=== PATIENT | female | born 1935 | race Caucasian/White ===

== ENCOUNTER 2016-08-25 08:57 | Inpatient (IN) | payer MEDICARE ==
[2016-08-25] VITALS (9 sets, daily range): BP systolic 103–142; BP diastolic 50–88; PULSE 75–90; RESP 18–20; TEMP 96.7–98.1; O2SAT 94–100
[~2016-08-25] VITALS: Ht 167.6 cm; Wt 60.0 kg
[~2016-08-25 08:57] MED LIST: ALBU2.5I INH; ASPI81TA82 PO; IPRA0.02 NEB; LEVO50TA4 PO; LOSA50TA PO; NEBUMIS6 INH; PRED10 PO; SULF-154 PO
[2016-08-25] MEDS ORDERED: SODIUM CHLORIDE 0.9% FLUSH 10 ML FLUSH IVF PRN (09:30)
[2016-08-25] MEDS ORDERED: MORPHINE SULFATE 4 MG/ML INJ IV PUSH ONE (09:30)
[2016-08-25] MEDS ORDERED: ONDANSETRON HCL 4 MG/2 ML VIAL IV PUSH ONE (09:30)
[2016-08-25 09:39] LABS: AUTOMATED NEUTROPHIL # 17.6 TH/MM3 (1.8-7.7); BASOPHIL # 0.1 TH/MM3 (0-0.2); BASOPHIL % 0.3 % (0.0-2.0); EOSINOPHIL # 0.4 TH/MM3 (0-0.4); EOSINOPHIL % 1.7 % (0.0-4.0); HEMATOCRIT 38.2 % (35.0-46.0); HEMO FLAGS DIFF FINAL; LYMPH % 14.4 % (9.0-44.0); LYMPHOCYTE # 3.3 TH/MM3 (1.0-4.8); MEAN CELL VOLUME 93.2 FL (80.0-100.0); MEAN CORPUSCULAR HEMOGLOBIN 30.6 PG (27.0-34.0); MEAN CORPUSCULAR HGB CONC 32.8 % (32.0-36.0); MONO % 5.4 % (0.0-8.0); NEUT % 78.2 % (16.0-70.0); PLATELET COUNT 315 TH/MM3 (150-450); RED CELL DISTRIBUTION WIDTH 14.6 % (11.6-17.2); WHITE BLOOD COUNT 22.5 TH/MM3 (4.0-11.0)
[2016-08-25 09:47] LABS: INTERNATIONAL NORMALIZED RATIO 0.9 RATIO; PROTHROMBIN TIME - PATIENT 10.3 SEC (9.8-11.6)
[2016-08-25] MEDS ORDERED: CYCL1TAB29 PO (09:48)
[2016-08-25] MEDS ORDERED: ASPI81CH CHEW (09:48)
[2016-08-25] MEDS ORDERED: VENTAER INH (09:48)
[2016-08-25] MEDS ORDERED: DICL75TA PO (09:48)
[2016-08-25] MEDS ORDERED: ALBU.5I NEB (09:48)
[2016-08-25] MEDS ORDERED: NAPR220C22 (09:48)
[2016-08-25] MEDS ORDERED: SIMV40TA PO (09:48)
[2016-08-25] MEDS ORDERED: LEVO50TA4 PO (09:48)
[2016-08-25] MEDS ORDERED: areds (09:48)
[2016-08-25] MEDS ORDERED: LOSA50TA PO (09:48)
[2016-08-25] MEDS ORDERED: HYDR-3516 PO (09:48)
[2016-08-25 09:54] LABS: BICARBONATE 26.4 MEQ/L (21.0-32.0); POTASSIUM 3.9 MEQ/L (3.5-5.1)
--- NOTE | 2016-08-25 09:59 | RADRPT ---
EXAM DATE/TIME: 08/25/2016 09:44 [facility] COMPARISON: HIP LEFT (AP&LAT 2/3VWS) W AP PELVIS, August 25, 2016, 9:41. INDICATIONS : Cough. MEDICAL HISTORY : Cardiovascular disease. SURGICAL HISTORY : CABG. ENCOUNTER: Initial ACUITY: 1 day PAIN SCORE: 0/10 LOCATION: Bilateral chest FINDINGS: The heart is mildly enlarged. The patient is post median sternotomy and valvular replacement. The pul monary parenchyma demonstrates mild interstitial fibrotic change but is otherwise clear. The visualiz ed bony structures are grossly intact. CONCLUSION: 1. Chronic interstitial changes and mild cardiomegaly. No acute abnormality. Rowdy Starr MD on August 25, 2016 at 9:57 Board Certified Radiologist. This report was verified electronically.
--- NOTE | 2016-08-25 10:00 | RADRPT ---
EXAM DATE/TIME: 08/25/2016 09:41 [facility] COMPARISON: CHEST SINGLE AP, April 04, 2015, 0:33. INDICATIONS : Left hip pain, fall. MEDICAL HISTORY : None. SURGICAL HISTORY : None. ENCOUNTER: Initial ACUITY: 1 day PAIN SCORE: 9/10 LOCATION: Left hip FINDINGS: The examination demonstrates a comminuted, angulated intratrochanteric fracture of the left hip. The remainder of the osseous structures of the pelvis are intact. There are degenerative changes in the lumbar spine. CONCLUSION: 1. Intratrochanteric fracture of the left hip. Rowdy Starr MD on August 25, 2016 at 9:57 Board Certified Radiologist. This report was verified electronically.
--- NOTE | 2016-08-25 10:08 | RADRPT ---
EXAM DATE/TIME: 08/25/2016 09:56 [facility] COMPARISON: No previous studies available for comparison. INDICATIONS : Head trauma, at home fall. RADIATION DOSE: 56.35 CTDIvol (mGy) MEDICAL HISTORY : Cardiovascular disease. Hypertension. COPD SURGICAL HISTORY : None. ENCOUNTER: Initial ACUITY: 1 day PAIN SCALE: 3/10 LOCATION: TECHNIQUE: Multiple contiguous axial images were obtained of the head. Using automated exposure control and adj ustment of the mA and/or kV according to patient size, radiation dose was kept as low as reasonably a chievable to obtain optimal diagnostic quality images. FINDINGS: There is marked central and cortical atrophy with dilatation of ventricular and sulcal spaces. There is no parenchymal hemorrhage, acute infarction or mass lesion identified. The couldn't infarct is present basalganglia left side. There are no extra-axial fluid collections appreciated. The pos terior fossa is unremarkable with midline fourth ventricle. The portion of the orbits are unremarka ble. Minimal maxillary sinus disease is noted on the left. CONCLUSION: Atrophy, otherwise negative. Zev Starr MD FACR on August 25, 2016 at 10:03 Board Certified Radiologist. This report was verified electronically.
--- NOTE | 2016-08-25 10:21 | PD ---
HPI Chief Complaint: Hip Injury Time Seen by Provider: 09:15 Travel History International Travel<30 days: No Contact w/Intl Traveler<30days: No Traveled to known affect area: No History of Present Illness HPI 81-year-old female who was bending down to show her son a lesion on her foot suddenly got dizzy and fell. She injured her left hip and also hit the back of her head hard. Currently she is awake and is in significant pain in her left hip area. She was brought in by EMS. Patient is awake and answering questions appropriately. Seems to be in agony from a possible hip fracture. Patient was unable to get up from the floor because of the pain. Vital signs were within acceptable limits. PFSH Past Medical History Narrative Medical List of her past medical, surgical, social and family history is reviewed from the nursing note. Blood Disorders: No Heart Rhythm Problems: Yes Cancer: No Cardiovascular Problems: Yes High Cholesterol: Yes Chest Pain: Yes Congestive Heart Failure: Yes COPD: Yes Diabetes: No Diminished Hearing: No Endocrine: Yes Gastrointestinal Disorders: Yes (DIVERTICULITIS) Genitourinary: Yes (INCONTINENCE) Hepatitis: No Hiatal Hernia: No Hypertension: Yes Immune Disorder: No Musculoskeletal: No Neurologic: No Psychiatric: No Reproductive: No Respiratory: Yes (COPD) Thyroid Disease: Yes Menopausal: No : 3 Para: 3 Past Surgical History Abdominal Surgery: Yes (APPENDECTOMY) AICD: No Appendectomy: Yes Cardiac Surgery: Yes Coronary Artery Bypass Graft: Yes Eye Surgery: Yes (BILATERAL CATARACT SX) Joint Replacement: No Pacemaker: No Valve Replacement: Yes (08/29/05 ) Other Surgery: Yes Social History Alcohol Use: No Tobacco Use: Yes Substance Use: No Allergies-Medications (Allergen,Severity, Reaction): Coded Allergies: Adhesives (Verified Allergy, Severe, ADHESIVE TAPE/BLISTERS SKIN, 08/25/16) MILD REACTION Tetracycline (Verified Allergy, Severe, 08/25/16) UNKNOWN REACTION *MDRO Multi-Drug Resistant Organism (Unverified Adverse Reaction, Unknown , Cleared 08/25/16, 08/26/16) MRSA Sputum and Blood 2005 Cleared - MRSA screen negative 04/04/15 & 08/25/16 Comments List of her allergies reviewed from the nursing note. Reported Meds & Prescriptions Reported Meds & Active Scripts Active Reported Ventolin Hfa 18 GM Inh (Albuterol Sulfate) 90 Mcg/Act Aer 2 Puff INH Q4-6H PRN Simvastatin 40 Mg Tab 40 Mg PO HS Losartan (Losartan Potassium) 50 Mg Tab 50 Mg PO DAILY Levothyroxine (Levothyroxine Sodium) 50 Mcg Tab 50 Mcg PO DAILY Narrative Medication List of her home medications reviewed from the nursing note. Review of Systems Except as stated in HPI: all other systems reviewed are Neg Physical Exam Narrative GENERAL: Awake, alert, elderly, frail, significant distress SKIN: Focused skin assessment warm/dry. HEAD: Atraumatic. Normocephalic. EYES: Pupils equal and round. No scleral icterus. No injection or drainage. ENT: No nasal bleeding or discharge. Mucous membranes pink and moist. NECK: Trachea midline. No JVD. CARDIOVASCULAR: Regular rate and rhythm. No murmur appreciated. RESPIRATORY: No accessory muscle use. Clear to auscultation. Breath sounds equal bilaterally. GASTROINTESTINAL: Abdomen soft, non-tender, nondistended. Hepatic and splenic margins not palpable. MUSCULOSKELETAL: Left leg is shortened and externally rotated. No clubbing. No cyanosis. No edema. Distal neurovascular intact NEUROLOGICAL: Awake and alert. No obvious cranial nerve deficits. Motor grossly within normal limits. Normal speech. PSYCHIATRIC: Appropriate mood and affect; insight and judgment normal. Data Data Last Documented VS Vital Signs Date Time Temp Pulse Resp B/P Pulse Ox O2 Delivery O2 Flow Rate FiO2 08/25/16 10:25 77 18 142/61 100 Nasal Cannula 2 08/25/16 09:19 98.1 Orders Electrocardiogram (08/25/16 09:17) Basic Metabolic Panel (Bmp) (08/25/16 09:17) Complete Blood Count With Diff (08/25/16 09:17) Prothrombin Time / Inr (Pt) (08/25/16 09:17) Chest, Single Ap (08/25/16 09:17) Ecg Monitoring (08/25/16 09:17) Bilateral Bp Monitoring (08/25/16 09:17) Iv Access Insert/Monitor (08/25/16:17) Oximetry (08/25/16:17) Oxygen Administration (08/25/16 09:17) Morphine Inj (Morphine Inj) (08/25/16 09:30) Sodium Chloride 0.9% Flush (Ns Flush) (08/25/16 09:30) Ondansetron Inj (Zofran Inj) (08/25/16 09:30) Hip, Uni(Ap&Lat) W Ap Pelvis (08/25/16 ) Ct Brain W/O Iv Contrast(Rout) (08/25/16 ) Type And Screen (08/25/16 09:17) Admit Order (Ed Use Only) (08/25/16 10:35) Labs Laboratory Tests Test 08/25/16 09:28 White Blood Count 22.5 TH/MM3 Red Blood Count 4.10 MIL/MM3 Hemoglobin 12.6 GM/DL Hematocrit 38.2 % Mean Corpuscular Volume 93.2 FL Mean Corpuscular Hemoglobin 30.6 PG Mean Corpuscular Hemoglobin 32.8 % Concent Red Cell Distribution Width 14.6 % Platelet Count 315 TH/MM3 Mean Platelet Volume 8.8 FL Neutrophils (%) (Auto) 78.2 % Lymphocytes (%) (Auto) 14.4 % Monocytes (%) (Auto) 5.4 % Eosinophils (%) (Auto) 1.7 % Basophils (%) (Auto) 0.3 % Neutrophils # (Auto) 17.6 TH/MM3 Lymphocytes # (Auto) 3.3 TH/MM3 Monocytes # (Auto) 1.2 TH/MM3 Eosinophils # (Auto) 0.4 TH/MM3 Basophils # (Auto) 0.1 TH/MM3 CBC Comment DIFF FINAL Differential Comment Prothrombin Time 10.3 SEC Prothromb Time International 0.9 RATIO Ratio Sodium Level 138 MEQ/L Potassium Level 3.9 MEQ/L Chloride Level 104 MEQ/L Carbon Dioxide Level 26.4 MEQ/L Anion Gap 8 MEQ/L Blood Urea Nitrogen 17 MG/DL Creatinine 0.96 MG/DL Estimat Glomerular Filtration 56 ML/MIN Rate Random Glucose 96 MG/DL Calcium Level 8.5 MG/DL Blood Type O POSITIVE Antibody Screen NEGATIVE MDM Medical Decision Making Medical Screen Exam Complete: Yes Emergency Medical Condition: Yes Medical Record Reviewed: Yes Interpretation(s) Twelve-lead EKG was reviewed by me. Atrial fibrillation, left bundle branch block. Heart rate of 79 bpm. Differential Diagnosis Hip fracture, hip dislocation Narrative Course 10:19 AM x-ray suggestive of intertrochanteric hip fracture. Head CT was done due to the history of head injury which is negative. Patient has significant leukocytosis which could be related to her stress. Rest of the workup is within normal limit. Awaiting for the hospitalist and the orthopedist to call back. Patient will require admission. Procedures EKG Prior to Arrival: No Diagnosis Primary Impression: Intertrochanteric fracture of left hip Qualified Code: S72.145A - Closed nondisplaced intertrochanteric fracture of left femur, initial encounter Additional Impressions: Fall Qualified Code: W19.XXXA - Fall, initial encounter Leukocytosis Qualified Code: D72.829 - Leukocytosis, unspecified type Admitting Information Admitting Physician Requests: Admit Scripts Docusate Sodium (Dok)100 Mg Vgx634 Mg PO BID #62 CAP Prov:Shilpa De Santiago 08/28/16 Ipratropium-Albuterol Neb (Duoneb)0.5-2.5 Mg/3 Ml Neb1 Nebule INH DIRECTED PRN (SOB/WHEEZING) #120 NEBULE Ref 0 Please give Q4H scheduled for the next 4 days, then can be used as needed. Prov:Shilpa De Santiago 08/28/16 Prednisone 20 Mg Tab20 Mg PO DIRECTED #11 TAB Ref 0 20 MG twice a day x 3 days, then 20 MG daily x 3 days, then 10 MG daily x 3 days Prov:Shilpa De Santiago 08/28/16 Mupirocin Topical (Bactroban Topical)22 Gm Cream1 Applic TOPICAL BID #1 TUBE Ref 0 apply BID to right foot 4th digit and left foot 5th digit Prov:Shilpa De Santiago 08/28/16 Aspirin 81 Mg Chew81 Mg CHEW DAILY #30 TAB Ref 0 Resume after Xarelto completed Prov:Shilpa De Santiago 08/28/16 Calcium Carbonate-Vitamin D (Calcium 600+D 200)600-200 Mg-Unit Tab1 Tab PO BID #60 TAB Ref 0 Prov:Tello Gamez Jr. 08/27/16 Ergocalciferol 50,000 Unit Cap50,000 Units PO Q7D #56 CAP Prov:Tello Gamez Jr. 08/27/16 Rivaroxaban (Xarelto)10 Mg Tab10 Mg PO DAILY #21 TAB Ref 0 Prov:Tello Gamez Jr. 08/27/16 Hydrocodone-Acetaminophen 7.5-325 mg Tab1 Tab PO Q4H PRN (PAIN) #60 TAB Ref 0 Prov:Tello Gamez Jr. 08/27/16 Walker with Front Wheels 1 Mis Mis #1 EA .ROUTE DIRECTED Ref 0 Prov:Tello Gamez Jr. 08/27/16 Laurence Nur MD Aug 25, 2016 10:21
[2016-08-25] MEDS ORDERED: ACETAMINOPHEN/HYDROcodone 325 MG/7.5 MG TAB PO PRN (11:45)
[2016-08-25] MEDS ORDERED: MORPHINE SULFATE 4 MG/ML INJ IV PUSH PRN (11:45)
[2016-08-25] MEDS: SODIUM CHLOR 0.9% 1000 ML INJ 1,000 ML IV SCH (11:50)
--- NOTE | 2016-08-25 13:38 | HHI.HP ---
HPI Service [facility] Hospitalists Primary Care Physician Garrett Mahajan M.D. Admission Diagnosis left hip fracture Chief Complaint: Left hip pain Travel History International Travel<30 Days: No Contact w/Intl Traveler <30 Da: No Traveled to Known Affected Are: No History of Present Illness Ms. Tony is a pleasant 81 y/o WF with CAD, HTN, COPD and restrictive lung disease, continued tobacco use and valvular heart disease s/p AVR in 2005 with porcine valve. She presented to the ED at [facility] on 08/25/16 with complaints of left hip pain. She states that she was bending over this morning to show her son a spot on her foot and became dizzy and fell over. She landed on her left side and had significant pain on the left hip and was unable to stand up or bear weight on that LE. Pt was brought to the ED and imaging studies revealed an intratrochanteric left hip fracture. Pt denies any chest pain, SOB, or palpitations. There was no syncope or LOC. She did hit her head when she fell but the Head CT was negative other than noted atrophy. The pt is a current every day smoker and has smoked at least 1 ppd since the age of 11 and was previously smoking 2.5ppd. She states that she does not use any nebulizers or inhalers at home. She occasionally uses supplemental O2 at night. Pt denies any fevers or chills, nausea/vomiting, or abd pain. Review of Systems Constitutional: COMPLAINS OF: Dizziness (positional), DENIES: Fever, Chills Eyes: DENIES: Vision loss Ears, nose, mouth, throat: DENIES: Hearing loss, Vertigo Respiratory: DENIES: Cough, Shortness of breath Cardiovascular: DENIES: Chest pain, Palpitations, Lower Extremity Edema Gastrointestinal: DENIES: Abdominal pain, Diarrhea, Nausea, Vomiting Genitourinary: DENIES: Hematuria, Dysuria Musculoskeletal: COMPLAINS OF: Joint pain, DENIES: Back pain, Neck pain Integumentary: DENIES: Rash Neurologic: DENIES: Headache Psychiatric: DENIES: Confusion Past Family Social History Past Medical History CAD s/p CABG x 1 in 2005 s/p AVR with bioprosthetic valve HTN Hyperlipidemia CVA, 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 ?25mg po BID -Flexeril 10 Mg PO TID PRN -Diclofenac Sodium DR 75 Mg PO ?BID -Levothyroxine 50 Mcg PO DAILY -Aspirin 81 Mg CHEW DAILY ?Albuterol Neb (Albuterol Sulfate) 2.5 Mg/0.5 Ml Neb 2.5 Mg NEB QID NEB Note: The Albuterol Sulfate Inhalation Solution is concentrated and must be diluted. Read complete instructions carefully before using. ?Ventolin Hfa 18 GM Inh (Albuterol Sulfate) 90 Mcg/Act Aer 2 Puff INH Q4-6H PRN Allergies: Coded Allergies: Adhesives (Verified Allergy, Severe, ADHESIVE TAPE/BLISTERS SKIN, 08/25/16) MILD REACTION Tetracycline (Verified Allergy, Severe, 08/25/16) UNKNOWN REACTION *MDRO Multi-Drug Resistant Organism (Unverified Adverse Reaction, Unknown , Cleared 08/25/16, 08/26/16) MRSA Sputum and Blood 2005 Cleared - MRSA screen negative 04/04/15 & 08/25/16 Family History Noncontributory Social History Current everyday smoker, smokes 1ppd since age 11 but was smoking as much as 2.5ppd. Denies any alcohol or illicit drug use Pt lives at home with her adult son, she reports that he is disabled but able to help her with her ADLs Physical Exam Vital Signs Vital Signs Date Time Temp Pulse Resp B/P Pulse Ox O2 Delivery O2 Flow Rate FiO2 08/25/16 12:07 18 08/25/16 10:25 77 18 142/61 100 Nasal Cannula 2 08/25/16 10:07 81 20 142/61 100 Nasal Cannula 2 08/25/16 09:48 18 08/25/16 09:31 97 Nasal Cannula 2 08/25/16 09:31 97 Nasal Cannula 2 08/25/16 09:19 98.1 75 20 122/88 95 Physical Exam GENERAL: This is a well-nourished, well-developed patient, in no apparent distress. SKIN: Area of macerated tissue on the lateral aspect of the 4th digit on the right foot, appears to be a pressure lesion related to 5th digit, no significant erythema or drainage noted. Small area of dried ulcerated tissue on lateral aspect of left 5th digit, no erythema or swelling noted. HEENT: Atraumatic. Normocephalic. No temporal or scalp tenderness. No scleral icterus. Airway patent. NECK: Trachea midline, supple, nontender. CARDIO: Regular. RESP: Coarse breath sounds bilaterally, improves slightly with cough. ABD: +BS, soft, non-tender, nondistended. EXT: LLE is shortened and externally rotated NEURO: Awake and alert. Motor and sensory grossly within normal limits. Normal speech. Laboratory Laboratory Tests Test 08/25/16 09:28 White Blood Count 22.5 Red Blood Count 4.10 Hemoglobin 12.6 Hematocrit 38.2 Mean Corpuscular Volume 93.2 Mean Corpuscular Hemoglobin 30.6 Mean Corpuscular Hemoglobin 32.8 Concent Red Cell Distribution Width 14.6 Platelet Count 315 Mean Platelet Volume 8.8 Neutrophils (%) (Auto) 78.2 Lymphocytes (%) (Auto) 14.4 Monocytes (%) (Auto) 5.4 Eosinophils (%) (Auto) 1.7 Basophils (%) (Auto) 0.3 Neutrophils # (Auto) 17.6 Lymphocytes # (Auto) 3.3 Monocytes # (Auto) 1.2 Eosinophils # (Auto) 0.4 Basophils # (Auto) 0.1 CBC Comment DIFF FINAL Differential Comment Prothrombin Time 10.3 Prothromb Time International 0.9 Ratio Sodium Level 138 Potassium Level 3.9 Chloride Level 104 Carbon Dioxide Level 26.4 Anion Gap 8 Blood Urea Nitrogen 17 Creatinine 0.96 Estimat Glomerular Filtration 56 Rate Random Glucose 96 Calcium Level 8.5 Blood Type O POSITIVE Antibody Screen NEGATIVE Result Diagram: 08/25/1692708/25/16927 Imaging Last Impressions Chest X-Ray 08/25/16916 Signed Impressions: Service Date/Time: Thursday, August 25, 2016 09:44 - CONCLUSION: 1. Chronic interstitial changes and mild cardiomegaly. No acute abnormality. Rowdy Starr MD Hip and Pelvis X-Ray 08/25/16 0000 Signed Impressions: Service Date/Time: Thursday, August 25, 2016 09:41 - CONCLUSION: 1. Intratrochanteric fracture of the left hip. Rowdy Starr MD Head CT 08/25/16 0000 Signed Impressions: Service Date/Time: Thursday, August 25, 2016 09:56 - CONCLUSION: Atrophy, otherwise negative. Zev Starr MD FACR Septic Shock Reassessment Heart: Regular rate and rhythm Lungs: Course Skin: Warm Assessment and Plan Problem List: (1) Intertrochanteric fracture of left hip Status: Acute Plan: - Pt is an 81 y/o female with COPD, chronic tobacco use, CAD, HTN, and hx of CVA who was admitted after a fall related to positional dizziness and sustained an intratrochanteric fracture of the left hip. - Orthopedic surgery is consulted - IVF - Pain control PRN - Duonebs scheduled Q4H - Supplemental O2 - Givens pts chronic comorbid conditions pt is higher risk with surgical intervention but that with no surgical intervention she would be bed ridden and this was discussed with the pt and she expressed understanding. She wants to proceed with surgical intervention. - IVF - Repeat labs in AM - EKG at admission reported A. fib and has a documented hx of paroxysmal atrial fibrillation post-operatively but pt is rate controlled currently - Pt will likely need SNF at the end of this hospitalization but we will discuss this further post-operatively (2) Leukocytosis Status: Acute Plan: - May be reactive leukocytosis, no evidence of any infection, no fevers/chills, no subjective complaints - She does have some noted ulcerations on two of her toes but these appear somewhat chronic possibly pressure related and do not appear to be infected. - She will need to followup outpt with podiatry - Recheck labs in AM (3) COPD (chronic obstructive pulmonary disease) Status: Chronic Plan: - Duonebs Q4H scheduled and Q2H PRN (4) HTN (hypertension) Status: Chronic Plan: - Resume Losartan in AM - Monitor (5) Hypothyroidism Status: Chronic Plan: - Cont. home meds (6) Hyperlipidemia Status: Chronic Plan: - Cont. home meds Assessment and Plan Patient examined. Assessment and plan formulated with Shilpa De Santiago PA-C. I agree with the above. Intertroch fx of hip. high risk medical pt..but pt wishes to proceed. cont scheduled nebs for copd. IS. dvt prophylaxis post op. cont home meds. ortho consulted. pain meds. Physician Certification 2 Midnight Certification Type: Admission for Inpatient Services Order for Inpatient Services The services are ordered in accordance with Medicare regulations or non- Medicare payer requirements, as applicable. In the case of services not specified as inpatient-only, they are appropriately provided as inpatient services in accordance with the 2-midnight benchmark. Estimated LOS (days): 3 3 days is the estimated time the patient will need to remain in the hospital, assuming treatment plan goals are met and no additional complications. Post-Hospital Plan: Not yet determined Problem Qualifiers (1) Intertrochanteric fracture of left hip: Qualified Code: S72.145A - Closed nondisplaced intertrochanteric fracture of left femur, initial encounter (2) Leukocytosis: Qualified Code: D72.829 - Leukocytosis, unspecified type Shilpa De Santiago Aug 25, 2016 13:38 Chad Rudolph MD Aug 25, 2016 15:48
[2016-08-25] MEDS ORDERED: ONDANSETRON HCL 4 MG/2 ML VIAL IV PRN (13:45)
[2016-08-25] MEDS ORDERED: ACETAMINOPHEN 325 MG TAB PO PRN (13:45)
[2016-08-25] MEDS ORDERED: RESP: ALBUTEROL 2.5 MG/IPRATROPIUM 0.5 MG NEB (PRN) NEB ×2 (13:45→16:00)
[2016-08-25] MEDS ORDERED: ENALAPRILAT 1.25 MG/ML VIAL IV PUSH PRN (15:30)
[2016-08-25] MEDS ORDERED: cloNIDine HCL 0.1 MG TAB PO PRN (15:30)
[2016-08-25] MEDS: RESP: ALBUTEROL 2.5 MG/IPRATROPIUM 0.5 MG NEB (SCH) NEB ×3 (16:00→23:21)
[2016-08-25] MEDS ORDERED: GENTAMICIN SULFATE 80 MG/2 ML VIAL ONE (16:04)
[2016-08-25] MEDS: ACETAMINOPHEN/HYDROcodone 325 MG/5 MG TAB PO PRN (20:07)
[2016-08-25] MEDS: PRAVASTATIN SOD 80 MG TAB PO SCH (20:07)
[2016-08-25] MEDS ORDERED: SODIUM CHLORID 0.9% 500 ML IV PRN (22:45)
[2016-08-25] MEDS ORDERED: CHLORHEXIDINE GLUCONATE 2 % 1 PACK (2 CLOTHS) TOPICAL PRN (22:45)
[2016-08-25] MEDS ORDERED: METOPROLOL TARTRATE 25 MG TAB PO PRN (22:45)
[2016-08-25] MEDS ORDERED: INSULIN HUMAN REGULAR 1,000 UNITS/10 ML VIAL SQ PRN (22:45)
[2016-08-25] MEDS ORDERED: LACTATED RINGER'S 1000 ML IV PRN (22:45)
[2016-08-25] MEDS ORDERED: POVIDONE IODINE 5% (ANTISEPSIS KIT) 4 APPLICATIONS EACH NARE PRN (22:45)
[2016-08-26] VITALS (9 sets, daily range): BP systolic 111–158; BP diastolic 48–80; PULSE 79–109; RESP 18–27; TEMP 96.6–99.2; O2SAT 92–97
[2016-08-26] MEDS: SODIUM CHLOR 0.9% 1000 ML INJ 1,000 ML IV SCH ×2 (00:50→12:45)
[2016-08-26] MEDS: RESP: ALBUTEROL 2.5 MG/IPRATROPIUM 0.5 MG NEB (SCH) NEB ×5 (03:45→20:03)
[2016-08-26] MEDS: ACETAMINOPHEN/HYDROcodone 325 MG/5 MG TAB PO PRN (05:01)
[2016-08-26 06:23] LABS: AUTOMATED NEUTROPHIL # 13.1 TH/MM3 (1.8-7.7); BASOPHIL % 0.3 % (0.0-2.0); EOSINOPHIL # 0.2 TH/MM3 (0-0.4); EOSINOPHIL % 1.3 % (0.0-4.0); HEMATOCRIT 36.1 % (35.0-46.0); HEMO FLAGS DIFF FINAL; LYMPH % 14.1 % (9.0-44.0); LYMPHOCYTE # 2.4 TH/MM3 (1.0-4.8); MEAN CORPUSCULAR HEMOGLOBIN 31.8 PG (27.0-34.0); MEAN CORPUSCULAR HGB CONC 33.8 % (32.0-36.0); MONO % 6.9 % (0.0-8.0); NEUT % 77.4 % (16.0-70.0); PLATELET COUNT 244 TH/MM3 (150-450); RED BLOOD COUNT 3.84 MIL/MM3 (4.00-5.30); WHITE BLOOD COUNT 16.8 TH/MM3 (4.0-11.0)
[2016-08-26 06:42] LABS: BICARBONATE 20.7 MEQ/L (21.0-32.0); MAGNESIUM 1.9 MG/DL (1.5-2.5)
--- NOTE | 2016-08-26 07:25 | PD.ORT.PN ---
Subjective Subjective Remarks Fall at home with son. Pain with left hip and unable to stand. X-rays show a left intertrochanteric femur fracture Objective Vitals Vital Signs Date Time Temp Pulse Resp B/P Pulse Ox O2 Delivery O2 Flow Rate FiO2 08/26/16 04:00 99.0 85 18 126/48 92 08/26/16 03:45 97 Nasal Cannula 3.00 08/25/16 23:55 98.1 85 19 103/50 95 08/25/16 23:22 94 Nasal Cannula 3.00 08/25/16 20:02 95 Nasal Cannula 3.00 08/25/16 19:00 96.7 90 18 129/60 95 08/25/16 16:04 96.7 86 20 123/71 96 08/25/16 12:07 18 08/25/16 10:25 77 18 142/61 100 Nasal Cannula 2 08/25/16 10:07 81 20 142/61 100 Nasal Cannula 2 08/25/16 09:48 18 08/25/16 09:31 97 Nasal Cannula 2 08/25/16 09:31 97 Nasal Cannula 2 08/25/16 09:19 98.1 75 20 122/88 95 I/O 08/25/16 08/25/16 08/25/16 08/26/16 08/26/16 08/26/16 07:00 15:00 23:00 07:00 15:00 23:00 Intake Total 0 ml 480 ml 150 ml Output Total 600 ml 300 ml Balance 0 ml -120 ml -150 ml Intake Oral 0 ml 480 ml 150 ml Output Urine Total 600 ml 300 ml # Voids 0 # Bowel Movements 0 0 0 Result Diagram: 08/26/160 08/26/16439 Other Results Laboratory Tests Test 08/25/16 09:28 Prothrombin Time 10.3 SEC (9.8-11.6) Prothromb Time International 0.9 RATIO Ratio Imaging Last 24 hours Impressions Chest X-Ray 08/25/16916 Signed Impressions: Service Date/Time: Thursday, August 25, 2016 09:44 - CONCLUSION: 1. Chronic interstitial changes and mild cardiomegaly. No acute abnormality. Rowdy Starr MD Objective Remarks Bilateral upper extremities: Full range of motion neurovascularly intact Right lower extremity: Full range of motion neurovascularly intact Left lower extremity: Pain to palpation over hip. No pain over the knee or ankle. Distally intact sensation good capillary refills Assessment & Plan Assessment and Plan Left intertrochanteric femur fracture Nothing by mouth Surgery this morning for IM nail fixation Sign consents Tello Gamez Jr. Aug 26, 2016 07:25
--- NOTE | 2016-08-26 08:34 | MB ---
cc: JOEL NAZARIO DATE OF CONSULTATION 08/25/2016 REASON FOR CONSULTATION Left hip fracture. CONSULTING PHYSICIAN Dr. Chad Rudolph HISTORY Florence is an 81-year-old female who has multiple medical problems including coronary artery disease, hypertension, COPD and restrictive lung disease. She had a fall at home. She states that she tripped over her walker. She recalls the fall. She had no loss of consciousness. She had immediate left hip pain. She was unable to stand or ambulate. She denies any syncope. She presented to the emergency room where x-rays revealed a displaced left hip intertrochanteric fracture. She is currently awake and alert on the orthopedic floor. Her son is at bedside. She continues to smoke. Pain is worse with movement and is improved with rest. PAST MEDICAL HISTORY ILLNESSES 1. Coronary artery disease 2. Aortic valve replacement secondary to aortic stenosis 3. Hypertension 4. CVA 5. COPD 6. High cholesterol 7. Hypothyroidism 8. Spinal stenosis SURGERIES 1. Coronary artery bypass 2. Aortic valve replacement 3. Cataract surgery MEDICATIONS Include: 1. Hydrocodone 2. Aleve 3. Simvastatin 4. Losartan 5. Flexeril 6. Diclofenac 7. Levothyroxine 8. Aspirin 9. Albuterol 10. Ventolin ALLERGIES ADHESIVE, TETRACYCLINE FAMILY HISTORY Noncontributory SOCIAL HISTORY The patient smokes at least a pack a day since age 11. She denies alcohol or drug use. She lives at home with her son. REVIEW OF SYSTEMS The patient denies headache, visual changes, neck pain, abdominal pain, nausea, vomiting, recent weight loss or numbness or tingling of her extremities. She has chronic shortness of breath. She complains of left hip pain. PHYSICAL EXAM The patient is a thin 81-year female in no acute distress. She is awake and alert. She is alert and x3. VITAL SIGNS: Temperature 99.0, pulse 85, respirations 18, blood pressure 126/48, O2 sat 92% on three liters nasal cannula. HEAD, EYES, EARS, NOSE, AND THROAT: The patient is normocephalic. Pupils are equal. NECK: Soft, nontender. Trachea is midline. ABDOMEN: Soft, nontender, nondistended. EXTREMITIES: Examination of the bilateral upper extremities reveals no pain with shoulder, elbow or wrist motion. She has intact sensation in all fingers. She has good cap refill in all fingers. Skin is intact. Radial pulses are palpable. Examination of the right leg reveals no pain with hip, knee or ankle motion. Skin is intact. Dorsalis pedis pulses palpable. Examination of left leg reveals pain with any hip motion. She is diffusely tender to palpation around her left hip. She has no tenderness around her knee, tibia or ankle. Skin is intact. Dorsalis pedis pulse is palpable. X-RAYS X-rays of left hip were reviewed. X-rays revealed a displaced left hip intertrochanteric fracture. IMPRESSION 1. COPD 2. Coronary artery disease 3. Chronic smoking 4. Left hip intertrochanteric fracture 5. Osteoporosis PLAN Treatment options were discussed with the patient. At this point, I would recommend reduction and intramedullary nail fixation of the left hip. Risks of surgery include bleeding, infection, injury to arteries, nerves and blood vessels, nonunion, malunion, painful hardware, avascular necrosis, need for hip replacement, as well as medical complications including blood clot, stroke, heart attack and . All questions were answered. I will plan on surgery today. A mid-level provider in my office, nurse practitioner or PA, may see this patient on a follow-up basis and continue to implement the objective of this plan including: Starting or adjusting medications, injections of muscle, tendon, bursa or joints, cast application, orthotic or brace application, physical therapy, further radiographic studies including x-ray, MRI, CT, ultrasounds or bone scan, vascular studies, neurologic studies, or other specialist consultations, and proceeding with surgical management as appropriate. MD JACKSON Alexandra/LEIGH ANN /7:12 AM /8:32 AM
[2016-08-26] MEDS ORDERED: KETAMINE HCL 500 MG/5 ML VIAL ONE (08:47)
[2016-08-26] MEDS ORDERED: LEVOTHYROXINE SODIUM 50 MCG TAB PO SCH (09:00)
[2016-08-26] MEDS: LOSARTAN 50 MG TAB PO SCH (09:00)
[2016-08-26] MEDS ORDERED: ceFAZolin INJ 1,000 MG VIAL IV ONE (09:01)
[2016-08-26] MEDS ORDERED: VANCOMYCIN HCL 1000 MG VIAL ONE (09:02)
[2016-08-26] MEDS ORDERED: BUPIVACAINE/EPINEPHRINE 0.25% PF 10 ML VIAL ONE (09:03)
--- NOTE | 2016-08-26 09:24 | PD.OP ---
cc: Krunal Casanova MD Operative Report Date of Surgery: Aug 26, 2016 Preoperative Diagnosis: Displaced left hip intertrochanteric fracture Postoperative Diagnosis: Procedure: Left hip reduction and intramedullary nail fixation Anesthesia: Gen. Surgeon: Krunal Casanova Tool And Equipment Rental Clerk(s): Bossman Gamez PA-C The surgical procedure was assisted by my physician paperhanger assistant. My P.A. presence was necessary throughout this case for the manipulation and positioning of the surgical extremity. My P.A. was assisting me throughout the duration of this procedure. The skill set of a physician paperhanger assistant was medically necessary to complete this procedure. During the surgical case the surgical coordinator was working at the back table and the physician paperhanger assistant was directly assisting me. Operation and Findings: Implants used: 11 mm 130 Synthes TFNA short troch nail Plan of activity: Weight-bear as tolerated Patient was seen and evaluated preoperatively. The patient has significant hip pain from intertrochanteric hip fracture. The risk and benefits of surgery were discussed in depth with the patient to include bleeding infection nonunion malunion and need for hip replacement painful hardware as well as medical competitions including but not stroke heart attack and . Informed consent was obtained. Operative site was marked. Patient was brought to the operating room and placed on fracture table. IV sedation was administered by anesthesiologist. Timeout procedure was performed. Hip and leg were prepped with alcohol followed by DuraPrep and draped in the usual sterile fashion. IV antibiotics were given prior to incision. Procedure began with reduction of fracture. Traction was applied. The leg was manipulated to achieve reduction. Excellent reduction was achieved. Fluoroscopy was used to confirm reduction. A three inch incision was made proximal to the trochanter. Subcutaneous tissue was dissected bluntly. Guidepin was placed at the tip of the trochanter and advanced into the femoral canal. Fluoroscopy confirmed appropriate guidepin placement. A opening reamer was placed over the guidepin. The Synthes TFNA nail was attached to the insertion handle. Nail was now placed through the tip of the trochanter into the femoral canal. Fluoroscopy confirmed appropriate nail placement. A second incision was made over the lateral thigh. Cannulas were placed through the insertion handle down to the femur. Guidepin was now placed through the femoral nail into the center of the femoral head. Fluoroscopy confirmed appropriate guidepin placement. Screw length was measured. Cannulated drill was placed over the guidepin. Appropriate length lag screw was now placed. Traction was released and compression was applied. The set screw was now tightened in dynamic mode. Using the insertion handle as a guide a distal interlocking screw was drilled and placed. Final fluoroscopy revealed well aligned fracture with well-placed hardware. Incision was closed with 3-0 Vicryl and jim. Sterile dressings were applied. Patient was awakened and transferred to recovery room. Krunal Casanova MD Aug 26, 2016 09:24
[2016-08-26] MEDS ORDERED: ERGOCALCIFEROL (VIT D2) 50,000 UNIT CAP PO ONE (09:30)
[2016-08-26] MEDS ORDERED: MORPHINE SULFATE 4 MG/ML INJ IV PUSH PRN (09:30)
[2016-08-26] MEDS ORDERED: diphenhydrAMINE HCL 25 MG CAP PO PRN (09:30)
[2016-08-26] MEDS ORDERED: SODIUM CHLORIDE 0.9% FLUSH 5 ML FLUSH IVF PRN (09:30)
[2016-08-26] MEDS ORDERED: DO NOT ADM ANY ANTICOAGULANT DRUGS PRN (09:45)
[2016-08-26] MEDS ORDERED: fentaNYL CITRATE 250 MCG/5 ML AMP ONE (09:53)
[2016-08-26] MEDS ORDERED: PNEUMOCOCCAL POLYVALENT INJ 25 MCG/0.5 ML SYR IM ONE (10:00)
[2016-08-26] MEDS ORDERED: *RESP: ALBUTEROL 2.5 MG/3 ML NEB (PRN) PERIprocedural Use ONLY NEB ONE (10:12)
[2016-08-26] MEDS ORDERED: RESP: ALBUTEROL 2.5 MG/IPRATROPIUM 0.5 MG NEB (SCH) NEB ONE (11:30)
[2016-08-26] MEDS ORDERED: methylPREDNISolone SOD SUCC 125 MG/2 ML VIAL IV PUSH ONE (11:30)
--- NOTE | 2016-08-26 11:52 | RADRPT ---
EXAM DATE/TIME: 08/26/2016 11:20 [facility] COMPARISON: CHEST SINGLE AP, August 25, 2016, 9:44. INDICATIONS : Patient is short of breath. MEDICAL HISTORY : Cardiovascular disease. Hypertension. COPD SURGICAL HISTORY : None. ENCOUNTER: Subsequent ACUITY: 1 day PAIN SCORE: 0/10 LOCATION: Bilateral chest FINDINGS: Mild airspace disease is identified in the right lung base. There is no significant consolidation. Th ere is no significant congestion. Postsurgical changes following CABG are noted. The heart remains within normal limits in size. Osseous structures are intact. CONCLUSION: Minimal right basilar airspace disease. Status post CABG. No other significant abnormality. Keyon Dyer MD on August 26, 2016 at 11:50 Board Certified Radiologist. This report was verified electronically.
[2016-08-26] MEDS ORDERED: PROPOFOL 200 MG/20 ML AMP IV ONE (12:00)
[2016-08-26] MEDS ORDERED: ONDANSETRON HCL 4 MG/2 ML VIAL IV PUSH ONE (12:00)
[2016-08-26] MEDS ORDERED: NEOSTIGMINE METHYLSULFATE 10 MG/10 ML VIAL IV PUSH ONE (12:00)
--- NOTE | 2016-08-26 13:06 | HHI.PR ---
Subjective Remarks Pt seen post-operatively and is feeling SOB and feels like she has phlegm in her throat that she can't get out Her O2 sats are stable BP and pulse are stable. Objective Vitals Vital Signs Date Time Temp Pulse Resp B/P Pulse Ox O2 Delivery O2 Flow Rate FiO2 08/26/16 11:33 92 Nasal Cannula 3.00 08/26/16 10:15 76 25 149/63 97 Nasal Cannula 3 08/26/16 10:00 75 22 101/69 93 Nasal Cannula 3 08/26/16 09:45 84 20 120/70 92 Nasal Cannula 3 08/26/16 09:42 97.7 85 20 132/59 96 Nasal Cannula 3 08/26/16 07:11 99.2 79 26 111/51 94 08/26/16 04:00 99.0 85 18 126/48 92 08/26/16 03:45 97 Nasal Cannula 3.00 08/25/16 23:55 98.1 85 19 103/50 95 08/25/16 23:22 94 Nasal Cannula 3.00 08/25/16 20:02 95 Nasal Cannula 3.00 08/25/16 19:00 96.7 90 18 129/60 95 08/25/16 16:04 96.7 86 20 123/71 96 08/25/16 08/25/16 08/26/16 15:00 23:00 07:00 Intake Total 0 ml 480 ml 150 ml Output Total 600 ml 300 ml Balance 0 ml -120 ml -150 ml Intake Oral 0 ml 480 ml 150 ml Output Urine Total 600 ml 300 ml # Voids 0 # Bowel Movements 0 0 0 Result Diagram: 08/26/1643908/26/16 044 Other Results Laboratory Tests Test 08/25/16 08/25/16 08/26/16 09:28 20:20 04:40 White Blood Count 22.5 TH/MM3 16.8 TH/MM3 Red Blood Count 4.10 MIL/MM3 3.84 MIL/MM3 Hemoglobin 12.6 GM/DL 12.2 GM/DL Hematocrit 38.2 % 36.1 % Mean Corpuscular Volume 93.2 FL 94.0 FL Mean Corpuscular Hemoglobin 30.6 PG 31.8 PG Mean Corpuscular Hemoglobin 32.8 % 33.8 % Concent Red Cell Distribution Width 14.6 % 15.0 % Platelet Count 315 TH/MM3 244 TH/MM3 Mean Platelet Volume 8.8 FL 9.4 FL Neutrophils (%) (Auto) 78.2 % 77.4 % Lymphocytes (%) (Auto) 14.4 % 14.1 % Monocytes (%) (Auto) 5.4 % 6.9 % Eosinophils (%) (Auto) 1.7 % 1.3 % Basophils (%) (Auto) 0.3 % 0.3 % Neutrophils # (Auto) 17.6 TH/MM3 13.1 TH/MM3 Lymphocytes # (Auto) 3.3 TH/MM3 2.4 TH/MM3 Monocytes # (Auto) 1.2 TH/MM3 1.2 TH/MM3 Eosinophils # (Auto) 0.4 TH/MM3 0.2 TH/MM3 Basophils # (Auto) 0.1 TH/MM3 0.0 TH/MM3 CBC Comment DIFF FINAL DIFF FINAL Differential Comment Prothrombin Time 10.3 SEC Prothromb Time International 0.9 RATIO Ratio Sodium Level 138 MEQ/L 136 MEQ/L Potassium Level 3.9 MEQ/L 4.0 MEQ/L Chloride Level 104 MEQ/L 104 MEQ/L Carbon Dioxide Level 26.4 MEQ/L 20.7 MEQ/L Anion Gap 8 MEQ/L 11 MEQ/L Blood Urea Nitrogen 17 MG/DL 12 MG/DL Creatinine 0.96 MG/DL 0.74 MG/DL Estimat Glomerular Filtration 56 ML/MIN 75 ML/MIN Rate Random Glucose 96 MG/DL 95 MG/DL Calcium Level 8.5 MG/DL 7.9 MG/DL Blood Type O POSITIVE Antibody Screen NEGATIVE Nasal Screen MRSA (PCR) MRSA NOT DETECTED Magnesium Level 1.9 MG/DL 25-Hydroxy Vitamin D Total 19.5 ng/ML Imaging Last Impressions Chest X-Ray 08/26/16 0000 Signed Impressions: Service Date/Time: Friday, August 26, 2016 11:20 - CONCLUSION: Minimal right basilar airspace disease. Status post CABG. No other significant abnormality. Keyon Dyer MD Hip and Pelvis X-Ray 08/25/16 0000 Signed Impressions: Service Date/Time: Thursday, August 25, 2016 09:41 - CONCLUSION: 1. Intratrochanteric fracture of the left hip. Rowdy Starr MD Head CT 08/25/16 0000 Signed Impressions: Service Date/Time: Thursday, August 25, 2016 09:56 - CONCLUSION: Atrophy, otherwise negative. Zev Starr MD FACR Last Impressions Chest X-Ray 08/25/16 0917 Signed Impressions: Service Date/Time: Thursday, August 25, 2016 09:44 - CONCLUSION: 1. Chronic interstitial changes and mild cardiomegaly. No acute abnormality. Rowdy Starr MD Hip and Pelvis X-Ray 08/25/16 0000 Signed Impressions: Service Date/Time: Thursday, August 25, 2016 09:41 - CONCLUSION: 1. Intratrochanteric fracture of the left hip. Rowdy Starr MD Head CT 08/25/16 0000 Signed Impressions: Service Date/Time: Thursday, August 25, 2016 09:56 - CONCLUSION: Atrophy, otherwise negative. Zev Starr MD FACR Objective Remarks General: Pt appears very anxious, AAOx3 Chest: Good air movement bilaterally Cardiac: Regular Abd: +BS, soft ND/NT Ext: No edema A/P Problem List: (1) Intertrochanteric fracture of left hip Status: Acute Plan: - Pt is an 81 y/o female with COPD, chronic tobacco use, CAD, HTN, and hx of CVA who was admitted after a fall related to positional dizziness and sustained an intratrochanteric fracture of the left hip. - Orthopedic surgery following - Pt underwent Left hip reduction and intramedullary nail fixation on 08/26/[address] Kang - Pain control PRN - Duonebs scheduled Q4H - Start Mucomyst Nebs BID - Pt was started on Solu-Medrol 125mg x one dose post-op and we will continue 60mg Q6H as she was having some increased SOB post-op - CXR (08/26) --> Minimal right basilar airspace disease. Status post CABG. No other significant abnormality. - Monitor for any fevers or signs of aspiration - Supplemental O2 - Repeat labs in AM - Pt will likely need SNF at the end of this hospitalization but we will discuss this further post-operatively (2) Leukocytosis Status: Acute Plan: - May be reactive leukocytosis, no evidence of any infection, no fevers/chills, no subjective complaints - She does have some noted ulcerations on two of her toes but these appear somewhat chronic possibly pressure related and do not appear to be infected. - She will need to followup outpt with podiatry (3) COPD (chronic obstructive pulmonary disease) Status: Chronic Plan: - See above. - Pt may be having some COPD flare post-op - Solu-Medrol started - Cont. Duonebs Q4H scheduled and Q2H PRN - Mucomyst (4) HTN (hypertension) Status: Chronic Plan: - Losartan - Monitor (5) Hypothyroidism Status: Chronic Plan: - Cont. home meds (6) Hyperlipidemia Status: Chronic Plan: - Cont. home meds Assessment and Plan Patient examined. Assessment and plan formulated with Shilpa De Santiago PA-C. I agree with the above. intertroch. left hip fx. s/p orif. post op sob and copd exacerbation. duonebs/solumedrol/mucomyst/oxygen .abx if no better can be considered. Problem Qualifiers (1) Intertrochanteric fracture of left hip: Qualified Code: S72.145A - Closed nondisplaced intertrochanteric fracture of left femur, initial encounter (2) Leukocytosis: Qualified Code: D72.829 - Leukocytosis, unspecified type Shilpa De Santiago Aug 26, 2016 13:05 Chad Rudolph MD Aug 26, 2016 13:08
[2016-08-26] MEDS: CALCIUM/VITAMIN D 250 MG/125 U TAB PO SCH ×2 (13:42→18:12)
[2016-08-26] MEDS: LORazepam 2 MG/ML VIAL IV PUSH PRN (13:42)
--- NOTE | 2016-08-26 14:25 | EKG ---
Date Performed: 08/25/2016 Time Performed: 09:19:53 PTAGE: 81 years EKG: ATRIAL FIBRILLATION LEFT BUNDLE BRANCH BLOCK ABNORMAL ECG Compared to prior tracing no sign ificant change PREVIOUS TRACING : 04/04/2015 09.40 DOCTOR: Lukasz Melendez Interpretating Date/Time 08/26/2016 14:24:54
--- NOTE | 2016-08-26 14:53 | RADRPT ---
EXAM DATE/TIME: 08/26/2016 09:18 [facility] COMPARISON: No previous studies available for comparison. INDICATIONS : ORIF left hip troch nail. MEDICAL HISTORY : None. SURGICAL HISTORY : None. ENCOUNTER: Subsequent ACUITY: 2 days PAIN SCORE: Non-responsive. LOCATION: Left hip. FINDINGS: The patient is status post ORIF of left hip fracture with hardware in good position. CONCLUSION: Status post ORIF of left proximal femur fracture with hardware in good position. Elan Marie MD on August 26, 2016 at 14:40 Board Certified Radiologist. This report was verified electronically.
[2016-08-26] MEDS: methylPREDNISolone SOD SUCC 125 MG/2 ML VIAL IV PUSH SCH ×2 (18:12→23:49)
[2016-08-26] MEDS: RESP: ACETYLCYSTEINE 20% 30 ML NEB NEB SCH (20:03)
[2016-08-26] MEDS: SODIUM CHLORIDE 0.9% FLUSH 5 ML FLUSH IVF SCH (21:00)
[2016-08-26] MEDS: PRAVASTATIN SOD 80 MG TAB PO SCH (21:27)
[2016-08-27] VITALS (8 sets, daily range): BP systolic 93–142; BP diastolic 48–77; PULSE 73–102; RESP 18–21; TEMP 96.8–99.4; O2SAT 93–100
[2016-08-27] MEDS: RESP: ALBUTEROL 2.5 MG/IPRATROPIUM 0.5 MG NEB (SCH) NEB ×6 (00:29→20:43)
[2016-08-27] MEDS: LEVOTHYROXINE SODIUM 50 MCG TAB PO SCH (05:54)
[2016-08-27] MEDS: ACETAMINOPHEN/HYDROcodone 325 MG/7.5 MG TAB PO PRN ×3 (05:55→18:19)
[2016-08-27] MEDS: methylPREDNISolone SOD SUCC 125 MG/2 ML VIAL IV PUSH SCH ×3 (05:55→18:09)
[2016-08-27] MEDS ORDERED: XARE10TA PO (06:46)
[2016-08-27] MEDS ORDERED: HYDR-3580 PO (06:46)
[2016-08-27] MEDS ORDERED: WALKER WHEELS/F1 MIS (06:46)
[2016-08-27] MEDS ORDERED: ERGO1CAP30 PO (06:46)
[2016-08-27] MEDS ORDERED: CALCTAB19 PO (06:46)
--- NOTE | 2016-08-27 06:49 | PD.ORT.PN ---
Subjective Subjective Remarks Pain controlled no new complaints Objective Vitals Vital Signs Date Time Temp Pulse Resp B/P Pulse Ox O2 Delivery O2 Flow Rate FiO2 08/27/16 00:10 99.4 102 19 139/69 94 08/26/16 20:03 96 Nasal Cannula 3.00 08/26/16 20:00 96.9 93 18 147/65 96 08/26/16 19:23 Nasal Cannula 3.00 08/26/16 16:45 94 Nasal Cannula 3.00 08/26/16 15:52 96.6 98 23 158/72 95 08/26/16 11:33 92 Nasal Cannula 3.00 08/26/16 11:00 96.8 109 27 119/80 95 08/26/16 10:15 76 25 149/63 97 Nasal Cannula 3 08/26/16 10:00 75 22 101/69 93 Nasal Cannula 3 08/26/16 09:45 84 20 120/70 92 Nasal Cannula 3 08/26/16 09:42 97.7 85 20 132/59 96 Nasal Cannula 3 08/26/16 07:11 99.2 79 26 111/51 94 I/O 08/26/16 08/26/16 08/26/16 08/27/16 08/27/16 08/27/16 07:00 15:00 23:00 07:00 15:00 23:00 Intake Total 150 ml 1190 ml 310 ml 707 ml Output Total 300 ml 625 ml 400 ml 775 ml Balance -150 ml 565 ml -90 ml -68 ml Intake Oral 150 ml 240 ml 60 ml 240 ml IV Total 250 ml 250 ml 467 ml Other 700 ml Output Urine Total 300 ml 525 ml 400 ml 775 ml Estimated Blood Loss 100 ml Other 0 ml # Voids 0 # Bowel Movements 0 0 0 0 Result Diagram: 08/26/1643908/26/16439 Imaging Last 24 hours Impressions Chest X-Ray 08/25/16916 Signed Impressions: Service Date/Time: Thursday, August 25, 2016 09:44 - CONCLUSION: 1. Chronic interstitial changes and mild cardiomegaly. No acute abnormality. Rowdy Starr MD Objective Remarks Bilateral upper extremities: Full range of motion neurovascularly intact Right lower extremity: Full range of motion neurovascularly intact Left lower extremity: Clean dry dressings intact. Mild swelling. Distally intact sensation with good capillary refills. Strong dorsal flexion plantar flexion of foot Assessment & Plan Assessment and Plan Left intertrochanteric femur fracture POD #1 IM nail Physical therapy weightbearing as tolerated left lower extremity Daily dressing changes beginning POD 2 Lovenox then convert to Xarelto at discharge Incentive spirometry Case management for rehabilitation placement Follow-up appointment with Dr. Casanova or PA in 2 weeks Tello Gamez Jr. Aug 27, 2016 06:49
[2016-08-27 07:27] LABS: AUTOMATED NEUTROPHIL # 17.9 TH/MM3 (1.8-7.7); HEMATOCRIT 34.5 % (35.0-46.0); HEMO FLAGS DIFF FINAL; LYMPH % 6.4 % (9.0-44.0); LYMPHOCYTE # 1.3 TH/MM3 (1.0-4.8); MEAN CELL VOLUME 94.1 FL (80.0-100.0); MEAN CORPUSCULAR HEMOGLOBIN 30.8 PG (27.0-34.0); MEAN CORPUSCULAR HGB CONC 32.7 % (32.0-36.0); MONO % 5.1 % (0.0-8.0); NEUT % 88.5 % (16.0-70.0); PLATELET COUNT 222 TH/MM3 (150-450); RED BLOOD COUNT 3.67 MIL/MM3 (4.00-5.30); RED CELL DISTRIBUTION WIDTH 14.3 % (11.6-17.2); WHITE BLOOD COUNT 20.3 TH/MM3 (4.0-11.0)
[2016-08-27 07:44] LABS: BICARBONATE 25.2 MEQ/L (21.0-32.0); POTASSIUM 4.1 MEQ/L (3.5-5.1)
[2016-08-27] MEDS: RESP: ACETYLCYSTEINE 20% 30 ML NEB NEB SCH ×2 (08:03→20:43)
[2016-08-27] MEDS: SODIUM CHLORIDE 0.9% FLUSH 5 ML FLUSH IVF SCH ×2 (09:00→21:00)
[2016-08-27] MEDS: CHOLECALCIFEROL (VIT D3) 5000 UNIT CAP PO SCH (09:08)
[2016-08-27] MEDS: CALCIUM/VITAMIN D 250 MG/125 U TAB PO SCH ×3 (09:08→18:09)
[2016-08-27] MEDS: LOSARTAN 50 MG TAB PO SCH (09:08)
[2016-08-27] MEDS: ENOXAPARIN SODIUM 30 MG/0.3 ML SYRINGE SQ SCH (09:09)
--- NOTE | 2016-08-27 09:25 | HHI.PR ---
Subjective Remarks says she is bringing up clear phlegm. Objective Vitals heart reg lung course bs mari abd s/nt ext no edema Vital Signs Date Time Temp Pulse Resp B/P Pulse Ox O2 Delivery O2 Flow Rate FiO2 08/27/16 08:04 98 Nasal Cannula 3.00 08/27/16 08:00 97.7 73 19 136/77 98 08/27/16 04:30 98.5 79 18 140/64 95 08/27/16 00:10 99.4 102 19 139/69 94 08/26/16 20:03 96 Nasal Cannula 3.00 08/26/16 20:00 96.9 93 18 147/65 96 08/26/16 19:23 Nasal Cannula 3.00 08/26/16 16:45 94 Nasal Cannula 3.00 08/26/16 15:52 96.6 98 23 158/72 95 08/26/16 11:33 92 Nasal Cannula 3.00 08/26/16 11:00 96.8 109 27 119/80 95 08/26/16 10:15 76 25 149/63 97 Nasal Cannula 3 08/26/16 10:00 75 22 101/69 93 Nasal Cannula 3 08/26/16 09:45 84 20 120/70 92 Nasal Cannula 3 08/26/16 09:42 97.7 85 20 132/59 96 Nasal Cannula 3 08/26/16 08/26/16 08/27/16 15:00 23:00 07:00 Intake Total 1190 ml 310 ml 707 ml Output Total 625 ml 400 ml 775 ml Balance 565 ml -90 ml -68 ml Intake Oral 240 ml 60 ml 240 ml IV Total 250 ml 250 ml 467 ml Other 700 ml Output Urine Total 525 ml 400 ml 775 ml Estimated Blood Loss 100 ml Other 0 ml # Voids 0 # Bowel Movements 0 0 0 Result Diagram: 08/27/16 0621 08/27/16 0627 Imaging Last Impressions Chest X-Ray 08/26/16 0000 Signed Impressions: Service Date/Time: Friday, August 26, 2016 11:20 - CONCLUSION: Minimal right basilar airspace disease. Status post CABG. No other significant abnormality. Keyon Dyer MD Hip and Pelvis X-Ray 08/25/16 0000 Signed Impressions: Service Date/Time: Thursday, August 25, 2016 09:41 - CONCLUSION: 1. Intratrochanteric fracture of the left hip. Rowdy Starr MD Head CT 08/25/16 0000 Signed Impressions: Service Date/Time: Thursday, August 25, 2016 09:56 - CONCLUSION: Atrophy, otherwise negative. Zev Starr MD FACR Last Impressions Chest X-Ray 08/25/1617 Signed Impressions: Service Date/Time: Thursday, August 25, 2016 09:44 - CONCLUSION: 1. Chronic interstitial changes and mild cardiomegaly. No acute abnormality. Rowdy Starr MD Hip and Pelvis X-Ray 08/25/16 0000 Signed Impressions: Service Date/Time: Thursday, August 25, 2016 09:41 - CONCLUSION: 1. Intratrochanteric fracture of the left hip. Rowdy Starr MD Head CT 08/25/16 0000 Signed Impressions: Service Date/Time: Thursday, August 25, 2016 09:56 - CONCLUSION: Atrophy, otherwise negative. Zev Starr MD FACR A/P Problem List: (1) Intertrochanteric fracture of left hip Status: Acute Plan: - Pt is an 81 y/o female with COPD, chronic tobacco use, CAD, HTN, and hx of CVA who was admitted after a fall related to positional dizziness and sustained an intratrochanteric fracture of the left hip. - Pt underwent Left hip reduction and intramedullary nail fixation on 08/26/[address] Kang -developed post op copd exacerbation - CXR (08/26) --> Minimal right basilar airspace disease. Status post CABG. No other significant abnormality. - Pain control PRN - Duonebs scheduled Q4H - Started Mucomyst Nebs BID - solumedrol then prednisone taper -- Monitor for any fevers or signs of aspiration - Supplemental O2 - will need snf. -d/c zeferino. IS (2) COPD (chronic obstructive pulmonary disease) Status: Chronic Plan: - See above. (3) HTN (hypertension) Status: Chronic Plan: - Losartan - Monitor (4) Hypothyroidism Status: Chronic Plan: - Cont. home meds (5) Hyperlipidemia Status: Chronic Plan: - Cont. home meds Problem Qualifiers (1) Intertrochanteric fracture of left hip: Qualified Code: S72.145A - Closed nondisplaced intertrochanteric fracture of left femur, initial encounter Chad Rudolph MD Aug 27, 2016 09:25
[2016-08-27] MEDS ORDERED: PNEUMOCOCCAL POLYVALENT INJ 25 MCG/0.5 ML SYR IM ONE (10:00)
[2016-08-27] MEDS: SODIUM CHLOR 0.9% 1000 ML INJ 1,000 ML IV SCH (12:48)
[2016-08-27] MEDS: PRAVASTATIN SOD 80 MG TAB PO SCH (21:23)
[2016-08-27] MEDS: LORazepam 2 MG/ML VIAL IV PUSH PRN (22:49)
[2016-08-28] VITALS (7 sets, daily range): BP systolic 125–155; BP diastolic 56–76; PULSE 63–145; RESP 18–20; TEMP 97–98.3; O2SAT 89–99
[2016-08-28] MEDS: RESP: ALBUTEROL 2.5 MG/IPRATROPIUM 0.5 MG NEB (SCH) NEB ×6 (00:42→20:01)
[2016-08-28] MEDS: SODIUM CHLOR 0.9% 1000 ML INJ 1,000 ML IV SCH (02:15)
[2016-08-28] MEDS: methylPREDNISolone SOD SUCC 125 MG/2 ML VIAL IV PUSH SCH ×4 (06:00→17:04)
[2016-08-28] MEDS: LEVOTHYROXINE SODIUM 50 MCG TAB PO SCH (06:33)
--- NOTE | 2016-08-28 06:55 | PD.ORT.PN ---
Subjective Subjective Remarks Pain controlled no new complaints Objective Vitals Vital Signs Date Time Temp Pulse Resp B/P Pulse Ox O2 Delivery O2 Flow Rate FiO2 08/28/16 04:15 97.8 78 19 143/72 97 08/28/16 00:44 99 Nasal Cannula 3.00 08/28/16 00:15 97.6 85 20 155/75 96 08/27/16 20:44 100 Nasal Cannula 3.00 08/27/16 20:15 97.0 89 19 116/76 93 08/27/16 19:15 16 08/27/16 16:00 96.8 93 18 142/74 100 08/27/16 12:00 96.9 92 21 93/48 95 08/27/16 08:04 98 Nasal Cannula 3.00 08/27/16 08:00 97.7 73 19 136/77 98 I/O 08/27/16 08/27/16 08/27/16 08/28/16 08/28/16 08/28/16 07:00 15:00 23:00 07:00 15:00 23:00 Intake Total 707 ml 600 ml 240 ml 120 ml Output Total 775 ml 500 ml 200 ml Balance -68 ml 100 ml 240 ml -80 ml Intake Oral 240 ml 600 ml 240 ml 120 ml IV Total 467 ml Output Urine Total 775 ml 500 ml 200 ml # Voids 2 # Bowel Movements 0 0 Result Diagram: 08/27/16 0621 08/27/16 0627 Imaging Last 24 hours Impressions Chest X-Ray 08/25/16 0917 Signed Impressions: Service Date/Time: Thursday, August 25, 2016 09:44 - CONCLUSION: 1. Chronic interstitial changes and mild cardiomegaly. No acute abnormality. Rowdy Starr MD Objective Remarks Bilateral upper extremities: Full range of motion neurovascularly intact Right lower extremity: Full range of motion neurovascularly intact Left lower extremity: Clean dry dressings intact. Mild swelling. Distally intact sensation with good capillary refills. Strong dorsal flexion plantar flexion of foot Assessment & Plan Assessment and Plan Left intertrochanteric femur fracture POD #2 IM nail Physical therapy weightbearing as tolerated left lower extremity Daily dressing changes Lovenox then convert to Xarelto at discharge Incentive spirometry Case management for rehabilitation placement Orthopedically cleared for discharge to rehabilitation Follow-up appointment with Dr. Casanova or PA in 2 weeks Tello Gamez Jr. Aug 28, 2016 06:55
[2016-08-28] MEDS: RESP: ACETYLCYSTEINE 20% 30 ML NEB NEB SCH ×2 (08:46→20:02)
[2016-08-28] MEDS: SODIUM CHLORIDE 0.9% FLUSH 5 ML FLUSH IVF SCH ×2 (09:00→21:00)
[2016-08-28] MEDS ORDERED: BISACODYL EC 5 MG TABEC PO PRN (09:30)
[2016-08-28] MEDS ORDERED: MAGNESIUM HYDROXIDE SUSP 30 ML CUP PO PRN (09:30)
[2016-08-28] MEDS: CALCIUM/VITAMIN D 250 MG/125 U TAB PO SCH ×3 (09:59→17:03)
[2016-08-28] MEDS: CHOLECALCIFEROL (VIT D3) 5000 UNIT CAP PO SCH (09:59)
[2016-08-28] MEDS: LOSARTAN 50 MG TAB PO SCH (09:59)
[2016-08-28] MEDS: ENOXAPARIN SODIUM 30 MG/0.3 ML SYRINGE SQ SCH (09:59)
[2016-08-28] MEDS: ACETAMINOPHEN/HYDROcodone 325 MG/7.5 MG TAB PO PRN ×2 (10:06→18:05)
[2016-08-28] MEDS ORDERED: IPRASOL INH (10:32)
[2016-08-28] MEDS ORDERED: MUPI2%T TOPICAL (10:32)
[2016-08-28] MEDS ORDERED: ASPI81CH CHEW (10:32)
[2016-08-28] MEDS ORDERED: PRED20 PO (10:32)
[2016-08-28] MEDS ORDERED: DOCU1CAP39 PO (10:37)
--- NOTE | 2016-08-28 10:48 | HHI.DCPOC ---
Discharge Care Plan Diagnosis: (1) Intertrochanteric fracture of left hip (2) COPD (chronic obstructive pulmonary disease) (3) HTN (hypertension) (4) Hypothyroidism (5) Hyperlipidemia (6) Toe ulcer Goals to Promote Your Health - Pt is to followup with Dr. Kang in 2 weeks - Pt is to followup with Dr. Perez on 09/02/16 @ 2:45PM - Pt is to followup with her PCP, Dr. Mahajan, 1 week after discharge from SNF - Pt will continue to taper her steroids, 20mg twice daily x 4 days, then decrease to 20mg once daily x 3 days, then decrease to 10mg once daily x 3 days, then stop - Pt will continue Duoneb breathing treatments every 4 hours for the next 4 days and then taper to every 4 hours as needed. Directions to Meet Your Goals Take your medications as prescribed Follow your dietary instruction Follow activity as directed Keep your appointments as scheduled Take your immunizations and boosters as scheduled If your symptoms worsen call your PCP, if no PCP go to Urgent Care Center or Emergency Room Smoking is Dangerous to Your Health. Avoid second hand smoke Call the 24-hour hour crisis hotline for domestic abuse at Shilpa De Santiago Aug 28, 2016 10:48
--- NOTE | 2016-08-28 10:52 | HHI.DS ---
Discharge Summary Admission Date Aug 25, 2016 at 10:36 Discharge Date: Aug 29, 2016 Admitting Diagnosis left hip fracture (1) Intertrochanteric fracture of left hip Diagnosis: Principal (2) Leukocytosis Diagnosis: Secondary (3) COPD (chronic obstructive pulmonary disease) Diagnosis: Secondary (4) HTN (hypertension) Diagnosis: Secondary (5) Hypothyroidism Diagnosis: Secondary (6) Hyperlipidemia Diagnosis: Secondary (7) Toe ulcer Diagnosis: Secondary Consultants Dr. Krunal Kang - Orthopedic surgery Procedures Left hip reduction and intramedullary nail fixation on 08/26/[address] Kang Brief History Ms. Tony is a pleasant 81 y/o WF with CAD, HTN, COPD and restrictive lung disease, continued tobacco use and valvular heart disease s/p AVR in 2005 with porcine valve. She presented to the ED at [facility] on 08/25/16 with complaints of left hip pain. She states that she was bending over this morning to show her son a spot on her foot and became dizzy and fell over. She landed on her left side and had significant pain on the left hip and was unable to stand up or bear weight on that LE. Pt was brought to the ED and imaging studies revealed an intratrochanteric left hip fracture. Pt denies any chest pain, SOB, or palpitations. There was no syncope or LOC. She did hit her head when she fell but the Head CT was negative other than noted atrophy. The pt is a current every day smoker and has smoked at least 1 ppd since the age of 11 and was previously smoking 2.5ppd. She states that she does not use any nebulizers or inhalers at home. She occasionally uses supplemental O2 at night. Pt denies any fevers or chills, nausea/vomiting, or abd pain. CBC/BMP: 08/27/16 0621 08/27/16 0627 Significant Findings Laboratory Tests Test 08/26/16 08/27/16 08/27/16 04:40 06:21 06:27 White Blood Count 16.8 TH/MM3 20.3 TH/MM3 (4.0-11.0) (4.0-11.0) Red Blood Count 3.84 MIL/MM3 3.67 MIL/MM3 (4.00-5.30) (4.00-5.30) Neutrophils (%) (Auto) 77.4 % 88.5 % (16.0-70.0) (16.0-70.0) Neutrophils # (Auto) 13.1 TH/MM3 17.9 TH/MM3 (1.8-7.7) (1.8-7.7) Monocytes # (Auto) 1.2 TH/MM3 1.0 TH/MM3 (0-0.9) (0-0.9) Carbon Dioxide Level 20.7 MEQ/L (21.0-32.0) Estimat Glomerular Filtration 75 ML/MIN (>89) 66 ML/MIN (>89) Rate Calcium Level 7.9 MG/DL 8.2 MG/DL (8.5-10.1) (8.5-10.1) 25-Hydroxy Vitamin D Total 19.5 ng/ML (30-100) Hemoglobin 11.3 GM/DL (11.6-15.3) Hematocrit 34.5 % (35.0-46.0) Lymphocytes (%) (Auto) 6.4 % (9.0-44.0) Sodium Level 135 MEQ/L (136-145) Random Glucose 146 MG/DL (74-106) Imaging Last Impressions Hip X-Ray 08/26/16 0000 Signed Impressions: Service Date/Time: Friday, August 26, 2016 09:18 - CONCLUSION: Status post ORIF of left proximal femur fracture with hardware in good position. Elan Marie MD Chest X-Ray 08/26/16 0000 Signed Impressions: Service Date/Time: Friday, August 26, 2016 11:20 - CONCLUSION: Minimal right basilar airspace disease. Status post CABG. No other significant abnormality. Keyon Dyer MD Hip and Pelvis X-Ray 08/25/16 0000 Signed Impressions: Service Date/Time: Thursday, August 25, 2016 09:41 - CONCLUSION: 1. Intratrochanteric fracture of the left hip. Rowdy Starr MD Head CT 08/25/16 0000 Signed Impressions: Service Date/Time: Thursday, August 25, 2016 09:56 - CONCLUSION: Atrophy, otherwise negative. Zev Starr MD FACR PE at Discharge General: NAD, AAOx3 Chest: Improved aeration bilaterally Cardiac: Regular Abd: +BS, soft ND/NT Ext: No edema, right foot 4th digit with ulceration on the lateral aspect with no erythema or drainage, small ulceration on the left foot 5th digit, lateral aspect with no erythema or drainage Hospital Course Pt is an 81 y/o female with COPD, chronic tobacco use, CAD, HTN, and hx of CVA who was admitted after a fall related to positional dizziness and sustained an intratrochanteric fracture of the left hip. Pt underwent Left hip reduction and intramedullary nail fixation on 08/26/[address] Kang. She developed post op COPD exacerbation. CXR (08/26) showed minimal right basilar airspace disease. Pt was started on Duonebs scheduled Q4H and Solu-Medrol as well as Mucomyst Nebs BID. Pt had clinical improvement with the treatment for her COPD exacerbation but still required supplemental O2 prior to discharge. She had been using supplemental O2 at night prior to this hospitalization. Pt will continue to taper her steroids, 20mg twice daily x 4 days, then decrease to 20mg once daily x 3 days, then decrease to 10mg once daily x 3 days, then stop. Pt will continue Duoneb breathing treatments every 4 hours for the next 4 days and then taper to every 4 hours as needed. She progressed well with PT but will need continued rehab at SNF. She will also be discharged on Xarelto 10mg daily x 21 days and will resume her ASA after Xarelto completed. Pain medications were written by Ortho. She will continue stool softeners daily as well. Pt is to followup with Dr. Kang in 2 weeks She had a noted right 4th digit toe ulcer and left 5th digit toe ulcer at admission. Pt had been seen by her mental health aides teacher, Dr. Perez, on 08/19/16, and was started on Bactrim BID x 10 days which she had almost completed prior to admission. I spoke with Dr. Perez's office and scheduled a followup with Dr. Perez on 09/02/16 @ 2:45PM for her. We will also get an VOLODYMYR with Duplex PRN completed prior to her discharge to SNF today. We will order Bactroban BID to be applied to the ulcerated areas on her toes until the pt is seen in followup by podiatry for further recommendations. Pt is to followup with her PCP, Dr. Mahajan, 1 week after discharge from SNF Pt Condition on Discharge: Stable Discharge Disposition: Discharge to SNF Discharge Instructions DIET: Follow Instructions for: Heart Healthy Diet Activities you can perform: Weight Bearing as Fabrice Follow up Referrals: Orthopedics - 2 Weeks [facility] with Krunal Kang MD PCP Follow-up - [address] Garrett Mahajan Podiatry - 09/02/16 with Jimmy Perez III DPM New Medications: Calcium Carbonate-Vitamin D (Calcium 600+D 200) 600-200 Mg-Unit Tab 1 TAB PO BID Nutritional Supplement #60 Ref 0 TAB Ergocalciferol (Ergocalciferol) 50,000 Unit Cap 00742 UNITS PO Q7D Nutritional Supplement #56 CAP Hydrocodone-Acetaminophen (Hydrocodone-Acetaminophen) 7.5-325 mg Tab 1 TAB PO Q4H PRN PAIN #60 Ref 0 TAB Ipratropium-Albuterol Neb (Duoneb) 0.5-2.5 Mg/3 Ml Neb 1 NEBULE INH DIRECTED Please give Q4H scheduled for the next 4 days, then can be used as needed. PRN SOB/WHEEZING #120 Ref 0 NEBULE Mupirocin Topical (Bactroban Topical) 22 Gm Cream 1 APPLIC TOPICAL BID apply BID to right foot 4th digit and left foot 5th digit Mgmt Bacterial Infection #1 Ref 0 TUBE Prednisone (Prednisone) 20 Mg Tab 20 MG PO DIRECTED 20 MG twice a day x 3 days, then 20 MG daily x 3 days, then 10 MG daily x 3 days Inflammation #11 Ref 0 TAB Rivaroxaban (Xarelto) 10 Mg Tab 10 MG PO DAILY Blood Clot Prevention #21 Ref 0 TAB Walker with Front Wheels (Walker with Front Wheels) 1 Mis Mis 1 EA .ROUTE DIRECTED #1 Ref 0 EA Docusate Sodium (Dok) 100 Mg Cap 100 MG PO BID constipation precautions #62 CAP Changed Medications: Aspirin (Aspirin) 81 Mg Chew 81 MG CHEW DAILY Resume after Xarelto completed hx of cva #30 Ref 0 TAB ( Medication details modified) Continued Medications: Albuterol 18 GM Inh (Ventolin Hfa 18 GM Inh) 90 Mcg/Act Aer 2 PUFF INH Q4-6H PRN SHORTNESS OF BREATH #1 Ref 0 INHALER Levothyroxine (Levothyroxine) 50 Mcg Tab 50 MCG PO DAILY Thyroid #30 Ref 0 TAB Losartan (Losartan) 50 Mg Tab 50 MG PO DAILY Blood Pressure Management #30 Ref 0 TAB Simvastatin (Simvastatin) 40 Mg Tab 40 MG PO HS Cholesterol Management #30 Ref 0 TAB Discontinued Medications: Albuterol Neb (Albuterol Neb) 2.5 Mg/0.5 Ml Neb 2.5 MG NEB QID NEB Note: The Albuterol Sulfate Inhalation Solution is concentrated and must be diluted. Read complete instructions carefully before using. Breathing Treatment #120 Ref 0 NEBULE Cyclobenzaprine (Flexeril) 10 Mg Tab 10 MG PO TID Muscle Spasm #90 Ref [address] (Diclofenac Sodium DR) 75 Mg Tabdr 75 MG PO BID #60 Ref 0 TAB Hydrocodone-Acetaminophen (Hydrocodone-Acetaminophen) 5-325 mg Tab 1 TAB PO Q6H PRN PAIN Ref 0 TAB Naproxen Sodium (Aleve) 220 Mg Capsule ([areds]) Shilpa De Santiago Aug 28, 2016 10:52
[2016-08-28] MEDS: DOCUSATE SODIUM 100 MG CAP PO SCH ×2 (11:11→21:00)
[2016-08-28] MEDS: MUPIROCIN 2% OINT 22 GM TUBE TOPICAL SCH ×2 (12:30→21:30)
[2016-08-28] MEDS ORDERED: BISACODYL 10 MG SUPP RECTAL ONE (15:45)
[2016-08-28] MEDS: PRAVASTATIN SOD 80 MG TAB PO SCH (21:26)
--- NOTE | 2016-08-28 23:10 | RADRPT ---
EXAM DATE/TIME: 08/28/2016 00:00 [facility] COMPARISON: No previous studies available for comparison. INDICATIONS : Left Hip Fracture TECHNIQUE: Four-cuff ankle and brachial pressures were obtained. Pulse cuff waveform tracings of the ankles were recorded, and ankle-brachial indices were calculated. PRESSURES (mmHg): Brachial (arm): Right 134 Left 147 Ankle: Right 141 Left 136 VOLODYMYR: Right 0.96 Left 0.93 TBI: Right 0.00 Left 0.00 PULSED CUFF WAVEFORMS: Demonstrate normal amplitude bilaterally. CONCLUSION: 1. Normal ankle brachial indices. Wilner Curtis MD on August 28, 2016 at 23:08 Board Certified Radiologist. This report was verified electronically.
[2016-08-29] MEDS: methylPREDNISolone SOD SUCC 125 MG/2 ML VIAL IV PUSH SCH ×2 (00:27→06:01)
[2016-08-29] MEDS: SODIUM CHLOR 0.9% 1000 ML INJ 1,000 ML IV SCH (00:27)
[2016-08-29 00:35] VITALS: BP 150/73; PULSE 76; RESP 21; TEMP 96.7; O2SAT 95
[2016-08-29] MEDS: RESP: ALBUTEROL 2.5 MG/IPRATROPIUM 0.5 MG NEB (SCH) NEB ×2 (04:45→07:23)
[2016-08-29] MEDS: LEVOTHYROXINE SODIUM 50 MCG TAB PO SCH (06:00)
[2016-08-29] MEDS: ACETAMINOPHEN/HYDROcodone 325 MG/7.5 MG TAB PO PRN ×2 (06:01→11:00)
--- NOTE | 2016-08-29 06:40 | PD.ORT.PN ---
Subjective Subjective Remarks Patient is awake. Appears comfortable. No complaints. Objective Vitals Vital Signs Date Time Temp Pulse Resp B/P Pulse Ox O2 Delivery O2 Flow Rate FiO2 08/29/16 00:35 96.7 76 21 150/73 95 08/28/16 20:15 98.3 74 20 125/56 96 08/28/16 20:03 Nasal Cannula 3.00 08/28/16 16:00 97.0 145 20 150/76 93 08/28/16 12:00 97.4 90 18 125/71 91 08/28/16 08:54 Nasal Cannula 3.00 08/28/16 08:00 97.0 63 18 146/62 89 I/O 08/28/16 08/28/16 08/28/16 08/29/16 08/29/16 08/29/16 07:00 15:00 23:00 07:00 15:00 23:00 Intake Total 120 ml 240 ml Output Total 200 ml Balance -80 ml 240 ml Intake Oral 120 ml 240 ml Output Urine Total 200 ml # Voids 2 1 # Bowel Movements 0 1 Result Diagram: 08/27/16 0621 08/27/1627 Imaging Last 24 hours Impressions Chest X-Ray 08/25/16916 Signed Impressions: Service Date/Time: Thursday, August 25, 2016 09:44 - CONCLUSION: 1. Chronic interstitial changes and mild cardiomegaly. No acute abnormality. Rowdy Starr MD Objective Remarks Bilateral upper extremities: Full range of motion, neurovascularly intact Right lower extremity: Full range of motion without pain, neurovascularly intact Left lower extremity: Clean dry dressings intact. Mild swelling. intact sensation with good capillary refill. Strong dorsal flexion plantar flexion of foot Assessment & Plan Assessment and Plan Left intertrochanteric femur fracture POD #3 IM nail Physical therapy weightbearing as tolerated left lower extremity Daily dressing changes Lovenox then convert to Xarelto at discharge Incentive spirometry Case management for rehabilitation placement Orthopedically cleared for discharge to rehabilitation Follow-up appointment with Dr. Casanova or PA in 2 weeks Krunal Casanova MD Aug 29, 2016 06:40
[2016-08-29 07:26] VITALS: O2SAT 98
[2016-08-29] MEDS: RESP: ACETYLCYSTEINE 20% 30 ML NEB NEB SCH (07:26)
[2016-08-29 08:00] VITALS: BP 138/57; PULSE 119; RESP 18; TEMP 97.8; O2SAT 92
[2016-08-29] MEDS: SODIUM CHLORIDE 0.9% FLUSH 5 ML FLUSH IVF SCH (09:00)
[2016-08-29] MEDS: ENOXAPARIN SODIUM 30 MG/0.3 ML SYRINGE SQ SCH (09:04)
[2016-08-29] MEDS: CALCIUM/VITAMIN D 250 MG/125 U TAB PO SCH (09:05)
[2016-08-29] MEDS: CHOLECALCIFEROL (VIT D3) 5000 UNIT CAP PO SCH (09:05)
[2016-08-29] MEDS: LOSARTAN 50 MG TAB PO SCH (09:05)
[2016-08-29] MEDS: DOCUSATE SODIUM 100 MG CAP PO SCH (09:05)
[2016-08-29] MEDS: MUPIROCIN 2% OINT 22 GM TUBE TOPICAL SCH (09:06)
--- NOTE | 2016-08-29 10:56 | HHI.PR ---
Subjective Remarks Pts discharge was delayed because the VOLODYMYR wasn't able to be performed until late Pt without complaints She had a BM yesterday Objective Vitals Vital Signs Date Time Temp Pulse Resp B/P Pulse Ox O2 Delivery O2 Flow Rate FiO2 08/29/16 08:00 97.8 119 18 138/57 92 08/29/16 07:26 98 Nasal Cannula 3.00 08/29/16 00:35 96.7 76 21 150/73 95 08/28/16 20:15 98.3 74 20 125/56 96 08/28/16 20:03 Nasal Cannula 3.00 08/28/16 16:00 97.0 145 20 150/76 93 08/28/16 12:00 97.4 90 18 125/71 91 08/28/16 08/28/16 08/29/16 15:00 23:00 07:00 Intake Total 240 ml 240 ml Balance 240 ml 240 ml Intake Oral 240 ml 240 ml # Voids 1 4 # Bowel Movements 1 0 Result Diagram: 08/27/16 0621 08/27/1627 Imaging Last Impressions Chest X-Ray 08/26/16 0000 Signed Impressions: Service Date/Time: Friday, August 26, 2016 11:20 - CONCLUSION: Minimal right basilar airspace disease. Status post CABG. No other significant abnormality. Keyon Dyer MD Hip and Pelvis X-Ray 08/25/16 0000 Signed Impressions: Service Date/Time: Thursday, August 25, 2016 09:41 - CONCLUSION: 1. Intratrochanteric fracture of the left hip. Rowdy Starr MD Head CT 08/25/16 0000 Signed Impressions: Service Date/Time: Thursday, August 25, 2016 09:56 - CONCLUSION: Atrophy, otherwise negative. Zev Starr MD FACR Last Impressions Chest X-Ray 08/25/16916 Signed Impressions: Service Date/Time: Thursday, August 25, 2016 09:44 - CONCLUSION: 1. Chronic interstitial changes and mild cardiomegaly. No acute abnormality. Rowdy Starr MD Hip and Pelvis X-Ray 08/25/16 0000 Signed Impressions: Service Date/Time: Thursday, August 25, 2016 09:41 - CONCLUSION: 1. Intratrochanteric fracture of the left hip. Rowdy Starr MD Head CT 08/25/16 0000 Signed Impressions: Service Date/Time: Thursday, August 25, 2016 09:56 - CONCLUSION: Atrophy, otherwise negative. Zev Starr MD FACR Objective Remarks General: NAD, AAOx3 Chest: Improved aeration bilaterally Cardiac: Regular Abd: +BS, soft ND/NT Ext: No edema, right foot 4th digit with ulceration on the lateral aspect with no erythema or drainage, small ulceration on the left foot 5th digit, lateral aspect with no erythema or drainage Procedures Left hip reduction and intramedullary nail fixation on 08/26/[address] Kang A/P Problem List: (1) Intertrochanteric fracture of left hip Status: Acute Plan: - Pt is an 81 y/o female with COPD, chronic tobacco use, CAD, HTN, and hx of CVA who was admitted after a fall related to positional dizziness and sustained an intratrochanteric fracture of the left hip. - Pt underwent left hip reduction and intramedullary nail fixation on 08/26/[address] Kang - Pain control PRN - Duonebs scheduled Q4H - Supplemental O2 - Pt planned for discharge to SNF today (2) Leukocytosis Status: Acute Plan: - [place] to initially be reactive leukocytosis, no evidence of any infection, no fevers/chills, no subjective complaints - She was started on Solu-Medrol for COPD exacerbation post-operatively which likely increased her WBC count - She does have some noted ulcerations on two of her toes but these appear somewhat chronic possibly pressure related and do not appear to be infected. - She has followup scheduled for 09/02/16 with podiatry - VOLODYMYR done during hospitalization - Bactroban BID (3) COPD (chronic obstructive pulmonary disease) Status: Chronic Plan: - Duonebs Q4H scheduled and Q2H PRN - She will continued a prednisone taper and Duonebs at SNF (4) HTN (hypertension) Status: Chronic Plan: - Losartan - Monitor (5) Hypothyroidism Status: Chronic Plan: - Cont. home meds (6) Hyperlipidemia Status: Chronic Plan: - Cont. home meds Problem Qualifiers (1) Intertrochanteric fracture of left hip: Qualified Code: S72.145A - Closed nondisplaced intertrochanteric fracture of left femur, initial encounter (2) Leukocytosis: Qualified Code: D72.829 - Leukocytosis, unspecified type Shilpa De Santiago Aug 29, 2016 10:56
[2016-08-29] MEDS ORDERED: RESP: ALBUTEROL 2.5 MG/IPRATROPIUM 0.5 MG NEB (SCH) NEB (14:00)
== END 2016-08-29 11:21 | DRG 482 ==
LOC: NEPC 08:57 → NEDA 10:36 → N06B 12:47 → N06A 08-26 23:05
PROVIDERS: ADMIT Hospitalist; ATTEND Hospitalist
PROC: 0QS736Z Reposition Left Upper Femur with Intramedullary Internal Fixation Device, Percutaneous Approach (ICD-10-PCS; principal; 2016-08-26 08:28)
DX: S72.142A Displaced intertrochanteric fracture of left femur, initial encounter for closed fracture (principal); Z99.81 Dependence on supplemental oxygen; J44.9 Chronic obstructive pulmonary disease, unspecified; I48.0 Paroxysmal atrial fibrillation; L97.519 Non-pressure chronic ulcer of other part of right foot with unspecified severity; I10 Essential (primary) hypertension; G25.81 Restless legs syndrome; E03.9 Hypothyroidism, unspecified; E78.5 Hyperlipidemia, unspecified; I34.0 Nonrheumatic mitral (valve) insufficiency; I44.7 Left bundle-branch block, unspecified; R32 Unspecified urinary incontinence; I25.10 Atherosclerotic heart disease of native coronary artery without angina pectoris; M81.0 Age-related osteoporosis without current pathological fracture; W01.0XXA Fall on same level from slipping, tripping and stumbling without subsequent striking against object, initial encounter; Z95.1 Presence of aortocoronary bypass graft; Z95.2 Presence of prosthetic heart valve; Z79.82 Long term (current) use of aspirin; F17.210 Nicotine dependence, cigarettes, uncomplicated; Z86.73 Personal history of transient ischemic attack (TIA), and cerebral infarction without residual deficits; Y92.009 Unspecified place in unspecified non-institutional (private) residence as the place of occurrence of the external cause; L97.529 Non-pressure chronic ulcer of other part of left foot with unspecified severity
CPT/HCPCS: 70450; 71010; 73502; 76000; 76937; 80048; 82306; 83735; 85025; 85610; 86850; 86900; 86901; 87641; 90732; 93005; 93922; 94150; 94640; 94664; 96374; 96375; C1713; J0690; J1580; J1650; J2060; J2270; J2405; J2710; J2930; J3010; J3370; J7030; J7608; J7613

== ENCOUNTER 2016-09-28 15:16 | Emergency (ER) | payer MEDICARE ==
[~2016-09-28] VITALS: Ht 170.2 cm; Wt 60.0 kg
[~2016-09-28 15:16] MED LIST changes: -ALBU2.5I INH; +ASPI81CH CHEW; -ASPI81TA82 PO; +CALCTAB19 PO; +DOCU1CAP39 PO; +ERGO1CAP30 PO; +HYDR-3580 PO; -IPRA0.02 NEB; +IPRASOL INH; +MUPI2%T TOPICAL; -NEBUMIS6 INH; -PRED10 PO; +PRED20 PO; +SIMV40TA PO; -SULF-154 PO; +VENTAER INH; +WALKER WHEELS/F1 MIS; +XARE10TA PO
[2016-09-28 15:17] VITALS: BP 118/72; PULSE 98; RESP 24; TEMP 98.7; O2SAT 96
--- NOTE | 2016-09-28 17:08 | RADRPT ---
EXAM DATE/TIME: 09/28/2016 16:31 [facility] COMPARISON: No previous studies available for comparison. INDICATIONS : Right leg swelling. MEDICAL HISTORY : Hypercholesterolemia. Chronic obstructive pulmonary disease. Hypertension. Diverticulitis. Arthri tis. Endocrine disorder. SURGICAL HISTORY : Appendectomy. Open heart surgery. Single coronary artery bypass graft. Aortic valve replacement. Hand laceration repair. ENCOUNTER: Initial ACUITY: 1 day PAIN SCORE: 0/10 LOCATION: Right leg. TECHNIQUE: Venous ultrasound of the leg was performed from the inguinal ligament to the proximal calf. Real-jaycee e, color Doppler and spectral tracing, compression and augmentation techniques were used. FINDINGS: There is normal compressibility of the deep venous system from the inguinal region to the proximal ca lf. No echogenic clot is seen in the lumen of the common femoral, femoral, popliteal, and posterior tibial veins. There is a normal response of the venous system to proximal and distal augmentation an d respiration. CONCLUSION: Normal examination. Tomasz Esquivel MD on September 28, 2016 at 17:05 Board Certified Radiologist. This report was verified electronically.
--- NOTE | 2016-09-28 17:44 | PD ---
HPI . Right foot swelling Chief Complaint: Edema Time Seen by Provider: 16:56 Travel History International Travel<30 days: No Contact w/Intl Traveler<30days: No Traveled to known affect area: No History of Present Illness HPI This patient presents with a chief complaint of a swollen right foot. It was noticed today. She denies any pain. She denies any associated symptoms such as chest pain or shortness of breath. No modifying factors. This patient recently suffered a left hip fracture. She was just discharged from rehabilitation. She is on Xarelto for DVT prophylaxis. PFSH Past Medical History Arthritis: Yes Blood Disorders: No Heart Rhythm Problems: No (DENIES) Cancer: No Cardiovascular Problems: Yes High Cholesterol: Yes Chest Pain: Yes Congestive Heart Failure: No (DENIES) COPD: Yes Diabetes: No Diminished Hearing: No Endocrine: Yes Gastrointestinal Disorders: Yes (DIVERTICULITIS) Genitourinary: Yes (INCONTINENCE) Hepatitis: No Hiatal Hernia: No Hypertension: Yes Immune Disorder: No Implanted Vascular Access Dvce: No Medical other: No Musculoskeletal: Yes Neurologic: Yes Psychiatric: No Reproductive: No Respiratory: Yes (COPD) Thyroid Disease: No (DENIES) ?: Not Menopausal: Yes : 3 Para: 3 Past Surgical History Abdominal Surgery: Yes (APPENDECTOMY) AICD: No Appendectomy: Yes Cardiac Surgery: Yes (OPEN HEART, 1X BYPASS, AORTIC VALVE REPLACEMENT) Coronary Artery Bypass Graft: Yes Ear Surgery: No Endocrine Surgery: No Eye Surgery: Yes (BILATERAL CATARACT SX) Genitourinary Surgery: No Gynecologic Surgery: No Joint Replacement: No Neurologic Surgery: No Oral Surgery: No Pacemaker: No Thoracic Surgery: No Valve Replacement: Yes (08/29/05 ) Other Surgery: Yes Social History Alcohol Use: No Tobacco Use: Yes Substance Use: No Allergies-Medications (Allergen,Severity, Reaction): Coded Allergies: Adhesives (Verified Allergy, Severe, ADHESIVE TAPE/BLISTERS SKIN, 08/25/16) MILD REACTION Tetracycline (Verified Allergy, Severe, 08/25/16) UNKNOWN REACTION *MDRO Multi-Drug Resistant Organism (Unverified Adverse Reaction, Unknown , 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 Prednisone 20 Mg Tab 20 Mg PO DIRECTED 20 MG twice a day x 3 days, then 20 MG daily x 3 days, then 10 MG daily x 3 days Bactroban Topical (Mupirocin) 22 Gm Cream 1 Applic TOPICAL BID apply BID to right foot 4th digit and left foot 5th digit Aspirin 81 Mg Chew 81 Mg CHEW DAILY Resume after Xarelto completed Calcium 600+D 200 (Calcium Carbonate-Vitamin D) 600-200 Mg-Unit Tab 1 Tab PO BID Ergocalciferol 50,000 Unit Cap 50,000 Units PO Q7D Xarelto (Rivaroxaban) 10 Mg Tab 10 Mg PO DAILY Hydrocodone-Acetaminophen 7.5-325 mg Tab 1 Tab PO Q4H PRN Walker with Front Wheels (Device) 1 Mis Mis 1 Ea .ROUTE DIRECTED Reported Ventolin Hfa 18 GM Inh (Albuterol Sulfate) 90 Mcg/Act Aer 2 Puff INH Q4-6H PRN Simvastatin 40 Mg Tab 40 Mg PO HS Losartan (Losartan Potassium) 50 Mg Tab 50 Mg PO DAILY Levothyroxine (Levothyroxine Sodium) 50 Mcg Tab 50 Mcg PO DAILY Review of Systems Except as stated in HPI: all other systems reviewed are Neg Cardiovascular: No: Chest Pain or Discomfort Respiratory: No: Shortness of Breath Hematologic/Lymphatic: Positive: Easy Bruising (probably secondary to Xarelto) Physical Exam Narrative GENERAL: Awake and alert and in no acute distress. SKIN: Warm and dry. She has multiple bruises on her extremities. She has some bruising to the dorsal aspect of the left foot. HEAD: Atraumatic. Normocephalic. EYES: Pupils equal and round. NECK: Trachea midline. CARDIOVASCULAR: Regular rate and rhythm. RESPIRATORY: No accessory muscle use. MUSCULOSKELETAL: No obvious deformities. She has edema on the dorsal aspect of the right foot extending to the ankle. No calf edema. No tenderness. The skin of her feet is cold to the touch but it is equal bilaterally. NEUROLOGICAL: Awake and alert. No obvious cranial nerve deficits. Motor grossly within normal limits. Normal speech. PSYCHIATRIC: Appropriate mood and affect; insight and judgment normal. Data Data Last Documented VS Vital Signs Date Time Temp Pulse Resp B/P Pulse Ox O2 Delivery O2 Flow Rate FiO2 09/28/16 16:39 18 Room Air 09/28/16 15:17 98.7 98 118/72 96 Orders Us Leg Venous Doppler (09/28/16 ) MDM Medical Decision Making Medical Screen Exam Complete: Yes Emergency Medical Condition: Yes Differential Diagnosis My differential diagnosis of a swollen extremity includes but is not limited to superficial phlebitis, DVT, cellulitis, arthritis, fluid and electrolyte problem Narrative Course This patient presents for evaluation of swelling of the right foot. Apparently she was sent here for an ultrasound. The patient has no signs or symptoms of PE. The patient is on Xarelto for DVT prevention following a left hip fracture. Last Impressions Lower Extremity Ultrasound 09/28/16 0000 Signed Impressions: Service Date/Time: Wednesday, September 28, 2016 16:31 - CONCLUSION: Normal examination. Tomasz Esquivel MD The history, exam, diagnostic testing, and current condition do not suggest any significant pathology to warrant further testing, continued ED treatment, admission, or surgical evaluation at this point. The patient's condition is stable and appropriate for discharge. Diagnosis Primary Impression: Swelling of extremity, left Patient Instructions: Edema (DC), General Instructions Disposition: 01 DISCHARGE HOME Condition: Stable Clarissa Ricks MD Sep 28, 2016 17:44
== END 2016-09-28 18:13 | disposition home or self-care (01) ==
LOC: NEPD 15:16
DX: M79.89 Other specified soft tissue disorders (principal); M13.80 Other specified arthritis, unspecified site; E78.00 Pure hypercholesterolemia, unspecified; J44.9 Chronic obstructive pulmonary disease, unspecified; K57.92 Diverticulitis of intestine, part unspecified, without perforation or abscess without bleeding; I10 Essential (primary) hypertension; Z72.0 Tobacco use; Z79.82 Long term (current) use of aspirin; Z79.899 Other long term (current) drug therapy
CPT/HCPCS: 93971; 99284

== ENCOUNTER 2016-10-30 12:41 | Inpatient (IN) | payer MEDICARE ==
[~2016-10-30] VITALS: Ht 165.1 cm; Wt 53.2 kg
[2016-10-30] MEDS ORDERED: ACETAMINOPHEN 325 MG TAB PO ONE (14:45)
--- NOTE | 2016-10-30 14:49 | PD ---
HPI Chief Complaint: leg pain Time Seen by Provider: 14:46 Travel History International Travel<30 days: No Contact w/Intl Traveler<30days: No History of Present Illness HPI 81-year-old elderly female presents to the emergency department for evaluation of right leg pain and swelling. Patient states that she had recently had a hip fracture and was in rehabilitation. She currently lives at home. She states home health nurse came out and told her she could come the emergency department for her leg. She states the pain started yesterday. Patient states that she has fallen since the hip fracture. She has Steri-Strips noted to the bilateral lower legs. Patient states that they are tender. She states that she had a temperature of 100.0 today. Patient is initially seen in the ambulance hallway and workup is initiated. Patient states that she is on anticoagulant, but does not know the name. She is a poor historian and is unable to tell me her chronic medical problems or what medications she is currently on. PFSH Past Medical History Arthritis: Yes Blood Disorders: No Heart Rhythm Problems: No (DENIES) Cancer: No Cardiovascular Problems: Yes High Cholesterol: Yes Chest Pain: Yes Congestive Heart Failure: No (DENIES) COPD: Yes Diabetes: No Diminished Hearing: No Endocrine: Yes Gastrointestinal Disorders: Yes (DIVERTICULITIS) Genitourinary: Yes (INCONTINENCE) Hepatitis: No Hiatal Hernia: No Hypertension: Yes Immune Disorder: No Implanted Vascular Access Dvce: No Musculoskeletal: Yes Neurologic: Yes Psychiatric: No Reproductive: No Respiratory: Yes (COPD) Thyroid Disease: No (DENIES) Menopausal: Yes : 3 Para: 3 Past Surgical History Abdominal Surgery: Yes (APPENDECTOMY) AICD: No Appendectomy: Yes Cardiac Surgery: Yes (OPEN HEART, 1X BYPASS, AORTIC VALVE REPLACEMENT) Coronary Artery Bypass Graft: Yes Ear Surgery: No Endocrine Surgery: No Eye Surgery: Yes (BILATERAL CATARACT SX) Genitourinary Surgery: No Gynecologic Surgery: No Joint Replacement: No Neurologic Surgery: No Oral Surgery: No Pacemaker: No Thoracic Surgery: No Valve Replacement: Yes (08/29/05 ) Other Surgery: Yes Social History Alcohol Use: No Tobacco Use: Yes Substance Use: No Allergies-Medications (Allergen,Severity, Reaction): Coded Allergies: adhesive (Unverified Allergy, Severe, ADHESIVE TAPE/BLISTERS SKIN, 10/28/16 ) MILD REACTION doxycycline (Unverified Allergy, Severe, 10/28/16) UNKNOWN REACTION minocycline (Unverified Allergy, Severe, 10/28/16) UNKNOWN REACTION tigecycline (Unverified Allergy, Severe, 10/28/16) UNKNOWN REACTION *MDRO Multi-Drug Resistant Organism (Unverified Adverse Reaction, Unknown , 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 Prednisone 20 Mg Tab 20 Mg PO DIRECTED 20 MG twice a day x 3 days, then 20 MG daily x 3 days, then 10 MG daily x 3 days Bactroban Topical (Mupirocin) 22 Gm Cream 1 Applic TOPICAL BID apply BID to right foot 4th digit and left foot 5th digit Aspirin 81 Mg Chew 81 Mg CHEW DAILY Resume after Xarelto completed Calcium 600+D 200 (Calcium Carbonate-Vitamin D) 600-200 Mg-Unit Tab 1 Tab PO BID Ergocalciferol 50,000 Unit Cap 50,000 Units PO Q7D Xarelto (Rivaroxaban) 10 Mg Tab 10 Mg PO DAILY Hydrocodone-Acetaminophen 7.5-325 mg Tab 1 Tab PO Q4H PRN Walker with Front Wheels (Device) 1 Mis Mis 1 Ea .ROUTE DIRECTED Reported Ventolin Hfa 18 GM Inh (Albuterol Sulfate) 90 Mcg/Act Aer 2 Puff INH Q4-6H PRN Simvastatin 40 Mg Tab 40 Mg PO HS Losartan (Losartan Potassium) 50 Mg Tab 50 Mg PO DAILY Levothyroxine (Levothyroxine Sodium) 50 Mcg Tab 50 Mcg PO DAILY Review of Systems Except as stated in HPI: all other systems reviewed are Neg Physical Exam Narrative GENERAL: Well-nourished, well-developed elderly female patient. SKIN: Focused skin assessment warm/dry. Patient has erythema and 2+ edema to the right lower leg. She has 2 large blisters to the right anterior lower leg. Steri-Strips are noted to the bilateral anterior lower extremities. HEAD: Normocephalic. EYES: No scleral icterus. No injection or drainage. NECK: Supple, trachea midline. No JVD or lymphadenopathy. CARDIOVASCULAR: Regular rate and rhythm without murmurs, gallops, or rubs. Bilateral pedal pulses 2+ RESPIRATORY: Breath sounds equal bilaterally. No accessory muscle use. Lungs sounds are clear to auscultation. GASTROINTESTINAL: Abdomen soft, non-tender, nondistended. MUSCULOSKELETAL: No cyanosis, or edema. BACK: Nontender without obvious deformity. No CVA tenderness. Data Data Last Documented VS Vital Signs Date Time Temp Pulse Resp B/P Pulse Ox O2 Delivery O2 Flow Rate FiO2 10/30/16 18:00 100.4 86 24 110/63 94 Orders Complete Blood Count With Diff (10/30/16 14:44) Comprehensive Metabolic Panel (10/30/16 14:44) Prothrombin Time / Inr (Pt) (10/30/16 14:44) Act Partial Throm Time (Ptt) (10/30/16 14:44) Lactic Acid Sepsis Protocol (10/30/16 14:44) Blood Culture (10/30/16 14:44) Ecg Monitoring (10/30/16 14:44) Iv Access Insert/Monitor (10/30/16 14:44) Oximetry (10/30/16 14:44) Oxygen Administration (10/30/16 14:44) Us Leg Venous Doppler (10/30/16 ) Acetaminophen (Tylenol) (10/30/16 14:45) Wound Culture And Gram Stain (10/30/16 14:44) Vancomycin Inj (Vancomycin Inj) (10/30/16 19:00) Piperacil-Tazo 4.5 Gm Premix (Zosyn 4.5 (10/30/16 19:00) Sodium Chlor 0.9% 1000 Ml Inj (Ns 1000 M (10/30/16 19:15) Labs Laboratory Tests Test 10/30/16 17:40 White Blood Count 36.3 TH/MM3 Red Blood Count 4.28 MIL/MM3 Hemoglobin 13.1 GM/DL Hematocrit 39.9 % Mean Corpuscular Volume 93.2 FL Mean Corpuscular Hemoglobin 30.6 PG Mean Corpuscular Hemoglobin 32.8 % Concent Red Cell Distribution Width 14.6 % Platelet Count 295 TH/MM3 Mean Platelet Volume 10.1 FL Neutrophils (%) (Auto) 76.3 % Lymphocytes (%) (Auto) 15.4 % Monocytes (%) (Auto) 8.1 % Eosinophils (%) (Auto) 0.0 % Basophils (%) (Auto) 0.2 % Neutrophils # (Auto) 27.6 TH/MM3 Lymphocytes # (Auto) 5.6 TH/MM3 Monocytes # (Auto) 3.0 TH/MM3 Eosinophils # (Auto) 0.0 TH/MM3 Basophils # (Auto) 0.1 TH/MM3 CBC Comment AUTO DIFF Prothrombin Time 11.4 SEC Prothromb Time International 1.0 RATIO Ratio Activated Partial 29.6 SEC Thromboplast Time Sodium Level 140 MEQ/L Potassium Level 4.4 MEQ/L Chloride Level 107 MEQ/L Carbon Dioxide Level 27.5 MEQ/L Anion Gap 6 MEQ/L Blood Urea Nitrogen 15 MG/DL Creatinine 0.83 MG/DL Estimat Glomerular Filtration 66 ML/MIN Rate Random Glucose 89 MG/DL Lactic Acid Level 1.6 mmol/L Calcium Level 8.7 MG/DL Total Bilirubin 0.9 MG/DL Aspartate Amino Transf 11 U/L (AST/SGOT) Alanine Aminotransferase 13 U/L (ALT/SGPT) Alkaline Phosphatase 117 U/L Total Protein 6.5 GM/DL Albumin 3.2 GM/DL MDM Medical Decision Making Medical Screen Exam Complete: Yes Emergency Medical Condition: Yes Medical Record Reviewed: Yes Interpretation(s) Last Impressions Lower Extremity Ultrasound 10/30/16 0000 Signed Impressions: Service Date/Time: October 15:26 - CONCLUSION: Negative exam with no evidence of deep venous thrombosis. Tello Schwartz MD Differential Diagnosis Cellulitis versus sepsis versus DVT Narrative Course 81-year-old elderly female presents to the emergency department for evaluation of right lower extremity erythema, edema, pain. On exam, the right lower extremity is cellulitic. CBC, CMP, lactic acid, blood cultures 2, wound culture, PTT, PT/INR are ordered and pending. Venous Doppler ultrasound of the right lower extremity is ordered and pending. Patient is given Tylenol 650 mg PO for fever. Workup is initiated in the ambulance hallway. CBC shows leukocytosis of 36.3. CMP shows no acute abnormalities. Lactic acid 1.6. Coags show no acute abnormalities. Patient is given Zosyn 4.5 gm IV and Vancomycin1 gm IV. Patient is given NS 1 liter IV bolus. [facility] for [facility]. Sepsis Criteria SIRS Criteria (2 or more): WBC > 02432, < 4000 or > 10% bands Sepsis Criteria (SIRS+source): Infect source susp/known Diagnosis Primary Impression: Cellulitis of lower extremity Qualified Code: L03.115 - Cellulitis of right lower extremity Additional Impression: Sepsis Qualified Code: A41.9 - Sepsis, due to unspecified organism Admitting Information Admitting Physician Requests: Admit Jackie West Oct 30, 2016 14:49
--- NOTE | 2016-10-30 15:54 | RADRPT ---
EXAM DATE/TIME: 10/30/2016 15:26 [facility] COMPARISON: US LEG RIGHT VENOUS DOPPLER, September 28, 2016, 16:31. INDICATIONS : Right leg pain. MEDICAL HISTORY : Hypercholesterolemia. Chronic obstructive pulmonary disease. Hypertension.Diverticulitis. Arthritis. Endocrine disorder. SURGICAL HISTORY : Appendectomy. Open heart surgery. Single coronary artery bypass graft. Aortic valve replacement. Hand laceration repair. ENCOUNTER: Subsequent ACUITY: 4 - 6 days PAIN SCORE: 4/10 LOCATION: Right TECHNIQUE: Venous ultrasound of the leg was performed from the inguinal ligament to the proximal calf. Real-jaycee e, color Doppler and spectral tracing, compression and augmentation techniques were used. FINDINGS: There is normal compressibility of the deep venous system from the inguinal region to the proximal ca lf. No echogenic clot is seen in the lumen of the common femoral, femoral, popliteal, and posterior tibial veins. There is a normal response of the venous system to proximal and distal augmentation an d respiration. CONCLUSION: Negative exam with no evidence of deep venous thrombosis. Tello Schwartz MD on October 30, 2016 at 15:52 Board Certified Radiologist. This report was verified electronically.
[2016-10-30 18:00] VITALS: BP 110/63; PULSE 86; RESP 24; TEMP 100.4; O2SAT 94
[2016-10-30 18:41] LABS: AUTOMATED NEUTROPHIL # 27.6 TH/MM3 (1.8-7.7); BASOPHIL # 0.1 TH/MM3 (0-0.2); BASOPHIL % 0.2 % (0.0-2.0); HEMATOCRIT 39.9 % (35.0-46.0); LYMPH % 15.4 % (9.0-44.0); LYMPHOCYTE # 5.6 TH/MM3 (1.0-4.8); MEAN CELL VOLUME 93.2 FL (80.0-100.0); MEAN CORPUSCULAR HEMOGLOBIN 30.6 PG (27.0-34.0); MEAN CORPUSCULAR HGB CONC 32.8 % (32.0-36.0); MONO % 8.1 % (0.0-8.0); NEUT % 76.3 % (16.0-70.0); PLATELET COUNT 295 TH/MM3 (150-450); RED BLOOD COUNT 4.28 MIL/MM3 (4.00-5.30); RED CELL DISTRIBUTION WIDTH 14.6 % (11.6-17.2); WHITE BLOOD COUNT 36.3 TH/MM3 (4.0-11.0)
[2016-10-30 18:48] LABS: APTT (PATIENT) 29.6 SEC (24.3-30.1); PROTHROMBIN TIME - PATIENT 11.4 SEC (9.8-11.6)
[2016-10-30 18:51] LABS: HEMO FLAGS AUTO DIFF
[2016-10-30 18:56] LABS: ALT (GPT) 13 U/L (10-53); ANION GAP 6 MEQ/L (5-15); AST (GOT) 11 U/L (15-37); BICARBONATE 27.5 MEQ/L (21.0-32.0); BLOOD UREA NITROGEN 15 MG/DL (7-18); CHLORIDE 107 MEQ/L (98-107); GLOMERULAR FILTRATION RATE 66 ML/MIN (>89); POTASSIUM 4.4 MEQ/L (3.5-5.1); SODIUM (NA) 140 MEQ/L (136-145)
[2016-10-30 18:59] LABS: ALKALINE PHOSPHATASE 117 U/L (45-117); TOTAL BILIRUBIN ADULT 0.9 MG/DL (0.2-1.0)
[2016-10-30 19:00] VITALS: BP 117/85; PULSE 85; RESP 22; TEMP 98.1; O2SAT 97
[2016-10-30] MEDS ORDERED: VANCOMYCIN INJ 1,000 MG in SODIUM CHLOR 0.9% 250 ML INJ 250 ML IV ONE (19:00)
[2016-10-30] MEDS ORDERED: PIPERACIL-TAZO 4.5 GM PREMIX 100 ML IV ONE (19:00)
[2016-10-30] MEDS ORDERED: SODIUM CHLOR 0.9% 1000 ML INJ 1,000 ML IV ONE (19:15)
[2016-10-30 19:43] LABS: BANDS 14 % (0-6); NEUTROPHIL # MANUAL DIFF 28.7 TH/MM3 (1.8-7.7); POLYS (SEG NEUTROPHILS) 65 % (16-70); WBC DIFF SAMPLE 100
[2016-10-30 19:44] LABS: PLATELET ESTIMATE SMEAR NORMAL (NORMAL); PLATELET MORPHOLOGY NORMAL (NORMAL); SCAN/DIFF FINAL DIFF MANUAL
[2016-10-30 21:06] VITALS: BP 135/61; PULSE 68; RESP 17; TEMP 97.6; O2SAT 99
[2016-10-30] MEDS ORDERED: MAGNESIUM HYDROXIDE SUSP 30 ML CUP PO PRN (23:15)
[2016-10-30] MEDS ORDERED: SENNOSIDES 8.6 MG TAB PO PRN (23:15)
[2016-10-30] MEDS ORDERED: LACTULOSE SYRUP 20 GM/30 ML CUP PO PRN (23:15)
[2016-10-30] MEDS ORDERED: SODIUM CHLORIDE 0.9% FLUSH 10 ML FLUSH IV FLUSH PRN (23:15)
[2016-10-30] MEDS ORDERED: Vancomycin Consult Pharmacy 1 EA OTHER SCH (23:15)
[2016-10-30] MEDS ORDERED: ONDANSETRON HCL 4 MG/2 ML VIAL IVP PRN (23:15)
[2016-10-30] MEDS ORDERED: NALOXONE HCL 0.4 MG/ML AMP IV PRN (23:15)
[2016-10-30] MEDS ORDERED: BISACODYL 10 MG SUPP RECTAL PRN (23:15)
[2016-10-30] MEDS ORDERED: RESP: ALBUTEROL 2.5 MG/IPRATROPIUM 0.5 MG NEB (PRN) NEB (23:15)
--- NOTE | 2016-10-30 23:25 | HHI.HP ---
HPI Service [facility] Primary Care Physician Unknown Admission Diagnosis right lower extremity cellulitis; sepsis Chief Complaint: rt lower leg pain warm to touch Travel History International Travel<30 Days: No Contact w/Intl Traveler <30 Da: No Traveled to Known Affected Are: No Sepsis Criteria SIRS Criteria (2 or more): Temp > 100.9 or < 96.8, WBC > 17775, < 4000 or > 10 % bands Sepsis Criteria (SIRS+source): Infect source susp/known (l) History of Present Illness 81-year-old elderly female presents to the emergency department for evaluation of right leg pain and swelling. Patient states that she had recently had a hip fracture and was in rehabilitation. She currently lives at home. She states home health nurse came out and told her she could come the emergency department for her leg. She states the pain started yesterday. Patient states that she has fallen since the hip fracture. She has Steri-Strips noted to the bilateral lower legs. Patient states that they are tender. She states that she had a temperature of 100.0 today. Patient states that she is on anticoagulant, but does not know the name. She is a poor historian and is unable to tell me her chronic medical problems or what medications she is currently on. Patient in er found to have very high WBC count and did have fever consistent with sepsis blood c/s sent as well as wound culture from right leg ,will admit for cellulitis of note in her meds she was on prednisone but she states not currently also uses nebulizer prn. Review of Systems Constitutional: COMPLAINS OF: Fever Musculoskeletal: COMPLAINS OF: Joint Swelling Past Family Social History Past Medical History djd,hyperlipid,copd,diverticular disease incontinence hypertension Past Surgical History appendix,cabs,aortic valve cataracts Reported Medications Dok (Docusate Sodium) 100 Mg Cap 100 Mg PO BID Duoneb (Ipratropium-Albuterol Neb) 0.5-2.5 Mg/3 Ml Neb 1 Nebule INH DIRECTED PRN Please give Q4H scheduled for the next 4 days, then can be used as needed. Prednisone 20 Mg Tab 20 Mg PO DIRECTED 20 MG twice a day x 3 days, then 20 MG daily x 3 days, then 10 MG daily x 3 days but according to patient finished Bactroban Topical (Mupirocin) 22 Gm Cream 1 Applic TOPICAL BID apply BID to right foot 4th digit and left foot 5th digit Aspirin 81 Mg Chew 81 Mg CHEW DAILY Resume after Xarelto completed Calcium 600+D 200 (Calcium Carbonate-Vitamin D) 600-200 Mg-Unit Tab 1 Tab PO BID Ergocalciferol 50,000 Unit Cap 50,000 Units PO Q7D Xarelto (Rivaroxaban) 10 Mg Tab 10 Mg PO DAILY Hydrocodone-Acetaminophen 7.5-325 mg Tab 1 Tab PO Q4H PRN Walker with Front Wheels (Device) 1 Mis Mis 1 Ea .ROUTE DIRECTED Reported Ventolin Hfa 18 GM Inh (Albuterol Sulfate) 90 Mcg/Act Aer 2 Puff INH Q4-6H PRN Simvastatin 40 Mg Tab 40 Mg PO HS Losartan (Losartan Potassium) 50 Mg Tab 50 Mg PO DAILY Levothyroxine (Levothyroxine Sodium) 50 Mcg Tab 50 Mcg PO DAILY Allergies: Coded Allergies: adhesive (Unverified Allergy, Severe, ADHESIVE TAPE/BLISTERS SKIN, 10/28/16 ) MILD REACTION doxycycline (Unverified Allergy, Severe, 10/28/16) UNKNOWN REACTION minocycline (Unverified Allergy, Severe, 10/28/16) UNKNOWN REACTION tigecycline (Unverified Allergy, Severe, 10/28/16) UNKNOWN REACTION *MDRO Multi-Drug Resistant Organism (Unverified Adverse Reaction, Unknown , Cleared 08/25/16, 08/26/16) MRSA Sputum and Blood 2005 Cleared - MRSA screen negative 04/04/15 & 08/25/16 Social History current non smoker no etoh Physical Exam Vital Signs Vital Signs Date Time Temp Pulse Resp B/P Pulse Ox O2 Delivery O2 Flow Rate FiO2 10/30/16 21:06 97.6 68 17 135/61 99 10/30/16 19:00 98.1 85 22 117/85 97 Nasal Cannula 2 10/30/16 19:00 97 Nasal Cannula 2 10/30/16 18:00 100.4 86 24 110/63 94 Physical Exam GENERAL: This is a well-nourished, well-developed patient, in no apparent distress. SKIN: No rashes,Focused skin assessment warm/dry. Patient has erythema and 2+ edema to the right lower leg. She has 2 large blisters to the right anterior lower leg. Steri-Strips are noted to the bilateral anterior lower extremities. HEAD: Atraumatic. Normocephalic. No temporal or scalp tenderness. EYES: Pupils equal round and reactive. Extraocular motions intact. No scleral icterus. No injection or drainage. ENT: Nose without bleeding, purulent drainage or septal hematoma. Throat without erythema, tonsillar hypertrophy or exudate. Uvula midline. Airway patent. NECK: Trachea midline. No JVD or lymphadenopathy. Supple, nontender, no meningeal signs. CARDIOVASCULAR: Regular rate and rhythm without murmurs, gallops, or rubs. RESPIRATORY: Clear to auscultation. Breath sounds equal bilaterally. No wheezes , rales, or rhonchi. GASTROINTESTINAL: Abdomen soft, non-tender, nondistended. No hepato-splenomegaly , or palpable masses. No guarding. MUSCULOSKELETAL: Extremities without clubbing, cyanosis, or edema. No joint tenderness, effusion, or edema noted. No calf tenderness. Negative Homans sign bilaterally. NEUROLOGICAL: Awake and alert. Cranial nerves II through XII intact. Motor and sensory grossly within normal limits. Five out of 5 muscle strength in all muscle groups. Normal speech. Laboratory Laboratory Tests Test 10/30/16 17:40 White Blood Count 36.3 Red Blood Count 4.28 Hemoglobin 13.1 Hematocrit 39.9 Mean Corpuscular Volume 93.2 Mean Corpuscular Hemoglobin 30.6 Mean Corpuscular Hemoglobin 32.8 Concent Red Cell Distribution Width 14.6 Platelet Count 295 Mean Platelet Volume 10.1 Neutrophils (%) (Auto) 76.3 Lymphocytes (%) (Auto) 15.4 Monocytes (%) (Auto) 8.1 Eosinophils (%) (Auto) 0.0 Basophils (%) (Auto) 0.2 Neutrophils # (Auto) 27.6 Lymphocytes # (Auto) 5.6 Monocytes # (Auto) 3.0 Eosinophils # (Auto) 0.0 Basophils # (Auto) 0.1 CBC Comment AUTO DIFF Differential Total Cells 100 Counted Neutrophils % (Manual) 65 Band Neutrophils % 14 Lymphocytes % 10 Monocytes % 11 Neutrophils # (Manual) 28.7 Differential Comment FINAL DIFF MANUAL Platelet Estimate NORMAL Platelet Morphology Comment NORMAL Prothrombin Time 11.4 Prothromb Time International 1.0 Ratio Activated Partial 29.6 Thromboplast Time Sodium Level 140 Potassium Level 4.4 Chloride Level 107 Carbon Dioxide Level 27.5 Anion Gap 6 Blood Urea Nitrogen 15 Creatinine 0.83 Estimat Glomerular Filtration 66 Rate Random Glucose 89 Lactic Acid Level 1.6 Calcium Level 8.7 Total Bilirubin 0.9 Aspartate Amino Transf 11 (AST/SGOT) Alanine Aminotransferase 13 (ALT/SGPT) Alkaline Phosphatase 117 Total Protein 6.5 Albumin 3.2 Date/Time Procedure Status Source Growth 10/30/16 17:45 Gram Stain Received Wound Leg Pending 10/30/16 17:45 Wound Culture Received Wound Leg Pending 10/30/16 17:45 Aerobic Blood Culture Received Blood Peripheral Pending 10/30/16 17:45 Anaerobic Blood Culture Received Blood Peripheral Pending Result Diagram: 10/30/16 1740 10/30/16 1740 Imaging Last 24 hours Impressions Lower Extremity Ultrasound 10/30/16 0000 Signed Impressions: Service Date/Time: October 15:26 - CONCLUSION: Negative exam with no evidence of deep venous thrombosis. Tello Schwartz MD Course in er started on IV fluid blood cultures sent Assessment and Plan Problem List: (1) Cellulitis of lower extremity Status: Acute Plan: start on vancomycin and zoysn wound nurse to evaluate sores on leg (2) Sepsis Status: Acute Plan: based on clinical and lab values continue antibiotics (3) Intertrochanteric fracture of left hip Status: Chronic Plan: was in rehab now home will need PT (4) COPD (chronic obstructive pulmonary disease) Status: Chronic Plan: continue prn nebulizer Assessment and Plan further plan as case progresses Code Status full Discussed Condition With patient Physician Certification 2 Midnight Certification Type: Admission for Inpatient Services Order for Inpatient Services The services are ordered in accordance with Medicare regulations or non- Medicare payer requirements, as applicable. In the case of services not specified as inpatient-only, they are appropriately provided as inpatient services in accordance with the 2-midnight benchmark. Estimated LOS (days): 3 3 days is the estimated time the patient will need to remain in the hospital, assuming treatment plan goals are met and no additional complications. Post-Hospital Plan: Not yet determined Problem Qualifiers (1) Cellulitis of lower extremity: Qualified Code: L03.115 - Cellulitis of right lower extremity (2) Sepsis: Qualified Code: A41.9 - Sepsis, due to unspecified organism Chet Marshall MD Oct 30, 2016 23:25
[2016-10-30 23:38] VITALS: BP 114/55; PULSE 69; RESP 17; TEMP 98.4; O2SAT 98
[2016-10-31] MEDS: SODIUM CHLOR 0.45% 1000 ML INJ 1,000 ML IV SCH ×3 (00:16→22:05)
[2016-10-31] MEDS: ACETAMINOPHEN/HYDROcodone 325 MG/7.5 MG TAB PO PRN ×3 (00:48→20:28)
[2016-10-31] MEDS: PIPERACIL-TAZO 3.375 GM PREMIX 50 ML IV SCH ×3 (04:31→22:05)
[2016-10-31 06:19] VITALS: BP 126/58; PULSE 74; RESP 17; TEMP 98.2; O2SAT 78
[2016-10-31] MEDS: LEVOTHYROXINE SODIUM 50 MCG TAB PO SCH (06:26)
[2016-10-31] MEDS: RIVAROXABAN 10 MG TAB PO SCH (08:09)
[2016-10-31] MEDS: DOCUSATE SODIUM 100 MG CAP PO SCH ×2 (08:09→20:27)
[2016-10-31] MEDS: LOSARTAN 50 MG TAB PO SCH (08:09)
[2016-10-31] MEDS: CALCIUM/VITAMIN D 250 MG/125 U TAB PO SCH ×2 (08:09→20:27)
[2016-10-31] MEDS: ASPIRIN 81 MG CHEW TAB CHEW SCH (08:09)
[2016-10-31] MEDS: SODIUM CHLORIDE 0.9% FLUSH 10 ML FLUSH IV FLUSH SCH ×2 (08:10→20:28)
[2016-10-31] MEDS: MUPIROCIN 2% CREAM 15 GM TOPICAL SCH ×2 (08:10→20:30)
[2016-10-31] MEDS: DOCUSATE SODIUM 50 MG/SENNA 8.6 MG TAB PO SCH ×2 (08:10→20:27)
[2016-10-31 08:19] VITALS: O2SAT 98
[2016-10-31 08:32] VITALS: BP 115/84; PULSE 81; RESP 16; TEMP 98.8; O2SAT 94
[2016-10-31] MEDS ORDERED: NON-FORMULARY DRUG (Calcium Carbonate-Vitamin D (Calcium 600+D 200) 1 TAB) PO SCH (09:00)
--- NOTE | 2016-10-31 10:38 | HHI.PR ---
Subjective Remarks Pt feels that her RLE looks better today, less painful. Pt afebrile today Objective Vitals Vital Signs Date Time Temp Pulse Resp B/P Pulse Ox O2 Delivery O2 Flow Rate FiO2 10/31/16 08:32 98.8 81 16 115/84 94 10/31/16 08:19 98 Nasal Cannula 2.00 10/31/16 07:46 12 10/31/16 06:19 98.2 74 17 126/58 78 10/30/16 23:38 98.4 69 17 114/55 98 10/30/16 21:06 97.6 68 17 135/61 99 10/30/16 19:00 98.1 85 22 117/85 97 Nasal Cannula 2 10/30/16 19:00 97 Nasal Cannula 2 10/30/16 18:00 100.4 86 24 110/63 94 10/30/16 10/30/16 10/31/16 15:00 23:00 07:00 Intake Total 503 ml Balance 503 ml Intake Oral 250 ml IV Total 253 ml # Voids 2 Result Diagram: 10/30/16 1740 10/30/16 1740 Other Results Laboratory Tests Test 10/30/16 17:40 White Blood Count 36.3 TH/MM3 Red Blood Count 4.28 MIL/MM3 Hemoglobin 13.1 GM/DL Hematocrit 39.9 % Mean Corpuscular Volume 93.2 FL Mean Corpuscular Hemoglobin 30.6 PG Mean Corpuscular Hemoglobin 32.8 % Concent Red Cell Distribution Width 14.6 % Platelet Count 295 TH/MM3 Mean Platelet Volume 10.1 FL Neutrophils (%) (Auto) 76.3 % Lymphocytes (%) (Auto) 15.4 % Monocytes (%) (Auto) 8.1 % Eosinophils (%) (Auto) 0.0 % Basophils (%) (Auto) 0.2 % Neutrophils # (Auto) 27.6 TH/MM3 Lymphocytes # (Auto) 5.6 TH/MM3 Monocytes # (Auto) 3.0 TH/MM3 Eosinophils # (Auto) 0.0 TH/MM3 Basophils # (Auto) 0.1 TH/MM3 CBC Comment AUTO DIFF Differential Total Cells 100 Counted Neutrophils % (Manual) 65 % Band Neutrophils % 14 % Lymphocytes % 10 % Monocytes % 11 % Neutrophils # (Manual) 28.7 TH/MM3 Differential Comment FINAL DIFF MANUAL Platelet Estimate NORMAL Platelet Morphology Comment NORMAL Prothrombin Time 11.4 SEC Prothromb Time International 1.0 RATIO Ratio Activated Partial 29.6 SEC Thromboplast Time Sodium Level 140 MEQ/L Potassium Level 4.4 MEQ/L Chloride Level 107 MEQ/L Carbon Dioxide Level 27.5 MEQ/L Anion Gap 6 MEQ/L Blood Urea Nitrogen 15 MG/DL Creatinine 0.83 MG/DL Estimat Glomerular Filtration 66 ML/MIN Rate Random Glucose 89 MG/DL Lactic Acid Level 1.6 mmol/L Calcium Level 8.7 MG/DL Total Bilirubin 0.9 MG/DL Aspartate Amino Transf 11 U/L (AST/SGOT) Alanine Aminotransferase 13 U/L (ALT/SGPT) Alkaline Phosphatase 117 U/L Total Protein 6.5 GM/DL Albumin 3.2 GM/DL Imaging Last 24 hours Impressions Lower Extremity Ultrasound 10/30/16 0000 Signed Impressions: Service Date/Time: , October 30, 2016 15:26 - CONCLUSION: Negative exam with no evidence of deep venous thrombosis. Tello Schwartz MD Objective Remarks General: NAD, Awake and alert, slightly confused Chest: CTA Cardiac: Regular Abd: +BS, soft ND/NT Ext: Steristrips on LLE, no erythema or drainage, RLE erythema, swelling, skin tear on haq with steri strip in place and bullous lesions draining fluid. A/P Problem List: (1) Cellulitis of lower extremity Status: Acute Plan: - Pt is an 81 y/o female with COPD, chronic tobacco use, CAD, HTN, hx of CVA, and had a recent fall where she sustained a hip fracture and underwent surgical repair in August 2016 - She had recently fallen at home and sustained skin tears to bilateral LE which [facility] nursing placed steristrips on - She presented back to the ED for RLE redness, pain and swelling. - She reportedly had a fever prior to admission with temperature of 100.0. - In the ED she was found to have very high WBC count of 36.3 - Blood c/s pending. - Wound culture from the RLE was taken at admission - Pt given Vancomycin and Zosyn in the ED and was continued on Zosyn. - Wound care consult is pending. - LE US was negative for DVT - Pts wound on the RLE is quite extensive with significant skin tears with draining bullous lesions, the majority of the leg from the knee down is erythematous and swollen - Consult Plastic Surgery, case discussed with Dr. Paris and he will see the patient tomorrow. - Supportive care (2) Sepsis Status: Acute Plan: - See above. (3) Intertrochanteric fracture of left hip Status: Chronic Plan: - Pt was recently admitted after a fall related to positional dizziness and sustained an intratrochanteric fracture of the left hip. - Pt underwent left hip reduction and intramedullary nail fixation on 08/26/[address] Kang - She was at SNF and then went home with [facility] - Pain control PRN (4) COPD (chronic obstructive pulmonary disease) Status: Chronic Plan: - Continue prn nebulizer Assessment and Plan Patient examined. Assessment and plan formulated with Shilpa De Santiago PA-C. I agree with the above. Case d/w Dr. Paris. He will consult. Possible debridement? continue antibiotic therapy appreciate input from Wound Care. Problem Qualifiers (1) Cellulitis of lower extremity: Qualified Code: L03.115 - Cellulitis of right lower extremity (2) Sepsis: Qualified Code: A41.9 - Sepsis, due to unspecified organism Shilpa De Santiago Oct 31, 2016 10:38 Jet Rivers DO Nov 01, 2016 09:25
[2016-10-31 11:57] VITALS: BP 133/58; PULSE 70; RESP 16; TEMP 98.1; O2SAT 98
[2016-10-31] MEDS: HYDROmorphone HCL PF 1 MG/ML VIAL IV PRN (13:34)
[2016-10-31 18:40] LABS: AUTOMATED NEUTROPHIL # 14.5 TH/MM3 (1.8-7.7); BASOPHIL # 0.1 TH/MM3 (0-0.2); BASOPHIL % 0.3 % (0.0-2.0); EOSINOPHIL # 0.2 TH/MM3 (0-0.4); EOSINOPHIL % 1.1 % (0.0-4.0); HEMATOCRIT 35.8 % (35.0-46.0); HEMO FLAGS DIFF FINAL; LYMPH % 17.8 % (9.0-44.0); LYMPHOCYTE # 3.5 TH/MM3 (1.0-4.8); MEAN CELL VOLUME 93.2 FL (80.0-100.0); MEAN CORPUSCULAR HEMOGLOBIN 30.9 PG (27.0-34.0); MEAN CORPUSCULAR HGB CONC 33.2 % (32.0-36.0); NEUT % 72.8 % (16.0-70.0); PLATELET COUNT 249 TH/MM3 (150-450); RED BLOOD COUNT 3.84 MIL/MM3 (4.00-5.30); RED CELL DISTRIBUTION WIDTH 14.6 % (11.6-17.2); WHITE BLOOD COUNT 19.9 TH/MM3 (4.0-11.0)
[2016-10-31 19:01] LABS: ALT (GPT) 9 U/L (10-53); ANION GAP 6 MEQ/L (5-15); AST (GOT) 10 U/L (15-37); BICARBONATE 27.4 MEQ/L (21.0-32.0); BLOOD UREA NITROGEN 21 MG/DL (7-18); CHLORIDE 104 MEQ/L (98-107); GLOMERULAR FILTRATION RATE 73 ML/MIN (>89); POTASSIUM 4.2 MEQ/L (3.5-5.1); SODIUM (NA) 137 MEQ/L (136-145)
[2016-10-31 19:03] LABS: ALKALINE PHOSPHATASE 98 U/L (45-117); TOTAL BILIRUBIN ADULT 0.7 MG/DL (0.2-1.0)
--- NOTE | 2016-10-31 19:10 | PD.WCN.NOT ---
Wound Consult Description: Large R leg blister opened to full thickness skin loss Communicated with: RN Isaiah pettit and Doctor Silvestre Recommendation: Please cleanse wound to R anterior aspect of haq with normal saline or wound cleanser and apply Xeroform in single layer just over opened area of blister. Cover with ABD pad and secure with rolled gauze and tape. Change dressing every other day or PRN if saturated or dislodged. Please cleanse R buttock wound with normal saline wound cleanser and apply skin prep to periwound before applying Adhesive foam dressing in place. Please change dressing every 3 days or PRN if saturated or dislodged Obtain Emery airapy bed for patient Additional Information: Patient seen on for evaluation of R leg wound management. Patient is s/ p fall at home. Bilateral lower extremities noted with steri strips in place over skin tears that are intact and non draining.R anterior aspect of haq is noted with large blister that is opening to full thickness wound. Wound is noted with cloudy minimal sero-sanguinous drainage that is without odor.Entire partially unroofed blister [id number] cm x 5 cm x ~0.1cm. Cleansed wound with normal saline. Christal to apply Xeroform in single layer just over opened areas on blister and cover with an ABD pad, secured with rolled gauze and tape. Patient turned to L side with minimal assistance from appeals writer. peeled back adhesive foam dressing in place to reveal small circular wound to R medial buttock on the R side of the sacrum. Blanchable erythema noted to periwound. Wound measures ~0.5cm x ~0.5 cm x~0.3cm. Tissue in the wound bed appears to pale pink in color. Wound is deeper than partial thickness near a raj prominence. Appears to be a stage 3 wound. Reapplied adhesive foam dressing back in place. Discussed the importance of repositioning in bed every 2 hours or PRN for comfort to offload pressure from buttock area. Karly Cabral [facility] Oct 31, 2016 19:10
[2016-10-31 20:00] VITALS: BP 122/61; PULSE 84; RESP 16; TEMP 98.1; O2SAT 98
[2016-10-31] MEDS: VANCOMYCIN 1,000 MG/NS 250 ML IV SCH ×2 (20:27)
[2016-10-31] MEDS: PRAVASTATIN SOD 80 MG TAB PO SCH (20:27)
[2016-11-01] VITALS (8 sets, daily range): BP systolic 113–148; BP diastolic 58–77; PULSE 64–88; RESP 16–22; TEMP 97.6–98.4; O2SAT 93–98
[2016-11-01] MEDS: PIPERACIL-TAZO 3.375 GM PREMIX 50 ML IV SCH ×3 (03:28→20:33)
[2016-11-01] MEDS: LEVOTHYROXINE SODIUM 50 MCG TAB PO SCH (05:15)
[2016-11-01] MEDS: ACETAMINOPHEN/HYDROcodone 325 MG/7.5 MG TAB PO PRN ×2 (07:38→20:29)
[2016-11-01] MEDS: SODIUM CHLORIDE 0.9% FLUSH 10 ML FLUSH IV FLUSH SCH ×2 (09:00→20:32)
[2016-11-01] MEDS: DOCUSATE SODIUM 50 MG/SENNA 8.6 MG TAB PO SCH ×2 (09:18→20:31)
[2016-11-01] MEDS: DOCUSATE SODIUM 100 MG CAP PO SCH ×2 (09:18→20:31)
[2016-11-01] MEDS: LOSARTAN 50 MG TAB PO SCH (09:18)
[2016-11-01] MEDS: ASPIRIN 81 MG CHEW TAB CHEW SCH (09:18)
[2016-11-01] MEDS: CALCIUM/VITAMIN D 250 MG/125 U TAB PO SCH ×2 (09:18→20:31)
[2016-11-01] MEDS: RIVAROXABAN 10 MG TAB PO SCH (09:19)
[2016-11-01] MEDS: MUPIROCIN 2% CREAM 15 GM TOPICAL SCH ×2 (09:19→20:41)
--- NOTE | 2016-11-01 09:58 | PD.POD.CON ---
Patient Intake Chief Complaint Redness and wound right anterior leg Consult Requested by Dr. Pearson Reason for Consult Evaluation and treatment of ulceration Primary Care Physician Unknown History of Present Illness 81-year-old female admitted with redness increased white count and wound of the right anterior leg. Patient on care once hip fracture repair was in a rehabilitation and developed redness and swelling of the right anterior leg. Patient was sent to the emergency department for admitting. Culture and sensitivity of wound fluid is growing staph aureus. Coded Allergies: adhesive (Unverified Allergy, Severe, ADHESIVE TAPE/BLISTERS SKIN, 10/28/16 ) MILD REACTION doxycycline (Unverified Allergy, Severe, 10/28/16) UNKNOWN REACTION minocycline (Unverified Allergy, Severe, 10/28/16) UNKNOWN REACTION tigecycline (Unverified Allergy, Severe, 10/28/16) UNKNOWN REACTION Preferred Language to Discuss: Spanish Barriers to Learning: None Teaching Method: Discussion Vital Signs Date Time Temp Pulse Resp B/P Pulse Ox O2 Delivery O2 Flow Rate FiO2 11/01/16 07:57 97.6 74 19 141/58 93 11/01/16 06:53 98 Nasal Cannula 2.00 11/01/16 04:00 98.4 74 16 114/64 98 11/01/16 00:00 98.1 75 16 113/61 97 10/31/16 20:00 98.1 84 16 122/61 98 10/31/16 14:04 20 10/31/16 11:57 98.1 70 16 133/58 98 Pain scale used: 0-10 numeric scale Pain score: 4 Medications Current Medications Acetaminophen 650 mg 650 mg ONCE ONCE PO Last administered on 10/30/16 18:25 ; Start 10/30/16 at 14:45; Stop 10/30/16 at 14:47; Status DC Vancomycin HCl 1000 mg/Sodium Chloride 250 ml @ 250 mls/hr ONCE ONCE IV Last administered on 10/30/16 20:05; Start 10/30/16 at 19:00; Stop 10/30/16 at 19:59 ; Status DC Piperacillin Sod/ Tazobactam Sod 100 ml @ 200 mls/hr ONCE ONCE IV Last administered on 10/30/16 19:47; Start 10/30/16 at 19:00; Stop 10/30/16 at 19:29 ; Status DC Sodium Chloride (NS 1000 ml Inj) 1,000 ml @ 999 mls/hr BOLUS ONCE IV Last administered on 10/30/16 19:47; Start 10/30/16 at 19:15; Stop 10/30/16 at 20:15 ; Status DC Aspirin (Aspirin Chew) 81 mg DAILY CHEW Last administered on 11/01/16 09:18; Start 10/31/16 at 09:00 Docusate Sodium (Colace) 100 mg BID PO Last administered on 11/01/16 09:18; Start 10/31/16 at 09:00 Acetaminophen/ Hydrocodone Bitart ([place] 7.5-325 Mg) 1 tab Q4H PRN PO PAIN Last administered on 11/01/16 07:38; Start 10/30/16 at 23:15 Levothyroxine Sodium (Synthroid) 50 mcg DAILY@0600 PO Last administered on 11/01 05:15; Start 10/31/16 at 06:00 Losartan Potassium (Cozaar) 50 mg DAILY PO Last administered on 11/01/16 09:18 ; Start 10/31/16 at 09:00 Mupirocin (Bactroban 2% Cream) 1 applic BID TOPICAL Last administered on 09:19; Start 10/31/16 at 09:00 Rivaroxaban (Xarelto) 10 mg DAILY PO Last administered on 11/01/16 09:19; Start 10/31/16 at 09:00 Non-Formulary Medication 1 tab BID PO NS; Start 10/31/16 at 09:00; Status UNV Pravastatin Sodium 80 mg 80 mg HS PO Last administered on 10/31/16 20:27; Start 10/31/16 at 21:00 Sodium Chloride (1/2 NS 1000 ml Inj) 1,000 ml @ 75 mls/hr [id number] IV Last administered on 10/31/16 22:05; Start 10/30/16 at 23:07 Sodium Chloride (NS Flush) 2 ml UNSCH PRN IV FLUSH FLUSH AFTER USING IV ACCESS ; Start 10/30/16 at 23:15 Sodium Chloride (NS Flush) 2 ml BID IV FLUSH Last administered on 10/31/16 08: 10; Start 10/31/16 at 09:00 Ondansetron HCl (Zofran Inj) 4 mg Q6H PRN IVP NAUSEA OR VOMITING; Start at 23:15 Hydromorphone HCl (Dilaudid Pf Inj) 0.5 mg Q8HR PRN IV PAIN 5-10 Last administered on 10/31/16 13:34; Start 10/30/16 at 23:15 Naloxone HCl (Narcan Inj) 0.4 mg UNSCH PRN IV SEE LABEL COMMENTS; Start at 23:15 Senna/Docusate Sodium (Joyce-Colace) 1 tab BID PO Last administered on 09:18; Start 10/31/16 at 09:00 Magnesium Hydroxide (Milk Of Magnesia Liq) 30 ml Q12H PRN PO MILD - MODERATE CONSTIPATION; Start 10/30/16 at 23:15 Sennosides (Senokot) 17.2 mg Q12H PRN PO MODERATE - SEVERE CONSTIPATION; Start 10/30/16 at 23:15 Bisacodyl (Dulcolax Supp) 10 mg DAILY PRN RECTAL SEVERE CONSITIPATION; Start at 23:15 Lactulose 30 ml 30 ml DAILY PRN PO SEVERE CONSITIPATION; Start 10/30/16 at 23: 15 Pharmacy Profile Note 0 ml @ 0 mls/hr UNSCH OTHER ; Start 10/30/16 at 23:15 Piperacillin Sod/ Tazobactam Sod (Zosyn 3.375 Gm Premix) 50 ml @ 100 mls/hr Q8H IV Last administered on 11/01/16 03:28; Start 10/31/16 at 04:00 Calcium/Vitamin D (Oscal-D 250-125) 500 mg BID PO Last administered on 09:18; Start 10/31/16 at 09:00 Albuterol/ Ipratropium 1 ampule 1 ampule Q8HR NEB PRN NEB SHORTNESS OF BREATH; Start 10/30/16 at 23:15 Vancomycin HCl/ Sodium Chloride (Vancomycin Inj/ NS 250 ml Inj) 250 ml @ 250 mls/hr Q24H IV Last administered on 10/31/16 20:27; Start 10/31/16 at 21:00 Miscellaneous Information SPECIFIC LAB TO BE ... ONCE ONCE .XX ; Start 11/02 at 20:45; Stop 11/02/16 at 20:46 Past, Family & Social History Past Medical History PFS Reviewed: Yes Respiratory: REPORTS HX OF: COPD Cardiovascular: REPORTS HX OF: Hyperlipidemia, Hypertension Gastrointestinal: REPORTS HX OF: Other GI history Genitourinary: REPORTS HX OF: Urinary incontinence Past Surgical History HEENT: REPORTS HX OF: Cataract extraction Cardiovascular: REPORTS HX OF: Valve replacement Gastrointestinal: REPORTS HX OF: Appendectomy Musculoskeletal: REPORTS HX OF: Other musculoskeletal srg Review of Systems Constitutional: COMPLAINS OF: Good general health, Pain Eyes: COMPLAINS OF: Hx eye disease Cardiovascular: COMPLAINS OF: Hx hypertension, Swelling legs / ankles Genitourinary: COMPLAINS OF: Incontinence Integumentary: COMPLAINS OF: Rash Exam-Podiatry Constitutional General appearance: comfortable Nutritional status: normal Orientation: alert and oriented x3 Dermatological Exam Skin Temp - Right: Within Normal Limits Skin Texture - Right: Within Normal Limits Skin Elasticity - Right: Within Normal Limits Skin Tugor - Right: Within Normal Limits Hair Growth - Right: Within Normal Limits Pigmentation - Right: Within Normal Limits Skin Temp - Left: Within Normal Limits Skin Texture - Left: Within Normal Limits Skin Elasticity - Left: Within Normal Limits Skin Tugor - Left: Within Normal Limits Hair Growth - Left: Within Normal Limits Pigmentation - Left: Within Normal Limits Ulcers: Location/Measurements Heart superficial ulceration with blister formation anterior aspect of the right leg with yellowish serous fluid. Some surrounding erythema. No ascending cellulitis. Vascular/Lymphatic Exam R Dorsails Pedis: Palpable L Dorsails Pedis: Palpable R Posterior Tibial: Palpable L Posterior Tibial: Palpable Neurologic Exam Details No neurological deficit seen Muscle Strength Dorsiflexion (Right): Normal Plantarflexion (Right): Normal Inversion (Right): Normal Eversion (Right): Normal Digital (Right): Normal Dorsiflexion (Left): Normal Plantarflexion (Left): Normal Inversion (Left): Normal Eversion (Left): Normal Digital (Left): Normal Foot Range of Motion Dorsiflexion (Right): Normal Plantarflexion (Right): Normal Inversion (Right): Normal Eversion (Right): Normal Digital (Right): Normal Dorsiflexion (Left): Normal Plantarflexion (Left): Normal Inversion (Left): Normal Eversion (Left): Normal Digital (Left): Normal Lab and Radiology Results Laboratory Laboratory Tests Test 10/30/16 10/31/16 17:40 18:16 White Blood Count 36.3 TH/MM3 19.9 TH/MM3 Red Blood Count 4.28 MIL/MM3 3.84 MIL/MM3 Hemoglobin 13.1 GM/DL 11.9 GM/DL Hematocrit 39.9 % 35.8 % Mean Corpuscular Volume 93.2 FL 93.2 FL Mean Corpuscular Hemoglobin 30.6 PG 30.9 PG Mean Corpuscular Hemoglobin 32.8 % 33.2 % Concent Red Cell Distribution Width 14.6 % 14.6 % Platelet Count 295 TH/MM3 249 TH/MM3 Mean Platelet Volume 10.1 FL 9.5 FL Neutrophils (%) (Auto) 76.3 % 72.8 % Lymphocytes (%) (Auto) 15.4 % 17.8 % Monocytes (%) (Auto) 8.1 % 8.0 % Eosinophils (%) (Auto) 0.0 % 1.1 % Basophils (%) (Auto) 0.2 % 0.3 % Neutrophils # (Auto) 27.6 TH/MM3 14.5 TH/MM3 Lymphocytes # (Auto) 5.6 TH/MM3 3.5 TH/MM3 Monocytes # (Auto) 3.0 TH/MM3 1.6 TH/MM3 Eosinophils # (Auto) 0.0 TH/MM3 0.2 TH/MM3 Basophils # (Auto) 0.1 TH/MM3 0.1 TH/MM3 CBC Comment AUTO DIFF DIFF FINAL Differential Total Cells 100 Counted Neutrophils % (Manual) 65 % Band Neutrophils % 14 % Lymphocytes % 10 % Monocytes % 11 % Neutrophils # (Manual) 28.7 TH/MM3 Differential Comment FINAL DIFF MANUAL Platelet Estimate NORMAL Platelet Morphology Comment NORMAL Laboratory Tests Test 10/30/16 10/31/16 17:40 18:16 Sodium Level 140 MEQ/L 137 MEQ/L Potassium Level 4.4 MEQ/L 4.2 MEQ/L Chloride Level 107 MEQ/L 104 MEQ/L Carbon Dioxide Level 27.5 MEQ/L 27.4 MEQ/L Anion Gap 6 MEQ/L 6 MEQ/L Blood Urea Nitrogen 15 MG/DL 21 MG/DL Creatinine 0.83 MG/DL 0.76 MG/DL Estimat Glomerular Filtration 66 ML/MIN 73 ML/MIN Rate Random Glucose 89 MG/DL 93 MG/DL Lactic Acid Level 1.6 mmol/L Calcium Level 8.7 MG/DL 7.9 MG/DL Total Bilirubin 0.9 MG/DL 0.7 MG/DL Aspartate Amino Transf 11 U/L 10 U/L (AST/SGOT) Alanine Aminotransferase 13 U/L 9 U/L (ALT/SGPT) Alkaline Phosphatase 117 U/L 98 U/L Total Protein 6.5 GM/DL 5.9 GM/DL Albumin 3.2 GM/DL 2.5 GM/DL Microbiology Date/Time Procedure Status Source Growth 10/30/16 17:40 Aerobic Blood Culture - Preliminary Resulted Blood Peripheral NO GROWTH IN 1 DAY 10/30/16 17:40 Anaerobic Blood Culture - Preliminary Resulted Blood Peripheral NO GROWTH IN 1 DAY 10/30/16 17:45 Aerobic Blood Culture - Preliminary Resulted Blood Peripheral NO GROWTH IN 1 DAY 10/30/16 17:45 Anaerobic Blood Culture - Preliminary Resulted Blood Peripheral NO GROWTH IN 1 DAY 10/30/16 17:45 Gram Stain - Final Resulted Wound Leg 10/30/16 17:45 Wound Culture - Preliminary Resulted Staphylococcus Aureus Radiology Last Impressions Lower Extremity Ultrasound 10/30/16 0000 Signed Impressions: Service Date/Time: October 15:26 - CONCLUSION: Negative exam with no evidence of deep venous thrombosis. 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 Changed daily. Can be discharged when white cell count is in normal range. Follow-up as needed. Cirilo Paris DPM Nov 01, 2016 09:58
[2016-11-01] MEDS: HYDROmorphone HCL PF 1 MG/ML VIAL IV PRN ×2 (10:42→20:41)
[2016-11-01] MEDS: SODIUM CHLOR 0.45% 1000 ML INJ 1,000 ML IV SCH ×2 (12:22→15:07)
--- NOTE | 2016-11-01 13:26 | HHI.PR ---
Subjective Remarks No new complaints Pt was seen by podiatry/plastic surgery today and had the bullous wounds drained at the bedside. Pt is afebrile. Objective Vitals Vital Signs Date Time Temp Pulse Resp B/P Pulse Ox O2 Delivery O2 Flow Rate FiO2 11/01/16 11:39 98.0 64 17 136/63 97 11/01/16 07:57 97.6 74 19 141/58 93 11/01/16 06:53 98 Nasal Cannula 2.00 11/01/16 04:00 98.4 74 16 114/64 98 11/01/16 00:00 98.1 75 16 113/61 97 10/31/16 20:00 98.1 84 16 122/61 98 10/31/16 14:04 20 10/31/16 10/31/16 11/01/16 15:00 23:00 07:00 # Voids 2 2 Result Diagram: 10/31/16 1816 10/31/16 1816 Other Results Laboratory Tests Test 10/30/16 10/31/16 17:40 18:16 White Blood Count 36.3 TH/MM3 19.9 TH/MM3 Red Blood Count 4.28 MIL/MM3 3.84 MIL/MM3 Hemoglobin 13.1 GM/DL 11.9 GM/DL Hematocrit 39.9 % 35.8 % Mean Corpuscular Volume 93.2 FL 93.2 FL Mean Corpuscular Hemoglobin 30.6 PG 30.9 PG Mean Corpuscular Hemoglobin 32.8 % 33.2 % Concent Red Cell Distribution Width 14.6 % 14.6 % Platelet Count 295 TH/MM3 249 TH/MM3 Mean Platelet Volume 10.1 FL 9.5 FL Neutrophils (%) (Auto) 76.3 % 72.8 % Lymphocytes (%) (Auto) 15.4 % 17.8 % Monocytes (%) (Auto) 8.1 % 8.0 % Eosinophils (%) (Auto) 0.0 % 1.1 % Basophils (%) (Auto) 0.2 % 0.3 % Neutrophils # (Auto) 27.6 TH/MM3 14.5 TH/MM3 Lymphocytes # (Auto) 5.6 TH/MM3 3.5 TH/MM3 Monocytes # (Auto) 3.0 TH/MM3 1.6 TH/MM3 Eosinophils # (Auto) 0.0 TH/MM3 0.2 TH/MM3 Basophils # (Auto) 0.1 TH/MM3 0.1 TH/MM3 CBC Comment AUTO DIFF DIFF FINAL Differential Total Cells 100 Counted Neutrophils % (Manual) 65 % Band Neutrophils % 14 % Lymphocytes % 10 % Monocytes % 11 % Neutrophils # (Manual) 28.7 TH/MM3 Differential Comment FINAL DIFF MANUAL Platelet Estimate NORMAL Platelet Morphology Comment NORMAL Prothrombin Time 11.4 SEC Prothromb Time International 1.0 RATIO Ratio Activated Partial 29.6 SEC Thromboplast Time Sodium Level 140 MEQ/L 137 MEQ/L Potassium Level 4.4 MEQ/L 4.2 MEQ/L Chloride Level 107 MEQ/L 104 MEQ/L Carbon Dioxide Level 27.5 MEQ/L 27.4 MEQ/L Anion Gap 6 MEQ/L 6 MEQ/L Blood Urea Nitrogen 15 MG/DL 21 MG/DL Creatinine 0.83 MG/DL 0.76 MG/DL Estimat Glomerular Filtration 66 ML/MIN 73 ML/MIN Rate Random Glucose 89 MG/DL 93 MG/DL Lactic Acid Level 1.6 mmol/L Calcium Level 8.7 MG/DL 7.9 MG/DL Total Bilirubin 0.9 MG/DL 0.7 MG/DL Aspartate Amino Transf 11 U/L 10 U/L (AST/SGOT) Alanine Aminotransferase 13 U/L 9 U/L (ALT/SGPT) Alkaline Phosphatase 117 U/L 98 U/L Total Protein 6.5 GM/DL 5.9 GM/DL Albumin 3.2 GM/DL 2.5 GM/DL Imaging Last 24 hours Impressions Lower Extremity Ultrasound 10/30/16 0000 Signed Impressions: Service Date/Time: October 15:26 - CONCLUSION: Negative exam with no evidence of deep venous thrombosis. Tello Schwartz MD Objective Remarks General: NAD, Awake and alert, slightly confused Chest: CTA Cardiac: Regular Abd: +BS, soft ND/NT Ext: Steristrips on LLE, no erythema or drainage. RLE dressing in tact, less erythema of the right foot A/P Problem List: (1) Cellulitis of lower extremity Status: Acute Plan: - Pt is an 81 y/o female with COPD, chronic tobacco use, CAD, HTN, hx of CVA, and had a recent fall where she sustained a hip fracture and underwent surgical repair in August 2016 - She had recently fallen at home and sustained skin tears to bilateral LE which [facility] nursing placed steristrips on - She presented back to the ED for RLE redness, pain and swelling. - She reportedly had a fever prior to admission with temperature of 100.0. - In the ED she was found to have very high WBC count of 36.3 - Blood c/s with NGTD - Wound culture from the RLE growing Staph Aureus - Pt given Vancomycin and Zosyn in the ED and was continued on Zosyn and Vanc. - LE US was negative for DVT - Pts wound on the RLE is quite extensive with significant skin tears with draining bullous lesions, the majority of the leg from the knee down is erythematous and swollen - Appreciate consult from Plastic Surgery, case discussed with Dr. Paris, he does not feel that the pt needs any surgical intervention at this time. - Recommended for Optifoam Gentle AG dressings to right leg wound, to be changed daily. - Monitor labs - Cont. IV antibiotics for now - Supportive care (2) Sepsis Status: Acute Plan: - See above. (3) Intertrochanteric fracture of left hip Status: Chronic Plan: - Pt was recently admitted after a fall related to positional dizziness and sustained an intratrochanteric fracture of the left hip. - Pt underwent left hip reduction and intramedullary nail fixation on 08/26/[address] Kang - She was at SNF and then went home with [facility] - Pain control PRN (4) COPD (chronic obstructive pulmonary disease) Status: Chronic Plan: - Continue prn nebulizer Assessment and Plan Patient examined. Assessment and plan formulated with Shilpa De Santiago PA-C. I agree with the above. Problem Qualifiers (1) Cellulitis of lower extremity: (2) Sepsis: Shilpa De Santiago Nov 01, 2016 13:26 Jet Rivers DO Nov 02, 2016 14:02
[2016-11-01] MEDS: PRAVASTATIN SOD 80 MG TAB PO SCH (20:31)
[2016-11-01] MEDS: VANCOMYCIN 1,000 MG/NS 250 ML IV SCH ×2 (20:41)
[2016-11-02] VITALS: BP 123/56; PULSE 70; RESP 20; TEMP 98.8; O2SAT 97
[2016-11-02 02:23] LABS: BICARBONATE 27.6 MEQ/L (21.0-32.0); POTASSIUM 4.2 MEQ/L (3.5-5.1)
[2016-11-02 02:25] LABS: AUTOMATED NEUTROPHIL # 8.2 TH/MM3 (1.8-7.7); BASOPHIL % 0.3 % (0.0-2.0); EOSINOPHIL # 0.3 TH/MM3 (0-0.4); EOSINOPHIL % 2.2 % (0.0-4.0); HEMATOCRIT 34.7 % (35.0-46.0); HEMO FLAGS DIFF FINAL; LYMPH % 26.1 % (9.0-44.0); LYMPHOCYTE # 3.6 TH/MM3 (1.0-4.8); MEAN CELL VOLUME 92.9 FL (80.0-100.0); MEAN CORPUSCULAR HEMOGLOBIN 30.2 PG (27.0-34.0); MEAN CORPUSCULAR HGB CONC 32.6 % (32.0-36.0); MONO % 11.2 % (0.0-8.0); NEUT % 60.2 % (16.0-70.0); PLATELET COUNT 273 TH/MM3 (150-450); RED BLOOD COUNT 3.74 MIL/MM3 (4.00-5.30); RED CELL DISTRIBUTION WIDTH 14.4 % (11.6-17.2); WHITE BLOOD COUNT 13.7 TH/MM3 (4.0-11.0)
[2016-11-02 04:00] VITALS: BP 135/63; PULSE 68; RESP 18; TEMP 98.5; O2SAT 94
[2016-11-02] MEDS: LEVOTHYROXINE SODIUM 50 MCG TAB PO SCH (05:34)
[2016-11-02] MEDS: PIPERACIL-TAZO 3.375 GM PREMIX 50 ML IV SCH ×2 (05:35→12:15)
[2016-11-02] MEDS: SODIUM CHLOR 0.45% 1000 ML INJ 1,000 ML IV SCH ×2 (05:35→16:41)
[2016-11-02 08:00] VITALS: BP_SYST 118; BP_SYST 160; BP_DIAS 59; BP_DIAS 96; PULSE 69; PULSE 95; RESP 17; RESP 20; TEMP 97.6; TEMP 99; O2SAT 100; O2SAT 95
[2016-11-02] MEDS: LOSARTAN 50 MG TAB PO SCH (09:00)
[2016-11-02] MEDS: RIVAROXABAN 10 MG TAB PO SCH (09:00)
[2016-11-02] MEDS: CALCIUM/VITAMIN D 250 MG/125 U TAB PO SCH ×2 (09:00→19:49)
[2016-11-02] MEDS: DOCUSATE SODIUM 100 MG CAP PO SCH ×2 (09:00→19:50)
[2016-11-02] MEDS: DOCUSATE SODIUM 50 MG/SENNA 8.6 MG TAB PO SCH ×2 (09:00→19:50)
[2016-11-02] MEDS: SODIUM CHLORIDE 0.9% FLUSH 10 ML FLUSH IV FLUSH SCH ×2 (09:00→19:50)
[2016-11-02] MEDS: ASPIRIN 81 MG CHEW TAB CHEW SCH (09:00)
[2016-11-02] MEDS: MUPIROCIN 2% CREAM 15 GM TOPICAL SCH ×2 (09:00→21:00)
[2016-11-02] MEDS: ACETAMINOPHEN/HYDROcodone 325 MG/7.5 MG TAB PO PRN ×2 (09:20→17:24)
[2016-11-02 12:00] VITALS: BP 158/65; PULSE 65; RESP 18; TEMP 97.9; O2SAT 98
[2016-11-02] MEDS: HYDROmorphone HCL PF 1 MG/ML VIAL IV PRN ×2 (12:55→20:55)
--- NOTE | 2016-11-02 14:03 | PD.POD ---
Subjective Podiatric Problems Patient seen for ulceration of the right anterior leg Pain scale used: 0-10 numeric scale Pain score: 3 Remarks 81-year-old female with a venous stasis ulceration of the right anterior leg. Yesterday has started a foam silver dressing and the patient states is making her wound feel much better. Past Med/Surg/Social History Past Medical History PFSH Reviewed: Yes Respiratory: REPORTS HX OF: COPD Cardiovascular: REPORTS HX OF: Hyperlipidemia, Hypertension Gastrointestinal: REPORTS HX OF: Other GI history Genitourinary: REPORTS HX OF: Urinary incontinence Past Surgical History HEENT: REPORTS HX OF: Cataract extraction Cardiovascular: REPORTS HX OF: Valve replacement Gastrointestinal: REPORTS HX OF: Appendectomy Musculoskeletal: REPORTS HX OF: Other musculoskeletal srg Social History Smoking Status: Current Every Day Smoker Review of Systems Notes No changes in her 14 point review of systems exam from the previous visit Objective Vital Signs Vital Signs Date Time Temp Pulse Resp B/P (MAP) Pulse Ox O2 Delivery O2 Flow Rate FiO2 11/02/16 12:00 97.9 65 18 158/65 (96) 98 11/02/16 08:00 97.6 69 20 118/59 (78) 95 11/02/16 04:00 98.5 68 18 135/63 (87) 94 11/02/16 00:00 98.8 70 20 123/56 (78) 97 11/01/16 20:00 98.2 81 22 148/64 (92) 97 11/01/16 16:00 98.2 88 17 131/77 (95) 94 11/01/16 14:08 97 21 Coded Allergies: adhesive (Unverified Allergy, Severe, ADHESIVE TAPE/BLISTERS SKIN, 10/28/16 ) MILD REACTION doxycycline (Unverified Allergy, Severe, 10/28/16) UNKNOWN REACTION minocycline (Unverified Allergy, Severe, 10/28/16) UNKNOWN REACTION tigecycline (Unverified Allergy, Severe, 10/28/16) UNKNOWN REACTION Medications and IVs Current Medications Acetaminophen (Tylenol) 650 mg ONCE ONCE PO Last administered on 10/30/16 18: 25; Start 10/30/16 at 14:45; Stop 10/30/16 at 14:47; Status DC Vancomycin HCl 1000 mg/Sodium Chloride 250 ml @ 250 mls/hr ONCE ONCE IV Last administered on 10/30/16 20:05; Start 10/30/16 at 19:00; Stop 10/30/16 at 19:59 ; Status DC Piperacillin Sod/ Tazobactam Sod 100 ml @ 200 mls/hr ONCE ONCE IV Last administered on 10/30/16 19:47; Start 10/30/16 at 19:00; Stop 10/30/16 at 19:29 ; Status DC Sodium Chloride 1,000 ml @ 999 mls/hr BOLUS ONCE IV Last administered on 10/30 19:47; Start 10/30/16 at 19:15; Stop 10/30/16 at 20:15; Status DC Aspirin (Aspirin Chew) 81 mg DAILY CHEW Last administered on 11/02/16 09:00; Start 10/31/16 at 09:00 Docusate Sodium (Colace) 100 mg BID PO Last administered on 11/01/16 20:31; Start 10/31/16 at 09:00 Acetaminophen/ Hydrocodone Bitart ([place] 7.5-325 Mg) 1 tab Q4H PRN PO PAIN Last administered on 11/02/16 09:20; Start 10/30/16 at 23:15 Levothyroxine Sodium (Synthroid) 50 mcg DAILY@0600 PO Last administered on 11/02 05:34; Start 10/31/16 at 06:00 Losartan Potassium (Cozaar) 50 mg DAILY PO Last administered on 11/02/16 09:00 ; Start 10/31/16 at 09:00 Mupirocin (Bactroban 2% Cream) 1 applic BID TOPICAL Last administered on 09:00; Start 10/31/16 at 09:00 Rivaroxaban (Xarelto) 10 mg DAILY PO Last administered on 11/02/16 09:00; Start 10/31/16 at 09:00 Non-Formulary Medication 1 tab BID PO NS; Start 10/31/16 at 09:00; Status UNV Pravastatin Sodium (Pravachol) 80 mg HS PO Last administered on 11/01/16 20:31 ; Start 10/31/16 at 21:00 Sodium Chloride 1,000 ml @ 75 mls/hr [id number] IV Last administered on 05:35; Start 10/30/16 at 23:07 Sodium Chloride (NS Flush) 2 ml UNSCH PRN IV FLUSH FLUSH AFTER USING IV ACCESS ; Start 10/30/16 at 23:15 Sodium Chloride (NS Flush) 2 ml BID IV FLUSH Last administered on 11/02/16 09: 00; Start 10/31/16 at 09:00 Ondansetron HCl (Zofran Inj) 4 mg Q6H PRN IVP NAUSEA OR VOMITING; Start at 23:15 Hydromorphone HCl (Dilaudid Pf Inj) 0.5 mg Q8HR PRN IV PAIN 5-10 Last administered on 11/02/16 12:55; Start 10/30/16 at 23:15 Naloxone HCl (Narcan Inj) 0.4 mg UNSCH PRN IV SEE LABEL COMMENTS; Start at 23:15 Senna/Docusate Sodium (Joyce-Colace) 1 tab BID PO Last administered on 20:31; Start 10/31/16 at 09:00 Magnesium Hydroxide (Milk Of Magnesia Liq) 30 ml Q12H PRN PO MILD - MODERATE CONSTIPATION; Start 10/30/16 at 23:15 Sennosides (Senokot) 17.2 mg Q12H PRN PO MODERATE - SEVERE CONSTIPATION; Start 10/30/16 at 23:15 Bisacodyl (Dulcolax Supp) 10 mg DAILY PRN RECTAL SEVERE CONSITIPATION; Start at 23:15 Lactulose (Lactulose Liq) 30 ml DAILY PRN PO SEVERE CONSITIPATION; Start at 23:15 Pharmacy Profile Note 0 ml @ 0 mls/hr UNSCH OTHER ; Start 10/30/16 at 23:15 Piperacillin Sod/ Tazobactam Sod 50 ml @ 100 mls/hr Q8H IV Last administered on 11/02/16 12:15; Start 10/31/16 at 04:00 Calcium/Vitamin D (Oscal-D 250-125) 500 mg BID PO Last administered on 09:00; Start 10/31/16 at 09:00 Albuterol/ Ipratropium (Duoneb Neb) 1 ampule Q8HR NEB PRN NEB SHORTNESS OF BREATH; Start 10/30/16 at 23:15 Vancomycin HCl 1000 mg/Sodium Chloride 250 ml @ 250 mls/hr Q24H IV Last administered on 11/01/16t 20:41; Start 10/31/16 at 21:00 Miscellaneous Information SPECIFIC LAB TO BE ... ONCE ONCE .XX ; Start 11/02 at 20:45; Stop 11/02/16 at 20:46 Other Results Laboratory Tests Test 10/31/16 18:16 11/02/16 00:50 White Blood Count 19.9 TH/MM3 13.7 TH/MM3 Red Blood Count 3.84 MIL/MM3 3.74 MIL/MM3 Hemoglobin 11.9 GM/DL 11.3 GM/DL Hematocrit 35.8 % 34.7 % Mean Corpuscular Volume 93.2 FL 92.9 FL Mean Corpuscular Hemoglobin 30.9 PG 30.2 PG Mean Corpuscular Hemoglobin Concent 33.2 % 32.6 % Red Cell Distribution Width 14.6 % 14.4 % Platelet Count 249 TH/MM3 273 TH/MM3 Mean Platelet Volume 9.5 FL 9.8 FL Neutrophils (%) (Auto) 72.8 % 60.2 % Lymphocytes (%) (Auto) 17.8 % 26.1 % Monocytes (%) (Auto) 8.0 % 11.2 % Eosinophils (%) (Auto) 1.1 % 2.2 % Basophils (%) (Auto) 0.3 % 0.3 % Neutrophils # (Auto) 14.5 TH/MM3 8.2 TH/MM3 Lymphocytes # (Auto) 3.5 TH/MM3 3.6 TH/MM3 Monocytes # (Auto) 1.6 TH/MM3 1.5 TH/MM3 Eosinophils # (Auto) 0.2 TH/MM3 0.3 TH/MM3 Basophils # (Auto) 0.1 TH/MM3 0.0 TH/MM3 CBC Comment DIFF FINAL DIFF FINAL Differential Comment Laboratory Tests Test 10/31/16 18:16 11/02/16 00:50 Blood Urea Nitrogen 21 MG/DL 19 MG/DL Creatinine 0.76 MG/DL 0.77 MG/DL Random Glucose 93 MG/DL 89 MG/DL Total Protein 5.9 GM/DL Albumin 2.5 GM/DL Calcium Level 7.9 MG/DL 8.3 MG/DL Alkaline Phosphatase 98 U/L Aspartate Amino Transf (AST/SGOT) 10 U/L Alanine Aminotransferase (ALT/SGPT) 9 U/L Total Bilirubin 0.7 MG/DL Sodium Level 137 MEQ/L 139 MEQ/L Potassium Level 4.2 MEQ/L 4.2 MEQ/L Chloride Level 104 MEQ/L 106 MEQ/L Carbon Dioxide Level 27.4 MEQ/L 27.6 MEQ/L Anion Gap 6 MEQ/L 5 MEQ/L Estimat Glomerular Filtration Rate 73 ML/MIN 72 ML/MIN Magnesium Level 2.0 MG/DL Microbiology Date/Time Source Procedure Growth Status 10/30/16 17:45 Blood Peripheral Aerobic Blood Culture - Preliminary NO GROWTH IN 3 DAYS Resulted 10/30/16 17:45 Blood Peripheral Anaerobic Blood Culture - Preliminary NO GROWTH IN 3 DAYS Resulted 10/30/16 17:40 Blood Peripheral Aerobic Blood Culture - Preliminary NO GROWTH IN 3 DAYS Resulted 10/30/16 17:40 Blood Peripheral Anaerobic Blood Culture - Preliminary NO GROWTH IN 3 DAYS Resulted 10/30/16 17:45 Wound Leg Gram Stain - Final Complete 8 17:45 Wound Culture - Final Staphylococcus Aureus Complete Exam-Podiatry Constitutional General appearance: comfortable Nutritional status: normal Orientation: alert and oriented x3 Dermatological Exam Skin Temp - Right: Within Normal Limits Skin Texture - Right: Within Normal Limits Skin Elasticity - Right: Within Normal Limits Skin Tugor - Right: Within Normal Limits Hair Growth - Right: Within Normal Limits Pigmentation - Right: Within Normal Limits Skin Temp - Left: Within Normal Limits Skin Texture - Left: Within Normal Limits Skin Elasticity - Left: Within Normal Limits Skin Tugor - Left: Within Normal Limits Hair Growth - Left: Within Normal Limits Pigmentation - Left: Within Normal Limits Ulcers: Location/Measurements Venous stasis ulceration anterior right leg improved. Still some surrounding erythema. Vascular/Lymphatic Exam R Dorsails Pedis: Palpable L Dorsails Pedis: Palpable R Posterior Tibial: Palpable L Posterior Tibial: Palpable Neurologic Exam Details No neurological deficits seen Muscle Strength Dorsiflexion (Right): Normal Plantarflexion (Right): Normal Inversion (Right): Normal Eversion (Right): Normal Digital (Right): Normal Dorsiflexion (Left): Normal Plantarflexion (Left): Normal Inversion (Left): Normal Eversion (Left): Normal Digital (Left): Normal Foot Range of Motion Dorsiflexion (Right): Normal Plantarflexion (Right): Normal Inversion (Right): Normal Eversion (Right): Normal Digital (Right): Normal Dorsiflexion (Left): Normal Plantarflexion (Left): Normal Inversion (Left): Normal Eversion (Left): Normal Digital (Left): Normal Assessment & Plan Diagnosis: (1) Chronic venous hypertension (idiopathic) with ulcer of right lower extremity ICD Codes: I87.311 - Chronic venous hypertension (idiopathic) with ulcer of right lower extremity Status: Acute (2) Cellulitis of lower extremity ICD Codes: L03.119 - Cellulitis of unspecified part of limb Status: Acute A/P PLAN: Continue Optifoam Gentle AG dressings to right leg. Change every other day. Examined the patient with Dr. Ramos. Problem Qualifiers (1) Cellulitis of lower extremity: Cirilo Paris DPM Nov 02, 2016 14:02
--- NOTE | 2016-11-02 14:19 | HHI.PR ---
Subjective Remarks Pt states that her RLE extremity was much more comfortable following drainage by Podiatry and application of dressing. Uncomfortable with dressing change. Objective Vitals Vital Signs Date Time Temp Pulse Resp B/P (MAP) Pulse Ox O2 Delivery O2 Flow Rate FiO2 11/02/16 12:00 97.9 65 18 158/65 (96) 98 11/02/16 08:00 97.6 69 20 118/59 (78) 95 11/02/16 04:00 98.5 68 18 135/63 (87) 94 11/02/16 00:00 98.8 70 20 123/56 (78) 97 11/01/16 20:00 98.2 81 22 148/64 (92) 97 11/01/16 16:00 98.2 88 17 131/77 (95) 94 11/01/16 14:08 97 21 Result Diagram: 11/02/16 0050 11/02/16 0050 Imaging Last 24 hours Impressions Lower Extremity Ultrasound 10/30/16 0000 Signed Impressions: Service Date/Time: October 15:26 - CONCLUSION: Negative exam with no evidence of deep venous thrombosis. Tello Schwartz MD Objective Remarks General: NAD, Awake and alert, slightly confused Chest: CTA Cardiac: Regular Abd: +BS, soft ND/NT Ext: Steristrips on LLE, no erythema or drainage. RLE large superficial wound, good granulation tissue at anterior surface mild erythema at foot improving A/P Problem List: (1) Cellulitis of lower extremity ICD Codes: L03.119 - Cellulitis of unspecified part of limb Status: Acute Plan: - Comgmt with Dr. Paris, Podiatry - Pt is an 81 y/o female with COPD, chronic tobacco use, CAD, HTN, hx of CVA, and had a recent fall where she sustained a hip fracture and underwent surgical repair in August 2016 - She had recently fallen at home and sustained skin tears to bilateral LE which [facility] nursing placed steristrips on - She presented back to the ED for RLE redness, pain and swelling. - She reportedly had a fever prior to admission with temperature of 100.0. - In the ED she was found to have very high WBC count of 36.3 - LE US was negative for DVT - Blood c/s --> no growth at 3d - wound cx (10/31/16) --> MSSA with broad sensitivity - WBC 36.3 (10/30), 13.7 (11/02) - afebrile since 10/30 at 6PM - Vancomycin & zosyn (10/30 - 11/02) - PO levaquin (11/02 - present) - continue Optifoam Gentle AG dressings to right leg wound, to be changed daily - observe, may require debridement in the future - anticipate d/c to SNF in 1-2 days - DVT prophylaxis with xarelto - will need SNF upon discharge (2) Sepsis ICD Codes: A41.9 - Sepsis, unspecified organism Status: Acute Plan: - See above. (3) Intertrochanteric fracture of left hip ICD Codes: S72.142A - Displaced intertrochanteric fracture of left femur, initial encounter for closed fracture Status: Chronic Plan: - Pt was recently admitted after a fall related to positional dizziness and sustained an intratrochanteric fracture of the left hip. - Pt underwent left hip reduction and intramedullary nail fixation on 08/26/[address] Kang - She was at SNF and then went home with [facility] - Pain control PRN (4) COPD (chronic obstructive pulmonary disease) ICD Codes: J44.9 - Chronic obstructive pulmonary disease, unspecified Status: Chronic Plan: - Continue prn nebulizer Problem Qualifiers (1) Cellulitis of lower extremity: (2) Sepsis: Jet Rivers DO Nov 02, 2016 14:19
[2016-11-02] MEDS: LEVOFLOXACIN 500 MG TAB PO SCH (15:23)
[2016-11-02 16:00] VITALS: BP 99/51; PULSE 67; RESP 18; TEMP 98; O2SAT 95
[2016-11-02] MEDS: PRAVASTATIN SOD 80 MG TAB PO SCH (19:49)
[2016-11-02 20:00] VITALS: BP 117/58; PULSE 71; RESP 17; TEMP 97.8; O2SAT 99
[2016-11-02] MEDS ORDERED: PHARMACY ORDERED LAB ONE (20:45)
[2016-11-03 00:56] VITALS: BP 131/71; PULSE 77; RESP 17; TEMP 98.2; O2SAT 99
[2016-11-03 04:30] VITALS: BP 136/58; PULSE 88; RESP 17; TEMP 98; O2SAT 96
[2016-11-03] MEDS: LEVOTHYROXINE SODIUM 50 MCG TAB PO SCH (06:25)
[2016-11-03] MEDS: SODIUM CHLOR 0.45% 1000 ML INJ 1,000 ML IV SCH ×2 (06:26→20:49)
[2016-11-03 09:04] VITALS: BP 152/70; PULSE 79; RESP 16; TEMP 98.2; O2SAT 97
--- NOTE | 2016-11-03 09:55 | HHI.PR ---
Subjective Remarks pt says her son is not interested in her going to snf. Objective Vitals heart reg lung cta abd s/nt ext lle ant haq healing lac..steri strip rle ant haq denuded/ulceration/bullous areas but redness improved. covered with dressing but painful to move. Vital Signs Date Time Temp Pulse Resp B/P (MAP) Pulse Ox O2 Delivery O2 Flow Rate FiO2 11/03/16 09:04 98.2 79 16 152/70 (97) 97 11/03/16 04:30 98.0 88 17 136/58 (84) 96 11/03/16 00:56 98.2 77 17 131/71 (91) 99 11/02/16 20:00 97.8 71 17 117/58 (77) 99 11/02/16 16:00 98.0 67 18 99/51 (67) 95 11/02/16 12:00 97.9 65 18 158/65 (96) 98 Result Diagram: 11/02/16 0050 11/02/16 0050 Imaging Last 24 hours Impressions Lower Extremity Ultrasound 10/30/16 0000 Signed Impressions: Service Date/Time: October 15:26 - CONCLUSION: Negative exam with no evidence of deep venous thrombosis. Tello Schwartz MD A/P Problem List: (1) Cellulitis of lower extremity ICD Codes: L03.119 - Cellulitis of unspecified part of limb Status: Acute Plan: - Comgmt with Dr. Paris, Podiatry - Pt is an 81 y/o female with COPD, chronic tobacco use, CAD, HTN, hx of CVA, and had a recent fall where she sustained a hip fracture and underwent surgical repair in August 2016 - She had recently fallen at home and sustained skin tears to bilateral LE which [facility] nursing placed steristrips on - She presented back to the ED for RLE redness, pain and swelling. - She reportedly had a fever prior to admission with temperature of 100.0. - In the ED she was found to have very high WBC count of 36.3 - LE US was negative for DVT - Blood c/s --> no growth at 3d - wound cx (10/31/16) --> MSSA with broad sensitivity - WBC 36.3 (10/30), 13.7 (11/02) - afebrile since 10/30 at 6PM - Vancomycin & zosyn (10/30 - 11/02) - PO levaquin (11/02 - present) - continue Optifoam Gentle AG dressings to right leg wound, to be changed daily - observe, may require debridement in the future - DVT prophylaxis with xarelto - pt currently refusing snf and so will require hhc/pt will d/c when ok with podiatry.. (2) Sepsis ICD Codes: A41.9 - Sepsis, unspecified organism Status: Acute Plan: - See above. (3) Intertrochanteric fracture of left hip ICD Codes: S72.142A - Displaced intertrochanteric fracture of left femur, initial encounter for closed fracture Status: Chronic Plan: - Pt was recently admitted after a fall related to positional dizziness and sustained an intratrochanteric fracture of the left hip. - Pt underwent left hip reduction and intramedullary nail fixation on 08/26/[address] Kang - She was at SNF and then went home with [facility] - Pain control PRN (4) COPD (chronic obstructive pulmonary disease) ICD Codes: J44.9 - Chronic obstructive pulmonary disease, unspecified Status: Chronic Plan: - Continue prn nebulizer Problem Qualifiers (1) Cellulitis of lower extremity: (2) Sepsis: Chad Rudolph MD Nov 03, 2016 09:55
[2016-11-03] MEDS: ACETAMINOPHEN/HYDROcodone 325 MG/7.5 MG TAB PO PRN ×2 (10:09→14:40)
[2016-11-03] MEDS: LOSARTAN 50 MG TAB PO SCH (10:09)
[2016-11-03] MEDS: ASPIRIN 81 MG CHEW TAB CHEW SCH (10:10)
[2016-11-03] MEDS: RIVAROXABAN 10 MG TAB PO SCH (10:10)
[2016-11-03] MEDS: DOCUSATE SODIUM 50 MG/SENNA 8.6 MG TAB PO SCH ×2 (10:10→20:51)
[2016-11-03] MEDS: CALCIUM/VITAMIN D 250 MG/125 U TAB PO SCH ×2 (10:10→20:50)
[2016-11-03] MEDS: LEVOFLOXACIN 500 MG TAB PO SCH (10:10)
[2016-11-03] MEDS: DOCUSATE SODIUM 100 MG CAP PO SCH ×2 (10:11→20:51)
[2016-11-03] MEDS: SODIUM CHLORIDE 0.9% FLUSH 10 ML FLUSH IV FLUSH SCH ×2 (10:11→20:51)
[2016-11-03] MEDS: MUPIROCIN 2% CREAM 15 GM TOPICAL SCH ×2 (10:11→20:52)
[2016-11-03 12:06] LABS: AUTOMATED NEUTROPHIL # 8.5 TH/MM3 (1.8-7.7); BASOPHIL % 0.2 % (0.0-2.0); EOSINOPHIL # 0.2 TH/MM3 (0-0.4); EOSINOPHIL % 1.4 % (0.0-4.0); LYMPH % 17.5 % (9.0-44.0); LYMPHOCYTE # 2.1 TH/MM3 (1.0-4.8); MEAN CORPUSCULAR HEMOGLOBIN 29.8 PG (27.0-34.0); MEAN CORPUSCULAR HGB CONC 32.4 % (32.0-36.0); MONO % 11.4 % (0.0-8.0); NEUT % 69.5 % (16.0-70.0); PLATELET COUNT 356 TH/MM3 (150-450); RED BLOOD COUNT 4.03 MIL/MM3 (4.00-5.30); RED CELL DISTRIBUTION WIDTH 14.4 % (11.6-17.2); WHITE BLOOD COUNT 12.3 TH/MM3 (4.0-11.0)
[2016-11-03 12:08] LABS: HEMO FLAGS DIFF FINAL
[2016-11-03 12:34] VITALS: BP 123/60; PULSE 79; RESP 16; TEMP 98.4; O2SAT 98
[2016-11-03 16:20] VITALS: BP 120/57; PULSE 68; RESP 16; TEMP 98.5; O2SAT 98
[2016-11-03 20:00] VITALS: BP 107/56; PULSE 65; RESP 18; TEMP 98.4; O2SAT 96
[2016-11-03] MEDS: HYDROmorphone HCL PF 1 MG/ML VIAL IV PRN (20:50)
[2016-11-03] MEDS: PRAVASTATIN SOD 80 MG TAB PO SCH (20:50)
[2016-11-04] VITALS: BP 109/57; PULSE 67; RESP 18; TEMP 98.1; O2SAT 96
[2016-11-04 04:00] VITALS: BP 122/74; PULSE 70; RESP 18; TEMP 98.7; O2SAT 97
[2016-11-04] MEDS: ACETAMINOPHEN/HYDROcodone 325 MG/7.5 MG TAB PO PRN (06:19)
[2016-11-04] MEDS: LEVOTHYROXINE SODIUM 50 MCG TAB PO SCH (06:19)
[2016-11-04 08:00] VITALS: BP 164/57; PULSE 73; RESP 21; TEMP 98.8; O2SAT 97
[2016-11-04] MEDS: LOSARTAN 50 MG TAB PO SCH (08:40)
[2016-11-04] MEDS: RIVAROXABAN 10 MG TAB PO SCH (08:40)
[2016-11-04] MEDS: LEVOFLOXACIN 500 MG TAB PO SCH (08:40)
[2016-11-04] MEDS: DOCUSATE SODIUM 50 MG/SENNA 8.6 MG TAB PO SCH (08:41)
[2016-11-04] MEDS: CALCIUM/VITAMIN D 250 MG/125 U TAB PO SCH (08:41)
[2016-11-04] MEDS: SODIUM CHLORIDE 0.9% FLUSH 10 ML FLUSH IV FLUSH SCH (08:41)
[2016-11-04] MEDS: ASPIRIN 81 MG CHEW TAB CHEW SCH (08:41)
[2016-11-04] MEDS: MUPIROCIN 2% CREAM 15 GM TOPICAL SCH (08:41)
[2016-11-04] MEDS: DOCUSATE SODIUM 100 MG CAP PO SCH (08:41)
[2016-11-04] MEDS: SODIUM CHLOR 0.45% 1000 ML INJ 1,000 ML IV SCH (09:53)
--- NOTE | 2016-11-04 11:35 | HHI.PR ---
Subjective Remarks eager for d/c denies sob refused snf. Objective Vitals heart reg lung few scattered wheezes abd s/nt ext right haq bandaged. Vital Signs Date Time Temp Pulse Resp B/P (MAP) Pulse Ox O2 Delivery O2 Flow Rate FiO2 11/04/16 08:00 98.8 73 21 164/57 (92) 97 11/04/16 04:00 98.7 70 18 122/74 (90) 97 11/04/16 00:00 98.1 67 18 109/57 (74) 96 11/03/16 20:00 98.4 65 18 107/56 (73) 96 11/03/16 16:20 98.5 68 16 120/57 (78) 98 11/03/16 12:34 98.4 79 16 123/60 (81) 98 Result Diagram: 11/03/16 1131 11/02/16 0050 Imaging Last 24 hours Impressions Lower Extremity Ultrasound 10/30/16 0000 Signed Impressions: Service Date/Time: October 15:26 - CONCLUSION: Negative exam with no evidence of deep venous thrombosis. Tello Schwartz MD A/P Problem List: (1) Cellulitis of lower extremity ICD Codes: L03.119 - Cellulitis of unspecified part of limb Status: Acute Plan: - Comgmt with Dr. Paris, Podiatry - Pt is an 81 y/o female with COPD, chronic tobacco use, CAD, HTN, hx of CVA, and had a recent fall where she sustained a hip fracture and underwent surgical repair in August 2016 - She had recently fallen at home and sustained skin tears to bilateral LE which [facility] nursing placed steristrips on - She presented back to the ED for RLE redness, pain and swelling. - She reportedly had a fever prior to admission with temperature of 100.0. - In the ED she was found to have very high WBC count of 36.3 - LE US was negative for DVT - Blood c/s --> no growth at 3d - wound cx (10/31/16) --> MSSA with broad sensitivity - WBC 36.3 (10/30), 13.7 (11/02) - afebrile since 10/30 at 6PM - Vancomycin & zosyn (10/30 - 11/02) - PO levaquin (11/02 - present) - continue Optifoam Gentle AG dressings to right leg wound, to be changed daily - DVT prophylaxis - pt currently refusing snf and so will require hhc/pt arranged f/u with cp wound care. complete the abx course. (2) Sepsis ICD Codes: A41.9 - Sepsis, unspecified organism Status: Acute Plan: - See above. (3) Intertrochanteric fracture of left hip ICD Codes: S72.142A - Displaced intertrochanteric fracture of left femur, initial encounter for closed fracture Status: Chronic Plan: - Pt was recently admitted after a fall related to positional dizziness and sustained an intratrochanteric fracture of the left hip. - Pt underwent left hip reduction and intramedullary nail fixation on 08/26/[address] Kang - She was at SNF and then went home with [facility] - Pain control PRN (4) COPD (chronic obstructive pulmonary disease) ICD Codes: J44.9 - Chronic obstructive pulmonary disease, unspecified Status: Chronic Plan: - Continue prn nebulizer Problem Qualifiers (1) Cellulitis of lower extremity: (2) Sepsis: Chad Rudolph MD Nov 04, 2016 11:35
--- NOTE | 2016-11-04 11:36 | HHI.DCPOC ---
Discharge Care Plan Diagnosis: (1) Chronic venous hypertension (idiopathic) with ulcer of right lower extremity (2) Cellulitis of lower extremity (3) HTN (hypertension) (4) Hypothyroidism (5) Hyperlipidemia (6) COPD (chronic obstructive pulmonary disease) Goals to Promote Your Health * To prevent worsening of your condition and complications * To maintain your health at the optimal level Directions to Meet Your Goals Take your medications as prescribed Follow your dietary instruction Follow activity as directed Keep your appointments as scheduled Take your immunizations and boosters as scheduled If your symptoms worsen call your PCP, if no PCP go to Urgent Care Center or Emergency Room Smoking is Dangerous to Your Health. Avoid second hand smoke Call the 24-hour hour crisis hotline for domestic abuse at Chad Rudolph MD Nov 04, 2016 11:36
[2016-11-04] MEDS ORDERED: LEVA500T20 PO (11:40)
[2016-11-04] MEDS ORDERED: HYDR-3580 PO (11:40)
--- NOTE | 2016-11-04 11:40 | HHI.FF ---
Face to Face Verification Diagnosis: (1) Cellulitis of lower extremity (2) Chronic venous hypertension (idiopathic) with ulcer of right lower extremity (3) HTN (hypertension) (4) Hypothyroidism (5) Hyperlipidemia (6) COPD (chronic obstructive pulmonary disease) (7) Intertrochanteric fracture of left hip Physical Therapy Order: Evaluate and Treat, Improve ambulation, Strength and gait training Home Health Nursing Order: Medical education Wound care and dressing changes Nursing assessment with vital signs Instructions: Wound care instructions: Optifoam Gentle AG dressings to right leg wound. Change daily. I have seen patient Florence Tony on 11/04/16. My clinical findings support the need for the requested home health care services because: Deconditioned w/ increased weakness High risk of falls I certify that my clinical findings support that this patient is homebound because: Unsteady gait/balance Shilpa De Santiago Nov 04, 2016 11:40
[2016-11-04] MEDS: HYDROmorphone HCL PF 1 MG/ML VIAL IV PRN (12:05)
--- NOTE | 2016-11-07 16:12 | HHI.DS ---
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 Patient states that she had recently had a hip fracture and was in rehabilitation. She currently lives at home. She states home health nurse came out and told her she could come the emergency department for her leg. She states the pain started yesterday. Patient states that she has fallen since the hip fracture. She has Steri-Strips noted to the bilateral lower legs. Patient states that they are tender. She states that she had a temperature of 100.0 today. Patient states that she is on anticoagulant, but does not know the name. She is a poor historian and is unable to tell me her chronic medical problems or what medications she is currently on. Patient in er found to have very high WBC count and did have fever consistent with sepsis blood c/s sent as well as wound culture from right leg ,will admit for cellulitis of note in her meds she was on prednisone but she states not currently also uses nebulizer prn. CBC/BMP: 11/03/16 1131 Hospital Course (1) Cellulitis of lower extremity - Comgmt with Dr. Paris, Podiatry - Pt is an 81 y/o female with COPD, chronic tobacco use, CAD, HTN, hx of CVA, and had a recent fall where she sustained a hip fracture and underwent surgical repair in August 2016 - She had recently fallen at home and sustained skin tears to bilateral LE which [facility] nursing placed steristrips on - She presented back to the ED for RLE redness, pain and swelling. - She reportedly had a fever prior to admission with temperature of 100.0. - In the ED she was found to have very high WBC count of 36.3 - LE US was negative for DVT - Blood c/s --> no growth at 3d - wound cx (10/31/16) --> MSSA with broad sensitivity - WBC 36.3 (10/30), 13.7 (11/02) - afebrile since 10/30 at 6PM - Vancomycin & zosyn (10/30 - 11/02) - PO levaquin (11/02 - present) - continue Optifoam Gentle AG dressings to right leg wound, to be changed daily - DVT prophylaxis - pt currently refusing snf and so will require hhc/pt arranged f/u with [facility] wound care. complete the abx course. - Pt was recently admitted after a fall related to positional dizziness and sustained an intratrochanteric fracture of the left hip. - Pt underwent left hip reduction and intramedullary nail fixation on 08/26/[address] Kang - She was at SNF and then went home with [facility] Pt Condition on Discharge: Stable Discharge Disposition: Disch w/ Home Health Serv Discharge Instructions DIET: Follow Instructions for: Heart Healthy Diet Activities you can perform: Regular-No Restrictions Follow up Referrals: PCP Follow-up - [address] [facility] - 11/07/16 with [facility] W[facility] care New Medications: Levofloxacin (Levaquin) 500 Mg Tablet 500 MG PO DAILY for Infection, #7 TAB Continued Medications: Albuterol 18 GM Inh (Ventolin Hfa 18 GM Inh) 90 Mcg/Act Aer 2 PUFF INH Q4-6H PRN for SHORTNESS OF BREATH, #1 INHALER 0 Refills Aspirin (Aspirin) 81 Mg Chew 81 MG CHEW DAILY for hx of cva, #30 TAB 0 Refills Resume after Xarelto completed Calcium Carbonate-Vitamin D (Calcium 600+D 200) 600-200 Mg-Unit Tab 1 TAB PO BID for Nutritional Supplement, #60 TAB 0 Refills Docusate Sodium (Dok) 100 Mg Cap 100 MG PO BID for constipation precautions, #62 CAP Ergocalciferol (Ergocalciferol) 50,000 Unit Cap 98338 UNITS PO Q7D for Nutritional Supplement, #56 CAP Hydrocodone-Acetaminophen (Hydrocodone-Acetaminophen) 7.5-325 mg Tab 1 TAB PO Q4H PRN for PAIN, #30 TAB 0 Refills (This prescription has been renewed ) Ipratropium-Albuterol Neb (Duoneb) 0.5-2.5 Mg/3 Ml Neb 1 NEBULE INH DIRECTED PRN for SOB/WHEEZING, #120 NEBULE 0 Refills Please give Q4H scheduled for the next 4 days, then can be used as needed. Levothyroxine (Levothyroxine) 50 Mcg Tab 50 MCG PO DAILY for Thyroid, #30 TAB 0 Refills Losartan (Losartan) 50 Mg Tab 50 MG PO DAILY for Blood Pressure Management, #30 TAB 0 Refills Simvastatin (Simvastatin) 40 Mg Tab 40 MG PO HS for Cholesterol Management, #30 TAB 0 Refills Discontinued Medications: Mupirocin Topical (Bactroban Topical) 22 Gm Cream 1 APPLIC TOPICAL BID for Mgmt Bacterial Infection, #1 TUBE 0 Refills apply BID to right foot 4th digit and left foot 5th digit Prednisone (Prednisone) 20 Mg Tab 20 MG PO DIRECTED for Inflammation, #11 TAB 0 Refills 20 MG twice a day x 3 days, then 20 MG daily x 3 days, then 10 MG daily x 3 days Rivaroxaban (Xarelto) 10 Mg Tab 10 MG PO DAILY for Blood Clot Prevention, #21 TAB 0 Refills Chad Rudolph MD Nov 07, 2016 16:12
== END 2016-11-04 13:14 | disposition home or self-care (01) | DRG 872 ==
LOC: NEPE 12:41 → NEDA 19:11 → NEPGCP 20:42 → UNDODISIN 10-31 14:10 → N05B 10-31 14:16
PROVIDERS: ADMIT Hospitalist; ATTEND Hospitalist
DX: A41.9 Sepsis, unspecified organism (principal); L97.819 Non-pressure chronic ulcer of other part of right lower leg with unspecified severity; L03.115 Cellulitis of right lower limb; J44.9 Chronic obstructive pulmonary disease, unspecified; I10 Essential (primary) hypertension; E78.5 Hyperlipidemia, unspecified; I87.309 Chronic venous hypertension (idiopathic) without complications of unspecified lower extremity; E03.9 Hypothyroidism, unspecified; I25.10 Atherosclerotic heart disease of native coronary artery without angina pectoris; F17.210 Nicotine dependence, cigarettes, uncomplicated; Z79.82 Long term (current) use of aspirin; Z79.01 Long term (current) use of anticoagulants; Z79.52 Long term (current) use of systemic steroids
CPT/HCPCS: 76937; 80048; 80053; 83605; 83735; 85007; 85025; 85027; 85610; 85730; 86403; 87040; 87070; 87147; 87186; 87205; 93971; 99285; J1170; J2543; J3370; J7030; J7050

== ENCOUNTER 2017-11-30 12:14 | Inpatient (IN) ==
[2017-11-30] MEDS ORDERED: Morphine Inj 4 MG/ML Vial IV.PUSH ONE (12:49)
--- NOTE | 2017-11-30 12:51 | ED ---
HPI General Chief complaint: Back Pain/Injury Stated complaint: Medical Time Seen by Provider: 11/30/17 12:32 History of Present Illness HPI narrative: 82-year-old female with a history of hypertension, CVA, hypothyroidism is brought to the emergency department by EMS for evaluation of low back pain for 2 weeks. Patient denies any injury or trauma to her low back. Patient states that this pain has been getting worse. States is located around her coccyx and radiates to her hips bilaterally. States that she was seen here 1 week ago and given pain medication which she has been taking however it is not helping. States that she normally ambulates with a walker and has a wheelchair at home however has been unable to ambulate due to the significant pain. She lives at home with her son who she reports is disabled and unable to lift her or help her get around. She states that the pain is excruciating. She denies any other complaints. Denies any chest pain, shortness of breath, abdominal pain, nausea, vomiting, diarrhea, numbness or tingling. No other complaints. Related Data Home Medications Medication Instructions Recorded Confirmed diclofenac sodium 75 mg PO BID PRN 11/21/17 11/21/17 levothyroxine 50 mcg PO DAILY 11/21/17 11/21/17 losartan 50 mg PO DAILY 11/21/17 11/21/17 Previous Rx's Medication Instructions Recorded hydrocodone-acetaminophen [[place]] 1 tab PO Q6H PRN #12 tab 11/21/17 Allergies Allergy/AdvReac Type Severity Reaction Status Date / Time adhesive Allergy Severe ADHESIVE Verified 11/30/17 12:22 TAPE/BLISTERS SKIN doxycycline Allergy Severe Irritation Verified 11/30/17 12:22 minocycline Allergy Severe Irritation Verified 11/30/17 12:22 tigecycline Allergy Severe Irritation Verified 11/30/17 12:22 *MDRO Multi-Drug Resistant AdvReac Unknown Hiccups Uncoded 11/30/17 12:22 Organism Review of Systems ROS: all other systems reviewed are negative [facility] Medical History Medical History COPD (chronic obstructive pulmonary disease) (Acute) CVA (cerebral vascular accident) (Acute) Hip fracture (Acute) Surgical History Surgical History Hx of appendectomy (Acute) S/P CABG x 1 (Acute) Social History Social History Substance History: No History of Abuse Second Hand Smoke Exposure: Yes Smoking Status: Former smoker Tobacco Type: Cigarettes How Often Do You Have a Drink Containing Alcohol: Never Recent Travel in [facility] within the Last 8 Weeks: No Recent Out of Country Travel within the Last 8 Weeks: No Immunization History Tetanus Immunization: Unsure Hx Influenza Vaccine This Season: No Exam Narrative Exam Narrative: GENERAL: Well-nourished and well-developed pleasant patient in no acute distress who is nontoxic appearing. SKIN: Warm and dry. HEAD: Normocephalic and atraumatic. EYES: No injection, drainage, or hyphema noted. PERRLA. EOMI. ENT: No nasal drainage noted. Oropharynx is clear. NECK: Supple and the trachea is midline. CARDIOVASCULAR: Regular rate and rhythm. RESPIRATORY: Slight wheezing bilaterally. No accessory muscle use, rhonchi, or crackles. GASTROINTESTINAL: Abdomen is soft, non-tender, and nondistended. MUSCULOSKELETAL: Legs are thin and there is muscle atrophy bilaterally. Patient is able to lift legs bilaterally however it does elicit pain. Patient with strength 4/5 lower extremities and equal bilaterally. No obvious deformities, swelling, cyanosis, or ecchymosis is present throughout the upper and lower extremities. Patient has full range of motion without any signs of neurovascular compromise. Distal pulses are 2+ throughout. BACK: Tenderness to palpation along sacrum and coccyx and bilateral buttocks. No obvious deformities, no midline bony point tenderness of thoracic or lumbar spine, or crepitus noted throughout the thoracic and lumbar vertebrae. NEUROLOGICAL: Awake, alert, and oriented. Normal speech and gait. Cranial nerves are grossly intact. Course Initial Documented Vital Signs Temperature 98.0 F 11/30/17 12:23 Pulse Rate 70 11/30/17 12:23 Respiratory Rate 11/30/17 12:23 Blood Pressure 180/74 H 11/30/17 12:23 Pulse Oximetry 99 11/30/17 12:23 Last Documented Vital Signs Temperature 98.0 F 11/30/17 12:23 Pulse Rate 70 11/30/17 12:23 Respiratory Rate 11/30/17 14:55 Blood Pressure 180/74 H 11/30/17 12:23 Pulse Oximetry 99 11/30/17 12:23 Medical Decision Making MDM Narrative Medical decision making narrative: 82-year-old female is brought to the emergency department by EMS for evaluation of acute low back pain. Patient is afebrile, vital signs are stable. On physical examination the patient's pain is located to her sacrum, coccyx and buttocks. IV access is obtained, labs of been drawn and sent. Patient is administered morphine 4 mg IV and Zofran 4 mg IV. X-ray imaging of the hips and pelvis have been ordered and are pending. I reviewed the patient's chart from her visit 7 days ago to our emergency department and her labs were unremarkable and she had a CT of the lumbar spine showing degenerative disc disease at most levels with moderate narrowing at L3 and moderate stenosis. CBC shows elevated white blood cell count, this appears to be a consistent lab finding on the patient's blood work when compared to previous labs. CMP shows slightly reduced kidney function, otherwise unremarkable. X-rays of the hips bilaterally and pelvis are negative for any acute abnormalities. Patient reassessed and still complaining of pain. Patient given Dilaudid 0.5 mg IV. Patient reassessed after receiving these 2 doses of pain medication still stating her pain is a 9 on a scale 1-10. Discussed with the patient and family that I recommend admission for intractable pain and placement to fci/rehab facility. Patient and family are agreeable with this plan. Discussed with Dr. Rudolph for healthcare plans who accepts patient for admission. Medical Screen Exam Complete: Yes Emergency Medical Condition: Yes Differential Diagnosis Differential Diagnosis: Acute on chronic low back pain versus degenerative disc disease versus arthritis versus sacroiliitis Lab Data Result diagrams: 11/30/17 13:40 11/30/17 13:40 Lab Results 11/30/17 11/30/17 Range/Units 13:40 13:40 WBC 21.3 H (4.0-11.0) th/mm3 RBC 4.32 (4.00-5.30) mil/mm3 Hgb 13.7 (11.6-15.3) gm/dL Hct 41.1 (35.0-46.0) % MCV 95.2 (80.0-100.0) fL MCH 31.8 (27.0-34.0) pg MCHC 33.4 (32.0-36.0) % RDW 14.4 (11.6-17.2) % Plt Count 397 (150-450) th/mm3 MPV 9.4 (7.0-11.0) fL Neut % (Auto) 69.3 (16.0-70.0) % Lymph % (Auto) 20.1 (9.0-44.0) % [place] % (Auto) 8.8 H (0.0-8.0) % Eos % (Auto) 1.2 (0.0-4.0) % Baso % (Auto) 0.6 (0.0-2.0) % Neut # (Auto) 14.8 H (1.8-7.7) th/mm3 Lymph # (Auto) 4.3 (1.0-4.8) th/mm3 [place] # (Auto) 1.9 H (0.0-0.9) th/mm3 Eos # (Auto) 0.3 (0.0-0.4) th/mm3 Baso # (Auto) 0.1 (0.0-0.2) th/mm3 WBC Differential . Differential Comment Auto diff final Sodium 139 (136-145) meq/L Potassium 5.1 (3.5-5.1) meq/L Chloride 106 (98-107) meq/L Carbon Dioxide 24.5 (21.0-32.0) meq/L Anion Gap 9 (5-15) meq/L BUN 32 H (7-18) mg/dL Creatinine 1.09 H (0.50-1.00) mg/dL Estimated GFR 48 L (>89) mL/min Random Glucose 87 (74-106) mg/dL Calcium 8.8 (8.5-10.1) mg/dL Total Bilirubin 1.2 H (0.2-1.0) mg/dL AST 25 (15-37) U/L ALT 37 (10-53) U/L Alkaline Phosphatase 105 (45-117) U/L Total Protein 6.6 (6.4-8.2) g/dL Albumin 3.3 L (3.4-5.0) g/dL Imaging Data Radiologist's impression: Hip X-Ray 11/30/17 12:52 CONCLUSION: There is no evidence of acute fracture. Hip X-Ray 11/30/17 12:52 CONCLUSION: There is no evidence of acute fracture. Discharge Plan Discharge Disposition Patient Disposition: 30 Still Patient Discharge Condition Condition: Stable Discharge Details Diagnosis: Intractable low back pain, Unable to ambulate Physicians Team ED Provider: Shilpa Conroy ED Midlevel Provider: Mary Reyes Primary Care Provider: Garrett Mahajan Rxs /Orders / Referrals /Forms Prescriptions: No Action losartan 50 mg Tablet 50 mg PO DAILY RF: 0 levothyroxine 50 mcg Tablet 50 mcg PO DAILY RF: 0 diclofenac sodium 75 mg Tablet,Delayed Release (Dr/Ec) 75 mg PO BID PRN (Reason: Pain) RF: 0 hydrocodone-acetaminophen [[place]] 5-325 mg tablet 1 tab PO Q6H PRN (Reason: pain) Qty: 12 RF: 0 Status ED Status: With Doctor
--- NOTE | 2017-11-30 13:42 | XR ---
EXAM DATE: 11/30/2017 1:36 PM EDT AGE/SEX: 82 years / Female INDICATIONS: No known injury. Pain in left and right hip for three days. CLINICAL DATA: This is the patient's initial encounter. Patient reports that signs and symptoms have been present for 3 days and indicates a pain score of 7/10. MEDICAL/SURGICAL HISTORY: Chronic obstructive pulmonary disease. None. COMPARISON: [facility], HIP LEFT (AP&LAT 2/3VWS) WO AP PELVIS, 08/26/2016. . FINDINGS: Bony structures are intact and in normal alignment. Joints are intact without dislocation or signifi cant arthropathy. Osseous density is normal. Soft tissues are unremarkable. No radiopaque foreign bodies seen. Compression screw is present in the left hip. CONCLUSION: There is no evidence of acute fracture. Electronically signed by: Wilner Curtis MD 11/30/2017 1:41 PM EDT
--- NOTE | 2017-11-30 13:43 | XR ---
EXAM DATE: 11/30/2017 1:35 PM EDT AGE/SEX: 82 years / Female INDICATIONS: No known injury. Pain in left and right hip for three days. CLINICAL DATA: This is the patient's initial encounter. Patient reports that signs and symptoms have been present for 3 days and indicates a pain score of 7/10. MEDICAL/SURGICAL HISTORY: Chronic obstructive pulmonary disease. None. COMPARISON: [facility], HIP LEFT (AP&LAT 2/3VWS) WO AP PELVIS, 08/26/2016. . FINDINGS: There is internal fixation of an old fracture of the intertrochanteric region on the left. There is n o evidence of acute fracture. Osseous structures are osteopenic. Severe vascular calcification is pr esent. CONCLUSION: There is no evidence of acute fracture. Electronically signed by: Wilner Curtis MD 11/30/2017 1:42 PM EDT
[2017-11-30 14:07] LABS: Baso # (Auto) 0.1 th/mm3 (0.0-0.2); Baso % (Auto) 0.6 % (0.0-2.0); Eos # (Auto) 0.3 th/mm3 (0.0-0.4); Eos % (Auto) 1.2 % (0.0-4.0); Hematocrit 41.1 % (35.0-46.0); Hemoglobin 13.7 gm/dL (11.6-15.3); Lymph # (Auto) 4.3 th/mm3 (1.0-4.8); Lymph % (Auto) 20.1 % (9.0-44.0); Mean Corpuscular HGB Conc 33.4 % (32.0-36.0); Mean Corpuscular Hemoglobin 31.8 pg (27.0-34.0); Mean Corpuscular Volume 95.2 fL (80.0-100.0); Mean Platelet Volume 9.4 fL (7.0-11.0); Mono # (Auto) 1.9 th/mm3 (0.0-0.9); Mono % (Auto) 8.8 % (0.0-8.0); Neut # (Auto) 14.8 th/mm3 (1.8-7.7); Neut % (Auto) 69.3 % (16.0-70.0); Platelet Count 397 th/mm3 (150-450); Red Blood Count 4.32 mil/mm3 (4.00-5.30); Red Cell Distribution Width 14.4 % (11.6-17.2); White Blood Count 21.3 th/mm3 (4.0-11.0)
[2017-11-30] MEDS ORDERED: HYDROmorphone PF Inj 2 MG/ML Vial IV.PUSH ONE (14:23)
[2017-11-30 14:28] LABS: Alkaline Phosphatase 105 U/L (45-117); Total Protein 6.6 g/dL (6.4-8.2)
[2017-11-30 14:31] LABS: Alanine Aminotransferase 37 U/L (10-53); Albumin 3.3 g/dL (3.4-5.0); Anion Gap 9 meq/L (5-15); Aspartate Aminotransferase 25 U/L (15-37); Blood Urea Nitrogen 32 mg/dL (7-18); Calcium 8.8 mg/dL (8.5-10.1); Carbon Dioxide 24.5 meq/L (21.0-32.0); Chloride 106 meq/L (98-107); Glomerular Filtration Rate 48 mL/min (>89); Glucose,Random 87 mg/dL (74-106); Sodium 139 meq/L (136-145)
[2017-11-30 14:35] LABS: Potassium 5.1 meq/L (3.5-5.1)
--- NOTE | 2017-11-30 15:43 | P.HP ---
History of Present Illness Primary Care Physician: Garrett Mahajan History of Present Illness: Ms. Tony is a pleasant 82 y/o WF with CAD, HTN, COPD and restrictive lung disease, continued tobacco use and valvular heart disease s/p AVR in 2005 with porcine valve. 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 Denies any alcohol or illicit drug use Pt lives at home with her adult son, she reports that he is disabled but able to help her with her ADLs [facility] - History History Provided By: Patient - Medical History Medical History: Medical History (Last Updated 11/21/17 @ 10:23 by Halle Nino) COPD (chronic obstructive pulmonary disease) CVA (cerebral vascular accident) Hip fracture - Surgical History Surgical History: Surgical History (Last Updated 11/21/17 @ 10:23 by Halle Nino) Hx of appendectomy S/P CABG x 1 - Tobacco History Second Hand Smoke Exposure: Yes Tobacco Use In Past 30 Days: Yes Smoking Status: Former smoker Tobacco Type: Cigarettes - Alcohol History How Often Do You Have a Drink Containing Alcohol: Never - Substance Use History Substance History: No History of Abuse - Travel History Recent Travel in the [place] Within the Last 8 Weeks: No Recent Travel Out of the Country Within the Last 8 Weeks: No - Immunization History Tetanus Immunization: Unsure Hx Influenza Vaccine This Season: No Medications and Allergies Active Medications: Active Medications Sodium Chloride (Ns Flush) 2 ml IV.FLUSH PRN PRN PRN Reason: FLUSH AFTER USING IV ACCESS Allergies Allergy/AdvReac Type Severity Reaction Status Date / Time adhesive Allergy Severe ADHESIVE Verified 11/30/17 12:22 TAPE/BLISTERS SKIN doxycycline Allergy Severe Irritation Verified 11/30/17 12:22 minocycline Allergy Severe Irritation Verified 11/30/17 12:22 tigecycline Allergy Severe Irritation Verified 11/30/17 12:22 *MDRO Multi-Drug Resistant AdvReac Unknown Hiccups Uncoded 11/30/17 12:22 Organism Home Medications Medication Instructions Recorded Confirmed Type diclofenac sodium 75 mg PO BID PRN 11/21/17 11/21/17 History levothyroxine 50 mcg PO DAILY 11/21/17 11/21/17 History losartan 50 mg PO DAILY 11/21/17 11/21/17 History Exam Vital signs: Vital Signs 11/30/17 12:23 11/30/17 14:55 Temperature 98.0 F Pulse Rate 70 Respiratory Rate 22 22 Blood Pressure 180/74 H Pulse Oximetry 99 Intake & Output 11/29/17 11/30/17 11/30/17 18:59 06:59 18:59 Weight 58.513 kg Results - Labs CBC & Chem 7: 11/30/17 13:40 11/30/17 13:40 Labs: Laboratory Results - last 24 hr 11/30/17 11/30/17 13:40 13:40 WBC 21.3 H RBC 4.32 Hgb 13.7 Hct 41.1 MCV 95.2 MCH 31.8 MCHC 33.4 RDW 14.4 Plt Count 397 MPV 9.4 Neut % (Auto) 69.3 Lymph % (Auto) 20.1 [place] % (Auto) 8.8 H Eos % (Auto) 1.2 Baso % (Auto) 0.6 Neut # (Auto) 14.8 H Lymph # (Auto) 4.3 [place] # (Auto) 1.9 H Eos # (Auto) 0.3 Baso # (Auto) 0.1 WBC Differential . Differential Comment Auto diff final Sodium 139 Potassium 5.1 Chloride 106 Carbon Dioxide 24.5 Anion Gap 9 BUN 32 H Creatinine 1.09 H Estimated GFR 48 L Random Glucose 87 Calcium 8.8 Total Bilirubin 1.2 H AST 25 ALT 37 Alkaline Phosphatase 105 Total Protein 6.6 Albumin 3.3 L - Imaging Impressions Hip X-Ray 11/30/17 12:52 CONCLUSION: There is no evidence of acute fracture. Hip X-Ray 11/30/17 12:52 CONCLUSION: There is no evidence of acute fracture. Caprini VTE Risk Assessment Caprini Risk Assessment Model: Point Value = 1 Point Value = 2 Point Value = 3 Point Value = 5 Age 41-60 Minor surgery BMI > 25 kg/m2 Swollen legs Varicose veins or History of unexplained or recurrent spontaneous Oral contraceptives or hormone replacement Sepsis (< 1 month) Serious lung disease, including pneumonia (< 1 month) Abnormal pulmonary function Acute myocardial infarction Congestive heart failure (< 1 month) History of inflammatory bowel disease Medical patient at bed rest Age 61-74 Arthroscopic surgery Major open surgery (> 45 min) Laparoscopic surgery (> 45 min) Malignancy Confined to bed (> 72 hours) Immobilizing plaster cast Central venous access Age >= 75 History of VTE Family history of VTE Factor V Leiden Prothrombin [id number] Lupus anticoagulant Anticardiolipin antibodies Elevated serum homocysteine Heparin-induced thrombocytopenia Other congenital or acquired thrombophilia Stroke (< 1 month) Elective arthroplasty Hip, pelvis, or leg fracture Acute spinal cord injury (< 1 month) Prophylaxis Regimen: Total Risk Factor Score Risk Level Prophylaxis Regimen 0-1 Low Early ambulation 2 Moderate Order ONE of the following: *Sequential Compression Device (SCD) *Heparin 5000 units SQ BID 3-4 Higher Order ONE of the following medications: *Heparin 5000 units SQ TID *Enoxaparin/Lovenox 40 mg SQ daily (WT < 150 kg, CrCl > 30 mL/min) *Enoxaparin/Lovenox 30 mg SQ daily (WT < 150 kg, CrCl > 10-29 mL/min) *Enoxaparin/Lovenox 30 mg SQ BID (WT < 150 kg, CrCl > 30 mL/min) AND/OR *Sequential Compression Device (SCD) 5 or more Highest Order ONE of the following medications: *Heparin 5000 units SQ TID (Preferred with Epidurals) *Enoxaparin/Lovenox 40 mg SQ daily (WT < 150 kg, CrCl > 30 mL/min) *Enoxaparin/Lovenox 30 mg SQ daily (WT < 150 kg, CrCl > 10-29 mL/min) *Enoxaparin/Lovenox 30 mg SQ BID (WT < 150 kg, CrCl > 30 mL/min) AND *Sequential Compression Device (SCD)
--- NOTE | 2017-11-30 18:51 | P.HPIM ---
History of Present Illness Service: [facility] Primary Care Physician: Garrett Mahajan History of Present Illness: Ms. Tony is a pleasant 82 y/o WF with CAD, HTN, COPD and restrictive lung disease, continued tobacco use and valvular heart disease s/p AVR in 2005 with porcine valve. Pt says that she began having severe pain in her lower back radiating to buttock bilaterally about 2 weeks ago. No reported fall/injury/lifting. No loss bowel or bladder control. She was seen in ED and given script for norco and prednisone w/out releif. CT lumbar spine in ED showed areas of mod spinal stenosis and neuroforaminal narrowing but no fractures. Pt with severe pain, unable to walk and called EMS today. She is still in alot of pain despite morphine and dilaudid. I was asked to admit her for further evaluation. 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 Denies any alcohol or illicit drug use Pt lives at home with her adult son, she reports that he is disabled but able to help her with her ADLs - Diagnosis (1) Intractable low back pain (2) Unable to ambulate (3) COPD (chronic obstructive pulmonary disease) (4) CVA (cerebral vascular accident) (5) S/P AVR (6) Hypothyroid (7) HTN (hypertension) Review of Systems severe pain in tailbone with radiation to buttock mari. PMFSH - History History Provided By: Patient - Medical History Medical History: Medical History (Last Reviewed 12/09/17 @ 08:13 by Liza Velarde [employer]) Aneurysm COPD (chronic obstructive pulmonary disease) Coronary artery disease Hip fracture History of CVA (cerebrovascular accident) Hyperlipidemia LBBB (left bundle branch block) Restrictive lung disease Spinal stenosis Tobacco abuse - Surgical History Surgical History: Surgical History (Last Updated 12/08/17 @ 11:11 by Stephanie Segura) Cataract H/O aortic valve replacement with porcine valve Hx of appendectomy S/P CABG x 1 - Family History Family History: Family History (Last Updated 12/02/17 @ 13:09 by Candido Livingston MD) Other Family member - Tobacco History Second Hand Smoke Exposure: Yes Tobacco Use In Past 30 Days: Yes Smoking Status: Former smoker Tobacco Type: Cigarettes - Alcohol History How Often Do You Have a Drink Containing Alcohol: Never - Substance Use History Substance History: No History of Abuse - Travel History Recent Travel in the [place] Within the Last 8 Weeks: No Recent Travel Out of the Country Within the Last 8 Weeks: No - Immunization History Tetanus Immunization: Unsure Hx Influenza Vaccine This Season: No Medications and Allergies Active Medications: Active Medications Albuterol (Duoneb Neb (Prn)) 1 ampul NEB Q2HR NEB PRN PRN Reason: SHORTNESS OF BREATH Hydromorphone HCl (Dilaudid Pf Inj) 1 mg IV.PUSH Q4H PRN PRN Reason: pain 3-10 Sodium Chloride (Ns Inj) 1,000 mls @ 75 mls/hr IV.CONT .[id number] LOVELY Sodium Chloride (Ns Flush) 2 ml IV.FLUSH PRN PRN PRN Reason: FLUSH AFTER USING IV ACCESS Allergies Allergy/AdvReac Type Severity Reaction Status Date / Time adhesive Allergy Severe ADHESIVE Verified 11/30/17 12:22 TAPE/BLISTERS SKIN doxycycline Allergy Severe Irritation Verified 11/30/17 12:22 minocycline Allergy Severe Irritation Verified 11/30/17 12:22 tigecycline Allergy Severe Irritation Verified 11/30/17 12:22 amiodarone AdvReac Bradycardia Verified 12/07/17 13:55 *MDRO Multi-Drug Resistant AdvReac Unknown Hiccups Uncoded 11/30/17 12:22 Organism Home Medications Medication Instructions Recorded Confirmed Type diclofenac sodium 75 mg PO BID PRN 11/21/17 11/30/17 History levothyroxine 50 mcg PO DAILY 11/21/17 11/30/17 History losartan 50 mg PO DAILY 11/21/17 11/30/17 History Exam Vital signs: Vital Signs 11/30/17 12:23 11/30/17 14:55 11/30/17 16:41 Temperature 98.0 F Pulse Rate 70 60 Respiratory Rate 22 22 24 Blood Pressure 180/74 H 135/57 L Pulse Oximetry 99 11/30/17 16:46 11/30/17 16:48 Temperature Pulse Rate Respiratory Rate 24 Blood Pressure Pulse Oximetry 99 Intake & Output 11/29/17 11/30/17 11/30/17 18:59 06:59 18:59 Weight 58.513 kg heart reg lung cta abd s/nt ext no edema severe tenderness at coccyx area hip flexion on the left weaker than right..?pain related Results - Labs CBC & Chem 7: 12/09/17 04:39 12/09/17 04:39 Labs: Short CBC 11/30/17 Range/Units 13:40 WBC 21.3 H (4.0-11.0) th/mm3 Hgb 13.7 (11.6-15.3) gm/dL Hct 41.1 (35.0-46.0) % Plt Count 397 (150-450) th/mm3 BMP 11/30/17 13:40 Sodium 139 Potassium 5.1 Chloride 106 Carbon Dioxide 24.5 BUN 32 H Creatinine 1.09 H Calcium 8.8 Liver Function 11/30/17 Range/Units 13:40 Total Bilirubin 1.2 H (0.2-1.0) mg/dL AST 25 (15-37) U/L ALT 37 (10-53) U/L Alkaline Phosphatase 105 (45-117) U/L Albumin 3.3 L (3.4-5.0) g/dL - Imaging Impressions Hip X-Ray 11/30/17 12:52 CONCLUSION: There is no evidence of acute fracture. Hip X-Ray 11/30/17 12:52 CONCLUSION: There is no evidence of acute fracture. Caprini VTE Risk Assessment Caprini VTE Risk Assessment: Moderate/High Risk (score >= 2) Caprini Risk Assessment Model: Point Value = 1 Point Value = 2 Point Value = 3 Point Value = 5 Age 41-60 Minor surgery BMI > 25 kg/m2 Swollen legs Varicose veins or History of unexplained or recurrent spontaneous Oral contraceptives or hormone replacement Sepsis (< 1 month) Serious lung disease, including pneumonia (< 1 month) Abnormal pulmonary function Acute myocardial infarction Congestive heart failure (< 1 month) History of inflammatory bowel disease Medical patient at bed rest Age 61-74 Arthroscopic surgery Major open surgery (> 45 min) Laparoscopic surgery (> 45 min) Malignancy Confined to bed (> 72 hours) Immobilizing plaster cast Central venous access Age >= 75 History of VTE Family history of VTE Factor V Leiden Prothrombin [id number] Lupus anticoagulant Anticardiolipin antibodies Elevated serum homocysteine Heparin-induced thrombocytopenia Other congenital or acquired thrombophilia Stroke (< 1 month) Elective arthroplasty Hip, pelvis, or leg fracture Acute spinal cord injury (< 1 month) Prophylaxis Regimen: Total Risk Factor Score Risk Level Prophylaxis Regimen 0-1 Low Early ambulation 2 Moderate Order ONE of the following: *Sequential Compression Device (SCD) *Heparin 5000 units SQ BID 3-4 Higher Order ONE of the following medications: *Heparin 5000 units SQ TID *Enoxaparin/Lovenox 40 mg SQ daily (WT < 150 kg, CrCl > 30 mL/min) *Enoxaparin/Lovenox 30 mg SQ daily (WT < 150 kg, CrCl > 10-29 mL/min) *Enoxaparin/Lovenox 30 mg SQ BID (WT < 150 kg, CrCl > 30 mL/min) AND/OR *Sequential Compression Device (SCD) 5 or more Highest Order ONE of the following medications: *Heparin 5000 units SQ TID (Preferred with Epidurals) *Enoxaparin/Lovenox 40 mg SQ daily (WT < 150 kg, CrCl > 30 mL/min) *Enoxaparin/Lovenox 30 mg SQ daily (WT < 150 kg, CrCl > 10-29 mL/min) *Enoxaparin/Lovenox 30 mg SQ BID (WT < 150 kg, CrCl > 30 mL/min) AND *Sequential Compression Device (SCD) Assessment and Plan - Assessment (1) Intractable low back pain Code(s): M54.5 - Low back pain Status: Acute Plan: 1. Intractable LBP with inability to ambulate Pain currently seems to be more over the coccyx. If no improvement overnight with pain control will consider further MRI imaging to exclude significant NFS, disc herniation, etc. 11/21 CT Lumbar spine: 1. Patient is a broad-based disc disease at multiple levels most impressive at the 3 level with the neural foramen is clearly narrowed. Moderate stenosis at multiple levels as well, all chronic.2. No evidence of an acute fracture or acute interval change.3. Calcified disc osteophyte complex at T11-12 narrows the thecal sac to between 6 to 7 mm cont prn iv pain meds ivf overnight if cr stable consider iv toradol. PT evaluation If no improvement then consider MRI in AM cont home medications. dvt prophylaxis. 2.CAD s/p CABG x 1 in 2005 3. s/p AVR with bioprosthetic valve 4. HTN 5. hx CVA, right basal ganglia 6. 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 COPD and restrictive lung disease 8, LBBB 9. Hypothyroidism (2) Unable to ambulate Code(s): R26.2 - Difficulty in walking, not elsewhere classified Status: Acute (3) COPD (chronic obstructive pulmonary disease) Code(s): J44.9 - Chronic obstructive pulmonary disease, unspecified Status: Chronic (4) CVA (cerebral vascular accident) Code(s): I63.9 - Cerebral infarction, unspecified Status: Chronic (5) S/P AVR Code(s): Z95.2 - Presence of prosthetic heart valve Status: Chronic (6) Hypothyroid Code(s): E03.9 - Hypothyroidism, unspecified Status: Chronic (7) HTN (hypertension) Code(s): I10 - Essential (primary) hypertension Status: Chronic
[2017-11-30] MEDS: HYDROmorphone PF Inj 2 MG/ML Vial IV.PUSH PRN (20:39)
[2017-11-30] MEDS ORDERED: Temazepam 15 MG Capsule PO PRN (21:25)
[2017-12-01] MEDS: HYDROmorphone PF Inj 2 MG/ML Vial IV.PUSH PRN ×4 (04:39→23:27)
[2017-12-01] MEDS: Sod Chloride 0.9% Inj 1,000 ML IV.CONT SCH ×3 (04:40→19:25)
[2017-12-01] MEDS: Levothyroxine 50 MCG Tablet PO SCH (05:35)
[2017-12-01 07:04] LABS: Baso # (Auto) 0.1 th/mm3 (0.0-0.2); Baso % (Auto) 0.5 % (0.0-2.0); Eos # (Auto) 0.2 th/mm3 (0.0-0.4); Eos % (Auto) 0.9 % (0.0-4.0); Hemoglobin 12.8 gm/dL (11.6-15.3); Lymph # (Auto) 3.5 th/mm3 (1.0-4.8); Lymph % (Auto) 17.7 % (9.0-44.0); Mean Corpuscular HGB Conc 32.9 % (32.0-36.0); Mean Corpuscular Hemoglobin 31.6 pg (27.0-34.0); Mean Corpuscular Volume 96.1 fL (80.0-100.0); Mean Platelet Volume 9.4 fL (7.0-11.0); Mono # (Auto) 1.8 th/mm3 (0.0-0.9); Mono % (Auto) 9.4 % (0.0-8.0); Neut # (Auto) 14.1 th/mm3 (1.8-7.7); Neut % (Auto) 71.5 % (16.0-70.0); Platelet Count 371 th/mm3 (150-450); Red Blood Count 4.06 mil/mm3 (4.00-5.30); White Blood Count 19.7 th/mm3 (4.0-11.0)
[2017-12-01 07:44] LABS: Calcium 7.9 mg/dL (8.5-10.1); Potassium 3.9 meq/L (3.5-5.1)
[2017-12-01] MEDS ORDERED: LORazepam 0.5 MG Tablet PO PRN (08:00)
[2017-12-01] MEDS ORDERED: HYDROmorphone PF Inj 2 MG/ML Vial IV.PUSH ONE (08:01)
--- NOTE | 2017-12-01 08:04 | P.PNIM ---
Subjective Interval history: Follow up intractable back pain Patient in extreme pain unable to lay still Physical Exam Vital signs: Vital Signs 11/30/17 12:23 11/30/17 14:55 11/30/17 16:41 Temperature 98.0 F Pulse Rate 70 60 Respiratory Rate 22 22 24 Blood Pressure 180/74 H 135/57 L Pulse Oximetry 99 11/30/17 16:46 11/30/17 16:48 11/30/17 19:20 Temperature 98.3 F Pulse Rate 63 Respiratory Rate 24 20 Blood Pressure 111/58 L Pulse Oximetry 99 99 11/30/17 23:43 12/01/17 04:00 12/01/17 06:13 Temperature 98 F 98.1 F Pulse Rate 63 66 Respiratory Rate 17 18 20 Blood Pressure 146/84 H 106/68 Pulse Oximetry 97 94 L 12/01/17 07:37 12/01/17 07:56 Temperature 98.8 F Pulse Rate 115 H 94 H Respiratory Rate 20 28 H Blood Pressure 110/52 L Pulse Oximetry 97 88 L Intake & Output 11/30/17 12/01/17 12/01/17 18:59 06:59 18:59 Intake Total 200 / 200 Balance 200 / 200 Weight 58.513 kg 55.1 kg Intake: Oral 200 / 200 Other: # Voids 2 Weight On Admission 55.1 kg Narrative: general 82 year old female in extreme pain, unable to lay still due to pain heart reg lung cta abd s/nt ext no edema severe tenderness at coccyx area Results - Labs CBC & Chem 7: 12/01/17 05:45 12/01/17 05:45 Laboratory Results - last 24 hr 11/30/17 11/30/17 12/01/17 13:40 13:40 05:45 WBC 21.3 H 19.7 H RBC 4.32 4.06 Hgb 13.7 12.8 Hct 41.1 39.0 MCV 95.2 96.1 MCH 31.8 31.6 MCHC 33.4 32.9 RDW 14.4 14.0 Plt Count 397 371 MPV 9.4 9.4 Neut % (Auto) 69.3 71.5 H Lymph % (Auto) 20.1 17.7 [place] % (Auto) 8.8 H 9.4 H Eos % (Auto) 1.2 0.9 Baso % (Auto) 0.6 0.5 Neut # (Auto) 14.8 H 14.1 H Lymph # (Auto) 4.3 3.5 [place] # (Auto) 1.9 H 1.8 H Eos # (Auto) 0.3 0.2 Baso # (Auto) 0.1 0.1 WBC Differential . . Differential Comment Auto diff final Auto diff final Sodium 139 Potassium 5.1 Chloride 106 Carbon Dioxide 24.5 Anion Gap 9 BUN 32 H Creatinine 1.09 H Estimated GFR 48 L Random Glucose 87 Calcium 8.8 Total Bilirubin 1.2 H AST 25 ALT 37 Alkaline Phosphatase 105 Total Protein 6.6 Albumin 3.3 L 12/01/17 05:45 WBC RBC Hgb Hct MCV MCH MCHC RDW Plt Count MPV Neut % (Auto) Lymph % (Auto) [place] % (Auto) Eos % (Auto) Baso % (Auto) Neut # (Auto) Lymph # (Auto) [place] # (Auto) Eos # (Auto) Baso # (Auto) WBC Differential Differential Comment Sodium 144 Potassium 3.9 D Chloride 110 H Carbon Dioxide 22.0 Anion Gap 12 BUN 28 H Creatinine 1.06 H Estimated GFR 49 L Random Glucose 105 Calcium 7.9 L D Total Bilirubin AST ALT Alkaline Phosphatase Total Protein Albumin - Imaging Impressions Hip X-Ray 11/30/17 12:52 CONCLUSION: There is no evidence of acute fracture. Hip X-Ray 11/30/17 12:52 CONCLUSION: There is no evidence of acute fracture. Assessment and Plan - Assessment (1) Intractable low back pain Code(s): M54.5 - Low back pain Status: Acute Plan: 1. Intractable LBP with inability to ambulate Pain currently seems to be more over the coccyx. If no improvement overnight with pain control will consider further MRI imaging to exclude significant NFS, disc herniation, etc. 11/21 CT Lumbar spine: 1. Patient is a broad-based disc disease at multiple levels most impressive at the 3 level with the neural foramen is clearly narrowed. Moderate stenosis at multiple levels as well, all chronic.2. No evidence of an acute fracture or acute interval change.3. Calcified disc osteophyte complex at T11-12 narrows the thecal sac to between 6 to 7 mm cont prn iv pain meds ivf overnight if cr stable consider iv toradol. PT evaluation If no improvement then consider MRI in AM cont home medications. dvt prophylaxis. 12/01 patient continues to be extreme pain add Dilaudid 1 mg IV now MRI L spine 2.CAD s/p CABG x 1 in 2005 3. s/p AVR with bioprosthetic valve 4. HTN 5. hx CVA, right basal ganglia 6. 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 COPD and restrictive lung disease 8, LBBB 9. Hypothyroidism (2) Unable to ambulate Code(s): R26.2 - Difficulty in walking, not elsewhere classified Status: Acute (3) COPD (chronic obstructive pulmonary disease) Code(s): J44.9 - Chronic obstructive pulmonary disease, unspecified Status: Chronic (4) CVA (cerebral vascular accident) Code(s): I63.9 - Cerebral infarction, unspecified Status: Chronic (5) S/P AVR Code(s): Z95.2 - Presence of prosthetic heart valve Status: Chronic (6) Hypothyroid Code(s): E03.9 - Hypothyroidism, unspecified Status: Chronic (7) HTN (hypertension) Code(s): I10 - Essential (primary) hypertension Status: Chronic
--- NOTE | 2017-12-01 13:42 | MR ---
EXAM DATE: 12/01/2017 12:21 PM EDT AGE/SEX: 82 years / Female INDICATIONS: . Back pain. CLINICAL DATA: This is the patient's subsequent encounter. Patient reports that signs and symptoms h ave been present for 2 days and indicates a pain score of 4/10. MEDICAL/SURGICAL HISTORY: Cerebrovascular disease. Hypothyroidism. Appendectomy. CABG. [place] [facility] [place]/30[place]2011. . TECHNIQUE: Multiplanar, multisequence MRI of the lumbar spine was performed without contrast. Patie nt was scanned in a sitting position; neutral, flexion, and extension scans were performed in the sa gittal plane. FINDINGS: Sagittal T2 images demonstrate there is slight retrolisthesis of L1 and L2, L2 on L3 and otherwise un remarkable alignment of the lumbar spine. There is bony edema in the sacrum and on both sides consistent with a sacral insufficiency fracture. There is low-grade discogenic edema around the L2-3 level and the L1-2 level. There are multiple parapelvic cysts within the right kidney. Small cortical cyst left kidney. At the T11-12 level there is a diffuse annular bulge slightly flattening the thecal sac. The thecal s ac is narrowed to approximately 8 mm. It abuts the cord but does not cause any cord edema. At T12-L1 there is no disc herniation. The thecal sac is widely patent. Nerve roots exit without diff iculty. There is a left-sided perineural cyst. At the L1-2 level there is slight retrolisthesis of L1 on L2. There is a broad-based diffuse annular bulge right greater than left. The right neural foramen is narrowed correlate for right L1 radiculopa thy. At the L2-3 level, there is a broad-based diffuse annular bulge with retrolisthesis of L2 on L3. Ther e is flattening the thecal sac. The nerve roots exit without difficulty. There is mild degenerative f acet disease. At the L3-4 level there is a broad-based diffuse annular bulge and marked degenerative facet disease. Both of the neural foramen are narrowed due to the facet disease. The thecal sac is widely patent. At the L4-5 level there is a moderate canal stenosis secondary to posterior element hypertrophy and a broad-based diffuse annular bulge. The neural foramen are diffusely narrowed. Lateral recesses are n arrowed. At the L5-S1 level there is a diffuse annular bulge with a left posterolateral focal disc protrusion. It abuts but does not displace the left L5 nerve root. There is moderate degenerative facet disease right greater than left. The thecal sac is widely patent. CONCLUSION: 1. Retrolisthesis of L1 on L2 and L2 on L3. Marked disc space narrowing and low-grade discogenic bran ma at L2-3. 2. Moderate to severe canal stenosis at the L4-5 level secondary to broad-based diffuse annular bulg e and marked hypertrophy of the posterior elements. Scattered areas of neural foraminal narrowing as described above Electronically signed by: Sivaukmar Jackson MD 12/01/2017 1:41 PM EDT
--- NOTE | 2017-12-01 18:03 | P.CONNS ---
History of Present Illness Service: Neurosurgery Consult date: 12/01/17 Requesting Physician: Chad Rudolph Reason for Consult: Severe lumbar spinal stenosis Primary Care Provider: Garrett Mahajan History of Present Illness: 82-year-old lady with a chronic history of low back pain which is progressively worsening the last few months although intractable over the last 2 weeks with the numbness and paresthesias in the lower extremities along with inability to ambulate because the pain and subjective weakness. She denies any bowel bladder incontinence. She presented to the emergency room for the intractable pain and was admitted for further evaluation and pain management. CT and MRI scan lumbar spine have been obtained revealed extensive multilevel degenerative disease with scoliosis and facet arthropathy. She has severe L3-4 and L4-5 spinal stenosis from facet and ligamentum flavum hypertrophy along with disc protrusions. Neurosurgical consultation requested for the lumbar stenosis. 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) Ears, Nose, Mouth, and Throat: Denies abnormal hearing, Denies bleeding gums, Denies bad breath, Denies change in voice, Denies dental pain, Denies difficulty swallowing, Denies dizziness, Denies dry mouth, Denies ear discharge , Denies ear pain, Denies facial pain, Denies headache(s), Denies hearing loss, Denies hoarseness, Denies lip swelling, Denies nosebleed, Denies mouth lesions, Denies mouth pain, Denies nasal congestion, Denies nasal discharge, Denies nasal obstruction, Denies nasal trauma, Denies neck lump, Denies neck pain, Denies nose pain, Denies pain with swallowing, Denies poor balance, Denies post nasal drip, Denies ringing in the ears, Denies sinus pain, Denies sinus pressure , Denies sore throat, Denies throat swelling, Denies tongue swelling, Denies other Cardiovascular: Reports leg pain with activity, Reports shortness of breath, Reports shortness of breath with activity, Reports shortness of breath when lying down, Denies chest pain, Denies chest pain at rest, Denies chest pain with activity, Denies excessive sweating, Denies fainting, Denies fast heart rate, Denies foot swelling, Denies generalized swelling, Denies irregular heart rhythm, Denies leg sores, Denies leg swelling, Denies lightheadedness, Denies radiating jaw, neck or arm pain, Denies rapid, pounding, or irregular heartbeat , Denies shortness of breath causing sudden awakening, Denies slow heart rate, Denies other Respiratory: Reports shortness of breath, Reports shortness of breath with activity, Denies change in phlegm color, Denies chest congestion, Denies cough, Denies coughing up blood, Denies excessive phlegm production, Denies pain on inspiration, Denies pain with cough, Denies snoring, Denies stridor, Denies wheezing, Denies other Gastrointestinal: Denies abdominal pain, Denies belching, Denies black, tarry stools, Denies bloating, Denies bright, red blood in stools, Denies change in bowel habits, Denies constant urge to pass stool, Denies change in stools, Denies coffee ground vomit, Denies constipation, Denies cramping, Denies difficulty swallowing, Denies excessive passing of gas, Denies feeling full early, Denies heartburn, Denies incontinent of stools, Denies loose stools, Denies nausea, Denies pain with swallowing, Denies vomiting, Denies vomiting blood, Denies other Genitourinary: Denies abnormal periods, Denies abnormal vaginal bleeding, Denies absent period, Denies bleeding between periods, Denies blood in urine, Denies difficulty starting urination, Denies difficulty urinating, Denies dribbling after urination, Denies frequent nighttime urination, Denies genital itching, Denies genital lesions, Denies heavy periods, Denies hot flashes, Denies light periods, Denies nipple discharge, Denies painful intercourse, Denies painful periods, Denies painful urination, Denies pelvic pain, Denies prolapse symptoms, Denies sexual problems, Denies side pain, Denies urinary incontinence, Denies urinary urgency, Denies vaginal discharge, Denies vaginal dryness, Denies vaginal odor, Denies vaginal itching, Denies other Musculoskeletal: Reports abnormal walking, Reports back pain, Reports muscle weakness, Reports numbness, Reports radiating pain into limb, Reports tingling Skin/Breast: Denies acne, Denies bleeding lesions, Denies boil, Denies breast swelling, Denies breast skin changes, Denies breast pain, Denies breast lump, Denies change in breast shape, Denies change in hair, Denies change in skin color, Denies changing lesions, Denies dry skin, Denies excessive hair growth, Denies hair loss, Denies itching, Denies lesions, Denies nail changes, Denies new lesions, Denies nipple discharge, Denies non-healing lesions, Denies redness , Denies sensitivity to light, Denies rash, Denies skin pain, Denies skin ulcer , Denies sores, Denies stretch cruz, Denies unusual bruising, Denies wounds, Denies yellowing of the skin, Denies other Neurologic: Reports abnormal walking, Reports lack of coordination, Reports localized weakness, Reports numbness, Reports radiating pain, Reports sensory deficit, Reports tingling, Reports unsteadiness, Reports weakness, Denies abnormal hearing, Denies abnormal movements, Denies abnormal speech, Denies behavioral changes, Denies burning sensations, Denies confusion, Denies dizziness, Denies fainting, Denies frequent falls, Denies headache(s), Denies loss of vision, Denies memory loss, Denies other visual disturbances, Denies restless legs, Denies convulsions, Denies seizure-like activity, Denies tingling /numbness/burning sensations, Denies tremor(s), Denies other Psychiatric: Reports anxiety, Reports change in appetite, Denies abnormal sleep pattern, Denies behavioral changes, Denies change in sex drive, Denies confusion , Denies depression, Denies difficulty concentrating, Denies hearing things others do not hear, Denies hopelessness, Denies irritability, Denies lack of enjoyment, Denies memory loss, Denies mood swings, Denies panic attacks, Denies paranoia, Denies seeing things others do not see, Denies sensing things others do not sense, Denies tactile hallucinations, Denies thoughts of hurting/killing others, Denies thoughts of hurting/killing yourself, Denies other Endocrine: Denies cold intolerance, Denies excessive sweating, Denies flushing, Denies heat intolerance, Denies increased hunger, Denies increased thirst, Denies increased urination, Denies rapid, pounding, or irregular heartbeat, Denies other Hematologic/Lymphatic: Denies easy bleeding, Denies easy bruising, Denies enlarged lymph nodes, Denies other Allergic/Immunologic: Denies GI upset with certain foods, Denies hives, Denies itchy eyes, Denies lip swelling, Denies seasonal runny nose, Denies throat swelling, Denies tongue swelling, Denies wheezing, Denies other PMFSH - History History Provided By: Patient - Medical History Medical History: Medical History (Last Reviewed 12/01/17 @ 17:55 by León Locke MD) COPD (chronic obstructive pulmonary disease) CVA (cerebral vascular accident) Hip fracture - Surgical History Surgical History: Surgical History (Last Reviewed 12/01/17 @ 17:55 by León Locke MD) Hx of appendectomy S/P CABG x 1 - Tobacco History Second Hand Smoke Exposure: No Tobacco Use In Past 30 Days: Yes Smoking Status: Former smoker Tobacco Type: Cigarettes - Alcohol History How Often Do You Have a Drink Containing Alcohol: Never - Substance Use History Substance History: No History of Abuse - Travel History Recent Travel in the [place] Within the Last 8 Weeks: No Recent Travel Out of the Country Within the Last 8 Weeks: No - Immunization History Tetanus Immunization: Unsure Hx Influenza Vaccine This Season: No Medications and Allergies Active Medications: Active Medications Hydrocodone Bitart/Acetaminophen ([place] 10/325) 1 tab PO Q4H PRN PRN Reason: pain 1-5 Albuterol (Duoneb Neb (Prn)) 1 ampul NEB Q2HR NEB PRN PRN Reason: SHORTNESS OF BREATH Last Admin: 12/01/17 07:53 Dose: 1 ampul Albuterol (Duoneb Neb ([place]en)) 1 ampul NEB Q6HR WHILE AWAKE NEB [place] Last Admin: 12/01/17 12:46 Dose: 1 ampul Hydromorphone HCl (Dilaudid Pf Inj) 1 mg IV.PUSH Q4H PRN PRN Reason: pain 6 -10 Last Admin: 12/01/17 17:02 Dose: 1 mg Sodium Chloride (Ns Inj) 1,000 mls @ 75 mls/hr IV.CONT .[id number] [facility] Last Admin: 12/01/17 08:05 Dose: 75 mls/hr Levothyroxine Sodium (Synthroid) 50 mcg PO DAILY@0600 [facility] Last Admin: 12/01/17 05:35 Dose: 50 mcg Lorazepam (Ativan) 0.5 mg PO Q8H PRN PRN Reason: ANXIETY AND/OR AGITATION Last Admin: 12/01/17 10:20 Dose: 0.5 mg Losartan Potassium (Cozaar) 25 mg PO BID [facility] Last Admin: 12/01/17 08:05 Dose: 25 mg Sodium Chloride (Ns Flush) 2 ml IV.FLUSH PRN PRN PRN Reason: FLUSH AFTER USING IV ACCESS Temazepam (Restoril) 15 mg PO HS PRN PRN Reason: INSOMNIA Allergies Allergy/AdvReac Type Severity Reaction Status Date / Time adhesive Allergy Severe ADHESIVE Verified 11/30/17 12:22 TAPE/BLISTERS SKIN doxycycline Allergy Severe Irritation Verified 11/30/17 12:22 minocycline Allergy Severe Irritation Verified 11/30/17 12:22 tigecycline Allergy Severe Irritation Verified 11/30/17 12:22 *MDRO Multi-Drug Resistant AdvReac Unknown Hiccups Uncoded 11/30/17 12:22 Organism Home Medications Medication Instructions Recorded Confirmed Type diclofenac sodium 75 mg PO BID PRN 11/21/17 11/30/17 History levothyroxine 50 mcg PO DAILY 11/21/17 11/30/17 History losartan 50 mg PO DAILY 11/21/17 11/30/17 History Exam Vital signs: Vital Signs 11/30/17 19:20 11/30/17 23:43 12/01/17 04:00 Temperature 98.3 F 98 F 98.1 F Pulse Rate 63 63 66 Respiratory Rate 20 17 18 Blood Pressure 111/58 L 146/84 H 106/68 Pulse Oximetry 99 97 94 L 12/01/17 06:13 12/01/17 07:37 12/01/17 07:56 Temperature 98.8 F Pulse Rate 115 H 94 H Respiratory Rate 20 20 28 H Blood Pressure 110/52 L Pulse Oximetry 97 88 L 12/01/17 08:31 12/01/17 12:47 12/01/17 13:16 Temperature Pulse Rate 54 L Respiratory Rate 24 Blood Pressure 160/72 H 108/61 Pulse Oximetry 12/01/17 15:43 Temperature 98.7 F Pulse Rate 58 L Respiratory Rate 16 Blood Pressure 131/49 L Pulse Oximetry 98 Intake & Output 11/30/17 12/01/17 12/01/17 18:59 06:59 18:59 Intake Total 200 / 200 1000 / 1000 Balance 200 / 200 1000 / 1000 Weight 58.513 kg 55.1 kg Intake: IV 1000 / 1000 NS Inj 1,000 ML @ 75 mls/hr IV. 1000 / 1000 CONT .[id number] [facility] Rx#:[id number] Oral 200 / 200 Other: # Voids 2 Weight On Admission 55.1 kg - Constitutional moderate distress - Routine HEENT Exam Head: Present: normocephalic, atraumatic Eye: Present: EOMI, PERRL ENT: Present: mucous membranes moist, oropharynx clear, nares patent, external ear normal - Routine Neck Exam Present: supple, full ROM - Routine Respiratory Exam Present: CTA bilaterally - Routine Cardiovascular Exam Present: RRR, S1, S2 - Routine Abdominal Exam Present: soft, normoactive bowel sounds - Routine Extremities Exam Present: pulses intact, normal capillary refill - Routine Skin Exam Present: intact - Routine Neurological Exam Present: oriented X3, CN II-XII intact, sensory deficit (Relates decreased light touch sensation in the lower extremities in a nondermatomal pattern although does appreciate me touching her legs and feet), motor deficit (Moves upper and lower extremities although limited lower extremity movement approximately more than distally due to pain), plantar reflex, moving all extremities Results - Laboratory Findings CBC and BMP: 12/01/17 05:45 12/01/17 05:45 Abnormal lab findings: Abnormal Labs 11/30/17 11/30/17 12/01/17 13:40 13:40 05:45 WBC 21.3 H 19.7 H Neut % (Auto) 71.5 H [place] % (Auto) 8.8 H 9.4 H Neut # (Auto) 14.8 H 14.1 H [place] # (Auto) 1.9 H 1.8 H Chloride BUN 32 H Creatinine 1.09 H Estimated GFR 48 L Calcium Total Bilirubin 1.2 H Albumin 3.3 L 12/01/17 05:45 WBC Neut % (Auto) Pitt % (Auto) Neut # (Auto) [place] # (Auto) Chloride 110 H BUN 28 H Creatinine 1.06 H Estimated GFR 49 L Calcium 7.9 L D Total Bilirubin Albumin - Diagnostic Findings Additional findings: Impressions Hip X-Ray 11/30/17 12:52 CONCLUSION: There is no evidence of acute fracture. Hip X-Ray 11/30/17 12:52 CONCLUSION: There is no evidence of acute fracture. Lumbar Spine MRI 12/01/17 00:00 CONCLUSION: 1. Retrolisthesis of L1 on L2 and L2 on L3. Marked disc space narrowing and low -grade discogenic edema at L2-3. 2. Moderate to severe canal stenosis at the L4-5 level secondary to broad- based diffuse annular bulge and marked hypertrophy of the posterior elements. Scattered areas of neural foraminal narrowing as described above Assessment and Plan - Assessment (1) Spinal stenosis, lumbar region with neurogenic claudication Code(s): M48.062 - Spinal stenosis, lumbar region with neurogenic claudication Status: Acute (2) Lumbar degenerative disc disease Code(s): M51.36 - Other intervertebral disc degeneration, lumbar region Status : Acute (3) Spondylolisthesis, lumbar region Code(s): M43.16 - Spondylolisthesis, lumbar region Status: Acute (4) Intractable low back pain Code(s): M54.5 - Low back pain Status: Acute - Plan 82-year-old lady with intractable low back pain and bilateral neurogenic claudication/radiculopathy. She has a severe L3-4 and L4-5 spinal stenosis from facet and ligamentum flavum hypertrophy along with the disc protrusions and degenerative changes at other levels. Treatment options were discussed with the patient and her son including continued nonsurgical management involving pain control with medications and interventional pain management with epidural steroid injections and physical therapy. We also discussed the option of surgical intervention involving an L3-L5 decompressive laminectomy. Patient and his son refused any surgical intervention. Accordingly I would recommend continued pain control and consider lumbar epidural steroid injection by special procedures. Continue with the physical therapy to prevent further deconditioning and weakness in the legs. We will see her on an as-needed basis at this point.
[2017-12-02] MEDS: Levothyroxine 50 MCG Tablet PO SCH (06:47)
[2017-12-02] MEDS: HYDROmorphone PF Inj 2 MG/ML Vial IV.PUSH PRN (08:18)
--- NOTE | 2017-12-02 09:21 | P.PNIM ---
Subjective Interval history: Pt was writhing around in pain this morning It appears that she hadn't gotten pain medications in overnight and woke up complaining of "burning in my hips" Physical Exam Vital signs: Vital Signs 12/01/17 12:47 12/01/17 13:16 12/01/17 15:43 Temperature 98.7 F Pulse Rate 54 L 58 L Respiratory Rate 24 16 Blood Pressure 108/61 131/49 L Pulse Oximetry 98 12/01/17 19:19 12/01/17 19:58 12/01/17 20:44 Temperature 97.8 F Pulse Rate 58 L 66 Respiratory Rate 20 20 16 Blood Pressure 96/46 L Pulse Oximetry 96 97 12/01/17 20:50 12/01/17 23:50 12/01/17 23:58 Temperature 98 F 99.0 F Pulse Rate 64 65 Respiratory Rate 16 16 16 Blood Pressure 94/60 L 108/47 L Pulse Oximetry 94 L 94 L 12/02/17 04:00 12/02/17 07:34 12/02/17 08:00 Temperature 98.1 F Pulse Rate 55 L 63 78 Respiratory Rate 16 24 18 Blood Pressure 117/53 L 186/93 H Pulse Oximetry 97 99 Intake & Output 12/01/17 12/02/17 12/02/17 18:59 06:59 18:59 Intake Total 1000 / 1000 1000 / 1000 Balance 1000 / 1000 1000 / 1000 Intake: IV 1000 / 1000 1000 / 1000 NS Inj 1,000 ML @ 75 mls/hr IV. 1000 / 1000 1000 / 1000 CONT .[id number] [facility] Rx#:[id number] Other: # Voids 2 Narrative: General: Pt is an 82 year old female in extreme pain, unable to lay still due to pain Heart: Regular Lungs: CTA Abd: +BS, soft ND/NT Ext: no edema severe tenderness at coccyx area Results - Labs CBC & Chem 7: 12/01/17 05:45 12/01/17 05:45 - Imaging Impressions Lumbar Spine MRI 12/01/17 00:00 CONCLUSION: 1. Retrolisthesis of L1 on L2 and L2 on L3. Marked disc space narrowing and low -grade discogenic edema at L2-3. 2. Moderate to severe canal stenosis at the L4-5 level secondary to broad- based diffuse annular bulge and marked hypertrophy of the posterior elements. Scattered areas of neural foraminal narrowing as described above Assessment and Plan - Assessment (1) Intractable low back pain Code(s): M54.5 - Low back pain Status: Acute Plan: Intractable LBP with inability to ambulate and bilateral neurogenic claudication /radiculopathy Severe L3-4 and L4-5 spinal stenosis from facet and ligamentum flavum hypertrophy along with the disc protrusions - Pain currently seems to be more over the coccyx. - CT Lumbar spine (11/21/17): 1. Patient is a broad-based disc disease at multiple levels most impressive at the 3 level with the neural foramen is clearly narrowed. Moderate stenosis at multiple levels as well, all chronic. 2. No evidence of an acute fracture or acute interval change.3. Calcified disc osteophyte complex at T11-12 narrows the thecal sac to between 6 to 7 mm - Lumbar Spine MRI (12/01/17): 1. Retrolisthesis of L1 on L2 and L2 on L3. Marked disc space narrowing and low-grade discogenic edema at L2-3. 2. Moderate to severe canal stenosis at the L4-5 level secondary to broad- based diffuse annular bulge and marked hypertrophy of the posterior elements. Scattered areas of neural foraminal narrowing as described above - Cont prn iv pain meds - Appreciate Neurosurgical consultation and recommendations: "Treatment options were discussed with the patient and her son including continued nonsurgical management involving pain control with medications and interventional pain management with epidural steroid injections and physical therapy. We also discussed the option of surgical intervention involving an L3- L5 decompressive laminectomy. Patient and his son refused any surgical intervention. Accordingly I would recommend continued pain control and consider lumbar epidural steroid injection by special procedures." - Consult Intervention Radiology regarding epidural steroid injections - Cont. PT - Cont home medications. - DVT prophylaxis. 2.CAD s/p CABG x 1 in 2005 3. s/p AVR with bioprosthetic valve 4. HTN 5. hx CVA, right basal ganglia 6. 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 COPD and restrictive lung disease 8, LBBB 9. Hypothyroidism The exam, history, and the medical decision-making described in the above note were completed with the assistance of the mid-level provider. I reviewed and agree with the findings presented. I attest that I had a [id number] encounter with the patient on the same day, and personally performed and documented my assessment and findings in the medical record. PT WENT FOR [facility] WITH RADIOLOGY. SHE BECAME HYSTERICAL WITH PAIN AND REQUIRED INTUBATION. SENT TO ICU. (2) Unable to ambulate Code(s): R26.2 - Difficulty in walking, not elsewhere classified Status: Acute (3) COPD (chronic obstructive pulmonary disease) Code(s): J44.9 - Chronic obstructive pulmonary disease, unspecified Status: Chronic (4) CVA (cerebral vascular accident) Code(s): I63.9 - Cerebral infarction, unspecified Status: Chronic (5) S/P AVR Code(s): Z95.2 - Presence of prosthetic heart valve Status: Chronic (6) Hypothyroid Code(s): E03.9 - Hypothyroidism, unspecified Status: Chronic (7) HTN (hypertension) Code(s): I10 - Essential (primary) hypertension Status: Chronic
[2017-12-02] MEDS ORDERED: Lidocaine 2% 100 MG/5 ML Syringe IV.PUSH ONE (11:38)
[2017-12-02] MEDS ORDERED: Bisacodyl 10 MG Supp RECTAL PRN (12:23)
[2017-12-02] MEDS ORDERED: HYDROmorphone PF Inj 2 MG/ML Vial IV.PUSH ONE (12:30)
[2017-12-02] MEDS ORDERED: RASS Change Order OTHER ONE (13:00)
--- NOTE | 2017-12-02 13:03 | P.CONCC ---
History of Present Illness Service: Critical care medicine Consult date: 12/02/17 Requesting Physician: Chad Rudolph Reason for Consult: Acute respiratory failure, acute dystonia Primary Care Provider: Garrett Mahajan Family Provider: Unknown Chief Complaint: Acute dystonia, acute respiratory failure History of Present Illness: This is an 82-year-old female. Date of admission 11/30/2017. Date of consultation 12/02/2017. Past medical history includes coronary disease status post CABG x1, porcine aortic valve replaced, essential hypertension, hyperlipidemia, history of right basal ganglia CVA, history of left MCA aneurysm , COPD and restrictive lung disease, chronic left bundle branch block, restless leg syndrome, hypothyroidism and spinal stenosis. Patient presents to [facility] 11/30 with 2-week history of worsening low back pain/radiating down her back/sides. Patient was evaluated by neurosurgery/Dr. Locke. She has a severe L3-4 and L4- 5 spinal stenosis from facet and ligamentum flavum hypertrophy along with the disc protrusions and degenerative changes at other levels.Due to the intractable low back pain and bilateral neurogenic claudication/radiculopathy. Treatment options were discussed with the patient and her son including continued nonsurgical management involving pain control with medications and interventional pain management with epidural steroid injections and physical therapy. We also discussed the option of surgical intervention involving an L3- L5 decompressive laminectomy. Patient and his son refused any surgical intervention Today, patient was to undergo an JASON with interventional radiology. Patient received lorazepam, hydromorphone and hydrocodone/acetaminophen today per medical record. While in IR, patient had acute onset of violent acute dystonia and choreiform movements. These also include arching of her back. Did not see any ocular gyri movements on my initial examination prior to intubation. This lasted approximately 15-30 minutes. During this time the patient was hypertensive and had decreased saturations. She was able to speak and respond accordingly through these movements Noted no antiemetics, antipsychotics appear to have been given Review of Systems unobtainable due to endotracheal tube PMFSH - History History Provided By: Patient - Medical History Medical History: Medical History (Last Updated 12/02/17 @ 13:09 by Candido Livingston MD) History of CVA (cerebrovascular accident) Hyperlipidemia COPD (chronic obstructive pulmonary disease) CVA (cerebral vascular accident) Hip fracture - Surgical History Surgical History: Surgical History (Last Updated 12/02/17 @ 13:08 by Candido Livingston MD) H/O aortic valve replacement with porcine valve Hx of appendectomy S/P CABG x 1 - Family History Family History: Family History (Last Updated 12/02/17 @ 13:09 by Candido Livingston MD) Other Family member - Social History I have reviewed the patient's Social History: Yes - Tobacco History Second Hand Smoke Exposure: No Tobacco Use In Past 30 Days: Yes Smoking Status: Former smoker Tobacco Type: Cigarettes Years Smoked: 70 - Alcohol History How Often Do You Have a Drink Containing Alcohol: Never - Substance Use History Substance History: No History of Abuse - Travel History Recent Travel in the [place] Within the Last 8 Weeks: No Recent Travel Out of the Country Within the Last 8 Weeks: No - Immunization History Tetanus Immunization: Unsure Hx Influenza Vaccine This Season: No Medications and Allergies Active Medications: Active Medications Hydrocodone Bitart/Acetaminophen ([place] 10/325) 1 tab PO Q4H PRN PRN Reason: pain 1-5 Last Admin: 12/02/17 09:16 Dose: 1 tab Al Hydroxide/Mg Hydroxide (Milk Of Amy Litamara) 30 ml PO Q12H PRN PRN Reason: Mild Constipation Albuterol (Duoneb Neb (Prn)) 1 ampul NEB Q2HR NEB PRN PRN Reason: SHORTNESS OF BREATH Last Admin: 12/01/17 07:53 Dose: 1 ampul Albuterol (Duoneb Neb (Coleen)) 1 ampul NEB Q6HR NEB COLEEN Albuterol (Albuterol Neb (Prn)) 2.5 mg NEB Q2HR NEB PRN PRN Reason: SHORTNESS OF BREATH/WHEEZING Artificial Tears (Refresh Tears 0.5% Opth Drops) 1 drop EACH EYE BID COLEEN Bisacodyl (Dulcolax Supp) 10 mg RECTAL DAILY PRN PRN Reason: SEVERE CONSITIPATION Chlorhexidine Gluconate (Peridex 0.12% Oral Kit) 15 ml OROPHARYNG BID@0800, 2000 COLEEN Chlorhexidine Gluconate (Chlorhexidine 2% Cloth) 3 pack TOPICAL DAILY@0400 COLEEN Stop: 12/08/17 03:59 Chlorhexidine Gluconate (Chlorhexidine 2% Cloth) 3 pack TOPICAL DAILY@0400 PRN PRN Reason: Extra cloth needed Stop: 12/08/17 03:59 Famotidine (Pepcid Pf Inj) 20 mg IV.PUSH Q12HR [facility] Hydromorphone HCl (Dilaudid Pf Inj) 1 mg IV.PUSH Q4H PRN PRN Reason: pain 6 -10 Last Admin: 12/02/17 08:18 Dose: 1 mg Fentanyl (Fentanyl 10 Mcg/Ml Premix Drip) 2,500 mcg in 250 mls @ 5 mls/hr IV.SIG TITRATE PRN; Protocol PRN Reason: Per Protocol Sodium Chloride (Ns Inj) 1,000 mls @ 84 mls/hr IV.CONT .[id number] [facility] Propofol (Diprivan 1000 Mg/100 Ml Inj) 1,000 mg in 100 mls @ 1.653 mls/hr IV.CONT TITRATE PRN; Protocol PRN Reason: Per Protocol Lactulose (Lactulose Liq) 30 ml PO DAILY PRN PRN Reason: SEVERE CONSITIPATION Levothyroxine Sodium (Synthroid) 50 mcg PO DAILY@0600 [facility] Last Admin: 12/02/17 06:47 Dose: 50 mcg Lorazepam (Ativan) 0.5 mg PO Q8H PRN PRN Reason: ANXIETY AND/OR AGITATION Last Admin: 12/01/17 10:20 Dose: 0.5 mg Losartan Potassium (Cozaar) 25 mg PO BID [facility] Last Admin: 12/02/17 08:18 Dose: 25 mg Miscellaneous Medication () 1 each OROPHARYNG 0000,0400,1200,1600 [facility] Senna/Docusate Sodium (Joyce-Colace) 1 tab PO BID [facility] Sennosides (Senokot) 17.2 mg PO Q12H PRN PRN Reason: Moderate Constipation Sodium Chloride (Ns Flush) 2 ml IV.FLUSH BID [facility] Sodium Chloride (Ns Flush) 2 ml IV.FLUSH PRN PRN PRN Reason: FLUSH AFTER USING IV ACCESS Temazepam (Restoril) 15 mg PO HS PRN PRN Reason: INSOMNIA Allergies Allergy/AdvReac Type Severity Reaction Status Date / Time adhesive Allergy Severe ADHESIVE Verified 11/30/17 12:22 TAPE/BLISTERS SKIN doxycycline Allergy Severe Irritation Verified 11/30/17 12:22 minocycline Allergy Severe Irritation Verified 11/30/17 12:22 tigecycline Allergy Severe Irritation Verified 11/30/17 12:22 *MDRO Multi-Drug Resistant AdvReac Unknown Hiccups Uncoded 11/30/17 12:22 Organism Home Medications Medication Instructions Recorded Confirmed Type diclofenac sodium 75 mg PO BID PRN 11/21/17 11/30/17 History levothyroxine 50 mcg PO DAILY 11/21/17 11/30/17 History losartan 50 mg PO DAILY 11/21/17 11/30/17 History Physical Exam Vital signs: Vital Signs 12/01/17 13:16 12/01/17 15:43 12/01/17 19:19 Temperature 98.7 F 97.8 F Pulse Rate 58 L 58 L Respiratory Rate 16 20 Blood Pressure 108/61 131/49 L 96/46 L Pulse Oximetry 98 96 12/01/17 19:58 12/01/17 20:44 12/01/17 20:50 Temperature 98 F Pulse Rate 66 64 Respiratory Rate 20 16 16 Blood Pressure 94/60 L Pulse Oximetry 97 94 L 12/01/17 23:50 12/01/17 23:58 12/02/17 04:00 Temperature 99.0 F 98.1 F Pulse Rate 65 55 L Respiratory Rate 16 16 16 Blood Pressure 108/47 L 117/53 L Pulse Oximetry 94 L 97 12/02/17 07:34 12/02/17 08:00 12/02/17 12:29 Temperature Pulse Rate 63 78 Respiratory Rate 24 18 16 Blood Pressure 186/93 H Pulse Oximetry 99 100 Intake & Output 12/01/17 12/02/17 12/02/17 18:59 06:59 18:59 Intake Total 1000 / 1000 1000 / 1000 1000 / 1000 Balance 1000 / 1000 1000 / 1000 1000 / 1000 Intake: IV 1000 / 1000 1000 / 1000 1000 / 1000 NS Inj 1,000 ML @ 75 mls/hr IV. 1000 / 1000 1000 / 1000 1000 / 1000 CONT .[id number] [facility] Rx#:[id number] Other: # Voids 2 - Constitutional mild distress - Routine HEENT Exam Head: Present: normocephalic, atraumatic Eye: Present: EOMI, PERRL ENT: Present: mucous membranes moist - Routine Neck Exam Present: supple. Absent: JVD, carotid bruit - Routine Respiratory Exam Present: CTA bilaterally, diminished air movement. Absent: accessory muscle use - Routine Cardiovascular Exam Present: S1, S2, murmur, tachycardia - Routine Abdominal Exam Present: soft, normoactive bowel sounds - Routine Exam Patient deferred: external exam, groin exam, perineal exam - Routine Extremities Exam Absent: cyanosis, clubbing, edema - Routine Skin Exam Present: intact - Routine Neurological Exam Present: CN II-XII intact. Absent: alert, oriented X3 - Detailed Neurological Exam: Coma Scale Eye Opening: None Verbal Response: None Motor Response: None Ashlyn Coma Scale Total: 3 - Routine Psychiatric Exam Present: unable to assess Septic Shock Reassessment Septic shock perfusion: reassessment completed Assessment and Plan - Assessment and Plan Plan: Neuro/Psych: Acute dystonia, cord for movements unclear etiology History of right basal ganglia CVA History of left MCA aneurysm Chronic pain syndrome Has not received any antipsychotics or antiemetics. No obvious medications given that might cause these symptoms. Stat MRI/MRA brain/neck EEG ordered Spoke with Dr. Smith/neurology. He will evaluate post imaging as above. Very rare these movements would be caused by CVA bilaterally Holding diclofenac 75 mg twice daily and hydrocodone/acetaminophen 5/321 tablet every 6 hours as needed/home medication CV: Essential hypertension Hyperlipidemia Sinus tachycardia Coronary artery disease status post CABG 1 History of porcine aortic valve replacement Left bundle branch block Currently on losartan 25 mg twice daily for essential hypertension at home medication As needed labetalol, Nitropaste and Cardene drip for hypertension Check EKG, CPK and troponin Last echocardiogram documented revealed EF around 55%. Resp: Acute respiratory failure COPD Restrictive lung disease Tobaccoism [facility] / Ventilator bundle Albuterol/ipratropium aerosols every 4 hours with albuterol aerosols every 2 hours as needed for dyspnea Spontaneous breathing trials when clinically indicated Follow-up post intubation chest x-ray and ABG Self evaluation self sensation booklet will be provided when clinically indicated GI: Patient is currently n.p.o. Famotidine for GI prophylaxis Docusate sodium/senna 1 tablet twice daily for bowel regimen NGT to LIWS : Junior catheter if indicated for accurate I's and O's in a critically ill patient Endo: Hypothyroidism Sliding scale insulin Accu-Cheks every 6 hours to maintain euglycemia/aspart insulin medium protocol Continue levothyroxine 50 mcg by mouth daily Check TSH Renal: Creatinine currently within normal limits Monitor urine output Accurate I's and O's Heme: CBC within normal limits ID: Monitor for signs and symptomatology infection FEN: Please see electrolytes as clinically indicated per ICU electrolyte protocol Currently normal saline at 84 cc an hour MSK: Retrolisthesis L1 on L2 and L2 and L3 L4/L5 severe stenosis with annular bulge Evaluate Dr. Locke/neurosurgery. Patient's family refused surgery. Epidural steroid injection Access -Utilize peripheral IV. Central line if indicated Prophylaxis -GI -famotidine -DVT-SCDs/holding pharmacologic prophylaxis pending brain imaging Critical care time 35 minutes excluding procedure Code Status: Full code Discussed Condition With: Son. Dr. Dos Santos/IR. [facility] RN. Dr. Smith/neurology. Care plan discussed and all questions answered.
[2017-12-02] MEDS ORDERED: Potassium Chlor 20 mEq Premix 20 MEQ/100 ML PIGGYBACK IV.SIG PRN ×2 (13:11)
[2017-12-02] MEDS ORDERED: Magnesium Oxide 400 MG Tablet PO PRN (13:11)
[2017-12-02] MEDS ORDERED: Potassium Chlor 40 mEq Premix 40 MEQ/100 ML PIGGYBACK IV.SIG PRN ×2 (13:11)
[2017-12-02] MEDS ORDERED: Magnesium Sulfate Inj 4 GM in Sodium Chlor 0.9% Inj 92 ML IV.SIG PRN (13:11)
[2017-12-02] MEDS ORDERED: Potassium Phosphate 500 MG Soluble Tablet PO PRN ×2 (13:11)
[2017-12-02] MEDS ORDERED: Potassium Phosphate Inj 30 MMOL in Sodium Chlor 0.9% Inj 250 ML IV.SIG PRN (13:11)
[2017-12-02] MEDS ORDERED: Magnesium Sulfate Inj 2 GM in Sodium Chlor 0.9% Inj 96 ML IV.SIG PRN (13:11)
[2017-12-02] MEDS ORDERED: Sodium Phosphate Inj 30 MMOL in Sodium Chlor 0.9% Inj 250 ML IV.SIG PRN (13:11)
[2017-12-02] MEDS ORDERED: Potassium Chloride 25 MEQ Effervescent Tablet PO PRN (13:11)
--- NOTE | 2017-12-02 13:20 | XR ---
EXAM DATE: 12/02/2017 1:02 PM EDT AGE/SEX: 82 years / Female INDICATIONS: Intubation and NG tube placement. CLINICAL DATA: This is the patient's initial encounter. Patient reports that signs and symptoms have been present for 3 days and indicates a pain score of Nonresponsive. MEDICAL/SURGICAL HISTORY: Chronic obstructive pulmonary disease. CABG. COMPARISON: [facility], CHEST 1V SINGLE AP, 12/02/2017. . FINDINGS: The heart is enlarged. Median sternotomy wires are noted status post cardiac surgery. An endotracheal tube has its tip 3 cm above the sarah. A nasogastric tube has its tip in the distal esophagus. Ther e is no evidence of pulmonary vascular congestion. The lungs are clear. CONCLUSION: 1. Endotracheal tube in good position 3 cm above the sarah. 2. Nasogastric tube has its tip in the distal esophagus and should be positioned more distally at le ast to the level of the stomach. 3. Cardiomegaly. 4. No focal infiltrate or pulmonary vascular congestion. Electronically signed by: Elan Marie MD 12/02/2017 1:18 PM EDT
[2017-12-02 13:55] LABS: Baso # (Auto) 0.1 th/mm3 (0.0-0.2); Baso % (Auto) 0.5 % (0.0-2.0); Eos # (Auto) 0.3 th/mm3 (0.0-0.4); Eos % (Auto) 1.7 % (0.0-4.0); Hematocrit 37.4 % (35.0-46.0); Hemoglobin 12.6 gm/dL (11.6-15.3); Lymph # (Auto) 2.9 th/mm3 (1.0-4.8); Lymph % (Auto) 14.9 % (9.0-44.0); Mean Corpuscular HGB Conc 33.6 % (32.0-36.0); Mean Corpuscular Hemoglobin 31.9 pg (27.0-34.0); Mean Corpuscular Volume 95.1 fL (80.0-100.0); Mean Platelet Volume 9.1 fL (7.0-11.0); Mono # (Auto) 1.8 th/mm3 (0.0-0.9); Mono % (Auto) 9.3 % (0.0-8.0); Neut # (Auto) 14.4 th/mm3 (1.8-7.7); Neut % (Auto) 73.6 % (16.0-70.0); Platelet Count 353 th/mm3 (150-450); Red Blood Count 3.93 mil/mm3 (4.00-5.30); Red Cell Distribution Width 13.7 % (11.6-17.2); White Blood Count 19.5 th/mm3 (4.0-11.0)
--- NOTE | 2017-12-02 14:02 | XR ---
EXAM DATE: 12/02/2017 12:04 PM EDT AGE/SEX: 82 years / Female INDICATIONS: Short of breath. Halicat. CLINICAL DATA: This is the patient's subsequent encounter. Patient reports that signs and symptoms h ave been present for 3 days and indicates a pain score of 10/10. MEDICAL/SURGICAL HISTORY: . Cerebrovascular disease. Hypothyroidism. CABG. Appendectomy. COMPARISON: [facility] [place], CHEST SINGLE AP, 08/26/2016. . FINDINGS: Minimal patchy airspace opacities in the right lower lung zone similar to prior exam. No new signific ant focal pleural or parenchymal opacities. Cardiomegaly saw contours are stable. Stable postsurgical features of prior cardiac surgery. Bony thorax is intact. CONCLUSION: 1. No acute abnormality or significant interval change. Electronically signed by: Roman Beard MD 12/02/2017 2:01 PM EDT
[2017-12-02 14:04] LABS: Activated Partial Thrombo Time 25.5 sec (24.3-30.1); Prothrombin Time 10.6 sec (9.8-11.6)
[2017-12-02] MEDS ORDERED: Midazolam 50 MG/50 ML Inj 50 MG/50 ML BAG IV.CONT PRN (14:09)
[2017-12-02 14:12] LABS: Alanine Aminotransferase 32 U/L (10-53); Anion Gap 10 meq/L (5-15); Aspartate Aminotransferase 28 U/L (15-37); Blood Urea Nitrogen 21 mg/dL (7-18); Calcium 8.1 mg/dL (8.5-10.1); Carbon Dioxide 22.6 meq/L (21.0-32.0); Chloride 111 meq/L (98-107); Glomerular Filtration Rate 76 mL/min (>89); Glucose,Random 79 mg/dL (74-106); Magnesium 2.1 mg/dL (1.5-2.5); Phosphorus 2.5 mg/dL (2.5-4.9); Potassium 3.5 meq/L (3.5-5.1); Sodium 144 meq/L (136-145)
[2017-12-02 14:22] LABS: Alkaline Phosphatase 112 U/L (45-117); Total Protein 6.4 g/dL (6.4-8.2)
[2017-12-02] MEDS: Sod Chloride 0.9% Inj 1,000 ML IV.CONT SCH ×2 (14:47→18:31)
[2017-12-02] MEDS: Propofol 1000 mg/100 ml Inj 1,000 MG/100 ML BOTTLE IV.CONT PRN (14:48)
[2017-12-02 15:00] LABS: ABG Base Excess -4.2 mmol/L (-2-2); ABG PCO2 32 mmHg (38-42); ABG PO2 423 mmHG (61-120)
[2017-12-02] MEDS: Oral Hygiene Kit OROPHARYNG SCH ×2 (15:19→23:57)
--- NOTE | 2017-12-02 16:58 | MR ---
EXAM DATE: 12/02/2017 4:53 PM EDT AGE/SEX: 82 years / Female INDICATIONS: . Dystonia, choreiform movements, CLINICAL DATA: This is the patient's subsequent encounter. Patient reports that signs and symptoms h ave been present for 2 days and indicates a pain score of 0/10. MEDICAL/SURGICAL HISTORY: Chronic obstructive pulmonary disease. CVA, Lumbar Radiculopathy, Hyp othyroidism, Hip fx Appendectomy. CABG. [place] [facility] [place]. . TECHNIQUE: 3D [id number] MRA was performed. Source images, multiplanar STS MIP, and 3D volum e MIP reconstructions were reviewed. FINDINGS: There is excellent visualization of the major intracranial arteries out to the second-order branch ve ssels. There is no evidence for aneurysm, vessel truncation or stenosis, and no evidence for vascula r malformation. The left vertebral contributes all flow to the basilar artery. The right P1 segment is hypoplastic wi th a patent posterior communicating artery on the right. The transverse segment of the middle cerebra l artery into the sylvian fissure is more prominent on the left parietal seen discrete stenosis on th e right. There is a patent anterior communicating artery CONCLUSION: 1. Hypoplastic P1 segment on the right with a patent posterior communicating artery. 2. Some asymmetry in the middle cerebral artery size, left being larger in the region of the sylvian fissure. Electronically signed by: Sivakumar Jackson MD 12/02/2017 4:56 PM EDT
--- NOTE | 2017-12-02 17:01 | MR ---
EXAM DATE: 12/02/2017 4:51 PM EDT AGE/SEX: 82 years / Female INDICATIONS: . Dystonia, choreiform movements, CLINICAL DATA: This is the patient's subsequent encounter. Patient reports that signs and symptoms h ave been present for 2 days and indicates a pain score of 0/10. MEDICAL/SURGICAL HISTORY: Chronic obstructive pulmonary disease. CVA, LUmbar Radiculopathy, Hyp othyroidism, Hip fx Appendectomy. CABG COMPARISON: [facility], MRA HEAD W/O CONTRAST, 12/02/2017. . TECHNIQUE: Multiplanar, multisequence examination of the brain was performed without contrast. FINDINGS: Cerebrum: There is diffuse atrophy present. The ventricles are normal for age. No evidence of midlin e shift, mass lesion, hemorrhage or acute infarction. No extraaxial fluid collections are seen. The pituitary gland and suprasellar cistern are normal in configuration. White Matter: No significant signal abnormalities are seen in the white matter. Posterior Fossa: The cerebellum and brainstem are intact. The 4th ventricle is midline. The cerebel lopontine angle is unremarkable. The cerebellar tonsils are normal in position. Diffusion Imaging: No focal areas of restricted diffusion are seen. No evidence of acute infarction . Extracranial: The visualized portions of the orbits and paranasal sinuses are unremarkable. CONCLUSION: 1. Diffuse atrophy. No evidence of an acute stroke, mass or mass effect. There may be a small old la cunar infarct on the left. No acute subarachnoid or subdural hematoma is identified Electronically signed by: Sivakumar Jackson MD 12/02/2017 4:59 PM EDT
[2017-12-02] MEDS: Insulin NovoLOG Aspart Correctional Sugar Inj SQ SCH ×2 (17:40→23:56)
[2017-12-02 19:09] LABS: Amphetamine Screen,Urine Neg (Neg); Barbiturate Screen,Urine Neg (Neg); Cannabinoid Screen,Urine Neg (Neg); Cocaine Screen,Urine Neg (Neg)
[2017-12-02 19:13] LABS: Opiate Screen,Urine Pos (Neg)
[2017-12-02 19:19] LABS: Bacteria,Urine Occasional /hpf; Bilirubin,Urine Negative (Negative); Clarity,Urine Clear (Clear); Color,Urine Yellow (Yellw/Straw); Glucose,Urine (UA) Negative (Negative); Leukocyte Esterase,Urine Negative (Negative); Nitrite,Urine Negative (Negative); Specific Gravity,Urine 1.017 (1.002-1.035)
--- NOTE | 2017-12-02 19:29 | MR ---
EXAM DATE: 12/02/2017 6:44 PM EDT AGE/SEX: 82 years / Female INDICATIONS: Stroke. Dystonia, choreiform movements, CLINICAL DATA: This is the patient's subsequent encounter. Patient reports that signs and symptoms h ave been present for 2 days and indicates a pain score of 0/10. MEDICAL/SURGICAL HISTORY: Chronic obstructive pulmonary disease. CVA, Lumbar Radiculopathy, Hyp othyroidism, Hip fx Appendectomy. CABG. COMPARISON: [facility] [place], MRA CAROTIDS W CONTRAST, 11/30/2011. . TECHNIQUE: 10ml ml Gadavist (gadobutrol) contrast infused MRA (single exam dose) of the extracrania l circulation was performed using a neurovascular coil. Postprocessing was performed, including rota ting sub-volume maximum intensity projections of each carotid artery, rotating full-volume maximum in tensity projections of both carotid arteries, sagittal and coronal sliding thin-slab reformations of each carotid artery, and left oblique sliding thin-slab reformation through the aortic arch to includ e the origin of the arch branch vessels. FINDINGS: Aortic Arch : There is a three-vessel origin of the great vessels from the aorta. No evidence of o stial narrowing. Right Carotid : The common carotid artery is intact. There is plaque involving the origin of the rig ht internal carotid artery with suggested short segment high-grade stenosis greater than 90%. There i s also high-grade stenosis involving the external carotid artery.. Left Carotid : The common carotid artery is intact. The carotid bulb has a normal configuration wit hout ulceration or narrowing. The internal carotid artery lumen is smooth without stenosis. The ext ernal carotid artery is intact. Vertebrals : The vertebral arteries have a symmetric diameter. No stenotic lesions are seen. CONCLUSION: 1. Short segment high-grade stenosis involving the origin of the right internal carotid artery sugge sting greater than 90% stenosis. 2. No significant stenosis within the left internal carotid artery. Percent stenosis is calculated using the diameter of the stenotic region over the diameter of the nor mal distal internal carotid artery Electronically signed by: Cirilo Almodovar MD 12/02/2017 7:28 PM EDT
[2017-12-02] MEDS: Chlorhexidine 0.12% Oral Kit 15 ML UDC OROPHARYNG SCH (20:09)
[2017-12-02] MEDS: Senna/Docusate Sodium 8.6/50 MG Tablet PO SCH (20:09)
[2017-12-02] MEDS: Famotidine PF Inj 20 MG/2 ML Vial IV.PUSH SCH (20:09)
[2017-12-02] MEDS ORDERED: Gadobutrol PF 10 MMOL/10 ML Vial (for RAD) IV.SIG ONE (20:15)
--- NOTE | 2017-12-02 21:14 | MB ---
cc: Jimmy Smith MD, PhD DATE: 12/02/2017 REASON FOR CONSULTATION: Acute dystonia. HISTORY OF PRESENT ILLNESS: Ms. Tony is an 82-year-old woman who has a history of a MCA aneurysm on the right, nonruptured, previous right basal ganglia stroke, lumbar stenosis. She is undergoing preparation for an epidural steroid injection. Before the injection was accomplished, she developed an acute dystonic posturing of the upper and lower extremities. She did not receive any phenothiazines or any other dopamine agents. She is now intubated on sedation. NEUROLOGIC EXAMINATION: VITAL SIGNS: Blood pressure is 96/51, pulse is 53. HIGHER CORTICAL FUNCTION: Sedated. CRANIAL NERVES: Pupils 1 mm, symmetric, sluggishly reactive. Extraocular movements intact to doll's maneuver. MOTOR EXAM: No spontaneous movement. Reflexes are symmetric. There is no Babinski sign present. MRI of the brain done today diffuse atrophy, no evidence of acute stroke. Old lacunar stroke on the left. No subdural hematoma. She had a previous MRI of the brain done, which was unremarkable for any acute change. She had an MRA of the brain done as well. Hypoplastic P1 segment on the right, some asymmetry in the middle cerebral artery, size left being larger in the region of the sylvian fissure. LABORATORY DATA: White count 21,300, hemoglobin 13.7, hematocrit 41%, platelet 397,000. Sodium is 144, potassium 3.5, chloride 111, CO2 22.6. The BUN is 21, creatinine 0.73, GFR 76, glucose is 79, calcium 8.1, phosphorus 2.5, AST 20, ALT 32. TSH 1.45. IMPRESSION: Acute dystonia of questionable etiology. We will continue to follow the patient. There is no evidence of any medication effect. Jimmy Smith MD, PhD AYALA/ct , 07:50 PM , 07:56 PM
--- NOTE | 2017-12-02 21:47 | MG ---
cc: Fortino Justice MD EEG RECORD: Generalized slowing, 1-3 Hz delta activity with spindles suggestive of stage II sleep. Occasional frontal sharp transients, sharp wave bifrontal EPOC 51. Limited driving with photic stimulation. Single lead EKG showing irregularly irregular rhythm. INTERPRETATION: Episodic bifrontal sharp waves with underlying moderate encephalopathy, sleep state. Clinical correlation. Fortino Justice MD MG/ , 09:34 PM , 09:40 PM
[2017-12-02 22:16] LABS: Troponin I 0.2 ng/mL (0.02-0.05)
[2017-12-02] MEDS: Carboxymethylcellulose 0.5% Opth Drops 15 ML Bottle EACH EYE SCH (23:00)
[2017-12-03] MEDS: Propofol 1000 mg/100 ml Inj 1,000 MG/100 ML BOTTLE IV.CONT PRN ×3 (02:00→18:40)
[2017-12-03] MEDS ORDERED: Chlorhexidine Gluconate 2% 1 Pack (2 Cloths) TOPICAL PRN (04:00)
[2017-12-03] MEDS: Chlorhexidine Gluconate 2% 1 Pack (2 Cloths) TOPICAL SCH (04:34)
[2017-12-03] MEDS: Oral Hygiene Kit OROPHARYNG SCH ×3 (04:34→15:29)
--- NOTE | 2017-12-03 06:07 | XR ---
EXAM DATE: 12/03/2017 4:18 AM EDT AGE/SEX: 82 years / Female INDICATIONS: NG tube placement. CLINICAL DATA: This is the patient's subsequent encounter. Patient reports that signs and symptoms h ave been present for 3 days and indicates a pain score of Nonresponsive. MEDICAL/SURGICAL HISTORY: Non-responsive. Non-responsive. COMPARISON: [facility], CHEST 1V SINGLE AP, 12/02/2017. . FINDINGS: Nasogastric tube tip overlies the stomach. The chest is incompletely seen. CONCLUSION: NG tube tip in the stomach Electronically signed by: Noam Sanchez MD 12/03/2017 6:05 AM EDT
[2017-12-03] MEDS: Insulin NovoLOG Aspart Correctional Sugar Inj SQ SCH ×3 (06:18→18:39)
[2017-12-03] MEDS: Levothyroxine 50 MCG Tablet PO SCH (06:19)
[2017-12-03] MEDS: fentaNYL 10 mcg/mL Premix Drip 2,500 MCG/250 ML BAG IV.SIG PRN ×2 (07:00→21:58)
[2017-12-03 07:18] LABS: Activated Partial Thrombo Time 23.1 sec (24.3-30.1); Prothrombin Time 10.4 sec (9.8-11.6)
[2017-12-03 07:21] LABS: Baso # (Auto) 0.1 th/mm3 (0.0-0.2); Baso % (Auto) 0.5 % (0.0-2.0); Eos # (Auto) 0.5 th/mm3 (0.0-0.4); Eos % (Auto) 2.3 % (0.0-4.0); Hematocrit 38.4 % (35.0-46.0); Hemoglobin 12.6 gm/dL (11.6-15.3); Lymph # (Auto) 2.4 th/mm3 (1.0-4.8); Lymph % (Auto) 11.5 % (9.0-44.0); Mean Corpuscular HGB Conc 32.9 % (32.0-36.0); Mean Corpuscular Hemoglobin 31.6 pg (27.0-34.0); Mean Corpuscular Volume 95.9 fL (80.0-100.0); Mono # (Auto) 2.5 th/mm3 (0.0-0.9); Mono % (Auto) 12.2 % (0.0-8.0); Neut # (Auto) 15.2 th/mm3 (1.8-7.7); Neut % (Auto) 73.5 % (16.0-70.0); Platelet Count 331 th/mm3 (150-450); Red Cell Distribution Width 14.2 % (11.6-17.2); White Blood Count 20.7 th/mm3 (4.0-11.0)
--- NOTE | 2017-12-03 07:35 | P.PNCC ---
Subjective Subjective Remarks/Hospital Course: This is an 82-year-old female. Date of admission 11/30/2017. Date of consultation 12/02/2017. Past medical history includes coronary disease status post CABG x1, porcine aortic valve replaced, essential hypertension, hyperlipidemia, history of right basal ganglia CVA, history of left MCA aneurysm , COPD and restrictive lung disease, chronic left bundle branch block, restless leg syndrome, hypothyroidism and spinal stenosis. Patient presents to [facility] 11/30 with 2-week history of worsening low back pain/radiating down her back/sides. Patient was evaluated by neurosurgery/Dr. Locke. She has a severe L3-4 and L4- 5 spinal stenosis from facet and ligamentum flavum hypertrophy along with the disc protrusions and degenerative changes at other levels.Due to the intractable low back pain and bilateral neurogenic claudication/radiculopathy. Treatment options were discussed with the patient and her son including continued nonsurgical management involving pain control with medications and interventional pain management with epidural steroid injections and physical therapy. We also discussed the option of surgical intervention involving an L3- L5 decompressive laminectomy. Patient and his son refused any surgical intervention Today, patient was to undergo an JASON with interventional radiology. Patient received lorazepam, hydromorphone and hydrocodone/acetaminophen today per medical record. While in IR, patient had acute onset of violent acute dystonia and choreiform movements. These also include arching of her back. Did not see any ocular gyri movements on my initial examination prior to intubation. This lasted approximately 15-30 minutes. During this time the patient was hypertensive and had decreased saturations. She was able to speak and respond accordingly through these movements Noted no antiemetics, antipsychotics appear to have been given SUBJECTIVE: 12/03: Currently sedated on the ventilator and 40 mg/kg/min of propofol and 50 mg /h of fentanyl. MRI showed possible left lacunar infarct. They percent stenosis right carotid artery. Vascular surgery routine consult. EEG showed bilateral frontal sharp activity and moderate encephalopathy. Objective Vital Signs / I&O: Vital Signs 12/02/17 07:34 12/02/17 08:00 12/02/17 12:29 Temperature Pulse Rate 63 78 Respiratory Rate 24 18 16 Blood Pressure 186/93 H Pulse Oximetry 99 100 12/02/17 13:00 12/02/17 14:00 12/02/17 15:00 Temperature 98 F Pulse Rate 103 H 62 65 Respiratory Rate 22 16 16 Blood Pressure 208/100 H 159/70 H 94/50 L Pulse Oximetry 100 100 100 12/02/17 15:30 12/02/17 16:00 12/02/17 16:47 Temperature Pulse Rate 53 L Respiratory Rate 16 16 Blood Pressure 96/51 L Pulse Oximetry 100 100 100 12/02/17 16:52 12/02/17 20:00 12/02/17 20:48 Temperature 97.8 F Pulse Rate 52 L 64 81 Respiratory Rate 16 16 16 Blood Pressure 201/80 H Pulse Oximetry 100 100 12/02/17 23:17 12/03/17 00:00 12/03/17 03:56 Temperature 97.8 F Pulse Rate 63 58 L 55 L Respiratory Rate 16 16 16 Blood Pressure 144/65 H Pulse Oximetry 100 100 93 L 12/03/17 04:00 Temperature 97.5 F L Pulse Rate 66 Respiratory Rate 16 Blood Pressure 188/66 H Pulse Oximetry 94 L Intake & Output 12/02/17 12/03/17 12/03/17 18:59 06:59 18:59 Intake Total 1999 100 / 100 Output Total 50 / 50 1000 / 1000 Balance 1950 / 1950 -900 / -900 Weight 56 kg Intake: IV 1999 100 / 100 Diprivan 1000 mg/100 ml Inj 1, 100 / 100 000 mg In 100 ml @ 5 MCG/KG/MIN 1.653 mls/hr IV.CONT TITRATE PRN Rx#:[id number] NS Inj 1,000 ML @ 84 mls/hr IV. 1999 CONT .[id number] [facility] Rx#:[id number] Oral 0 / 0 Output: Urine 50 / 50 Urine Amount (Catheter) 1000 / 1000 Straight 1000 / 1000 Result Diagrams: 12/02/17 13:29 12/02/17 13:29 Imaging: Hip X-Ray 11/30/17 12:52 CONCLUSION: There is no evidence of acute fracture. Hip X-Ray 11/30/17 12:52 CONCLUSION: There is no evidence of acute fracture. Lumbar Spine MRI 12/01/17 00:00 CONCLUSION: 1. Retrolisthesis of L1 on L2 and L2 on L3. Marked disc space narrowing and low -grade discogenic edema at L2-3. 2. Moderate to severe canal stenosis at the L4-5 level secondary to broad- based diffuse annular bulge and marked hypertrophy of the posterior elements. Scattered areas of neural foraminal narrowing as described above Chest X-Ray 12/02/17 00:00 CONCLUSION: 1. No acute abnormality or significant interval change. Chest X-Ray 12/02/17 00:00 CONCLUSION: 1. Endotracheal tube in good position 3 cm above the sarah. 2. Nasogastric tube has its tip in the distal esophagus and should be positioned more distally at least to the level of the stomach. 3. Cardiomegaly. 4. No focal infiltrate or pulmonary vascular congestion. Head MRA 12/02/17 00:00 CONCLUSION: 1. Hypoplastic P1 segment on the right with a patent posterior communicating artery. 2. Some asymmetry in the middle cerebral artery size, left being larger in the region of the sylvian fissure. Neck MRA 12/02/17 00:00 CONCLUSION: 1. Short segment high-grade stenosis involving the origin of the right internal carotid artery suggesting greater than 90% stenosis. 2. No significant stenosis within the left internal carotid artery. Percent stenosis is calculated using the diameter of the stenotic region over the diameter of the normal distal internal carotid artery Head MRI 12/02/17 12:29 CONCLUSION: 1. Diffuse atrophy. No evidence of an acute stroke, mass or mass effect. There may be a small old lacunar infarct on the left. No acute subarachnoid or subdural hematoma is identified Chest X-Ray 12/03/17 00:00 CONCLUSION: NG tube tip in the stomach Objective Remarks: GENERAL: 82-year-old female currently orotracheally intubated SKIN: Warm and dry. HEAD: Atraumatic. Normocephalic. EYES: Pupils equal and round. No scleral icterus. No injection or drainage. ENT: No nasal bleeding or discharge. Mucous membranes pink and moist. NECK: Trachea midline. No JVD. No obvious bruit in the right side CARDIOVASCULAR: Bradycardic, RRR. S1, S2 predose 4.. RESPIRATORY: No accessory muscle use. Clear to auscultation. Breath sounds equal bilaterally. GASTROINTESTINAL: Abdomen soft, non-tender, nondistended. Hepatic and splenic margins not palpable. MUSCULOSKELETAL: Extremities without clubbing, cyanosis, or edema. No obvious deformities. NEUROLOGICAL: Currently sedated on the ventilator. Withdraws to pain. Positive cough and gag. Positive corneal reflex. Assessment and Plan - Assessment and Plan Plan: Neuro/Psych: Acute dystonia, cord for movements unclear etiology History of right basal ganglia CVA History of left MCA aneurysm Chronic pain syndrome Has not received any antipsychotics or antiemetics. No obvious medications given that might cause these symptoms. Stat MRI/MRA brain/neck revealed possible left lacunar infarct. Hypoplastic P1 segment. Right internal carotid artery 90% stenosis. EEG revealed bifrontal sharp activity with moderate encephalopathy. Clinical correlation recommended. Appreciate consultation by Dr. Smith/neurology. We will wean sedation and assess her neurological assessment Holding diclofenac 75 mg twice daily and hydrocodone/acetaminophen 5/321 tablet every 6 hours as needed/home medication CV: Essential hypertension Hyperlipidemia Sinus tachycardia Coronary artery disease status post CABG 1 History of porcine aortic valve replacement Left bundle branch block Elevated troponin 0 0.20 likely secondary to type II demand ischemia Currently on losartan 25 mg twice daily for essential hypertension at home medication As needed labetalol, Nitropaste and Cardene drip for hypertension Troponin currently 0.20. Will recheck in a.m. Last echocardiogram documented revealed EF around 55%. Resp: Acute respiratory failure COPD Restrictive lung disease Tobaccoism [facility] /03/20/39 Ventilator bundle Albuterol/ipratropium aerosols every 4 hours with albuterol aerosols every 2 hours as needed for dyspnea Spontaneous breathing trials when clinically indicated Chest x-ray today 12/03 Self evaluation self tobacco cessation booklet will be provided when clinically indicated GI: Patient is currently n.p.o. Famotidine for GI prophylaxis Docusate sodium/senna 1 tablet twice daily for bowel regimen NGT to LIWS : Junior catheter if indicated for accurate I's and O's in a critically ill patient Endo: Hypothyroidism Sliding scale insulin Accu-Cheks every 6 hours to maintain euglycemia/aspart insulin medium protocol Continue levothyroxine 50 mcg by mouth daily Check TSH 0.470 Renal: Creatinine currently within normal limits Monitor urine output Accurate I's and O's Heme: CBC within normal limits ID: Monitor for signs and symptomatology infection FEN: Please see electrolytes as clinically indicated per ICU electrolyte protocol Currently normal saline at 84 cc an hour MSK: Retrolisthesis L1 on L2 and L2 and L3 L4/L5 severe stenosis with annular bulge Evaluate Dr. Locke/neurosurgery. Patient's family refused surgery. Epidural steroid injection Access -Utilize peripheral IV. Central line if indicated Prophylaxis -GI -famotidine -DVT-SCDs/holding pharmacologic prophylaxis pending brain imaging Critical care time 35 minutes excluding procedure
[2017-12-03 07:42] LABS: Albumin 2.5 g/dL (3.4-5.0); Anion Gap 13 meq/L (5-15); Aspartate Aminotransferase 19 U/L (15-37); Blood Urea Nitrogen 15 mg/dL (7-18); Calcium 8.2 mg/dL (8.5-10.1); Carbon Dioxide 19.3 meq/L (21.0-32.0); Chloride 107 meq/L (98-107); Glomerular Filtration Rate 81 mL/min (>89); Glucose,Random 102 mg/dL (74-106); Magnesium 1.9 mg/dL (1.5-2.5); Potassium 3.6 meq/L (3.5-5.1); Sodium 139 meq/L (136-145)
[2017-12-03 07:43] LABS: Alanine Aminotransferase 25 U/L (10-53); Phosphorus 2.6 mg/dL (2.5-4.9)
[2017-12-03 07:45] LABS: Alkaline Phosphatase 103 U/L (45-117); Total Protein 5.8 g/dL (6.4-8.2)
[2017-12-03] MEDS: Famotidine PF Inj 20 MG/2 ML Vial IV.PUSH SCH ×2 (08:22→20:45)
[2017-12-03] MEDS: Chlorhexidine 0.12% Oral Kit 15 ML UDC OROPHARYNG SCH ×2 (08:23→20:45)
[2017-12-03] MEDS: Senna/Docusate Sodium 8.6/50 MG Tablet PO SCH ×2 (08:24→20:45)
--- NOTE | 2017-12-03 10:00 | P.PNVS ---
Subjective Subjective/Hospital Course: Referral received Full consult TF Thanks J Objective Vital Signs / I&O: Vital Signs 12/02/17 12:29 12/02/17 13:00 12/02/17 14:00 Temperature 98 F Pulse Rate 103 H 62 Respiratory Rate 16 22 16 Blood Pressure 208/100 H 159/70 H Pulse Oximetry 100 100 100 12/02/17 15:00 12/02/17 15:30 12/02/17 16:00 Temperature Pulse Rate 65 53 L Respiratory Rate 16 16 Blood Pressure 94/50 L 96/51 L Pulse Oximetry 100 100 100 12/02/17 16:47 12/02/17 16:52 12/02/17 20:00 Temperature 97.8 F Pulse Rate 52 L 64 Respiratory Rate 16 16 16 Blood Pressure 201/80 H Pulse Oximetry 100 100 12/02/17 20:48 12/02/17 23:17 12/03/17 00:00 Temperature 97.8 F Pulse Rate 81 63 58 L Respiratory Rate 16 16 16 Blood Pressure 144/65 H Pulse Oximetry 100 100 100 12/03/17 03:56 12/03/17 04:00 12/03/17 07:31 Temperature 97.5 F L Pulse Rate 55 L 66 56 L Respiratory Rate 16 16 16 Blood Pressure 188/66 H Pulse Oximetry 93 L 94 L 100 12/03/17 08:00 Temperature 98.6 F Pulse Rate 57 L Respiratory Rate 16 Blood Pressure 114/56 L Pulse Oximetry 100 Intake & Output 12/02/17 12/03/17 12/03/17 18:59 06:59 18:59 Intake Total 1999 100 / 100 Output Total 50 / 50 1000 / 1000 Balance 1950 / 1949 -900 / -900 Weight 56 kg Intake: IV 1999 100 / 100 Diprivan 1000 mg/100 ml Inj 1, 100 / 100 000 mg In 100 ml @ 5 MCG/KG/MIN 1.653 mls/hr IV.CONT TITRATE PRN Rx#:[id number] NS Inj 1,000 ML @ 84 mls/hr IV. 1999 CONT .[id number] [facility] Rx#:[id number] Oral 0 / 0 Output: Urine 50 / 50 Urine Amount (Catheter) 1000 / 1000 Straight 1000 / 1000 Laboratory Results - last 24 hr 09/19/18 09/19/18 09/19/18 12:51 13:29 13:29 WBC 19.5 H RBC 3.93 L Hgb 12.6 Hct 37.4 MCV 95.1 MCH 31.9 MCHC 33.6 RDW 13.7 Plt Count 353 MPV 9.1 Prelim Diff (Auto) Neut % (Auto) 73.6 H Lymph % (Auto) 14.9 Murray % (Auto) 9.3 H Eos % (Auto) 1.7 Baso % (Auto) 0.5 Neut # (Auto) 14.4 H Lymph # (Auto) 2.9 Murray # (Auto) 1.8 H Eos # (Auto) 0.3 Baso # (Auto) 0.1 WBC Differential . Diff Scan Differential Comment Auto diff final PT INR APTT Puncture Site Patient Temperature O2 Saturation ABG pH ABG pCO2 ABG pO2 ABG HCO3 ABG O2 Content ABG Base Excess ABG Methemoglobin Wilfredo Test Hemoglobin Carboxyhemoglobin O2 Delivery Device Vent Setting Inspired O2 Critical Value Sodium Potassium Chloride Carbon Dioxide Anion Gap BUN Creatinine Estimated GFR POC Glucose 64 L Random Glucose Lactic Acid Calcium Phosphorus Magnesium Total Bilirubin AST ALT Alkaline Phosphatase Ammonia Total Creatine Kinase 165 Troponin I C-Reactive Protein Total Protein Albumin Triglycerides Cholesterol TSH Urine Color Urine Clarity Urine pH Ur Specific [place] Urine Protein Urine Glucose (UA) Urine Ketones Urine Occult Blood Urine Nitrate Urine Bilirubin Urine Urobilinogen Ur Leukocyte Esterase Urine RBC Urine Bacteria Micro UA Comment Ur Microscopic Review Urine Culture Comments Nasal Screen MRSA (PCR) Urine Opiates Screen Ur Barbiturates Screen Ur Amphetamines Screen U Benzodiazepines Scrn Urine Cocaine Screen U Cannabinoids Screen 12/02/17 12/02/17 12/02/17 13:29 13:29 13:29 WBC RBC Hgb Hct MCV MCH MCHC RDW Plt Count MPV Prelim Diff (Auto) Neut % (Auto) Lymph % (Auto) Murray % (Auto) Eos % (Auto) Baso % (Auto) Neut # (Auto) Lymph # (Auto) Murray # (Auto) Eos # (Auto) Baso # (Auto) WBC Differential Diff Scan Differential Comment PT 10.6 INR 1.0 APTT 25.5 Puncture Site Patient Temperature O2 Saturation ABG pH ABG pCO2 ABG pO2 ABG HCO3 ABG O2 Content ABG Base Excess ABG Methemoglobin Wilfredo Test Hemoglobin Carboxyhemoglobin O2 Delivery Device Vent Setting Inspired O2 Critical Value Sodium 144 Potassium 3.5 Chloride 111 H Carbon Dioxide 22.6 Anion Gap 10 BUN 21 H Creatinine 0.73 Estimated GFR 76 L POC Glucose Random Glucose 79 Lactic Acid 1.0 Calcium 8.1 L Phosphorus 2.5 Magnesium 2.1 Total Bilirubin 1.2 H AST 28 ALT 32 Alkaline Phosphatase 112 Ammonia Total Creatine Kinase Troponin I C-Reactive Protein Total Protein 6.4 Albumin 3.0 L Triglycerides Cholesterol TSH 1.450 Urine Color Urine Clarity Urine pH Ur Specific [place] Urine Protein Urine Glucose (UA) Urine Ketones Urine Occult Blood Urine Nitrate Urine Bilirubin Urine Urobilinogen Ur Leukocyte Esterase Urine RBC Urine Bacteria Micro UA Comment Ur Microscopic Review Urine Culture Comments Nasal Screen MRSA (PCR) Urine Opiates Screen Ur Barbiturates Screen Ur Amphetamines Screen U Benzodiazepines Scrn Urine Cocaine Screen U Cannabinoids Screen 12/02/17 12/02/17 12/02/17 13:45 13:47 14:35 WBC RBC Hgb Hct MCV MCH MCHC RDW Plt Count MPV Prelim Diff (Auto) Neut % (Auto) Lymph % (Auto) Murray % (Auto) Eos % (Auto) Baso % (Auto) Neut # (Auto) Lymph # (Auto) Murray # (Auto) Eos # (Auto) Baso # (Auto) WBC Differential Diff Scan Differential Comment PT INR APTT Puncture Site Left radial Patient Temperature 98.6 O2 Saturation 97 ABG pH 7.41 ABG pCO2 32 L ABG pO2 423 H ABG HCO3 20 L ABG O2 Content 16.7 ABG Base Excess -4.2 L ABG Methemoglobin 1.7 Wilfredo Test Present Hemoglobin 11.4 L Carboxyhemoglobin 0.4 O2 Delivery Device Ventilator Vent Setting Prvc/ac Inspired O2 100 Critical Value No Sodium Potassium Chloride Carbon Dioxide Anion Gap BUN Creatinine Estimated GFR POC Glucose Random Glucose Lactic Acid Calcium Phosphorus Magnesium Total Bilirubin AST ALT Alkaline Phosphatase Ammonia Total Creatine Kinase Troponin I 0.13 H C-Reactive Protein Total Protein Albumin Triglycerides Cholesterol TSH Urine Color Urine Clarity Urine pH Ur Specific [place] Urine Protein Urine Glucose (UA) Urine Ketones Urine Occult Blood Urine Nitrate Urine Bilirubin Urine Urobilinogen Ur Leukocyte Esterase Urine RBC Urine Bacteria Micro UA Comment Ur Microscopic Review Urine Culture Comments Nasal Screen MRSA (PCR) Not detected Urine Opiates Screen Ur Barbiturates Screen Ur Amphetamines Screen U Benzodiazepines Scrn Urine Cocaine Screen U Cannabinoids Screen 12/02/17 12/02/17 12/02/17 14:35 14:35 17:30 WBC RBC Hgb Hct MCV MCH MCHC RDW Plt Count MPV Prelim Diff (Auto) Neut % (Auto) Lymph % (Auto) Murray % (Auto) Eos % (Auto) Baso % (Auto) Neut # (Auto) Lymph # (Auto) Murray # (Auto) Eos # (Auto) Baso # (Auto) WBC Differential Diff Scan Differential Comment PT INR APTT Puncture Site Patient Temperature O2 Saturation ABG pH ABG pCO2 ABG pO2 ABG HCO3 ABG O2 Content ABG Base Excess ABG Methemoglobin Wilfredo Test Hemoglobin Carboxyhemoglobin O2 Delivery Device Vent Setting Inspired O2 Critical Value Sodium Potassium Chloride Carbon Dioxide Anion Gap BUN Creatinine Estimated GFR POC Glucose 73 Random Glucose Lactic Acid Calcium Phosphorus Magnesium Total Bilirubin AST ALT Alkaline Phosphatase Ammonia 28 Total Creatine Kinase Troponin I C-Reactive Protein Total Protein Albumin Triglycerides Cholesterol TSH 1.070 Urine Color Urine Clarity Urine pH Ur Specific [place] Urine Protein Urine Glucose (UA) Urine Ketones Urine Occult Blood Urine Nitrate Urine Bilirubin Urine Urobilinogen Ur Leukocyte Esterase Urine RBC Urine Bacteria Micro UA Comment Ur Microscopic Review Urine Culture Comments Nasal Screen MRSA (PCR) Urine Opiates Screen Ur Barbiturates Screen Ur Amphetamines Screen U Benzodiazepines Scrn Urine Cocaine Screen U Cannabinoids Screen 12/02/17 12/02/17 12/02/17 18:00 18:00 21:25 WBC RBC Hgb Hct MCV MCH MCHC RDW Plt Count MPV Prelim Diff (Auto) Neut % (Auto) Lymph % (Auto) Murray % (Auto) Eos % (Auto) Baso % (Auto) Neut # (Auto) Lymph # (Auto) Murray # (Auto) Eos # (Auto) Baso # (Auto) WBC Differential Diff Scan Differential Comment PT INR APTT Puncture Site Patient Temperature O2 Saturation ABG pH ABG pCO2 ABG pO2 ABG HCO3 ABG O2 Content ABG Base Excess ABG Methemoglobin Wilfredo Test Hemoglobin Carboxyhemoglobin O2 Delivery Device Vent Setting Inspired O2 Critical Value Sodium Potassium Chloride Carbon Dioxide Anion Gap BUN Creatinine Estimated GFR POC Glucose Random Glucose Lactic Acid Calcium Phosphorus Magnesium Total Bilirubin AST ALT Alkaline Phosphatase Ammonia Total Creatine Kinase Troponin I 0.20 H C-Reactive Protein 9.00 H Total Protein Albumin Triglycerides Cholesterol TSH Urine Color Yellow Urine Clarity Clear Urine pH 5.0 Ur Specific [place] 1.017 Urine Protein Negative Urine Glucose (UA) Negative Urine Ketones 20 Urine Occult Blood Negative Urine Nitrate Negative Urine Bilirubin Negative Urine Urobilinogen Less than 2 Ur Leukocyte Esterase Negative Urine RBC Less than 1 Urine Bacteria Occasional H Micro UA Comment Cath-culture ind Ur Microscopic Review Not Reportable Urine Culture Comments Cath-cult indicated Nasal Screen MRSA (PCR) Urine Opiates Screen Pos H Ur Barbiturates Screen Neg Ur Amphetamines Screen Neg U Benzodiazepines Scrn Neg Urine Cocaine Screen Neg U Cannabinoids Screen Neg 12/02/17 12/03/17 12/03/17 23:37 06:16 06:57 WBC 20.7 H RBC 4.00 Hgb 12.6 Hct 38.4 MCV 95.9 MCH 31.6 MCHC 32.9 RDW 14.2 Plt Count 331 MPV 9.0 Prelim Diff (Auto) Slide review pending Neut % (Auto) 73.5 H Lymph % (Auto) 11.5 Murray % (Auto) 12.2 H Eos % (Auto) 2.3 Baso % (Auto) 0.5 Neut # (Auto) 15.2 H Lymph # (Auto) 2.4 Murray # (Auto) 2.5 H Eos # (Auto) 0.5 H Baso # (Auto) 0.1 WBC Differential . Diff Scan Auto diff confirmed Differential Comment . PT INR APTT Puncture Site Patient Temperature O2 Saturation ABG pH ABG pCO2 ABG pO2 ABG HCO3 ABG O2 Content ABG Base Excess ABG Methemoglobin Wilfredo Test Hemoglobin Carboxyhemoglobin O2 Delivery Device Vent Setting Inspired O2 Critical Value Sodium Potassium Chloride Carbon Dioxide Anion Gap BUN Creatinine Estimated GFR POC Glucose 106 91 Random Glucose Lactic Acid Calcium Phosphorus Magnesium Total Bilirubin AST ALT Alkaline Phosphatase Ammonia Total Creatine Kinase Troponin I C-Reactive Protein Total Protein Albumin Triglycerides Cholesterol TSH Urine Color Urine Clarity Urine pH Ur Specific [place] Urine Protein Urine Glucose (UA) Urine Ketones Urine Occult Blood Urine Nitrate Urine Bilirubin Urine Urobilinogen Ur Leukocyte Esterase Urine RBC Urine Bacteria Micro UA Comment Ur Microscopic Review Urine Culture Comments Nasal Screen MRSA (PCR) Urine Opiates Screen Ur Barbiturates Screen Ur Amphetamines Screen U Benzodiazepines Scrn Urine Cocaine Screen U Cannabinoids Screen 12/03/17 12/03/17 12/03/17 06:57 06:57 06:57 WBC RBC Hgb Hct MCV MCH MCHC RDW Plt Count MPV Prelim Diff (Auto) Neut % (Auto) Lymph % (Auto) Murray % (Auto) Eos % (Auto) Baso % (Auto) Neut # (Auto) Lymph # (Auto) Murray # (Auto) Eos # (Auto) Baso # (Auto) WBC Differential Diff Scan Differential Comment PT 10.4 INR 1.0 APTT 23.1 L Puncture Site Patient Temperature O2 Saturation ABG pH ABG pCO2 ABG pO2 ABG HCO3 ABG O2 Content ABG Base Excess ABG Methemoglobin Wilfredo Test Hemoglobin Carboxyhemoglobin O2 Delivery Device Vent Setting Inspired O2 Critical Value Sodium 139 Potassium 3.6 Chloride 107 Carbon Dioxide 19.3 L Anion Gap 13 BUN 15 Creatinine 0.69 Estimated GFR 81 L POC Glucose Random Glucose 102 Lactic Acid 2.5 H Calcium 8.2 L Phosphorus 2.6 Magnesium 1.9 Total Bilirubin 0.7 AST 19 ALT 25 Alkaline Phosphatase 103 Ammonia Total Creatine Kinase Troponin I C-Reactive Protein Total Protein 5.8 L D Albumin 2.5 L Triglycerides Cholesterol TSH Urine Color Urine Clarity Urine pH Ur Specific [place] Urine Protein Urine Glucose (UA) Urine Ketones Urine Occult Blood Urine Nitrate Urine Bilirubin Urine Urobilinogen Ur Leukocyte Esterase Urine RBC Urine Bacteria Micro UA Comment Ur Microscopic Review Urine Culture Comments Nasal Screen MRSA (PCR) Urine Opiates Screen Ur Barbiturates Screen Ur Amphetamines Screen U Benzodiazepines Scrn Urine Cocaine Screen U Cannabinoids Screen 12/03/17 06:57 WBC RBC Hgb Hct MCV MCH MCHC RDW Plt Count MPV Prelim Diff (Auto) Neut % (Auto) Lymph % (Auto) Murray % (Auto) Eos % (Auto) Baso % (Auto) Neut # (Auto) Lymph # (Auto) Murray # (Auto) Eos # (Auto) Baso # (Auto) WBC Differential Diff Scan Differential Comment PT INR APTT Puncture Site Patient Temperature O2 Saturation ABG pH ABG pCO2 ABG pO2 ABG HCO3 ABG O2 Content ABG Base Excess ABG Methemoglobin Wilfredo Test Hemoglobin Carboxyhemoglobin O2 Delivery Device Vent Setting Inspired O2 Critical Value Sodium Potassium Chloride Carbon Dioxide Anion Gap BUN Creatinine Estimated GFR POC Glucose Random Glucose Lactic Acid Calcium Phosphorus Magnesium Total Bilirubin AST ALT Alkaline Phosphatase Ammonia Total Creatine Kinase Troponin I C-Reactive Protein Total Protein Albumin Triglycerides 157 H Cholesterol 113 L TSH Urine Color Urine Clarity Urine pH Ur Specific [place] Urine Protein Urine Glucose (UA) Urine Ketones Urine Occult Blood Urine Nitrate Urine Bilirubin Urine Urobilinogen Ur Leukocyte Esterase Urine RBC Urine Bacteria Micro UA Comment Ur Microscopic Review Urine Culture Comments Nasal Screen MRSA (PCR) Urine Opiates Screen Ur Barbiturates Screen Ur Amphetamines Screen U Benzodiazepines Scrn Urine Cocaine Screen U Cannabinoids Screen Impressions Lumbar Spine MRI 12/01/17 00:00 CONCLUSION: 1. Retrolisthesis of L1 on L2 and L2 on L3. Marked disc space narrowing and low -grade discogenic edema at L2-3. 2. Moderate to severe canal stenosis at the L4-5 level secondary to broad- based diffuse annular bulge and marked hypertrophy of the posterior elements. Scattered areas of neural foraminal narrowing as described above Chest X-Ray 12/02/17 00:00 CONCLUSION: 1. No acute abnormality or significant interval change. Chest X-Ray 12/02/17 00:00 CONCLUSION: 1. Endotracheal tube in good position 3 cm above the sarah. 2. Nasogastric tube has its tip in the distal esophagus and should be positioned more distally at least to the level of the stomach. 3. Cardiomegaly. 4. No focal infiltrate or pulmonary vascular congestion. Head MRA 12/02/17 00:00 CONCLUSION: 1. Hypoplastic P1 segment on the right with a patent posterior communicating artery. 2. Some asymmetry in the middle cerebral artery size, left being larger in the region of the sylvian fissure. Neck MRA 12/02/17 00:00 CONCLUSION: 1. Short segment high-grade stenosis involving the origin of the right internal carotid artery suggesting greater than 90% stenosis. 2. No significant stenosis within the left internal carotid artery. Percent stenosis is calculated using the diameter of the stenotic region over the diameter of the normal distal internal carotid artery Head MRI 12/02/17 12:29 CONCLUSION: 1. Diffuse atrophy. No evidence of an acute stroke, mass or mass effect. There may be a small old lacunar infarct on the left. No acute subarachnoid or subdural hematoma is identified Chest X-Ray 12/03/17 00:00 CONCLUSION: NG tube tip in the stomach
[2017-12-03 10:02] LABS: Chol/HDL Ratio 3.12 Ratio; HDL Cholesterol 36.2 mg/dL (40.0-60.0)
[2017-12-03] MEDS: Sod Chloride 0.9% Inj 1,000 ML IV.CONT SCH ×3 (10:22→22:00)
[2017-12-03] MEDS: Carboxymethylcellulose 0.5% Opth Drops 15 ML Bottle EACH EYE SCH ×2 (10:23→20:45)
--- NOTE | 2017-12-03 10:24 | ECHRPT ---
Indication: CVA / TIA CONCLUSIONS Normal left ventricular size. Wall thickness is normal. The left ventricular systolic function is low normal with an estimated ejection fraction in the rang e of 50- 55%. Mitral annular calcification is present. Aortic valve sclerosis is present. There is trace tricuspid valve regurgitation. BP: / HR: Rhythm: MEASUREMENTS (Male / Female) Normal Values Technical Quality:Very technically difficult study 2D ECHO LV Diastolic Diameter PLAX 4.2 cm 4.2 - 5.9 / 3.9 - 5.3 cm LV Systolic Diameter PLAX 2.8 cm IVS Diastolic Thickness 0.9 cm 0.6 - 1.0 / 0.6 - 0.9 cm LVPW Diastolic Thickness 1.0 cm 0.6 - 1.0 / 0.6 - 0.9 cm LV Relative Wall Thickness 0.5 LA Systolic Diameter LX 3.2 cm 3.0 - 4.0 / 2.7 - 3.8 cm DOPPLER TR Peak Velocity 289.0 cm/s TR Peak Gradient 33.4 mmHg Right Atrial Pressure 10.0 mmHg Pulmonary Artery Systolic Pressu 43.4 mmHg Right Ventricular Systolic Press 43.4 mmHg FINDINGS LEFT VENTRICLE Normal left ventricular size. Wall thickness is normal. The left ventricular systolic function is low normal with an estimated ejection fraction in the rang e of 50- 55%. ATRIAL SEPTUM Normal atrial septal thickness without atrial level shunting by limited color doppler interrogation. AORTA The aortic root and proximal ascending aorta are normal in size on limited imaging. MITRAL VALVE Mitral annular calcification is present. AORTIC VALVE Aortic valve sclerosis is present. TRICUSPID VALVE There is trace tricuspid valve regurgitation. PULMONARY VALVE The pulmonary valve is not well visualized. VESSELS The inferior vena cava is normal in size. PERICARDIUM No pericardial effusion. Cristobal De Leon MD, FACC (Electronically Signed) Final Date:03 December 2017 10:23
--- NOTE | 2017-12-03 20:53 | ECG ---
Date Performed: 12/02/2017 Time Performed: 13:18:28 PTAGE: 82 years EKG: Sinus rhythm WITH OCCASIONAL SUPRAVENTRICULAR PREMATURE COMPLEXES LEFT BUNDLE BRANCH BLOCK Compared to previous t racing, sinus rhythm has replaced ectopic atrial rhythm ABNORMAL ECG PREVIOUS TRACING : 11/21/2017 09.21 DOCTOR: Lukasz Melendez Interpretating Date/Time 12/03/2017 20:53:18
[2017-12-04] MEDS: Insulin NovoLOG Aspart Correctional Sugar Inj SQ SCH ×4 (00:14→18:09)
[2017-12-04] MEDS: Oral Hygiene Kit OROPHARYNG SCH ×4 (00:15→15:10)
[2017-12-04] MEDS: Sod Chloride 0.9% Inj 1,000 ML IV.CONT SCH ×3 (00:15→22:45)
[2017-12-04] MEDS: Propofol 1000 mg/100 ml Inj 1,000 MG/100 ML BOTTLE IV.CONT PRN ×2 (03:03→14:41)
[2017-12-04] MEDS: Chlorhexidine Gluconate 2% 1 Pack (2 Cloths) TOPICAL SCH (04:52)
[2017-12-04] MEDS: Levothyroxine 50 MCG Tablet PO SCH (05:29)
--- NOTE | 2017-12-04 06:14 | XR ---
EXAM DATE: 12/04/2017 6:09 AM EDT AGE/SEX: 82 years / Female INDICATIONS: Respiratory distress CLINICAL DATA: This is the patient's subsequent encounter. Patient reports that signs and symptoms h ave been present for 1 week and indicates a pain score of Nonresponsive. MEDICAL/SURGICAL HISTORY: Chronic obstructive pulmonary disease. CABG. [place] [facility] [place]. . FINDINGS: Trace bibasilar atelectasis again noted, not significantly changed. No pleural effusion seen. No pneu mothorax. Heart size stable, within normal limits. Median sternotomy changes are again noted. Endotracheal tube tip is approximately 5 cm above the sarah. Nasogastric tube courses into the stoma ch. CONCLUSION: No significant change. Trace basilar atelectasis again seen. Electronically signed by: Noam Becker MD 12/04/2017 6:12 AM EDT
[2017-12-04 07:03] LABS: Baso # (Auto) 0.1 th/mm3 (0.0-0.2); Baso % (Auto) 0.2 % (0.0-2.0); Eos # (Auto) 0.4 th/mm3 (0.0-0.4); Eos % (Auto) 1.5 % (0.0-4.0); Hematocrit 36.3 % (35.0-46.0); Hemoglobin 12.1 gm/dL (11.6-15.3); Lymph # (Auto) 2.7 th/mm3 (1.0-4.8); Lymph % (Auto) 10.8 % (9.0-44.0); Mean Corpuscular HGB Conc 33.3 % (32.0-36.0); Mean Corpuscular Hemoglobin 32.1 pg (27.0-34.0); Mean Corpuscular Volume 96.5 fL (80.0-100.0); Mean Platelet Volume 9.1 fL (7.0-11.0); Mono # (Auto) 2.7 th/mm3 (0.0-0.9); Mono % (Auto) 11.1 % (0.0-8.0); Neut # (Auto) 18.8 th/mm3 (1.8-7.7); Neut % (Auto) 76.4 % (16.0-70.0); Platelet Count 340 th/mm3 (150-450); Red Blood Count 3.76 mil/mm3 (4.00-5.30); Red Cell Distribution Width 13.7 % (11.6-17.2); White Blood Count 24.7 th/mm3 (4.0-11.0)
[2017-12-04 07:21] LABS: Calcium 7.8 mg/dL (8.5-10.1); Carbon Dioxide 19.5 meq/L (21.0-32.0); Magnesium 1.8 mg/dL (1.5-2.5); Potassium 3.7 meq/L (3.5-5.1)
[2017-12-04 07:23] LABS: Phosphorus 2.9 mg/dL (2.5-4.9)
[2017-12-04 07:26] LABS: Troponin I 0.05 ng/mL (0.02-0.05)
[2017-12-04] MEDS: Chlorhexidine 0.12% Oral Kit 15 ML UDC OROPHARYNG SCH ×2 (07:50→20:12)
[2017-12-04] MEDS: Carboxymethylcellulose 0.5% Opth Drops 15 ML Bottle EACH EYE SCH ×2 (08:44→21:19)
[2017-12-04] MEDS: Famotidine PF Inj 20 MG/2 ML Vial IV.PUSH SCH (08:44)
[2017-12-04] MEDS: Senna/Docusate Sodium 8.6/50 MG Tablet PO SCH ×2 (08:44→20:13)
[2017-12-04 09:35] LABS: Eosinophils 1 % (0-4); Lymphocytes 11 % (9-44); Monocytes 10 % (0-8); Myelocytes 1 % (0-0); Platelet Estimate Normal (Normal); Platelet Morphology Normal (Normal); RBC Morphology Normal (Normal)
--- NOTE | 2017-12-04 12:13 | P.PNCC ---
Subjective Subjective Remarks/Hospital Course: This is an 82-year-old female. Date of admission 11/30/2017. Date of consultation 12/02/2017. Past medical history includes coronary disease status post CABG x1, porcine aortic valve replaced, essential hypertension, hyperlipidemia, history of right basal ganglia CVA, history of left MCA aneurysm , COPD and restrictive lung disease, chronic left bundle branch block, restless leg syndrome, hypothyroidism and spinal stenosis. Patient presents to [facility] 11/30 with 2-week history of worsening low back pain/radiating down her back/sides. Patient was evaluated by neurosurgery/Dr. Locke. She has a severe L3-4 and L4- 5 spinal stenosis from facet and ligamentum flavum hypertrophy along with the disc protrusions and degenerative changes at other levels.Due to the intractable low back pain and bilateral neurogenic claudication/radiculopathy. Treatment options were discussed with the patient and her son including continued nonsurgical management involving pain control with medications and interventional pain management with epidural steroid injections and physical therapy. We also discussed the option of surgical intervention involving an L3- L5 decompressive laminectomy. Patient and his son refused any surgical intervention Today, patient was to undergo an JASON with interventional radiology. Patient received lorazepam, hydromorphone and hydrocodone/acetaminophen today per medical record. While in IR, patient had acute onset of violent acute dystonia and choreiform movements. These also include arching of her back. Did not see any ocular gyri movements on my initial examination prior to intubation. This lasted approximately 15-30 minutes. During this time the patient was hypertensive and had decreased saturations. She was able to speak and respond accordingly through these movements Noted no antiemetics, antipsychotics appear to have been given 12/03: Currently sedated on the ventilator and 40 mg/kg/min of propofol and 50 mg /h of fentanyl. MRI showed possible left lacunar infarct. 90 percent stenosis right carotid artery. Vascular surgery routine consult. EEG showed bilateral frontal sharp activity and moderate encephalopathy. SUBJECTIVE: 12/04: On sedation vacation yesterday, patient with writhing dystonic movements. Recent data. Question penis. Plan for epidural steroid injection today. Schedule opiate use and will reattempt extubation post epidural steroid injection. Objective Vital Signs / I&O: Vital Signs 12/03/17 15:23 12/03/17 16:00 12/03/17 19:17 Temperature 98.7 F Pulse Rate 59 L 58 L 62 Respiratory Rate 16 16 16 Blood Pressure 113/58 L Pulse Oximetry 100 100 100 12/03/17 19:30 12/03/17 20:00 12/03/17 20:08 Temperature 98.3 F Pulse Rate 62 81 98 H Respiratory Rate 16 16 16 Blood Pressure 107/51 L 168/74 H Pulse Oximetry 100 93 L 100 12/03/17 20:30 12/03/17 21:00 12/03/17 21:15 Temperature Pulse Rate 94 H 81 80 Respiratory Rate 24 20 23 Blood Pressure 163/121 H 171/75 H 159/72 H Pulse Oximetry 83 L 100 96 12/03/17 21:30 12/03/17 21:45 12/03/17 22:00 Temperature Pulse Rate 67 68 66 Respiratory Rate 24 17 26 H Blood Pressure 160/70 H 138/73 115/58 L Pulse Oximetry 100 100 100 12/03/17 22:15 12/03/17 22:30 12/03/17 22:45 Temperature Pulse Rate 65 65 65 Respiratory Rate 23 21 29 H Blood Pressure 132/60 128/59 L 124/57 L Pulse Oximetry 100 100 100 12/03/17 23:00 12/03/17 23:16 12/03/17 23:30 Temperature Pulse Rate 64 66 67 Respiratory Rate 29 H 31 H 33 H Blood Pressure 115/52 L 111/55 L 93/51 L Pulse Oximetry 100 100 100 12/03/17 23:45 12/03/17 23:52 12/04/17 00:00 Temperature 96.8 F L Pulse Rate 67 66 62 Respiratory Rate 27 H 16 22 Blood Pressure 97/53 L 133/61 Pulse Oximetry 100 100 12/04/17 00:15 12/04/17 00:18 12/04/17 00:30 Temperature Pulse Rate 57 L 59 L Respiratory Rate 28 H 16 27 H Blood Pressure 158/66 H 98/50 L Pulse Oximetry 100 100 100 12/04/17 00:45 12/04/17 01:00 12/04/17 01:15 Temperature Pulse Rate 61 58 L 59 L Respiratory Rate 30 H 24 22 Blood Pressure 119/57 L 102/54 L 119/57 L Pulse Oximetry 100 100 100 12/04/17 01:46 12/04/17 02:00 12/04/17 02:15 Temperature Pulse Rate 62 60 62 Respiratory Rate 16 18 21 Blood Pressure 128/60 115/55 L 115/56 L Pulse Oximetry 100 100 100 12/04/17 02:30 12/04/17 02:45 12/04/17 03:00 Temperature Pulse Rate 61 64 62 Respiratory Rate 16 17 18 Blood Pressure 110/56 L 109/53 L 102/51 L Pulse Oximetry 100 100 100 12/04/17 03:15 12/04/17 03:30 12/04/17 03:45 Temperature Pulse Rate 63 59 L 64 Respiratory Rate 16 16 16 Blood Pressure 100/49 L 106/50 L 106/53 L Pulse Oximetry 100 100 100 12/04/17 04:00 12/04/17 04:15 12/04/17 04:30 Temperature 98.8 F Pulse Rate 60 58 L 58 L Respiratory Rate 16 16 16 Blood Pressure 97/49 L 101/53 L 100/56 L Pulse Oximetry 100 100 100 12/04/17 04:44 12/04/17 04:45 12/04/17 06:00 Temperature Pulse Rate 60 62 88 Respiratory Rate 21 19 Blood Pressure 112/53 L Pulse Oximetry 100 100 12/04/17 08:00 12/04/17 10:00 12/04/17 11:23 Temperature 102.2 F H Pulse Rate 88 62 89 Respiratory Rate 19 18 Blood Pressure 183/74 H Pulse Oximetry 100 99 12/04/17 12:00 Temperature 99.6 F Pulse Rate 73 Respiratory Rate 17 Blood Pressure 142/59 H Pulse Oximetry 98 Intake & Output 12/03/17 12/04/17 12/04/17 18:59 06:59 18:59 Intake Total 1260 / 1260 1290 / 1290 1000 / 1000 Output Total 1000 / 1000 500 / 500 Balance 260 / 260 790 / 790 1000 / 1000 Weight 56.5 kg Intake: IV 1260 / 1260 1290 / 1290 1000 / 1000 Diprivan 1000 mg/100 ml Inj 1, 200 / 200 100 / 100 000 mg In 100 ml @ 5 MCG/KG/MIN 1.653 mls/hr IV.CONT TITRATE PRN Rx#:[id number] NS Inj 1,000 ML @ 84 mls/hr IV. 1000 / 1000 1000 / 1000 1000 / 1000 CONT .[id number] LOVELY Rx#:[id number] fentaNYL 10 mcg/mL Premix Drip 60 / 60 190 / 190 2,500 mcg In 250 ml @ 50 MCG/HR 5 mls/hr IV.SIG TITRATE PRN Rx #:[id number] Oral 0 / 0 Output: Urine Amount (Catheter) 1000 / 1000 450 / 450 Straight 1000 / 1000 450 / 450 Gastric Drainage 50 / 50 Orogastric Tube 50 / 50 Other: # Bowel Movements 0 Result Diagrams: 12/04/17 06:31 12/04/17 06:13 Other Results: Microbiology 12/02/17 13:29 Blood - Peripheral Aerobic Blood Culture - Preliminary No growth in 2 days 12/02/17 13:29 Blood - Peripheral Anaerobic Blood Culture - Preliminary No growth in 2 days 12/02/17 13:24 Blood - Peripheral Aerobic Blood Culture - Preliminary No growth in 2 days 12/02/17 13:24 Blood - Peripheral Anaerobic Blood Culture - Preliminary No growth in 2 days 12/02/17 18:00 Catheterized Urine Urine Culture - Preliminary Group D Enterococcus Imaging: Hip X-Ray 11/30/17 12:52 CONCLUSION: There is no evidence of acute fracture. Hip X-Ray 11/30/17 12:52 CONCLUSION: There is no evidence of acute fracture. Lumbar Spine MRI 12/01/17 00:00 CONCLUSION: 1. Retrolisthesis of L1 on L2 and L2 on L3. Marked disc space narrowing and low -grade discogenic edema at L2-3. 2. Moderate to severe canal stenosis at the L4-5 level secondary to broad- based diffuse annular bulge and marked hypertrophy of the posterior elements. Scattered areas of neural foraminal narrowing as described above Chest X-Ray 12/02/17 00:00 CONCLUSION: 1. No acute abnormality or significant interval change. Chest X-Ray 12/02/17 00:00 CONCLUSION: 1. Endotracheal tube in good position 3 cm above the sarah. 2. Nasogastric tube has its tip in the distal esophagus and should be positioned more distally at least to the level of the stomach. 3. Cardiomegaly. 4. No focal infiltrate or pulmonary vascular congestion. Head MRA 12/02/17 00:00 CONCLUSION: 1. Hypoplastic P1 segment on the right with a patent posterior communicating artery. 2. Some asymmetry in the middle cerebral artery size, left being larger in the region of the sylvian fissure. Neck MRA 12/02/17 00:00 CONCLUSION: 1. Short segment high-grade stenosis involving the origin of the right internal carotid artery suggesting greater than 90% stenosis. 2. No significant stenosis within the left internal carotid artery. Percent stenosis is calculated using the diameter of the stenotic region over the diameter of the normal distal internal carotid artery Head MRI 12/02/17 12:29 CONCLUSION: 1. Diffuse atrophy. No evidence of an acute stroke, mass or mass effect. There may be a small old lacunar infarct on the left. No acute subarachnoid or subdural hematoma is identified Chest X-Ray 12/03/17 00:00 CONCLUSION: NG tube tip in the stomach Chest X-Ray 12/04/17 06:00 CONCLUSION: No significant change. Trace basilar atelectasis again seen. Objective Remarks: GENERAL: 82-year-old female currently orotracheally intubated SKIN: Warm and dry. HEAD: Atraumatic. Normocephalic. EYES: Pupils equal and round. No scleral icterus. No injection or drainage. ENT: No nasal bleeding or discharge. Mucous membranes pink and moist. NECK: Trachea midline. No JVD. No obvious bruit in the right side CARDIOVASCULAR: RRR. S1, S2 no S4.. RESPIRATORY: No accessory muscle use. Clear to auscultation. Breath sounds equal bilaterally. GASTROINTESTINAL: Abdomen soft, non-tender, nondistended. Hepatic and splenic margins not palpable. MUSCULOSKELETAL: Extremities without clubbing, cyanosis, or edema. No obvious deformities. NEUROLOGICAL: Currently sedated on the ventilator. Withdraws to pain. Positive cough and gag. Positive corneal reflex. Assessment and Plan - Assessment and Plan Plan: Neuro/Psych: Acute dystonia, cord for movements unclear etiology History of right basal ganglia CVA History of left MCA aneurysm Chronic pain syndrome Right carotid stenosis Currently a propofol drip at 30 mcg/kg/per minute and fentanyl drip at 150 denilson grams an hour for sedation/analgesia while intubated Goal of RASS -2 Daily sedation vacation Has not received any antipsychotics or antiemetics. No obvious medications given that might cause these symptoms. Stat MRI/MRA brain/neck revealed possible left lacunar infarct. Hypoplastic P1 segment. Right internal carotid artery 90% stenosis. EEG revealed bifrontal sharp activity with moderate encephalopathy. Clinical correlation recommended. Appreciate consultation by Dr. Smith/neurology. We will wean sedation and assess her neurological assessment Holding diclofenac 75 mg twice daily and hydrocodone/acetaminophen 5/321 tablet every 6 hours as needed/home medication CV: Essential hypertension Hyperlipidemia Sinus tachycardia Coronary artery disease status post CABG 1 History of porcine aortic valve replacement Left bundle branch block Elevated troponin 0 0.20 likely secondary to type II demand ischemia Currently on losartan 25 mg twice daily for essential hypertension at home medication As needed labetalol, Nitropaste and Cardene drip for hypertension Troponin currently 0.20. Will recheck in a.m. 0.05 Current echocardiogram EF around 55%. Appreciate vascular input to right carotid stenosis Resp: Acute respiratory failure COPD Restrictive lung disease Tobaccoism [facility] /03/20/39 Ventilator bundle Albuterol/ipratropium aerosols every 4 hours with albuterol aerosols every 2 hours as needed for dyspnea Spontaneous breathing trials when clinically indicated Chest x-ray today 12/04 essentially stable. Self evaluation self tobacco cessation booklet will be provided when clinically indicated GI: Patient is currently n.p.o. Famotidine for GI prophylaxis Docusate sodium/senna 1 tablet twice daily for bowel regimen NGT to LIWS : Junior catheter if indicated for accurate I's and O's in a critically ill patient Endo: Hypothyroidism Sliding scale insulin Accu-Cheks every 6 hours to maintain euglycemia/aspart insulin medium protocol Continue levothyroxine 50 mcg by mouth daily Check TSH 0.470 Renal: Creatinine currently within normal limits Monitor urine output Accurate I's and O's Heme: Leukocytosis Monitor CBC daily. Follow trends. No indication for transfusion of blood products at this time. ID: Group D enterococcus UTI Cefepime 2 g IV every 12 hours Monitor for signs and symptomatology infection FEN: Please see electrolytes as clinically indicated per ICU electrolyte protocol Currently normal saline at 84 cc an hour MSK: Retrolisthesis L1 on L2 and L2 and L3 L4/L5 severe stenosis with annular bulge Evaluate Dr. Locke/neurosurgery. Patient's family refused surgery. Epidural steroid injection Access -Utilize peripheral IV. Central line if indicated Prophylaxis -GI -famotidine -DVT-SCDs/holding pharmacologic prophylaxis pending brain imaging Critical care time 35 minutes excluding procedure
[2017-12-04] MEDS ORDERED: Potassium Chloride 25 MEQ Effervescent Tablet PO ONE (12:30)
--- NOTE | 2017-12-04 12:39 | MB ---
cc: Danii Holden MD DATE: 12/03/2017 DATE OF CONSULTATION: 12/03/2017 CONSULTING PHYSICIAN: Danii Holden MD. REASON FOR CONSULTATION: A 90% right internal carotid artery stenosis dystonia and strokes. HISTORY OF PRESENT ILLNESS: Mrs. Tony is an 82-year-old woman with history of cerebral artery aneurysm basal ganglia stroke and lumbar stenosis. She was presenting to the hospital to have an epidural steroid injection and then developed sudden dystonia and in the process of workup, she was found to have right internal carotid artery stenosis in 90% range. Question arises about any vascular surgical implications at this time. PAST MEDICAL HISTORY: COPD, previous CVA, hip fracture and noted MCA aneurysm, which was not treated. PAST SURGICAL HISTORY: Appendectomy. SOCIAL HISTORY: The patient used to smoke. She is now somewhat demented. PHYSICAL EXAMINATION: GENERAL: Reveals an 82-year-old female on the ventilator. HEENT: Normocephalic. No trauma to head. Pupils are equal and reactive. Extraocular muscles cannot be tested. The patient is sedated. CHEST: Bilateral breath sounds decreased over both lung meyers. The patient clearly has advanced COPD. Chest wall musculature loss and pulmonary cachexia. HEART: Regular rate and rhythm. The patient is normotensive. ABDOMEN: Soft, patulous. Active bowel sounds. No rebound or guarding. No masses. EXTREMITIES: Grossly within normal limits, but very atrophic. NEUROLOGIC: Cannot be performed. The patient is sedated and ventilated. IMPRESSION AND RECOMMENDATIONS: I reviewed laboratory and diagnostic procedures. ASSESSMENT AND PLAN: This patient has multiple medical problems including dystonia. Nonetheless, she has, from what I am looking at, not been on dopamine or phenothiazine agents that would have been withdrawn, so she does not have neuroleptic syndrome or anything of sorts. As far as the right internal carotid artery stenosis, the following should be the dictum: Patients with more than 70% carotid stenosis even asymptomatic in the long run do better with a carotid surgery than without it. However, in this particular situation, although the patient has 90% stenosis, she is a very ill lady with multiple other issues and this should be the least of her problems right now. Once the majority of her problems are handled and the patient improves, then we can reassess whether she would be a candidate for stenting or just observation. The general tendency with Society of Vascular [employer] is that patients with less than 4 years of life left by some general subjective criteria probably should not be considered for carotid surgery if asymptomatic. While patient has 90% stenosis of the carotid, she appears to be asymptomatic; therefore, I would advise against surgery. CRITICAL CARE TIME: 34 minutes. MD PETRONA Chu/leora/ramiro , 10:16 AM , 10:25 AM
[2017-12-04] MEDS: Mag Sulf 1 gm/100 ml Premix 100 ML IV.SIG SCH ×2 (13:38→14:39)
[2017-12-04] MEDS ORDERED: Sodium Chlor 0.9% Inj 10 ML ONE (15:32)
[2017-12-04] MEDS ORDERED: Iohexol 300 MG/ML 50 ML Vial (for Rad Diag) IT ONE (16:12)
--- NOTE | 2017-12-04 16:13 | P.RAD ---
Post Procedure Progress Note - Pre Procedure Diagnosis (1) Spinal stenosis, lumbar region with neurogenic claudication - Post Procedure Diagnosis (1) Spinal stenosis, lumbar region with neurogenic claudication - Procedure Information Procedure Date: 12/04/17 Supervising Radiologist: Luis Dela Cruz MD Estimated blood loss (mL): 0 Anesthesia: General - Plan of Activity Patient to Unit: Critical Care Patient Condition: Fair See PACS Report for procedural detail/treatment. Spinal Procedure Epidural Steroid Injection L4-L5 Puncture Time: 16:00
--- NOTE | 2017-12-04 16:46 | IR ---
All EXAM DATE: 12/04/2017 4:27 PM EDT AGE/SEX: 82 years / Female INDICATIONS: Patient with history of spinal stenosis in need of epidural steroid injection for back pain. CLINICAL DATA: This is the patient's initial encounter. Patient reports that signs and symptoms have been present for 2 weeks and indicates a pain score of Nonresponsive. MEDICAL/SURGICAL HISTORY: Hypertension. CAD, s/p AVR with bioprosthetic valve, Hyperlipidemi a, CVA, Aneurysm at the left MCA, COPD, LBBB, RLS, Hypothyroidism, Tobacco abuse, Spinal Stenosis, C ABG. Cataract surgery. COMPARISON: No prior exams available for comparison. FLUORO TIME (min): 4.6 IMAGE SERIES: 3 ACCESS SITE: L4/L5 Epidural space. CONTRAST (cc): 2 Omnipaque (iohexol) 300 MEDICATION(S): 2 ml triamcinolone (Kenalog) IA 2 ml Lidocaine IA 4 ml Sodium Chloride RESPONSE: Pain Score Pre Procedure: Not applicable. Patient intubated Pain Score Post Procedure: Not applicable. Patient intubated . . PROCEDURE: 1. Fluoroscopically guided epidural injection. The risks, benefits and alternatives to the procedure were explained and verbal and written consent w as obtained. The site was prepped in sterile fashion. Full sterile technique was used, including ca p, mask, sterile gloves and gown and a large sterile sheet. Hand hygiene and 2% chlorhexidine and/or betadine/alcohol prep was utilized per protocol for cutaneous antisepsis. The skin and subcutaneous tissues were infiltrated with local anesthetic solution. With fluoroscopic guidance the targeted epidural space was localized and positive contrast was inject ed initially showing intrathecal position of the 25-gauge needle with an ultra high-grade spinal sten osis at L4-5. The needle was withdrawn until there was visible epidural spread. Following this the p rescribed medication was injected surrounding the space. The patient's preprocedure pain and post pr ocedure pain levels were recorded. CONCLUSION: 1. Uncomplicated fluoroscopically guided epidural injection as above. Electronically signed by: Luis Dela Cruz MD 12/04/2017 4:45 PM EDT
[2017-12-04] MEDS ORDERED: Amiodarone Inj 150 MG in Dextrose 5% in Water Inj 97 ML IV.SIG ONE ×2 (17:25)
[2017-12-04] MEDS ORDERED: Digoxin Inj 500 MCG/2 ML Ampul IV.PUSH ONE (17:26)
[2017-12-04] MEDS ORDERED: Metoprolol Inj 5 MG/5 ML Vial ONE ×2 (17:39)
[2017-12-04] MEDS: Dexmedetomidine Inj 200 MCG in Sodium Chlor 0.9% Inj 48 ML IV.CONT PRN ×2 (18:59→21:19)
--- NOTE | 2017-12-04 19:38 | P.PNNEU ---
Subjective Subjective Comments: pt still with continuous choreiform movements Active Medications: Active Medications Acetaminophen (Tylenol Liq) 650 mg PO Q6H PRN PRN Reason: FEVER Al Hydroxide/Mg Hydroxide (Milk Of Magnesia Liq) 30 ml PO Q12H PRN PRN Reason: Mild Constipation Albuterol (Albuterol Neb (Prn)) 2.5 mg NEB Q2HR NEB PRN PRN Reason: SHORTNESS OF BREATH/WHEEZING Albuterol (Duoneb Neb (Formerly [facility])) 1 ampul NEB Q4HR NEB [facility] Last Admin: 12/04/17 15:49 Dose: Not Given Artificial Tears (Refresh Tears 0.5% Opth Drops) 1 drop EACH EYE BID [facility] Last Admin: 12/04/17 08:44 Dose: 1 drop Aspirin (Aspirin Chew) 81 mg PO DAILY [facility] Last Admin: 12/04/17 08:44 Dose: 81 mg Atorvastatin Calcium (Lipitor) 10 mg PO HS [facility] Last Admin: 12/03/17 20:45 Dose: 10 mg Bisacodyl (Dulcolax Supp) 10 mg RECTAL DAILY PRN PRN Reason: SEVERE CONSITIPATION Chlorhexidine Gluconate (Peridex 0.12% Oral Kit) 15 ml OROPHARYNG BID@0800, 2000 [facility] Last Admin: 12/04/17 07:50 Dose: 15 ml Chlorhexidine Gluconate (Chlorhexidine 2% Cloth) 3 pack TOPICAL DAILY@0400 [facility] Stop: 12/08/17 03:59 Last Admin: 12/04/17 04:52 Dose: 3 pack Chlorhexidine Gluconate (Chlorhexidine 2% Cloth) 3 pack TOPICAL DAILY@0400 PRN PRN Reason: Extra cloth needed Stop: 12/08/17 03:59 Dextrose (D50w Vial) 50 ml IV.PUSH UNSCH PRN PRN Reason: PER HYPOGLYCEMIA PROTOCOL Famotidine (Pepcid Pf Inj) 10 mg IV.PUSH Q12HR [facility] Glucagon (Glucagon Inj) 1 mg OTHER UNSCH PRN PRN Reason: for Hypoglycemia Protocol Fentanyl (Fentanyl 10 Mcg/Ml Premix Drip) 2,500 mcg in 250 mls @ 5 mls/hr IV.SIG TITRATE PRN; Protocol PRN Reason: Per Protocol Last Titration: 12/04/17 16:56 Dose: 50 mcg/hr, 5 mls/hr Sodium Chloride (Ns Inj) 1,000 mls @ 84 mls/hr IV.CONT .[id number] [facility] Last Infusion: 12/04/17 13:00 Dose: 84 mls/hr Propofol (Diprivan 1000 Mg/100 Ml Inj) 1,000 mg in 100 mls @ 1.653 mls/hr IV.CONT TITRATE PRN; Protocol PRN Reason: Per Protocol Last Titration: 12/04/17 16:56 Dose: 10 mcg/kg/min, 3.31 mls/hr Magnesium Sulfate 4 gm/ Sodium (Chloride) 100 mls @ 50 mls/hr IV.SIG UNSCH PRN PRN Reason: For Magnesium 0.9 - 1.1 mg/dL Magnesium Sulfate 2 gm/ Sodium (Chloride) 100 mls @ 50 mls/hr IV.SIG UNSCH PRN PRN Reason: For Magnesium 1.2 - 1.6 mg/dL Potassium Chloride (Kcl 40 Meq Premix Inj) 40 meq in 100 mls @ 50 mls/hr IV.SIG Q2H PRN PRN Reason: For Potassium 2.8 - 3.2 mEq/L Potassium Chloride (Kcl 20 Meq Premix Inj) 20 meq in 100 mls @ 50 mls/hr IV.SIG Q2H PRN PRN Reason: For Potassium 3.3 - 3.5 mEq/L Potassium Chloride (Kcl 40 Meq Premix Inj) 40 meq in 100 mls @ 25 mls/hr IV.SIG UNSCH PRN PRN Reason: For Potassium 3.3 - 3.5 mEq/L Potassium Chloride (Kcl 20 Meq Premix Inj) 20 meq in 100 mls @ 50 mls/hr IV.SIG Q2H PRN PRN Reason: For Potassium 2.8 - 3.2 mEq/L Potassium Phosphate 30 mmol/ (Sodium Chloride) 260 mls @ 42 mls/hr IV.SIG UNSCH PRN PRN Reason: SEE LABEL COMMENTS Sodium Phosphate 30 mmol/ (Sodium Chloride) 260 mls @ 42 mls/hr IV.SIG UNSCH PRN PRN Reason: For Phosphorus < 2.5 mg/dL Midazolam HCl (Versed Inj) 50 mg in 50 mls @ 1 mls/hr IV.CONT TITRATE PRN; Protocol PRN Reason: Per Protocol Cefepime HCl 2,000 mg/ Sodium (Chloride) 100 mls @ 200 mls/hr IV.SIG Q12H [facility] Last Admin: 12/04/17 13:39 Dose: 200 mls/hr Dexmedetomidine HCl 200 mcg/ (Sodium Chloride) 50 mls @ 2.82 mls/hr IV.CONT TITRATE PRN; Protocol PRN Reason: Per Protocol Last Admin: 12/04/17 18:59 Dose: 0.2 mcg/kg/hr, 2.82 mls/hr Amiodarone HCl 450 mg/ (Dextrose) 250 mls @ 33.33 mls/hr IV.CONT TITRATE PRN; Protocol PRN Reason: Per Protocol Last Admin: 12/04/17 18:10 Dose: 1 mg/min, 33.33 mls/hr Insulin Aspart (Novolog Insulin Correctional Sugar Inj) 0 unit SQ Q6HR [facility]; Protocol Last Admin: 12/04/17 18:09 Dose: Not Given Labetalol HCl (Trandate Inj) 10 mg IV.PUSH Q1H PRN PRN Reason: SYS BP GREATER THAN 170 MMHG Lactulose (Lactulose Liq) 30 ml PO DAILY PRN PRN Reason: SEVERE CONSITIPATION Levothyroxine Sodium (Synthroid) 50 mcg PO DAILY@0600 [facility] Last Admin: 12/04/17 05:29 Dose: 50 mcg Lorazepam (Ativan) 0.5 mg PO Q8H PRN PRN Reason: ANXIETY AND/OR AGITATION Last Admin: 12/01/17 10:20 Dose: 0.5 mg Losartan Potassium (Cozaar) 25 mg PO BID [facility] Last Admin: 12/04/17 08:44 Dose: 25 mg Magnesium Oxide (Mag-Ox) 800 mg PO UNSCH PRN PRN Reason: For Magnesium 1.2 - 1.6 mg/dL Miscellaneous Medication () 1 each OROPHARYNG 0000,0400,1200,1600 [facility] Last Admin: 12/04/17 15:10 Dose: 1 each Nitroglycerin (Nitro-Bid 2% Oint) 1 inch TOPICAL Q6HR PRN PRN Reason: SBP>160, DBP>90 Oxycodone HCl (Roxicodone Intensol Liq) 5 mg PO Q6H [facility] Last Admin: 12/04/17 13:39 Dose: 5 mg Potassium Bicarb/Potassium Chloride (K-Lyte Cl Eff) 50 meq PO UNSCH PRN PRN Reason: For Potassium 3.3 - 3.5 mEq/L Potassium Phosphate (K-Phos Original) 2,000 mg PO Q4H PRN PRN Reason: Phosphorus Less Than 2.5 mg/dL Potassium Phosphate (K-Phos Original) 2,000 mg PO UNSCH PRN PRN Reason: SEE LABEL COMMENTS Senna/Docusate Sodium (Joyce-Colace) 1 tab PO BID [facility] Last Admin: 12/04/17 08:44 Dose: 1 tab Sennosides (Senokot) 17.2 mg PO Q12H PRN PRN Reason: Moderate Constipation Sodium Chloride (Ns Flush) 2 ml IV.FLUSH BID [facility] Last Admin: 12/04/17 08:44 Dose: 2 ml Sodium Chloride (Ns Flush) 2 ml IV.FLUSH PRN PRN PRN Reason: FLUSH AFTER USING IV ACCESS Allergies/Adverse Reactions: Allergies Allergy/AdvReac Type Severity Reaction Status Date / Time adhesive Allergy Severe ADHESIVE Verified 11/30/17 12:22 TAPE/BLISTERS SKIN doxycycline Allergy Severe Irritation Verified 11/30/17 12:22 minocycline Allergy Severe Irritation Verified 11/30/17 12:22 tigecycline Allergy Severe Irritation Verified 11/30/17 12:22 *MDRO Multi-Drug Resistant AdvReac Unknown Hiccups Uncoded 11/30/17 12:22 Organism Physical Exam Vital signs: Vital Signs 12/03/17 20:00 12/03/17 20:08 12/03/17 20:30 Temperature 98.3 F Pulse Rate 81 98 H 94 H Respiratory Rate 16 16 24 Blood Pressure 168/74 H 163/121 H Pulse Oximetry 93 L 100 83 L 12/03/17 21:00 12/03/17 21:15 12/03/17 21:30 Temperature Pulse Rate 81 80 67 Respiratory Rate 20 23 24 Blood Pressure 171/75 H 159/72 H 160/70 H Pulse Oximetry 100 96 100 12/03/17 21:45 12/03/17 22:00 12/03/17 22:15 Temperature Pulse Rate 68 66 65 Respiratory Rate 17 26 H 23 Blood Pressure 138/73 115/58 L 132/60 Pulse Oximetry 100 100 100 12/03/17 22:30 12/03/17 22:45 12/03/17 23:00 Temperature Pulse Rate 65 65 64 Respiratory Rate 21 29 H 29 H Blood Pressure 128/59 L 124/57 L 115/52 L Pulse Oximetry 100 100 100 12/03/17 23:16 12/03/17 23:30 12/03/17 23:45 Temperature Pulse Rate 66 67 67 Respiratory Rate 31 H 33 H 27 H Blood Pressure 111/55 L 93/51 L 97/53 L Pulse Oximetry 100 100 100 12/03/17 23:52 12/04/17 00:00 12/04/17 00:15 Temperature 96.8 F L Pulse Rate 66 62 57 L Respiratory Rate 16 22 28 H Blood Pressure 133/61 158/66 H Pulse Oximetry 100 100 12/04/17 00:18 12/04/17 00:30 12/04/17 00:45 Temperature Pulse Rate 59 L 61 Respiratory Rate 16 27 H 30 H Blood Pressure 98/50 L 119/57 L Pulse Oximetry 100 100 100 12/04/17 01:00 12/04/17 01:15 12/04/17 01:46 Temperature Pulse Rate 58 L 59 L 62 Respiratory Rate 24 22 16 Blood Pressure 102/54 L 119/57 L 128/60 Pulse Oximetry 100 100 100 12/04/17 02:00 12/04/17 02:15 12/04/17 02:30 Temperature Pulse Rate 60 62 61 Respiratory Rate 18 21 16 Blood Pressure 115/55 L 115/56 L 110/56 L Pulse Oximetry 100 100 100 12/04/17 02:45 12/04/17 03:00 12/04/17 03:15 Temperature Pulse Rate 64 62 63 Respiratory Rate 17 18 16 Blood Pressure 109/53 L 102/51 L 100/49 L Pulse Oximetry 100 100 100 12/04/17 03:30 12/04/17 03:45 12/04/17 04:00 Temperature 98.8 F Pulse Rate 59 L 64 60 Respiratory Rate 16 16 16 Blood Pressure 106/50 L 106/53 L 97/49 L Pulse Oximetry 100 100 100 12/04/17 04:15 12/04/17 04:30 12/04/17 04:44 Temperature Pulse Rate 58 L 58 L 60 Respiratory Rate 16 16 21 Blood Pressure 101/53 L 100/56 L Pulse Oximetry 100 100 100 12/04/17 04:45 12/04/17 06:00 12/04/17 08:00 Temperature 102.2 F H Pulse Rate 62 88 88 Respiratory Rate 19 19 Blood Pressure 112/53 L 183/74 H Pulse Oximetry 100 100 12/04/17 10:00 12/04/17 11:23 12/04/17 12:00 Temperature 99.6 F Pulse Rate 62 89 73 Respiratory Rate 18 17 Blood Pressure 142/59 H Pulse Oximetry 99 98 12/04/17 14:00 12/04/17 15:52 12/04/17 16:00 Temperature Pulse Rate 88 73 Respiratory Rate 31 H Blood Pressure 130/59 L Pulse Oximetry 100 94 L 12/04/17 16:15 12/04/17 16:30 12/04/17 16:50 Temperature 99.1 F Pulse Rate 63 88 132 H Respiratory Rate 16 11 L 14 Blood Pressure 153/67 H 192/76 H 117/55 L Pulse Oximetry 100 100 100 12/04/17 16:55 12/04/17 17:00 12/04/17 17:05 Temperature Pulse Rate 138 H 144 H 144 H Respiratory Rate 12 12 16 Blood Pressure 119/62 132/69 121/71 Pulse Oximetry 100 100 100 12/04/17 17:25 12/04/17 17:35 12/04/17 17:41 Temperature Pulse Rate 148 H 137 H 142 H Respiratory Rate 12 15 17 Blood Pressure 134/71 123/62 140/60 Pulse Oximetry 99 99 100 12/04/17 17:45 12/04/17 17:50 12/04/17 18:00 Temperature Pulse Rate 142 H 133 H 133 H Respiratory Rate 19 34 H 25 H Blood Pressure 157/66 H 153/63 H Pulse Oximetry 98 98 100 12/04/17 18:01 12/04/17 18:05 12/04/17 18:11 Temperature Pulse Rate 136 H 131 H 136 H Respiratory Rate 27 H 20 14 Blood Pressure 145/77 H 126/62 113/79 Pulse Oximetry 97 99 90 L 12/04/17 18:15 12/04/17 18:20 12/04/17 18:25 Temperature Pulse Rate 138 H 133 H 130 H Respiratory Rate 21 19 15 Blood Pressure 125/63 127/68 123/76 Pulse Oximetry 99 96 96 12/04/17 18:30 Temperature Pulse Rate 126 H Respiratory Rate 35 H Blood Pressure 95/62 L Pulse Oximetry 84 L Intake & Output 12/04/17 12/04/17 12/05/17 06:59 18:59 06:59 Intake Total 1290 / 1290 1921 / 192 Output Total 500 / 500 800 / 800 Balance 790 / 790 1122 / 1122 Weight 56.5 kg Intake: IV 1290 / 1290 1921 / 192 Diprivan 1000 mg/100 ml Inj 1, 100 / 100 125 / 125 000 mg In 100 ml @ 5 MCG/KG/MIN 1.653 mls/hr IV.CONT TITRATE PRN Rx#:[id number] NS Inj 1,000 ML @ 84 mls/hr IV. 1000 / 1000 1462 / 1462 CONT .[id number] [facility] Rx#:[id number] Magnesium Sulfate 1 gm/D5W 100 100 / 100 ml Premix 100 ML @ 100 mls/hr IV.SIG Q1H [facility] Rx#:[id number] fentaNYL 10 mcg/mL Premix Drip 190 / 190 235 / 235 2,500 mcg In 250 ml @ 50 MCG/HR 5 mls/hr IV.SIG TITRATE PRN Rx #:[id number] Oral 0 / 0 Output: Urine Amount (Catheter) 450 / 450 800 / 800 Indwelling Urethral Catheter 800 / 800 Straight 450 / 450 Gastric Drainage 50 / 50 Orogastric Tube 50 / 50 Other: # Bowel Movements 0 - Routine Neurological Exam diffuse chorea PERRL no focal motor deficits - Urinary Catheter Management Straight Cath placed during this visit: yes Reason for continuing: Acute urinary retention Insertion date: 12/04/17 Insertion time: 13:00 Indwelling Urethral Catheter Cath placed during this visit: no Objective Laboratory Results - last 24 hr 12/04/17 12/04/17 12/04/17 00:12 05:29 06:13 WBC RBC Hgb Hct MCV MCH MCHC RDW Plt Count MPV Prelim Diff (Auto) Neut % (Auto) Lymph % (Auto) [facility] % (Auto) Eos % (Auto) Baso % (Auto) Neut # (Auto) Lymph # (Auto) [facility] # (Auto) Eos # (Auto) Baso # (Auto) WBC Differential Seg Neuts % (Manual) Band Neuts % (Manual) Lymphocytes % (Manual) Monocytes % (Manual) Eosinophils % (Manual) Myelocytes % (Man) Abs Neuts (Manual) Differential Comment Platelet Estimate Platelet Morphology RBC Morphology Sodium 140 Potassium 3.7 Chloride 109 H Carbon Dioxide 19.5 L Anion Gap 12 BUN 10 Creatinine 0.83 Estimated GFR 65 L POC Glucose 95 124 H Random Glucose 84 Calcium 7.8 L Phosphorus 2.9 Magnesium 1.8 Troponin I 0.05 D 12/04/17 12/04/17 12/04/17 06:31 11:01 17:25 WBC 24.7 H RBC 3.76 L Hgb 12.1 Hct 36.3 MCV 96.5 MCH 32.1 MCHC 33.3 RDW 13.7 Plt Count 340 MPV 9.1 Prelim Diff (Auto) Slide review pending Neut % (Auto) 76.4 H Lymph % (Auto) 10.8 [facility] % (Auto) 11.1 H Eos % (Auto) 1.5 Baso % (Auto) 0.2 Neut # (Auto) 18.8 H Lymph # (Auto) 2.7 [facility] # (Auto) 2.7 H Eos # (Auto) 0.4 Baso # (Auto) 0.1 WBC Differential Manual diff final Seg Neuts % (Manual) 71 H Band Neuts % (Manual) 6 Lymphocytes % (Manual) 11 Monocytes % (Manual) 10 H Eosinophils % (Manual) 1 Myelocytes % (Man) 1 H Abs Neuts (Manual) 19.3 H Differential Comment . Platelet Estimate Normal Platelet Morphology Normal RBC Morphology Normal Sodium Potassium Chloride Carbon Dioxide Anion Gap BUN Creatinine Estimated GFR POC Glucose 86 92 Random Glucose Calcium Phosphorus Magnesium Troponin I Microbiology 12/02/17 18:00 Urine Culture - Final Catheterized Urine Enterococcus faecalis 12/02/17 13:29 Aerobic Blood Culture - Preliminary Blood - Peripheral No growth in 2 days Anaerobic Blood Culture - Preliminary No growth in 2 days 12/02/17 13:24 Aerobic Blood Culture - Preliminary Blood - Peripheral No growth in 2 days Anaerobic Blood Culture - Preliminary No growth in 2 days Review/Management - 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 If negative work up consider genetic test for Huntingtons disease. review smear for acanthocytes ( i.e. acanthocytosis) trial of zyprexa for chorea.
[2017-12-04 19:43] LABS: Calcium 8.2 mg/dL (8.5-10.1); Carbon Dioxide 18.7 meq/L (21.0-32.0); Magnesium 2.3 mg/dL (1.5-2.5); Phosphorus 2.7 mg/dL (2.5-4.9); Potassium 4.1 meq/L (3.5-5.1)
[2017-12-04 22:20] LABS: Free T4 (Free Thyroxine) 1.85 ng/dL (0.76-1.46); Triiodothyronine (T3) Free 1.25 pg/mL (2.18-3.98)
[2017-12-05] MEDS: Insulin NovoLOG Aspart Correctional Sugar Inj SQ SCH ×4 (00:01→18:36)
[2017-12-05] MEDS: Oral Hygiene Kit OROPHARYNG SCH ×4 (00:02→16:03)
[2017-12-05] MEDS: Sod Chloride 0.9% Inj 1,000 ML IV.CONT SCH ×2 (00:47→12:00)
[2017-12-05] MEDS: Chlorhexidine Gluconate 2% 1 Pack (2 Cloths) TOPICAL SCH (04:02)
--- NOTE | 2017-12-05 05:27 | XR ---
EXAM DATE: 12/05/2017 5:19 AM EDT AGE/SEX: 82 years / Female INDICATIONS: Shortness of breath, possible pulmonary disease. CLINICAL DATA: This is the patient's subsequent encounter. Patient reports that signs and symptoms h ave been present for 1 week and indicates a pain score of Nonresponsive. MEDICAL/SURGICAL HISTORY: Chronic obstructive pulmonary disease. CABG. COMPARISON: [facility], CHEST 1V SINGLE AP, 12/04/2017. . FINDINGS: Mild bibasilar atelectasis. No large effusion. No pneumothorax. Heart size stable, within normal limits. Median sternotomy changes are again noted. Endotracheal tube and nasogastric tube out in the interim. CONCLUSION: 1. No significant change very mild bibasilar atelectasis. 2. Interim extubation and nasogastric tube removal. Electronically signed by: Noam Becker MD 12/05/2017 5:26 AM EDT
[2017-12-05] MEDS: Levothyroxine 50 MCG Tablet PO SCH (05:42)
[2017-12-05 07:04] LABS: Anion Gap 11 meq/L (5-15); Blood Urea Nitrogen 11 mg/dL (7-18); Calcium 6.2 mg/dL (8.5-10.1); Carbon Dioxide 14.8 meq/L (21.0-32.0); Chloride 116 meq/L (98-107); Glomerular Filtration Rate Greater Than 89 mL/min (>89); Glucose,Random 232 mg/dL (74-106); Magnesium 1.7 mg/dL (1.5-2.5); Phosphorus 2.3 mg/dL (2.5-4.9)
[2017-12-05 07:10] LABS: Potassium 3.6 meq/L (3.5-5.1); Sodium 142 meq/L (136-145)
[2017-12-05 08:24] LABS: Baso # (Auto) 0.1 th/mm3 (0.0-0.2); Baso % (Auto) 0.2 % (0.0-2.0); Hemoglobin 12.4 gm/dL (11.6-15.3); Lymph # (Auto) 2.6 th/mm3 (1.0-4.8); Lymph % (Auto) 7.2 % (9.0-44.0); Mean Corpuscular HGB Conc 32.8 % (32.0-36.0); Mean Corpuscular Hemoglobin 31.7 pg (27.0-34.0); Mean Corpuscular Volume 96.7 fL (80.0-100.0); Mean Platelet Volume 9.7 fL (7.0-11.0); Mono # (Auto) 1.7 th/mm3 (0.0-0.9); Mono % (Auto) 4.6 % (0.0-8.0); Neut # (Auto) 32.2 th/mm3 (1.8-7.7); Platelet Count 362 th/mm3 (150-450); Red Blood Count 3.93 mil/mm3 (4.00-5.30); Red Cell Distribution Width 14.1 % (11.6-17.2); White Blood Count 36.6 th/mm3 (4.0-11.0)
[2017-12-05] MEDS ORDERED: Famotidine PF Inj 20 MG/2 ML Vial IV.PUSH SCH (09:00)
[2017-12-05 09:22] LABS: Lymphocytes 3 % (9-44); Monocytes 5 % (0-8); Platelet Estimate Normal (Normal); Platelet Morphology Normal (Normal)
[2017-12-05 09:34] LABS: Total Protein 4.4 g/dL (6.4-8.2)
[2017-12-05] MEDS: Carboxymethylcellulose 0.5% Opth Drops 15 ML Bottle EACH EYE SCH ×2 (09:49→20:32)
[2017-12-05] MEDS: Senna/Docusate Sodium 8.6/50 MG Tablet PO SCH ×2 (09:49→20:29)
[2017-12-05] MEDS: OLANZapine 2.5 MG Tablet PO SCH (09:49)
[2017-12-05] MEDS: Chlorhexidine 0.12% Oral Kit 15 ML UDC OROPHARYNG SCH ×2 (09:49→20:32)
[2017-12-05] MEDS ORDERED: Calcium Chloride Inj 1 GM/10 ML Syringe IV.PUSH ONE (10:03)
--- NOTE | 2017-12-05 10:23 | P.PNCC ---
Subjective Subjective Remarks/Hospital Course: This is an 82-year-old female. Date of admission 11/30/2017. Date of consultation 12/02/2017. Past medical history includes coronary disease status post CABG x1, porcine aortic valve replaced, essential hypertension, hyperlipidemia, history of right basal ganglia CVA, history of left MCA aneurysm , COPD and restrictive lung disease, chronic left bundle branch block, restless leg syndrome, hypothyroidism and spinal stenosis. Patient presents to [facility] 11/30 with 2-week history of worsening low back pain/radiating down her back/sides. Patient was evaluated by neurosurgery/Dr. Locke. She has a severe L3-4 and L4- 5 spinal stenosis from facet and ligamentum flavum hypertrophy along with the disc protrusions and degenerative changes at other levels.Due to the intractable low back pain and bilateral neurogenic claudication/radiculopathy. Treatment options were discussed with the patient and her son including continued nonsurgical management involving pain control with medications and interventional pain management with epidural steroid injections and physical therapy. We also discussed the option of surgical intervention involving an L3- L5 decompressive laminectomy. Patient and his son refused any surgical intervention Today, patient was to undergo an JASON with interventional radiology. Patient received lorazepam, hydromorphone and hydrocodone/acetaminophen today per medical record. While in IR, patient had acute onset of violent acute dystonia and choreiform movements. These also include arching of her back. Did not see any ocular gyri movements on my initial examination prior to intubation. This lasted approximately 15-30 minutes. During this time the patient was hypertensive and had decreased saturations. She was able to speak and respond accordingly through these movements Noted no antiemetics, antipsychotics appear to have been given 12/03: Currently sedated on the ventilator and 40 mg/kg/min of propofol and 50 mg /h of fentanyl. MRI showed possible left lacunar infarct. 90 percent stenosis right carotid artery. Vascular surgery routine consult. EEG showed bilateral frontal sharp activity and moderate encephalopathy. 12/04: On sedation vacation yesterday, patient with writhing dystonic movements. Recent data. Question penis. Plan for epidural steroid injection today. Schedule opiate use and will reattempt extubation post epidural steroid injection. SUBJECTIVE: 12/05: Extubated at 2030 yesterday. Currently on 5 L nasal cannula. Continues to have considering choreiform type movements. Started on olanzapine 20 mg daily. Will be reevaluated by neurology again today. Passed swallow evaluation. Objective Vital Signs / I&O: Vital Signs 12/04/17 11:23 12/04/17 12:00 12/04/17 14:00 Temperature 99.6 F Pulse Rate 89 73 88 Respiratory Rate 18 17 Blood Pressure 142/59 H Pulse Oximetry 99 98 12/04/17 15:52 12/04/17 16:00 12/04/17 16:15 Temperature 99.1 F Pulse Rate 73 63 Respiratory Rate 31 H 16 Blood Pressure 130/59 L 153/67 H Pulse Oximetry 100 94 L 100 12/04/17 16:30 12/04/17 16:50 12/04/17 16:55 Temperature Pulse Rate 88 132 H 138 H Respiratory Rate 11 L 14 12 Blood Pressure 192/76 H 117/55 L 119/62 Pulse Oximetry 100 100 100 12/04/17 17:00 12/04/17 17:05 12/04/17 17:25 Temperature Pulse Rate 144 H 144 H 148 H Respiratory Rate 12 16 12 Blood Pressure 132/69 121/71 134/71 Pulse Oximetry 100 100 99 12/04/17 17:35 12/04/17 17:41 12/04/17 17:45 Temperature Pulse Rate 137 H 142 H 142 H Respiratory Rate 15 17 19 Blood Pressure 123/62 140/60 157/66 H Pulse Oximetry 99 100 98 12/04/17 17:50 12/04/17 18:00 12/04/17 18:01 Temperature Pulse Rate 133 H 133 H 136 H Respiratory Rate 34 H 25 H 27 H Blood Pressure 153/63 H 145/77 H Pulse Oximetry 98 100 97 12/04/17 18:05 12/04/17 18:11 12/04/17 18:15 Temperature Pulse Rate 131 H 136 H 138 H Respiratory Rate 20 14 21 Blood Pressure 126/62 113/79 125/63 Pulse Oximetry 99 90 L 99 12/04/17 18:20 12/04/17 18:25 12/04/17 18:30 Temperature Pulse Rate 133 H 130 H 126 H Respiratory Rate 19 15 35 H Blood Pressure 127/68 123/76 95/62 L Pulse Oximetry 96 96 84 L 12/04/17 18:51 12/04/17 19:00 12/04/17 19:01 Temperature Pulse Rate 134 H 134 H 139 H Respiratory Rate 31 H 53 H 48 H Blood Pressure 102/78 109/65 Pulse Oximetry 77 L 78 L 12/04/17 19:10 12/04/17 19:23 12/04/17 19:30 Temperature Pulse Rate 98 H 80 74 Respiratory Rate 32 H 19 14 Blood Pressure 111/58 L 101/57 L 94/53 L Pulse Oximetry 75 L 100 12/04/17 19:40 12/04/17 19:49 12/04/17 19:50 Temperature Pulse Rate 85 80 Respiratory Rate 35 H 8 L Blood Pressure 122/91 H 119/57 L Pulse Oximetry 91 L 95 96 12/04/17 20:00 12/04/17 20:01 12/04/17 20:10 Temperature 98.4 F Pulse Rate 75 76 80 Respiratory Rate 20 18 14 Blood Pressure 106/53 L 95/54 L Pulse Oximetry 94 L 91 L 12/04/17 20:20 12/04/17 20:30 12/04/17 20:41 Temperature Pulse Rate 80 81 84 Respiratory Rate 32 H 44 H 21 Blood Pressure 94/53 L 105/65 145/80 H Pulse Oximetry 95 97 96 12/04/17 20:51 12/04/17 21:00 12/04/17 21:14 Temperature Pulse Rate 84 91 H 82 Respiratory Rate 37 H 28 H 18 Blood Pressure 139/79 116/58 L Pulse Oximetry 90 L 96 12/04/17 21:30 12/04/17 22:00 12/04/17 22:31 Temperature Pulse Rate 79 71 78 Respiratory Rate 24 29 H 24 Blood Pressure 108/49 L 106/50 L 137/94 H Pulse Oximetry 100 100 12/04/17 23:00 12/04/17 23:01 12/04/17 23:30 Temperature Pulse Rate 63 65 61 Respiratory Rate 18 23 17 Blood Pressure 118/58 L 126/60 Pulse Oximetry 99 99 100 12/05/17 00:00 12/05/17 00:01 12/05/17 00:30 Temperature 97.7 F Pulse Rate 70 66 64 Respiratory Rate 24 22 24 Blood Pressure 133/61 142/63 H Pulse Oximetry 96 99 95 12/05/17 01:00 12/05/17 01:31 12/05/17 02:00 Temperature Pulse Rate 60 63 60 Respiratory Rate 14 24 Blood Pressure 139/61 117/55 L 126/61 Pulse Oximetry 96 12/05/17 02:39 12/05/17 03:00 12/05/17 03:11 Temperature Pulse Rate 61 62 59 L Respiratory Rate 26 H 23 27 H Blood Pressure 127/54 L 136/64 Pulse Oximetry 93 L 12/05/17 03:30 12/05/17 04:00 12/05/17 06:00 Temperature 97.8 F Pulse Rate 57 L 55 L 52 L Respiratory Rate 16 15 Blood Pressure 138/63 132/60 Pulse Oximetry 91 L 99 12/05/17 07:00 Temperature Pulse Rate 62 Respiratory Rate 16 Blood Pressure Pulse Oximetry 95 Intake & Output 12/04/17 12/05/17 12/05/17 18:59 06:59 18:59 Intake Total 1922 / 192 1286 / 1286 Output Total 800 / 800 1075 / 1075 Balance 1122 / 1122 211 / 211 Weight 61 kg Intake: IV 1921 / 1921 1286 / 1286 Cordarone Inj 450 MG In D5W Inj 240 / 240 241 ML @ 1 MG/MIN 33.33 mls/hr IV.CONT TITRATE PRN Rx#: [id number] Precedex Inj 200 MCG In NS Inj 93 / 93 48 ML @ 0.2 MCG/KG/HR 2.82 mls/ hr IV.CONT TITRATE PRN Rx#: [id number] Diprivan 1000 mg/100 ml Inj 1, 125 / 125 000 mg In 100 ml @ 5 MCG/KG/MIN 1.653 mls/hr IV.CONT TITRATE PRN Rx#:[id number] NS Inj 1,000 ML @ 84 mls/hr IV. 1462 / 1462 538 / 538 CONT .[id number] LOVELY Rx#:[id number] Cordarone Inj 150 MG In D5W Inj 100 / 100 97 ML @ 600 mls/hr IV.SIG ONCE ONE Rx#:[id number] Maxipime Inj 2,000 MG In NS Inj 200 / 200 100 ML @ 200 mls/hr IV.SIG Q12H LOVELY Rx#:[id number] Magnesium Sulfate 1 gm/D5W 100 100 / 100 100 / 100 ml Premix 100 ML @ 100 mls/hr IV.SIG Q1H LOVELY Rx#:[id number] fentaNYL 10 mcg/mL Premix Drip 235 / 235 15 / 15 2,500 mcg In 250 ml @ 50 MCG/HR 5 mls/hr IV.SIG TITRATE PRN Rx #:[id number] Oral 0 / 0 Output: Urine Amount (Catheter) 800 / 800 1075 / 1075 Indwelling Urethral Catheter 800 / 800 1075 / 1075 Other: # Bowel Movements 0 Result Diagrams: 12/05/17 07:56 12/05/17 05:38 Other Results: Microbiology 12/04/17 21:20 Sputum - Expectorated Sputum Gram Stain - Final 12/02/17 18:00 Catheterized Urine Urine Culture - Final Enterococcus faecalis 12/02/17 13:29 Blood - Peripheral Aerobic Blood Culture - Preliminary No growth in 2 days 12/02/17 13:29 Blood - Peripheral Anaerobic Blood Culture - Preliminary No growth in 2 days 12/02/17 13:24 Blood - Peripheral Aerobic Blood Culture - Preliminary No growth in 2 days 12/02/17 13:24 Blood - Peripheral Anaerobic Blood Culture - Preliminary No growth in 2 days Imaging: Hip X-Ray 11/30/17 12:52 CONCLUSION: There is no evidence of acute fracture. Hip X-Ray 11/30/17 12:52 CONCLUSION: There is no evidence of acute fracture. Lumbar Spine MRI 12/01/17 00:00 CONCLUSION: 1. Retrolisthesis of L1 on L2 and L2 on L3. Marked disc space narrowing and low -grade discogenic edema at L2-3. 2. Moderate to severe canal stenosis at the L4-5 level secondary to broad- based diffuse annular bulge and marked hypertrophy of the posterior elements. Scattered areas of neural foraminal narrowing as described above Chest X-Ray 12/02/17 00:00 CONCLUSION: 1. No acute abnormality or significant interval change. Chest X-Ray 12/02/17 00:00 CONCLUSION: 1. Endotracheal tube in good position 3 cm above the sarah. 2. Nasogastric tube has its tip in the distal esophagus and should be positioned more distally at least to the level of the stomach. 3. Cardiomegaly. 4. No focal infiltrate or pulmonary vascular congestion. Head MRA 12/02/17 00:00 CONCLUSION: 1. Hypoplastic P1 segment on the right with a patent posterior communicating artery. 2. Some asymmetry in the middle cerebral artery size, left being larger in the region of the sylvian fissure. Neck MRA 12/02/17 00:00 CONCLUSION: 1. Short segment high-grade stenosis involving the origin of the right internal carotid artery suggesting greater than 90% stenosis. 2. No significant stenosis within the left internal carotid artery. Percent stenosis is calculated using the diameter of the stenotic region over the diameter of the normal distal internal carotid artery Head MRI 12/02/17 12:29 CONCLUSION: 1. Diffuse atrophy. No evidence of an acute stroke, mass or mass effect. There may be a small old lacunar infarct on the left. No acute subarachnoid or subdural hematoma is identified Chest X-Ray 12/03/17 00:00 CONCLUSION: NG tube tip in the stomach Epidural Injection 12/04/17 00:00 CONCLUSION: 1. Uncomplicated fluoroscopically guided epidural injection as above. Chest X-Ray 12/04/17 06:00 CONCLUSION: No significant change. Trace basilar atelectasis again seen. Chest X-Ray 12/05/17 06:00 CONCLUSION: 1. No significant change very mild bibasilar atelectasis. 2. Interim extubation and nasogastric tube removal. Objective Remarks: GENERAL: 82-year-old female currently on 5 L nasal cannula SKIN: Warm and dry. HEAD: Atraumatic. Normocephalic. EYES: Pupils equal and round. No scleral icterus. No injection or drainage. ENT: No nasal bleeding or discharge. Mucous membranes pink and moist. NECK: Trachea midline. No JVD. No obvious bruit in the right side CARDIOVASCULAR: RRR. S1, S2 no S4.. RESPIRATORY: No accessory muscle use. Clear to auscultation. Breath sounds equal bilaterally. GASTROINTESTINAL: Abdomen soft, non-tender, nondistended. Hepatic and splenic margins not palpable. MUSCULOSKELETAL: Extremities without clubbing, cyanosis, or edema. No obvious deformities. NEUROLOGICAL: Resting in bed. Poor deformity or involuntary movements. Awake and oriented to person and time not place. Assessment and Plan - Assessment and Plan Plan: Neuro/Psych: Acute dystonia, cord for movements unclear etiology History of right basal ganglia CVA History of left MCA aneurysm Chronic pain syndrome Right carotid stenosis Has not received any antipsychotics or antiemetics. No obvious medications given that might cause these symptoms. Stat MRI/MRA brain/neck revealed possible left lacunar infarct. Hypoplastic P1 segment. Right internal carotid artery 90% stenosis. EEG revealed bifrontal sharp activity with moderate encephalopathy. Clinical correlation recommended. Appreciate consultation by Dr. Smith/neurology. Currently on Zyprexa 2.5 mg daily. Holding diclofenac 75 mg twice daily and hydrocodone/acetaminophen 5/321 tablet every 6 hours as needed/home medication CV: Essential hypertension Hyperlipidemia Sinus tachycardia Coronary artery disease status post CABG 1 History of porcine aortic valve replacement Left bundle branch block Elevated troponin 0 0.20 likely secondary to type II demand ischemia Atrial fibrillation with RVR currently normal sinus rhythm. Amiodarone drip discontinued. Received Currently on losartan 25 mg twice daily for essential hypertension at home medication As needed labetalol, Nitropaste and Cardene drip for hypertension Troponin currently 0.20. Will recheck in a.m. 0.05 Current echocardiogram EF around 55%. Appreciate vascular input to right carotid stenosis Resp: Acute respiratory failure COPD Restrictive lung disease Tobaccoism Nasal cannula to maintain saturations greater than equal to 92% Incentive spirometry while awake Albuterol/ipratropium aerosols every 4 hours with albuterol aerosols every 2 hours as needed for dyspnea Chest x-ray ordered for a.m. 12/06 Self evaluation self tobacco cessation booklet will be provided when clinically indicated GI: Patient is currently n.p.o. Advance per speech therapy Famotidine for GI prophylaxis Docusate sodium/senna 1 tablet twice daily for bowel regimen : Junior catheter if indicated for accurate I's and O's in a critically ill patient Endo: Hypothyroidism Sliding scale insulin Accu-Cheks every 6 hours to maintain euglycemia/aspart insulin medium protocol Continue levothyroxine 50 mcg by mouth daily Check TSH 0.470 Renal: Creatinine currently within normal limits Monitor urine output Accurate I's and O's Heme: Leukocytosis Monitor CBC daily. Follow trends. No indication for transfusion of blood products at this time. ID: Group D enterococcus UTI Levofloxacin 750 mg IV every 24 hours Monitor for signs and symptomatology infection Sputum 12/04 pending FEN: Hypophosphatemia Hypocalcemia Receiving 2 g mag sulfate IV, 30 mmol potassium phosphate in 1 g calcium chloride 1 now. Please see electrolytes as clinically indicated per ICU electrolyte protocol Currently normal saline at 84 cc an hour MSK: Retrolisthesis L1 on L2 and L2 and L3 L4/L5 severe stenosis with annular bulge Evaluate Dr. Locke/neurosurgery. Patient's family refused surgery. Epidural steroid injection L4/L5 on 12/04 Access -Utilize peripheral IV. Central line if indicated Prophylaxis -GI -famotidine -DVT-SCDs/holding pharmacologic prophylaxis with heparin subcu Level 3 follow-up
[2017-12-05] MEDS ORDERED: Potassium Phosphate Inj 30 MMOL in Sodium Chlor 0.9% Inj 250 ML IV.SIG ONE (11:00)
--- NOTE | 2017-12-05 11:09 | P.PNNEU ---
Subjective Subjective Comments: Neurology cross cover. As per critical care to see the patient for involuntary movements Patient denies any headache, chest pain or dyspnea. She is admitted for intractable back pain secondary to symptomatic lumbar spinal stenosis. She developed involuntary movements during this admission has not been on any antipsychotics until recent addition to help with her movements Active Medications: Active Medications Acetaminophen (Tylenol Liq) 650 mg PO Q6H PRN PRN Reason: FEVER Al Hydroxide/Mg Hydroxide (Milk Of Magnesia Liq) 30 ml PO Q12H PRN PRN Reason: Mild Constipation Albuterol (Albuterol Neb (Prn)) 2.5 mg NEB Q2HR NEB PRN PRN Reason: SHORTNESS OF BREATH/WHEEZING Albuterol (Duoneb Neb (Coleen)) 1 ampul NEB Q4HR NEB [facility] Last Admin: 12/05/17 07:22 Dose: 1 ampul Artificial Tears (Refresh Tears 0.5% Opth Drops) 1 drop EACH EYE BID [facility] Last Admin: 12/05/17 09:49 Dose: 1 drop Aspirin (Aspirin Chew) 81 mg PO DAILY [facility] Last Admin: 12/05/17 09:49 Dose: 81 mg Atorvastatin Calcium (Lipitor) 10 mg PO HS [facility] Last Admin: 12/04/17 21:22 Dose: Not Given Bisacodyl (Dulcolax Supp) 10 mg RECTAL DAILY PRN PRN Reason: SEVERE CONSITIPATION Chlorhexidine Gluconate (Peridex 0.12% Oral Kit) 15 ml OROPHARYNG BID@0800, 2000 [facility] Last Admin: 12/05/17 09:49 Dose: Not Given Chlorhexidine Gluconate (Chlorhexidine 2% Cloth) 3 pack TOPICAL DAILY@0400 [facility] Stop: 12/08/17 03:59 Last Admin: 12/05/17 04:02 Dose: 3 pack Chlorhexidine Gluconate (Chlorhexidine 2% Cloth) 3 pack TOPICAL DAILY@0400 PRN PRN Reason: Extra cloth needed Stop: 12/08/17 03:59 Dextrose (D50w Vial) 50 ml IV.PUSH UNSCH PRN PRN Reason: PER HYPOGLYCEMIA PROTOCOL Glucagon (Glucagon Inj) 1 mg OTHER UNSCH PRN PRN Reason: for Hypoglycemia Protocol Heparin Sodium (Porcine) (Heparin Inj) 5,000 units SQ Q12HR [facility] Sodium Chloride (Ns Inj) 1,000 mls @ 84 mls/hr IV.CONT .[id number] [facility] Last Admin: 12/05/17 00:47 Dose: Not Given Magnesium Sulfate 4 gm/ Sodium (Chloride) 100 mls @ 50 mls/hr IV.SIG UNSCH PRN PRN Reason: For Magnesium 0.9 - 1.1 mg/dL Magnesium Sulfate 2 gm/ Sodium (Chloride) 100 mls @ 50 mls/hr IV.SIG UNSCH PRN PRN Reason: For Magnesium 1.2 - 1.6 mg/dL Potassium Chloride (Kcl 40 Meq Premix Inj) 40 meq in 100 mls @ 50 mls/hr IV.SIG Q2H PRN PRN Reason: For Potassium 2.8 - 3.2 mEq/L Potassium Chloride (Kcl 20 Meq Premix Inj) 20 meq in 100 mls @ 50 mls/hr IV.SIG Q2H PRN PRN Reason: For Potassium 3.3 - 3.5 mEq/L Potassium Chloride (Kcl 40 Meq Premix Inj) 40 meq in 100 mls @ 25 mls/hr IV.SIG UNSCH PRN PRN Reason: For Potassium 3.3 - 3.5 mEq/L Potassium Chloride (Kcl 20 Meq Premix Inj) 20 meq in 100 mls @ 50 mls/hr IV.SIG Q2H PRN PRN Reason: For Potassium 2.8 - 3.2 mEq/L Potassium Phosphate 30 mmol/ (Sodium Chloride) 260 mls @ 42 mls/hr IV.SIG UNSCH PRN PRN Reason: SEE LABEL COMMENTS Sodium Phosphate 30 mmol/ (Sodium Chloride) 260 mls @ 42 mls/hr IV.SIG UNSCH PRN PRN Reason: For Phosphorus < 2.5 mg/dL Amiodarone HCl 450 mg/ (Dextrose) 250 mls @ 33.33 mls/hr IV.CONT TITRATE PRN; Protocol PRN Reason: Per Protocol Last Admin: 12/05/17 04:01 Dose: 0.5 mg/min, 16.66 mls/hr Levofloxacin/Dextrose (Levaquin 750 Mg Premix Inj) 150 mls @ 100 mls/hr IV.SIG Q24H [facility] Stop: 12/10/17 10:59 Magnesium Sulfate/Dextrose (Magnesium Sulfate 1 Gm/D5w 100 Ml Premix) 100 mls @ 100 mls/hr IV.SIG Q1H [facility] Stop: 12/05/17 12:59 Potassium Phosphate 30 mmol/ (Sodium Chloride) 260 mls @ 43.333 mls/hr IV.SIG ONCE ONE Stop: 12/05/17 16:59 Insulin Aspart (Novolog Insulin Correctional Sugar Inj) 0 unit SQ Q6HR [facility]; Protocol Last Admin: 12/05/17 05:42 Dose: Not Given Labetalol HCl (Trandate Inj) 10 mg IV.PUSH Q1H PRN PRN Reason: SYS BP GREATER THAN 170 MMHG Lactulose (Lactulose Liq) 30 ml PO DAILY PRN PRN Reason: SEVERE CONSITIPATION Levothyroxine Sodium (Synthroid) 50 mcg PO DAILY@0600 [facility] Last Admin: 12/05/17 05:42 Dose: Not Given Lorazepam (Ativan) 0.5 mg PO Q8H PRN PRN Reason: ANXIETY AND/OR AGITATION Last Admin: 12/01/17 10:20 Dose: 0.5 mg Losartan Potassium (Cozaar) 25 mg PO BID [facility] Last Admin: 12/05/17 09:48 Dose: 25 mg Magnesium Oxide (Mag-Ox) 800 mg PO UNSCH PRN PRN Reason: For Magnesium 1.2 - 1.6 mg/dL Miscellaneous Medication () 1 each OROPHARYNG 0000,0400,1200,1600 [facility] Last Admin: 12/05/17 04:02 Dose: Not Given Nitroglycerin (Nitro-Bid 2% Oint) 1 inch TOPICAL Q6HR PRN PRN Reason: SBP>160, DBP>90 Olanzapine (Zyprexa) 2.5 mg PO DAILY [facility] Last Admin: 12/05/17 09:49 Dose: 2.5 mg Oxycodone HCl (Roxicodone Intensol Liq) 5 mg PO Q6H [facility] Last Admin: 12/05/17 09:48 Dose: 5 mg Potassium Bicarb/Potassium Chloride (K-Lyte Cl Eff) 50 meq PO UNSCH PRN PRN Reason: For Potassium 3.3 - 3.5 mEq/L Potassium Phosphate (K-Phos Original) 2,000 mg PO Q4H PRN PRN Reason: Phosphorus Less Than 2.5 mg/dL Potassium Phosphate (K-Phos Original) 2,000 mg PO UNSCH PRN PRN Reason: SEE LABEL COMMENTS Senna/Docusate Sodium (Joyce-Colace) 1 tab PO BID [facility] Last Admin: 12/05/17 09:49 Dose: 1 tab Sennosides (Senokot) 17.2 mg PO Q12H PRN PRN Reason: Moderate Constipation Sodium Chloride (Ns Flush) 2 ml IV.FLUSH BID [facility] Last Admin: 12/05/17 09:49 Dose: 2 ml Sodium Chloride (Ns Flush) 2 ml IV.FLUSH PRN PRN PRN Reason: FLUSH AFTER USING IV ACCESS Allergies/Adverse Reactions: Allergies Allergy/AdvReac Type Severity Reaction Status Date / Time adhesive Allergy Severe ADHESIVE Verified 11/30/17 12:22 TAPE/BLISTERS SKIN doxycycline Allergy Severe Irritation Verified 11/30/17 12:22 minocycline Allergy Severe Irritation Verified 11/30/17 12:22 tigecycline Allergy Severe Irritation Verified 11/30/17 12:22 *MDRO Multi-Drug Resistant AdvReac Unknown Hiccups Uncoded 11/30/17 12:22 Organism Review of Systems All other systems reviewed negative except as stated in HPI Physical Exam Vital signs: Vital Signs 12/04/17 11:23 12/04/17 12:00 12/04/17 14:00 Temperature 99.6 F Pulse Rate 89 73 88 Respiratory Rate 18 17 Blood Pressure 142/59 H Pulse Oximetry 99 98 12/04/17 15:52 12/04/17 16:00 12/04/17 16:15 Temperature 99.1 F Pulse Rate 73 63 Respiratory Rate 31 H 16 Blood Pressure 130/59 L 153/67 H Pulse Oximetry 100 94 L 100 12/04/17 16:30 12/04/17 16:50 12/04/17 16:55 Temperature Pulse Rate 88 132 H 138 H Respiratory Rate 11 L 14 12 Blood Pressure 192/76 H 117/55 L 119/62 Pulse Oximetry 100 100 100 12/04/17 17:00 12/04/17 17:05 12/04/17 17:25 Temperature Pulse Rate 144 H 144 H 148 H Respiratory Rate 12 16 12 Blood Pressure 132/69 121/71 134/71 Pulse Oximetry 100 100 99 12/04/17 17:35 12/04/17 17:41 12/04/17 17:45 Temperature Pulse Rate 137 H 142 H 142 H Respiratory Rate 15 17 19 Blood Pressure 123/62 140/60 157/66 H Pulse Oximetry 99 100 98 12/04/17 17:50 12/04/17 18:00 12/04/17 18:01 Temperature Pulse Rate 133 H 133 H 136 H Respiratory Rate 34 H 25 H 27 H Blood Pressure 153/63 H 145/77 H Pulse Oximetry 98 100 97 12/04/17 18:05 12/04/17 18:11 12/04/17 18:15 Temperature Pulse Rate 131 H 136 H 138 H Respiratory Rate 20 14 21 Blood Pressure 126/62 113/79 125/63 Pulse Oximetry 99 90 L 99 12/04/17 18:20 12/04/17 18:25 12/04/17 18:30 Temperature Pulse Rate 133 H 130 H 126 H Respiratory Rate 19 15 35 H Blood Pressure 127/68 123/76 95/62 L Pulse Oximetry 96 96 84 L 12/04/17 18:51 12/04/17 19:00 12/04/17 19:01 Temperature Pulse Rate 134 H 134 H 139 H Respiratory Rate 31 H 53 H 48 H Blood Pressure 102/78 109/65 Pulse Oximetry 77 L 78 L 12/04/17 19:10 12/04/17 19:23 12/04/17 19:30 Temperature Pulse Rate 98 H 80 74 Respiratory Rate 32 H 19 14 Blood Pressure 111/58 L 101/57 L 94/53 L Pulse Oximetry 75 L 100 12/04/17 19:40 12/04/17 19:49 12/04/17 19:50 Temperature Pulse Rate 85 80 Respiratory Rate 35 H 8 L Blood Pressure 122/91 H 119/57 L Pulse Oximetry 91 L 95 96 12/04/17 20:00 12/04/17 20:01 12/04/17 20:10 Temperature 98.4 F Pulse Rate 75 76 80 Respiratory Rate 20 18 14 Blood Pressure 106/53 L 95/54 L Pulse Oximetry 94 L 91 L 12/04/17 20:20 12/04/17 20:30 12/04/17 20:41 Temperature Pulse Rate 80 81 84 Respiratory Rate 32 H 44 H 21 Blood Pressure 94/53 L 105/65 145/80 H Pulse Oximetry 95 97 96 12/04/17 20:51 12/04/17 21:00 12/04/17 21:14 Temperature Pulse Rate 84 91 H 82 Respiratory Rate 37 H 28 H 18 Blood Pressure 139/79 116/58 L Pulse Oximetry 90 L 96 12/04/17 21:30 12/04/17 22:00 12/04/17 22:31 Temperature Pulse Rate 79 71 78 Respiratory Rate 24 29 H 24 Blood Pressure 108/49 L 106/50 L 137/94 H Pulse Oximetry 100 100 12/04/17 23:00 12/04/17 23:01 12/04/17 23:30 Temperature Pulse Rate 63 65 61 Respiratory Rate 18 23 17 Blood Pressure 118/58 L 126/60 Pulse Oximetry 99 99 100 12/05/17 00:00 12/05/17 00:01 12/05/17 00:30 Temperature 97.7 F Pulse Rate 70 66 64 Respiratory Rate 24 22 24 Blood Pressure 133/61 142/63 H Pulse Oximetry 96 99 95 12/05/17 01:00 12/05/17 01:31 12/05/17 02:00 Temperature Pulse Rate 60 63 60 Respiratory Rate 14 24 Blood Pressure 139/61 117/55 L 126/61 Pulse Oximetry 96 12/05/17 02:39 12/05/17 03:00 12/05/17 03:11 Temperature Pulse Rate 61 62 59 L Respiratory Rate 26 H 23 27 H Blood Pressure 127/54 L 136/64 Pulse Oximetry 93 L 12/05/17 03:30 12/05/17 04:00 12/05/17 06:00 Temperature 97.8 F Pulse Rate 57 L 55 L 52 L Respiratory Rate 16 15 Blood Pressure 138/63 132/60 Pulse Oximetry 91 L 99 12/05/17 07:00 Temperature Pulse Rate 62 Respiratory Rate 16 Blood Pressure Pulse Oximetry 95 Intake & Output 12/04/17 12/05/17 12/05/17 18:59 06:59 18:59 Intake Total 1921 1286 / 1286 Output Total 800 / 800 1075 / 1075 Balance 1122 / 1122 211 / 211 Weight 61 kg Intake: IV 1921 1286 / 1286 Cordarone Inj 450 MG In D5W Inj 240 / 240 241 ML @ 1 MG/MIN 33.33 mls/hr IV.CONT TITRATE PRN Rx#: [id number] Precedex Inj 200 MCG In NS Inj 93 / 93 48 ML @ 0.2 MCG/KG/HR 2.82 mls/ hr IV.CONT TITRATE PRN Rx#: [id number] Diprivan 1000 mg/100 ml Inj 1, 125 / 125 000 mg In 100 ml @ 5 MCG/KG/MIN 1.653 mls/hr IV.CONT TITRATE PRN Rx#:[id number] NS Inj 1,000 ML @ 84 mls/hr IV. 1462 / 1462 538 / 538 CONT .[id number] [facility] Rx#:[id number] Cordarone Inj 150 MG In D5W Inj 100 / 100 97 ML @ 600 mls/hr IV.SIG ONCE ONE Rx#:[id number] Maxipime Inj 2,000 MG In NS Inj 200 / 200 100 ML @ 200 mls/hr IV.SIG Q12H [facility] Rx#:[id number] Magnesium Sulfate 1 gm/D5W 100 100 / 100 100 / 100 ml Premix 100 ML @ 100 mls/hr IV.SIG Q1H [facility] Rx#:[id number] fentaNYL 10 mcg/mL Premix Drip 235 / 235 15 / 15 2,500 mcg In 250 ml @ 50 MCG/HR 5 mls/hr IV.SIG TITRATE PRN Rx #:[id number] Oral 0 / 0 Output: Urine Amount (Catheter) 800 / 800 1075 / 1075 Indwelling Urethral Catheter 800 / 800 1075 / 1075 Other: # Bowel Movements 0 Narrative: GENERAL: Having involuntary movements SKIN: Warm and dry. HEAD: Atraumatic. Normocephalic. EYES: Pupils equal and round. No scleral icterus. ENT: No nasal bleeding or discharge. Mucous membranes pink and moist. NECK: Trachea midline. No JVD. CARDIOVASCULAR: Regular rate and rhythm. RESPIRATORY: No accessory muscle use. GASTROINTESTINAL: Abdomen soft, non-tender, nondistended. MUSCULOSKELETAL: Extremities without clubbing, cyanosis, or edema. No obvious deformities. NEUROLOGICAL: Awake and alert. Oriented 2-3, dysphonic speech no aphasia, fluent articulate, having choreiform movements head neck upper extremities not really distractible however attenuate with positional change no tremors no rigidity moving all extremities gravity with mild lower extremity bilateral weakness which she states is chronic PSYCHIATRIC: Appropriate mood and affect - Constitutional no acute distress - Routine HEENT Exam Head: Present: normocephalic - Urinary Catheter Management Straight Cath placed during this visit: yes Reason for continuing: Acute urinary retention Insertion date: 12/04/17 Insertion time: 13:00 Indwelling Urethral Catheter Cath placed during this visit: no Objective Laboratory Results - last 24 hr 12/04/17 12/04/17 12/04/17 11:01 17:25 19:00 WBC RBC Hgb Hct MCV MCH MCHC RDW Plt Count MPV Prelim Diff (Auto) Neut % (Auto) Lymph % (Auto) Snyder % (Auto) Eos % (Auto) Baso % (Auto) Neut # (Auto) Lymph # (Auto) Snyder # (Auto) Eos # (Auto) Baso # (Auto) WBC Differential Seg Neuts % (Manual) Band Neuts % (Manual) Lymphocytes % (Manual) Monocytes % (Manual) Abs Neuts (Manual) Differential Comment Platelet Estimate Platelet Morphology Sodium 141 Potassium 4.1 Chloride 110 H Carbon Dioxide 18.7 L Anion Gap 12 BUN 10 Creatinine 0.72 Estimated GFR 77 L POC Glucose 86 92 Random Glucose 117 H Calcium 8.2 L Prot Corrected Calcium Phosphorus 2.7 Magnesium 2.3 Troponin I Total Protein Vitamin B12 Free T4 Free T3 12/04/17 12/04/17 12/05/17 19:00 21:07 00:00 WBC RBC Hgb Hct MCV MCH MCHC RDW Plt Count MPV Prelim Diff (Auto) Neut % (Auto) Lymph % (Auto) Snyder % (Auto) Eos % (Auto) Baso % (Auto) Neut # (Auto) Lymph # (Auto) Snyder # (Auto) Eos # (Auto) Baso # (Auto) WBC Differential Seg Neuts % (Manual) Band Neuts % (Manual) Lymphocytes % (Manual) Monocytes % (Manual) Abs Neuts (Manual) Differential Comment Platelet Estimate Platelet Morphology Sodium Potassium Chloride Carbon Dioxide Anion Gap BUN Creatinine Estimated GFR POC Glucose 180 H Random Glucose Calcium Prot Corrected Calcium Phosphorus Magnesium Troponin I 0.04 Total Protein Vitamin B12 1016 H Free T4 1.85 H Free T3 1.25 L 12/05/17 12/05/17 12/05/17 05:35 05:38 07:56 WBC 36.6 H RBC 3.93 L Hgb 12.4 Hct 38.0 MCV 96.7 MCH 31.7 MCHC 32.8 RDW 14.1 Plt Count 362 MPV 9.7 Prelim Diff (Auto) Slide review pending Neut % (Auto) 88.0 H Lymph % (Auto) 7.2 L Snyder % (Auto) 4.6 Eos % (Auto) 0.0 Baso % (Auto) 0.2 Neut # (Auto) 32.2 H Lymph # (Auto) 2.6 Snyder # (Auto) 1.7 H Eos # (Auto) 0.0 Baso # (Auto) 0.1 WBC Differential Manual diff final Seg Neuts % (Manual) 78 H Band Neuts % (Manual) 14 H Lymphocytes % (Manual) 3 L Monocytes % (Manual) 5 Abs Neuts (Manual) 33.7 H Differential Comment . Platelet Estimate Normal Platelet Morphology Normal Sodium 142 Potassium 3.6 Chloride 116 H Carbon Dioxide 14.8 L Anion Gap 11 BUN 11 Creatinine 0.47 L Estimated GFR Greater than 89 POC Glucose 237 H Random Glucose 232 H D Calcium 6.2 L* D Prot Corrected Calcium 7.5 L Phosphorus 2.3 L Magnesium 1.7 D Troponin I Total Protein 4.4 L D Vitamin B12 Free T4 Free T3 Microbiology 12/04/17 21:20 Gram Stain - Final Sputum - Expectorated Sputum 12/02/17 18:00 Urine Culture - Final Catheterized Urine Enterococcus faecalis 12/02/17 13:29 Aerobic Blood Culture - Preliminary Blood - Peripheral No growth in 2 days Anaerobic Blood Culture - Preliminary No growth in 2 days 12/02/17 13:24 Aerobic Blood Culture - Preliminary Blood - Peripheral No growth in 2 days Anaerobic Blood Culture - Preliminary No growth in 2 days Review/Management - Diagnosis (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 Status: Acute Current Visit: Yes (2) Intractable low back pain Code(s): M54.5 - Low back pain Status: Acute Current Visit: Yes (3) S/P AVR Code(s): Z95.2 - Presence of prosthetic heart valve Status: Chronic Current Visit: No (4) HTN (hypertension) Code(s): I10 - Essential (primary) hypertension Status: Chronic Current Visit: Yes (5) Spinal stenosis, lumbar region with neurogenic claudication Code(s): M48.062 - Spinal stenosis, lumbar region with neurogenic claudication Status: Acute Current Visit: Yes - Review/Management Plan: Question chorea related to electrolyte change versus vascular check ceruloplasmin, vitamin B12, thyroid hormones, mikal. If negative work up consider genetic test for Huntingtons disease. review smear for acanthocytes ( i.e. acanthocytosis) trial of zyprexa for chorea. Started yesterday Found to have right carotid stenosis seen by vascular surgery Bryon this morning Recommendations Correct correct calcium level We will try Tegretol 200 mg twice daily Next week and consider low-dose benzodiazepine in addition to increasing dose of Zyprexa although that may cause hypersomnolence Would try tetrabenazine however not be available in the formulary
[2017-12-05] MEDS: carBAMazepine 200 MG Tablet PO SCH ×2 (12:54→20:31)
[2017-12-05] MEDS: Mag Sulf 1 gm/100 ml Premix 100 ML IV.SIG SCH ×2 (12:55→16:03)
[2017-12-05] MEDS ORDERED: Digoxin Inj 500 MCG/2 ML Ampul IV.PUSH ONE (13:36)
--- NOTE | 2017-12-05 14:43 | ECG ---
Date Performed: 12/04/2017 Time Performed: 17:54:08 PTAGE: 82 years EKG: Probable atrial fibrillation with rapid ventricular response with PVC(s). Left bundle branc h block Abnormal ECG Since the PREVIOUS TRACING , no significant change noted PREVIOUS TRACIN12/02/2017 13.18 DOCTOR: Aguila Lynch Interpretating Date/Time 12/05/2017 14:36:50
[2017-12-05] MEDS ORDERED: Mag Sulf 1 gm/100 ml Premix 100 ML IV.SIG ONE (15:02)
[2017-12-05] MEDS: Piperacil/Tazo 4.5 GM Premix 4.5 GM/100 ML BAG IV.SIG SCH ×2 (18:41→22:57)
[2017-12-05] MEDS: Heparin - SQ 10,000 UNITS/ML Vial SQ SCH (20:29)
[2017-12-06] MEDS: Sod Chloride 0.9% Inj 1,000 ML IV.CONT SCH ×2 (01:33→14:45)
[2017-12-06] MEDS: Oral Hygiene Kit OROPHARYNG SCH ×4 (01:34→16:50)
[2017-12-06] MEDS: Insulin NovoLOG Aspart Correctional Sugar Inj SQ SCH ×5 (01:34→20:44)
--- NOTE | 2017-12-06 04:00 | XR ---
EXAM DATE: 12/06/2017 3:47 AM EDT AGE/SEX: 82 years / Female INDICATIONS: Shortness of breath, possible pulmonary disease. CLINICAL DATA: This is the patient's subsequent encounter. Patient reports that signs and symptoms h ave been present for 1 week and indicates a pain score of Nonresponsive. MEDICAL/SURGICAL HISTORY: Chronic obstructive pulmonary disease. CABG. COMPARISON: [facility] – [place], CHEST 1V SINGLE AP, 12/05/2017. . FINDINGS: Small pleural effusions and mild atelectasis of both lung bases are slightly worse than yesterday. I don't see a pneumothorax. Heart size stable, upper limits of normal. Patient has had previous median sternotomy. Thoracic aorta is tortuous. CONCLUSION: Slight worsening of bibasilar consolidation and small effusions. Electronically signed by: Noam Becker MD 12/06/2017 3:59 AM EDT
[2017-12-06 04:50] LABS: Baso % (Auto) 0.1 % (0.0-2.0); Hematocrit 31.5 % (35.0-46.0); Hemoglobin 10.6 gm/dL (11.6-15.3); Lymph # (Auto) 0.7 th/mm3 (1.0-4.8); Lymph % (Auto) 2.7 % (9.0-44.0); Mean Corpuscular HGB Conc 33.7 % (32.0-36.0); Mean Corpuscular Hemoglobin 32.3 pg (27.0-34.0); Mean Corpuscular Volume 95.7 fL (80.0-100.0); Mean Platelet Volume 9.3 fL (7.0-11.0); Mono # (Auto) 2.3 th/mm3 (0.0-0.9); Mono % (Auto) 8.4 % (0.0-8.0); Neut # (Auto) 23.8 th/mm3 (1.8-7.7); Neut % (Auto) 88.8 % (16.0-70.0); Platelet Count 359 th/mm3 (150-450); Red Blood Count 3.29 mil/mm3 (4.00-5.30); Red Cell Distribution Width 13.8 % (11.6-17.2); White Blood Count 26.9 th/mm3 (4.0-11.0)
[2017-12-06] MEDS: Chlorhexidine Gluconate 2% 1 Pack (2 Cloths) TOPICAL SCH (05:00)
[2017-12-06] MEDS: Piperacil/Tazo 4.5 GM Premix 4.5 GM/100 ML BAG IV.SIG SCH ×4 (05:06→22:05)
[2017-12-06 05:17] LABS: Calcium 8.4 mg/dL (8.5-10.1); Carbon Dioxide 20.5 meq/L (21.0-32.0); Magnesium 2.3 mg/dL (1.5-2.5); Potassium 4.2 meq/L (3.5-5.1)
[2017-12-06 05:35] LABS: Digoxin 0.8 ng/mL (0.8-2.0); Phosphorus 2.6 mg/dL (2.5-4.9)
[2017-12-06] MEDS: Levothyroxine 50 MCG Tablet PO SCH (06:34)
[2017-12-06 08:10] LABS: Monocytes 6 % (0-8); RBC Morphology Normal (Normal)
[2017-12-06 08:11] LABS: Platelet Estimate Normal (Normal); Platelet Morphology Normal (Normal)
[2017-12-06] MEDS: OLANZapine 2.5 MG Tablet PO SCH (09:28)
[2017-12-06] MEDS: Chlorhexidine 0.12% Oral Kit 15 ML UDC OROPHARYNG SCH ×2 (09:28→22:06)
[2017-12-06] MEDS: carBAMazepine 200 MG Tablet PO SCH ×2 (09:28→20:00)
[2017-12-06] MEDS: Heparin - SQ 10,000 UNITS/ML Vial SQ SCH ×2 (09:28→22:06)
[2017-12-06] MEDS: Carboxymethylcellulose 0.5% Opth Drops 15 ML Bottle EACH EYE SCH ×2 (09:28→20:01)
[2017-12-06] MEDS: Senna/Docusate Sodium 8.6/50 MG Tablet PO SCH ×2 (09:28→20:00)
[2017-12-06] MEDS ORDERED: HYDROmorphone PF Inj 0.5 MG/0.5 ML Syringe IV.PUSH PRN (10:52)
--- NOTE | 2017-12-06 10:54 | P.PNCC ---
Subjective Subjective Remarks/Hospital Course: This is an 82-year-old female. Date of admission 11/30/2017. Date of consultation 12/02/2017. Past medical history includes coronary disease status post CABG x1, porcine aortic valve replaced, essential hypertension, hyperlipidemia, history of right basal ganglia CVA, history of left MCA aneurysm , COPD and restrictive lung disease, chronic left bundle branch block, restless leg syndrome, hypothyroidism and spinal stenosis. Patient presents to [facility] 11/30 with 2-week history of worsening low back pain/radiating down her back/sides. Patient was evaluated by neurosurgery/Dr. Locke. She has a severe L3-4 and L4- 5 spinal stenosis from facet and ligamentum flavum hypertrophy along with the disc protrusions and degenerative changes at other levels.Due to the intractable low back pain and bilateral neurogenic claudication/radiculopathy. Treatment options were discussed with the patient and her son including continued nonsurgical management involving pain control with medications and interventional pain management with epidural steroid injections and physical therapy. We also discussed the option of surgical intervention involving an L3- L5 decompressive laminectomy. Patient and his son refused any surgical intervention Today, patient was to undergo an JASON with interventional radiology. Patient received lorazepam, hydromorphone and hydrocodone/acetaminophen today per medical record. While in IR, patient had acute onset of violent acute dystonia and choreiform movements. These also include arching of her back. Did not see any ocular gyri movements on my initial examination prior to intubation. This lasted approximately 15-30 minutes. During this time the patient was hypertensive and had decreased saturations. She was able to speak and respond accordingly through these movements Noted no antiemetics, antipsychotics appear to have been given 12/03: Currently sedated on the ventilator and 40 mg/kg/min of propofol and 50 mg /h of fentanyl. MRI showed possible left lacunar infarct. 90 percent stenosis right carotid artery. Vascular surgery routine consult. EEG showed bilateral frontal sharp activity and moderate encephalopathy. 12/04: On sedation vacation yesterday, patient with writhing dystonic movements. Recent data. Question penis. Plan for epidural steroid injection today. Schedule opiate use and will reattempt extubation post epidural steroid injection. 12/05: Extubated at 2030 yesterday. Currently on 5 L nasal cannula. Continues to have considering choreiform type movements. Started on olanzapine 20 mg daily. Will be reevaluated by neurology again today. Passed swallow evaluation. SUBJECTIVE: 12/06: Currently on 5 L nasal cannula saturation 100%. Core for movements emily. Episodes of pauses yesterday. Discontinue levofloxacin and held Tegretol. No further pauses noted. Continues in left bundle branch block. Intermittent A. fib. Objective Vital Signs / I&O: Vital Signs 12/05/17 11:00 12/05/17 11:01 12/05/17 11:10 Pulse Rate 63 65 69 Respiratory Rate 37 H 46 H 24 Blood Pressure 113/56 L Pulse Oximetry 95 95 12/05/17 11:31 12/05/17 12:00 12/05/17 12:10 Pulse Rate 62 81 68 Respiratory Rate 24 55 H 54 H Blood Pressure 110/56 L 113/57 L Pulse Oximetry 97 93 L 96 12/05/17 12:55 12/05/17 13:00 12/05/17 13:22 Pulse Rate 64 71 Respiratory Rate 29 H 58 H 18 Blood Pressure 125/54 L Pulse Oximetry 95 95 12/05/17 13:30 12/05/17 14:00 12/05/17 14:07 Pulse Rate 119 H 68 66 Respiratory Rate 33 H 26 H 47 H Blood Pressure 95/52 L 125/59 L Pulse Oximetry 94 L 97 97 12/05/17 15:00 12/05/17 15:01 12/05/17 15:10 Pulse Rate 65 65 76 Respiratory Rate 29 H 28 H 16 Blood Pressure 108/56 L Pulse Oximetry 99 97 12/05/17 16:00 12/05/17 16:01 12/05/17 17:00 Pulse Rate 75 86 60 Respiratory Rate 45 H 51 H 22 Blood Pressure 121/58 L 112/49 L Pulse Oximetry 96 97 96 12/05/17 18:00 12/05/17 18:01 12/05/17 19:53 Pulse Rate 63 63 60 Respiratory Rate 37 H 46 H 20 Blood Pressure 115/51 L Pulse Oximetry 97 99 97 12/05/17 20:00 12/05/17 22:00 12/05/17 23:18 Pulse Rate 60 78 80 Respiratory Rate 22 24 Blood Pressure 117/59 L Pulse Oximetry 97 12/06/17 00:00 12/06/17 02:00 12/06/17 03:28 Pulse Rate 73 65 67 Respiratory Rate 22 20 Blood Pressure 142/84 H Pulse Oximetry 99 12/06/17 04:00 12/06/17 06:00 12/06/17 07:00 Pulse Rate 77 70 65 Respiratory Rate 22 16 Blood Pressure 115/62 Pulse Oximetry 97 12/06/17 07:44 Pulse Rate Respiratory Rate Blood Pressure Pulse Oximetry 99 Intake & Output 12/05/17 12/06/17 12/06/17 18:59 06:59 18:59 Intake Total 1054.64 / 1054.64 1098 / 1098 100 / 100 Output Total 1000 / 1000 1100 / 1100 Balance 54.64 / 54.64 -2 / -2 100 / 100 Weight 59.5 kg Intake: IV 1054.64 / 1054.64 998 / 998 100 / 100 Cordarone Inj 450 MG In D5W Inj 66.64 / 66.64 241 ML @ 1 MG/MIN 33.33 mls/hr IV.CONT TITRATE PRN Rx#: [id number] NS Inj 1,000 ML @ 84 mls/hr IV. 538 / 538 538 / 538 CONT .[id number] [facility] Rx#:[id number] Levaquin 750 mg Premix Inj 150 150 / 150 ML @ 100 mls/hr IV.SIG Q24H [facility] Rx#:[id number] Magnesium Sulfate 1 gm/D5W 100 300 / 300 ml Premix 100 ML @ 100 mls/hr IV.SIG ONCE ONE Rx#:[id number] Zosyn 4.5 GM Premix 4.5 gm In 200 / 200 100 / 100 100 ml @ 200 mls/hr IV.SIG Q6H [facility] Rx#:[id number] Potassium Phosphate Inj 30 MMOL 260 / 260 In NS Inj 250 ML @ 43.333 mls/ hr IV.SIG ONCE ONE Rx#:[id number] Oral 100 / 100 Output: Urine Amount (Catheter) 1000 / 1000 1100 / 1100 Indwelling Urethral Catheter 1000 / 1000 1100 / 1100 Result Diagrams: 12/06/17 03:54 12/06/17 03:54 Other Results: Microbiology 12/04/17 21:20 Sputum - Expectorated Sputum Gram Stain - Final 12/04/17 21:20 Sputum - Expectorated Sputum Sputum Culture - Final Heavy growth normal respiratory chiara 12/02/17 13:29 Blood - Peripheral Aerobic Blood Culture - Preliminary No growth in 4 days 12/02/17 13:29 Blood - Peripheral Anaerobic Blood Culture - Preliminary No growth in 4 days 12/02/17 13:24 Blood - Peripheral Aerobic Blood Culture - Preliminary No growth in 4 days 12/02/17 13:24 Blood - Peripheral Anaerobic Blood Culture - Preliminary No growth in 4 days 12/02/17 18:00 Catheterized Urine Urine Culture - Final Enterococcus faecalis Imaging: Hip X-Ray 11/30/17 12:52 CONCLUSION: There is no evidence of acute fracture. Hip X-Ray 11/30/17 12:52 CONCLUSION: There is no evidence of acute fracture. Lumbar Spine MRI 12/01/17 00:00 CONCLUSION: 1. Retrolisthesis of L1 on L2 and L2 on L3. Marked disc space narrowing and low -grade discogenic edema at L2-3. 2. Moderate to severe canal stenosis at the L4-5 level secondary to broad- based diffuse annular bulge and marked hypertrophy of the posterior elements. Scattered areas of neural foraminal narrowing as described above Chest X-Ray 12/02/17 00:00 CONCLUSION: 1. No acute abnormality or significant interval change. Chest X-Ray 12/02/17 00:00 CONCLUSION: 1. Endotracheal tube in good position 3 cm above the sarah. 2. Nasogastric tube has its tip in the distal esophagus and should be positioned more distally at least to the level of the stomach. 3. Cardiomegaly. 4. No focal infiltrate or pulmonary vascular congestion. Head MRA 12/02/17 00:00 CONCLUSION: 1. Hypoplastic P1 segment on the right with a patent posterior communicating artery. 2. Some asymmetry in the middle cerebral artery size, left being larger in the region of the sylvian fissure. Neck MRA 12/02/17 00:00 CONCLUSION: 1. Short segment high-grade stenosis involving the origin of the right internal carotid artery suggesting greater than 90% stenosis. 2. No significant stenosis within the left internal carotid artery. Percent stenosis is calculated using the diameter of the stenotic region over the diameter of the normal distal internal carotid artery Head MRI 12/02/17 12:29 CONCLUSION: 1. Diffuse atrophy. No evidence of an acute stroke, mass or mass effect. There may be a small old lacunar infarct on the left. No acute subarachnoid or subdural hematoma is identified Chest X-Ray 12/03/17 00:00 CONCLUSION: NG tube tip in the stomach Epidural Injection 12/04/17 00:00 CONCLUSION: 1. Uncomplicated fluoroscopically guided epidural injection as above. Chest X-Ray 12/04/17 06:00 CONCLUSION: No significant change. Trace basilar atelectasis again seen. Chest X-Ray 12/05/17 06:00 CONCLUSION: 1. No significant change very mild bibasilar atelectasis. 2. Interim extubation and nasogastric tube removal. Chest X-Ray 12/06/17 06:00 CONCLUSION: Slight worsening of bibasilar consolidation and small effusions. Objective Remarks: GENERAL: 82-year-old female currently on 6 L nasal cannula SKIN: Warm and dry. HEAD: Atraumatic. Normocephalic. EYES: Pupils equal and round. No scleral icterus. No injection or drainage. ENT: No nasal bleeding or discharge. Mucous membranes pink and moist. NECK: Trachea midline. No JVD. No obvious bruit in the right side CARDIOVASCULAR: RRR. S1, S2 no S4.. RESPIRATORY: No accessory muscle use. Clear to auscultation. Breath sounds equal bilaterally. GASTROINTESTINAL: Abdomen soft, non-tender, nondistended. Hepatic and splenic margins not palpable. MUSCULOSKELETAL: Extremities without clubbing, cyanosis, or edema. No obvious deformities. NEUROLOGICAL: Resting in bed. Poor deformity or involuntary movements. Awake and oriented to person and time not place. Assessment and Plan - Assessment and Plan Plan: Neuro/Psych: Acute dystonia, cord for movements unclear etiology History of right basal ganglia CVA History of left MCA aneurysm Chronic pain syndrome Right carotid stenosis Has not received any antipsychotics or antiemetics. No obvious medications given that might cause these symptoms. Stat MRI/MRA brain/neck revealed possible left lacunar infarct. Hypoplastic P1 segment. Right internal carotid artery 90% stenosis. EEG revealed bifrontal sharp activity with moderate encephalopathy. Clinical correlation recommended. Appreciate consultation by Dr. Smith/neurology. Currently on olanzapine 2.5 mg daily. And carbamazepine 200 mg 3 times daily Holding diclofenac 75 mg twice daily and hydrocodone/acetaminophen 5/325 1 tablet every 6 hours as needed/home medication On oxycodone 5 mg every 6 hours and as needed hydromorphone 0.5 mg every 6 hours as needed breakthrough pain On lorazepam 0.5 every 8 hours as needed agitation CV: Essential hypertension Hyperlipidemia Sinus tachycardia Coronary artery disease status post CABG 1 History of porcine aortic valve replacement Left bundle branch block Elevated troponin 0 0.20 likely secondary to type II demand ischemia Atrial fibrillation with RVR currently normal sinus rhythm. Amiodarone drip discontinued. Currently on losartan 25 mg twice daily for essential hypertension at home medication As needed labetalol, Nitropaste and Cardene drip for hypertension Troponin currently 0.20. Recheck 0.05 Current echocardiogram EF around 55%. Appreciate vascular input to right carotid stenosis Resp: Acute respiratory failure -resolving COPD Restrictive lung disease Tobaccoism Nasal cannula to maintain saturations greater than equal to 92% Incentive spirometry while awake Albuterol/ipratropium aerosols every 4 hours with albuterol aerosols every 2 hours as needed for dyspnea Chest x-ray ordered for a.m. 12/06 Self evaluation self tobacco cessation booklet will be provided when clinically indicated GI: Advance diet per speech therapy Famotidine for GI prophylaxis Docusate sodium/senna 1 tablet twice daily for bowel regimen : Junior catheter if indicated for accurate I's and O's in a critically ill patient Endo: Hypothyroidism Sliding scale insulin Accu-Cheks every 6 hours to maintain euglycemia/aspart insulin medium protocol Continue levothyroxine 50 mcg by mouth daily Check TSH 0.470 Renal: Creatinine currently within normal limits Monitor urine output Accurate I's and O's Heme: Leukocytosis Normocytic anemia Monitor CBC daily. Follow trends. No indication for transfusion of blood products at this time. ID: Enterococcus faecalis UTI Levofloxacin 750 mg IV every 24 hours Suture Pipracil/tazobactam due to A. fib. Monitor for signs and symptomatology infection Sputum 12/04 normal chiara FEN: Replace electrolytes as clinically indicated MSK: Retrolisthesis L1 on L2 and L2 and L3 L4/L5 severe stenosis with annular bulge Evaluate Dr. Locke/neurosurgery. Patient's family refused surgery. Epidural steroid injection L4/L5 on 12/04 Access -Utilize peripheral IV. Central line if indicated Prophylaxis -GI -famotidine -DVT-SCDs/holding pharmacologic prophylaxis with heparin subcu Level 2 follow-up
[2017-12-06] MEDS ORDERED: Glycerin Adult 2 GM Supp RECTAL ONE (11:15)
--- NOTE | 2017-12-06 11:49 | ECG ---
Date Performed: 12/05/2017 Time Performed: 15:12:13 PTAGE: 82 years EKG: Sinus rhythm POSSIBLE LEFT ATRIAL ENLARGEMENT LEFT BUNDLE BRANCH BLOCK ABNORMAL ECG Since the PREVIOUS TRACING , no significant change noted PREVIOUS TRACIN12/04/2017 17.54 DOCTOR: Aguila Lynch Interpretating Date/Time 12/06/2017 11:47:19
--- NOTE | 2017-12-06 13:47 | XR ---
EXAM DATE: 12/06/2017 1:41 PM EDT AGE/SEX: 82 years / Female INDICATIONS: Constipation. CLINICAL DATA: This is the patient's initial encounter. Patient reports that signs and symptoms have been present for 1 day and indicates a pain score of Nonresponsive. MEDICAL/SURGICAL HISTORY: Chronic obstructive pulmonary disease. CABG. COMPARISON: [facility] – [place], CTA ABDOMEN & PELVIS W 3D RECON, 01/12/2014. . FINDINGS: Atherosclerotic calcification of the aorta and degenerative changes of the spine are seen. Left prox imal femur intramedullary maribel and femoral neck fixation hardware placement. Nonobstructive bowel gas pattern. A mild amount of stool is seen. CONCLUSION: Nonobstructive bowel gas pattern. Electronically signed by: Tai Richard MD 12/06/2017 1:46 PM EDT
[2017-12-06] MEDS ORDERED: Methylnaltrexone Inj 12 MG/0.6 ML Vial SQ ONE (15:00)
--- NOTE | 2017-12-06 15:18 | P.PNNEU ---
Subjective Subjective Comments: no cp, no dyspnea, no christianson, no focal weakness, no vision loss Son at bedside states she has had involuntary movements for the past couple months at least. Better this morning Active Medications: Active Medications Acetaminophen (Tylenol Liq) 650 mg PO Q6H PRN PRN Reason: FEVER Al Hydroxide/Mg Hydroxide (Milk Of Magnesia Liq) 30 ml PO Q12H PRN PRN Reason: Mild Constipation Albuterol (Albuterol Neb (Prn)) 2.5 mg NEB Q2HR NEB PRN PRN Reason: SHORTNESS OF BREATH/WHEEZING Albuterol (Duoneb Neb (Coleen)) 1 ampul NEB Q4HR NEB [facility] Last Admin: 12/06/17 15:07 Dose: 1 ampul Artificial Tears (Refresh Tears 0.5% Opth Drops) 1 drop EACH EYE BID [facility] Last Admin: 12/06/17 09:28 Dose: 1 drop Aspirin (Aspirin Chew) 81 mg PO DAILY [facility] Last Admin: 12/06/17 09:28 Dose: 81 mg Atorvastatin Calcium (Lipitor) 10 mg PO HS [facility] Last Admin: 12/05/17 20:30 Dose: 10 mg Bisacodyl (Dulcolax Supp) 10 mg RECTAL DAILY PRN PRN Reason: SEVERE CONSITIPATION Carbamazepine (Tegretol) 200 mg PO BID [facility] Last Admin: 12/06/17 09:28 Dose: 200 mg Chlorhexidine Gluconate (Peridex 0.12% Oral Kit) 15 ml OROPHARYNG BID@0800, 2000 [facility] Last Admin: 12/06/17 09:28 Dose: Not Given Chlorhexidine Gluconate (Chlorhexidine 2% Cloth) 3 pack TOPICAL DAILY@0400 [facility] Stop: 12/08/17 03:59 Last Admin: 12/06/17 05:00 Dose: 3 pack Chlorhexidine Gluconate (Chlorhexidine 2% Cloth) 3 pack TOPICAL DAILY@0400 PRN PRN Reason: Extra cloth needed Stop: 12/08/17 03:59 Dextrose (D50w Vial) 50 ml IV.PUSH UNSCH PRN PRN Reason: PER HYPOGLYCEMIA PROTOCOL Glucagon (Glucagon Inj) 1 mg OTHER UNSCH PRN PRN Reason: for Hypoglycemia Protocol Heparin Sodium (Porcine) (Heparin Inj) 5,000 units SQ Q12HR [facility] Last Admin: 12/06/17 09:28 Dose: 5,000 units Hydromorphone HCl (Dilaudid Pf Inj) 0.5 mg IV.PUSH Q4H PRN PRN Reason: BREAKTHROUGH PAIN Sodium Chloride (Ns Inj) 1,000 mls @ 84 mls/hr IV.CONT .[id number] [facility] Last Admin: 12/06/17 01:33 Dose: 84 mls/hr Magnesium Sulfate 4 gm/ Sodium (Chloride) 100 mls @ 50 mls/hr IV.SIG UNSCH PRN PRN Reason: For Magnesium 0.9 - 1.1 mg/dL Magnesium Sulfate 2 gm/ Sodium (Chloride) 100 mls @ 50 mls/hr IV.SIG UNSCH PRN PRN Reason: For Magnesium 1.2 - 1.6 mg/dL Potassium Chloride (Kcl 40 Meq Premix Inj) 40 meq in 100 mls @ 50 mls/hr IV.SIG Q2H PRN PRN Reason: For Potassium 2.8 - 3.2 mEq/L Potassium Chloride (Kcl 20 Meq Premix Inj) 20 meq in 100 mls @ 50 mls/hr IV.SIG Q2H PRN PRN Reason: For Potassium 3.3 - 3.5 mEq/L Potassium Chloride (Kcl 40 Meq Premix Inj) 40 meq in 100 mls @ 25 mls/hr IV.SIG UNSCH PRN PRN Reason: For Potassium 3.3 - 3.5 mEq/L Potassium Chloride (Kcl 20 Meq Premix Inj) 20 meq in 100 mls @ 50 mls/hr IV.SIG Q2H PRN PRN Reason: For Potassium 2.8 - 3.2 mEq/L Potassium Phosphate 30 mmol/ (Sodium Chloride) 260 mls @ 42 mls/hr IV.SIG UNSCH PRN PRN Reason: SEE LABEL COMMENTS Sodium Phosphate 30 mmol/ (Sodium Chloride) 260 mls @ 42 mls/hr IV.SIG UNSCH PRN PRN Reason: For Phosphorus < 2.5 mg/dL Piperacillin/Tazobactam/Dextrose (Zosyn 4.5 Gm Premix) 4.5 gm in 100 mls @ 200 mls/hr IV.SIG Q6H [facility] Last Infusion: 12/06/17 10:00 Dose: Infused Insulin Aspart (Novolog Insulin Correctional Sugar Inj) 0 unit SQ ACHS [facility]; Protocol Last Admin: 12/06/17 12:56 Dose: Not Given Labetalol HCl (Trandate Inj) 10 mg IV.PUSH Q1H PRN PRN Reason: SYS BP GREATER THAN 170 MMHG Lactulose (Lactulose Liq) 30 ml PO DAILY PRN PRN Reason: SEVERE CONSITIPATION Levothyroxine Sodium (Synthroid) 50 mcg PO DAILY@0600 [facility] Last Admin: 12/06/17 06:34 Dose: 50 mcg Lorazepam (Ativan) 0.5 mg PO Q8H PRN PRN Reason: ANXIETY AND/OR AGITATION Last Admin: 12/01/17 10:20 Dose: 0.5 mg Losartan Potassium (Cozaar) 25 mg PO BID [facility] Last Admin: 12/06/17 09:28 Dose: 25 mg Magnesium Oxide (Mag-Ox) 800 mg PO UNSCH PRN PRN Reason: For Magnesium 1.2 - 1.6 mg/dL Miscellaneous Medication () 1 each OROPHARYNG 0000,0400,1200,1600 [facility] Last Admin: 12/06/17 12:56 Dose: Not Given Nitroglycerin (Nitro-Bid 2% Oint) 1 inch TOPICAL Q6HR PRN PRN Reason: SBP>160, DBP>90 Olanzapine (Zyprexa) 2.5 mg PO DAILY [facility] Last Admin: 12/06/17 09:28 Dose: 2.5 mg Oxycodone HCl (Roxicodone Intensol Liq) 5 mg PO Q6H [facility] Last Admin: 12/06/17 12:56 Dose: 5 mg Polyethylene Glycol (Miralax) 17 gm PO BID [facility] Potassium Bicarb/Potassium Chloride (K-Lyte Cl Eff) 50 meq PO UNSCH PRN PRN Reason: For Potassium 3.3 - 3.5 mEq/L Potassium Phosphate (K-Phos Original) 2,000 mg PO Q4H PRN PRN Reason: Phosphorus Less Than 2.5 mg/dL Potassium Phosphate (K-Phos Original) 2,000 mg PO UNSCH PRN PRN Reason: SEE LABEL COMMENTS Senna/Docusate Sodium (Joyce-Colace) 1 tab PO BID [facility] Last Admin: 12/06/17 09:28 Dose: 1 tab Sennosides (Senokot) 17.2 mg PO Q12H PRN PRN Reason: Moderate Constipation Sodium Chloride (Ns Flush) 2 ml IV.FLUSH BID [facility] Last Admin: 12/06/17 09:28 Dose: 2 ml Sodium Chloride (Ns Flush) 2 ml IV.FLUSH PRN PRN PRN Reason: FLUSH AFTER USING IV ACCESS Allergies/Adverse Reactions: Allergies Allergy/AdvReac Type Severity Reaction Status Date / Time adhesive Allergy Severe ADHESIVE Verified 11/30/17 12:22 TAPE/BLISTERS SKIN doxycycline Allergy Severe Irritation Verified 11/30/17 12:22 minocycline Allergy Severe Irritation Verified 11/30/17 12:22 tigecycline Allergy Severe Irritation Verified 11/30/17 12:22 *MDRO Multi-Drug Resistant AdvReac Unknown Hiccups Uncoded 11/30/17 12:22 Organism Review of Systems All other systems reviewed negative except as stated in HPI Physical Exam Vital signs: Vital Signs 12/05/17 16:00 12/05/17 16:01 12/05/17 17:00 Temperature Pulse Rate 75 86 60 Respiratory Rate 45 H 51 H 22 Blood Pressure 121/58 L 112/49 L Pulse Oximetry 96 97 96 12/05/17 18:00 12/05/17 18:01 12/05/17 19:53 Temperature Pulse Rate 63 63 60 Respiratory Rate 37 H 46 H 20 Blood Pressure 115/51 L Pulse Oximetry 97 99 97 12/05/17 20:00 12/05/17 22:00 12/05/17 23:18 Temperature Pulse Rate 60 78 80 Respiratory Rate 22 24 Blood Pressure 117/59 L Pulse Oximetry 97 12/06/17 00:00 12/06/17 02:00 12/06/17 03:28 Temperature Pulse Rate 73 65 67 Respiratory Rate 22 20 Blood Pressure 142/84 H Pulse Oximetry 99 12/06/17 04:00 12/06/17 06:00 12/06/17 07:00 Temperature Pulse Rate 77 70 67 Respiratory Rate 22 21 Blood Pressure 115/62 185/77 H Pulse Oximetry 97 95 12/06/17 07:19 12/06/17 07:44 12/06/17 08:00 Temperature 98.3 F Pulse Rate 67 74 Respiratory Rate 21 35 H Blood Pressure 193/75 H Pulse Oximetry 93 L 99 96 12/06/17 08:01 12/06/17 08:13 12/06/17 09:00 Temperature Pulse Rate 78 67 77 Respiratory Rate 42 H 27 H 39 H Blood Pressure 185/154 H 127/59 L Pulse Oximetry 94 L 98 90 L 12/06/17 09:01 12/06/17 09:57 12/06/17 10:00 Temperature Pulse Rate 76 76 Respiratory Rate 35 H 21 55 H Blood Pressure 148/64 H Pulse Oximetry 94 L 96 12/06/17 10:01 12/06/17 11:00 12/06/17 11:02 Temperature Pulse Rate 75 99 H 103 H Respiratory Rate 53 H 45 H 43 H Blood Pressure 144/65 H 155/129 H Pulse Oximetry 97 94 L 94 L 12/06/17 11:07 12/06/17 11:59 12/06/17 12:00 Temperature Pulse Rate 73 70 70 Respiratory Rate 30 H 23 40 H Blood Pressure 151/67 H Pulse Oximetry 95 95 12/06/17 12:01 12/06/17 15:00 Temperature Pulse Rate 68 73 Respiratory Rate 27 H 16 Blood Pressure 147/66 H Pulse Oximetry 95 Intake & Output 12/05/17 12/06/17 12/06/17 18:59 06:59 18:59 Intake Total 1054.64 / 1054.64 1098 / 1098 200 / 200 Output Total 1000 / 1000 1100 / 1100 Balance 54.64 / 54.64 -2 / -2 200 / 200 Weight 59.5 kg Intake: IV 1054.64 / 1054.64 998 / 998 200 / 200 Cordarone Inj 450 MG In D5W Inj 66.64 / 66.64 241 ML @ 1 MG/MIN 33.33 mls/hr IV.CONT TITRATE PRN Rx#: [id number] NS Inj 1,000 ML @ 84 mls/hr IV. 538 / 538 538 / 538 CONT .[id number] [facility] Rx#:[id number] Levaquin 750 mg Premix Inj 150 150 / 150 ML @ 100 mls/hr IV.SIG Q24H [facility] Rx#:[id number] Magnesium Sulfate 1 gm/D5W 100 300 / 300 ml Premix 100 ML @ 100 mls/hr IV.SIG ONCE ONE Rx#:[id number] Zosyn 4.5 GM Premix 4.5 gm In 200 / 200 200 / 200 100 ml @ 200 mls/hr IV.SIG Q6H [facility] Rx#:[id number] Potassium Phosphate Inj 30 MMOL 260 / 260 In NS Inj 250 ML @ 43.333 mls/ hr IV.SIG ONCE ONE Rx#:[id number] Oral 100 / 100 Output: Urine Amount (Catheter) 1000 / 1000 1100 / 1100 Indwelling Urethral Catheter 1000 / 1000 1100 / 1100 Narrative: GENERAL: Having involuntary movements SKIN: Warm and dry. HEAD: Atraumatic. Normocephalic. EYES: Pupils equal and round. No scleral icterus. ENT: No nasal bleeding or discharge. Mucous membranes pink and moist. NECK: Trachea midline. No JVD. CARDIOVASCULAR: Regular rate and rhythm. RESPIRATORY: No accessory muscle use. GASTROINTESTINAL: Abdomen soft, non-tender, nondistended. MUSCULOSKELETAL: Extremities without clubbing, cyanosis, or edema. No obvious deformities. NEUROLOGICAL: Awake and alert. Oriented 2-3, dysphonic speech no aphasia, fluent articulate, less arm Salo for movements although still is some head neck choreiform movements, cessation of chorea when patient follows motor requests no rigidity moving all extremities gravity with mild lower extremity bilateral weakness which she states is chronic PSYCHIATRIC: Appropriate mood and affect - Constitutional no acute distress - Routine HEENT Exam Head: Present: normocephalic - Urinary Catheter Management Straight Cath placed during this visit: yes Reason for continuing: Acute urinary retention Insertion date: 12/04/17 Insertion time: 13:00 Indwelling Urethral Catheter Cath placed during this visit: no Objective Laboratory Results - last 24 hr 12/06/17 12/06/17 12/06/17 01:27 03:54 03:54 WBC 26.9 H RBC 3.29 L Hgb 10.6 L Hct 31.5 L MCV 95.7 MCH 32.3 MCHC 33.7 RDW 13.8 Plt Count 359 MPV 9.3 Prelim Diff (Auto) Slide review pending Neut % (Auto) 88.8 H Lymph % (Auto) 2.7 L [place] % (Auto) 8.4 H Eos % (Auto) 0.0 Baso % (Auto) 0.1 Neut # (Auto) 23.8 H Lymph # (Auto) 0.7 L [place] # (Auto) 2.3 H Eos # (Auto) 0.0 Baso # (Auto) 0.0 WBC Differential Manual diff final Seg Neuts % (Manual) 74 H Band Neuts % (Manual) 20 H Monocytes % (Manual) 6 Abs Neuts (Manual) 25.3 H Differential Comment . Platelet Estimate Normal Platelet Morphology Normal RBC Morphology Normal Sodium 139 Potassium 4.2 Chloride 109 H Carbon Dioxide 20.5 L Anion Gap 10 BUN 18 Creatinine 0.81 Estimated GFR 67 L POC Glucose 88 Random Glucose 93 D Calcium 8.4 L D Phosphorus 2.6 Magnesium 2.3 D Digoxin 0.8 12/06/17 12:48 WBC RBC Hgb Hct MCV MCH MCHC RDW Plt Count MPV Prelim Diff (Auto) Neut % (Auto) Lymph % (Auto) [place] % (Auto) Eos % (Auto) Baso % (Auto) Neut # (Auto) Lymph # (Auto) [place] # (Auto) Eos # (Auto) Baso # (Auto) WBC Differential Seg Neuts % (Manual) Band Neuts % (Manual) Monocytes % (Manual) Abs Neuts (Manual) Differential Comment Platelet Estimate Platelet Morphology RBC Morphology Sodium Potassium Chloride Carbon Dioxide Anion Gap BUN Creatinine Estimated GFR POC Glucose 78 Random Glucose Calcium Phosphorus Magnesium Digoxin Microbiology 12/04/17 21:20 Gram Stain - Final Sputum - Expectorated Sputum Sputum Culture - Final Heavy growth normal respiratory chiara 12/02/17 13:29 Aerobic Blood Culture - Preliminary Blood - Peripheral No growth in 4 days Anaerobic Blood Culture - Preliminary No growth in 4 days 12/02/17 13:24 Aerobic Blood Culture - Preliminary Blood - Peripheral No growth in 4 days Anaerobic Blood Culture - Preliminary No growth in 4 days Review/Management - Diagnosis (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 Status: Acute Current Visit: Yes (2) Intractable low back pain Code(s): M54.5 - Low back pain Status: Acute Current Visit: Yes (3) S/P AVR Code(s): Z95.2 - Presence of prosthetic heart valve Status: Chronic Current Visit: No (4) HTN (hypertension) Code(s): I10 - Essential (primary) hypertension Status: Chronic Current Visit: Yes (5) Spinal stenosis, lumbar region with neurogenic claudication Code(s): M48.062 - Spinal stenosis, lumbar region with neurogenic claudication Status: Acute Current Visit: Yes - Review/Management Plan: Question chorea related to electrolyte change versus vascular check ceruloplasmin, vitamin B12, thyroid hormones, mikal. If negative work up consider genetic test for Huntingtons disease. review smear for acanthocytes ( i.e. acanthocytosis) trial of zyprexa for chorea. Started yesterday Found to have right carotid stenosis seen by vascular surgery Chorea this morning Recommendations Continue current regimen Would try tetrabenazine however not be available in the formulary Dr. Galan to follow
[2017-12-06] MEDS: HYDROmorphone PF Inj 2 MG/ML Vial IV.PUSH PRN (17:47)
[2017-12-06] MEDS: Polyethylene Glycol 3350 17 GM Packet PO SCH (20:00)
[2017-12-06] MEDS: Dextrose 50% in Water 50 ML Vial IV.PUSH PRN (20:43)
[2017-12-07] MEDS: Oral Hygiene Kit OROPHARYNG SCH ×4 (00:41→15:50)
[2017-12-07] MEDS: HYDROmorphone PF Inj 2 MG/ML Vial IV.PUSH PRN ×3 (00:44→23:10)
[2017-12-07] MEDS: Sod Chloride 0.9% Inj 1,000 ML IV.CONT SCH ×4 (03:16→23:12)
[2017-12-07] MEDS: Metoprolol Inj 5 MG/5 ML Vial IV.PUSH PRN ×3 (03:22→03:53)
[2017-12-07] MEDS: Piperacil/Tazo 4.5 GM Premix 4.5 GM/100 ML BAG IV.SIG SCH ×4 (03:52→21:49)
[2017-12-07] MEDS ORDERED: Naloxone Inj 0.4 MG/ML Vial IV.PUSH ONE (04:15)
[2017-12-07] MEDS: Chlorhexidine Gluconate 2% 1 Pack (2 Cloths) TOPICAL SCH (04:48)
[2017-12-07 05:08] LABS: ABG Base Excess -6.3 mmol/L (-2-2); ABG PCO2 29 mmHg (38-42); ABG PO2 123 mmHG (61-120)
[2017-12-07] MEDS ORDERED: Amiodarone Inj 150 MG in Dextrose 5% in Water Inj 97 ML IV.SIG ONE ×2 (05:20)
[2017-12-07] MEDS: Levothyroxine 50 MCG Tablet PO SCH (07:15)
[2017-12-07 07:16] LABS: Baso % (Auto) 0.1 % (0.0-2.0); Eos % (Auto) 0.1 % (0.0-4.0); Hemoglobin 11.3 gm/dL (11.6-15.3); Lymph % (Auto) 4.6 % (9.0-44.0); Mean Corpuscular HGB Conc 33.4 % (32.0-36.0); Mean Corpuscular Hemoglobin 31.6 pg (27.0-34.0); Mean Corpuscular Volume 94.5 fL (80.0-100.0); Mean Platelet Volume 9.2 fL (7.0-11.0); Mono % (Auto) 9.2 % (0.0-8.0); Neut # (Auto) 18.9 th/mm3 (1.8-7.7); Platelet Count 456 th/mm3 (150-450); Red Blood Count 3.59 mil/mm3 (4.00-5.30)
[2017-12-07] MEDS: Chlorhexidine 0.12% Oral Kit 15 ML UDC OROPHARYNG SCH ×2 (07:40→21:40)
[2017-12-07 07:42] LABS: Calcium 8.4 mg/dL (8.5-10.1); Carbon Dioxide 22.1 meq/L (21.0-32.0); Magnesium 2.1 mg/dL (1.5-2.5)
[2017-12-07 07:43] LABS: Phosphorus 3.2 mg/dL (2.5-4.9)
[2017-12-07] MEDS: Insulin NovoLOG Aspart Correctional Sugar Inj SQ SCH ×4 (09:23→21:41)
[2017-12-07] MEDS: Heparin - SQ 10,000 UNITS/ML Vial SQ SCH ×2 (09:23→21:41)
[2017-12-07] MEDS: Polyethylene Glycol 3350 17 GM Packet PO SCH ×2 (09:24→21:41)
[2017-12-07] MEDS: OLANZapine 2.5 MG Tablet PO SCH (09:25)
[2017-12-07] MEDS: Carboxymethylcellulose 0.5% Opth Drops 15 ML Bottle EACH EYE SCH ×2 (09:25→21:41)
[2017-12-07] MEDS: Senna/Docusate Sodium 8.6/50 MG Tablet PO SCH ×2 (09:25→21:41)
[2017-12-07] MEDS: carBAMazepine 200 MG Tablet PO SCH ×2 (09:25→21:41)
--- NOTE | 2017-12-07 14:05 | P.PNCC ---
Subjective Subjective Remarks/Hospital Course: This is an 82-year-old female. Date of admission 11/30/2017. Date of consultation 12/02/2017. Past medical history includes coronary disease status post CABG x1, porcine aortic valve replaced, essential hypertension, hyperlipidemia, history of right basal ganglia CVA, history of left MCA aneurysm , COPD and restrictive lung disease, chronic left bundle branch block, restless leg syndrome, hypothyroidism and spinal stenosis. Patient presents to [facility] 11/30 with 2-week history of worsening low back pain/radiating down her back/sides. Patient was evaluated by neurosurgery/Dr. Locke. She has a severe L3-4 and L4- 5 spinal stenosis from facet and ligamentum flavum hypertrophy along with the disc protrusions and degenerative changes at other levels.Due to the intractable low back pain and bilateral neurogenic claudication/radiculopathy. Treatment options were discussed with the patient and her son including continued nonsurgical management involving pain control with medications and interventional pain management with epidural steroid injections and physical therapy. We also discussed the option of surgical intervention involving an L3- L5 decompressive laminectomy. Patient and his son refused any surgical intervention Today, patient was to undergo an JASON with interventional radiology. Patient received lorazepam, hydromorphone and hydrocodone/acetaminophen today per medical record. While in IR, patient had acute onset of violent acute dystonia and choreiform movements. These also include arching of her back. Did not see any ocular gyri movements on my initial examination prior to intubation. This lasted approximately 15-30 minutes. During this time the patient was hypertensive and had decreased saturations. She was able to speak and respond accordingly through these movements Noted no antiemetics, antipsychotics appear to have been given 12/03: Currently sedated on the ventilator and 40 mg/kg/min of propofol and 50 mg /h of fentanyl. MRI showed possible left lacunar infarct. 90 percent stenosis right carotid artery. Vascular surgery routine consult. EEG showed bilateral frontal sharp activity and moderate encephalopathy. 12/04: On sedation vacation yesterday, patient with writhing dystonic movements. Recent data. Question penis. Plan for epidural steroid injection today. Schedule opiate use and will reattempt extubation post epidural steroid injection. 12/05: Extubated at 2030 yesterday. Currently on 5 L nasal cannula. Continues to have considering choreiform type movements. Started on olanzapine 20 mg daily. Will be reevaluated by neurology again today. Passed swallow evaluation. 12/06: Currently on 5 L nasal cannula saturation 100%. Core for movements emily. Episodes of pauses yesterday. Discontinue levofloxacin and held Tegretol. No further pauses noted. Continues in left bundle branch block. Intermittent A. fib. SUBJECTIVE: 12/07: Afebrile. Remains on nasal cannula. Will diuresis 40 mg IV furosemide now. Atrial fibrillation overnight 2 AM. Last time when this medication started went to a heart block. Will currently discontinue. Potassium magnesium within normal limits. Objective Vital Signs / I&O: Vital Signs 12/06/17 14:08 12/06/17 15:00 12/06/17 15:01 Temperature Pulse Rate 71 77 81 Respiratory Rate 21 41 H 35 H Blood Pressure 137/62 126/75 Pulse Oximetry 97 81 L 80 L 12/06/17 16:00 12/06/17 16:50 12/06/17 17:00 Temperature Pulse Rate 75 96 H Respiratory Rate 21 20 36 H Blood Pressure 129/90 Pulse Oximetry 97 88 L 12/06/17 17:01 12/06/17 18:00 12/06/17 18:01 Temperature Pulse Rate 95 H 87 87 Respiratory Rate 42 H 26 H 34 H Blood Pressure 168/71 H 148/68 H Pulse Oximetry 94 L 99 99 12/06/17 18:18 12/06/17 19:00 12/06/17 19:37 Temperature Pulse Rate 81 84 Respiratory Rate 16 21 20 Blood Pressure 166/88 H Pulse Oximetry 99 98 12/06/17 20:00 12/06/17 21:01 12/06/17 22:00 Temperature 97.8 F Pulse Rate 104 H 90 75 Respiratory Rate 57 H 27 H 14 Blood Pressure 162/73 H 155/68 H 148/65 H Pulse Oximetry 98 97 97 12/06/17 23:25 12/07/17 00:00 12/07/17 01:00 Temperature 97.8 F Pulse Rate 82 87 74 Respiratory Rate 18 28 H 13 Blood Pressure 150/68 H 119/60 Pulse Oximetry 97 95 12/07/17 02:00 12/07/17 02:23 12/07/17 02:30 Temperature Pulse Rate 123 H 140 H 125 H Respiratory Rate 30 H 22 12 Blood Pressure 107/55 L 132/73 110/69 Pulse Oximetry 98 96 97 12/07/17 02:45 12/07/17 03:00 12/07/17 03:25 Temperature Pulse Rate 120 H 125 H 108 H Respiratory Rate 22 20 25 H Blood Pressure 113/82 125/87 114/59 L Pulse Oximetry 96 94 L 97 12/07/17 03:30 12/07/17 03:38 12/07/17 03:45 Temperature Pulse Rate 116 H 105 H 116 H Respiratory Rate 25 H 20 12 Blood Pressure 101/64 123/73 Pulse Oximetry 97 98 12/07/17 04:00 12/07/17 04:02 12/07/17 04:30 Temperature 97.8 F Pulse Rate 129 H 112 H 121 H Respiratory Rate 21 20 Blood Pressure 173/108 H 130/77 Pulse Oximetry 96 96 90 L 12/07/17 05:00 12/07/17 05:30 12/07/17 05:45 Temperature Pulse Rate 118 H 130 H 131 H Respiratory Rate 43 H 19 19 Blood Pressure 130/77 123/84 111/86 Pulse Oximetry 74 L 99 98 12/07/17 06:00 12/07/17 06:15 12/07/17 06:31 Temperature Pulse Rate 132 H 133 H 127 H Respiratory Rate 22 14 21 Blood Pressure 105/75 109/74 119/65 Pulse Oximetry 97 96 97 12/07/17 06:45 12/07/17 07:00 12/07/17 07:15 Temperature Pulse Rate 127 H 127 H 127 H Respiratory Rate 22 27 H 22 Blood Pressure 121/69 115/68 135/79 Pulse Oximetry 100 97 12/07/17 07:30 12/07/17 07:57 12/07/17 08:00 Temperature 99.1 F Pulse Rate 128 H 125 H Respiratory Rate 40 H 17 Blood Pressure 134/81 Pulse Oximetry 90 L 96 97 12/07/17 08:44 12/07/17 08:45 12/07/17 09:00 Temperature Pulse Rate 125 H 90 112 H Respiratory Rate 16 16 24 Blood Pressure 104/59 L 121/60 116/60 Pulse Oximetry 99 99 100 12/07/17 09:15 12/07/17 09:30 12/07/17 09:45 Temperature Pulse Rate 124 H 125 H 126 H Respiratory Rate 15 19 19 Blood Pressure 129/74 159/76 H 149/83 H Pulse Oximetry 100 99 100 12/07/17 10:00 12/07/17 10:15 12/07/17 10:30 Temperature Pulse Rate 124 H 110 H 111 H Respiratory Rate 17 17 19 Blood Pressure 139/78 149/82 H 127/78 Pulse Oximetry 100 100 100 12/07/17 10:45 12/07/17 11:00 12/07/17 11:15 Temperature Pulse Rate 126 H 123 H 118 H Respiratory Rate 27 H 18 17 Blood Pressure 136/94 H 153/88 H 149/83 H Pulse Oximetry 90 L 100 97 12/07/17 11:30 12/07/17 11:45 12/07/17 12:00 Temperature Pulse Rate 125 H 125 H 120 H Respiratory Rate 21 30 H 29 H Blood Pressure 179/81 H 177/87 H 129/88 Pulse Oximetry 96 98 92 L 12/07/17 12:16 12/07/17 12:30 12/07/17 12:45 Temperature Pulse Rate 125 H 125 H 120 H Respiratory Rate 21 29 H 14 Blood Pressure 150/87 H 153/77 H 116/73 Pulse Oximetry 97 96 96 12/07/17 13:00 12/07/17 13:15 12/07/17 13:30 Temperature Pulse Rate 129 H 129 H 122 H Respiratory Rate 40 H 35 H 39 H Blood Pressure 155/85 H 157/89 H 145/104 H Pulse Oximetry 76 L 93 L 77 L Intake & Output 12/06/17 12/07/17 12/07/17 18:59 06:59 18:59 Intake Total 1300 / 1300 1782 / 1782 300 / 300 Output Total 1000 / 1000 1200 / 1200 Balance 300 / 300 582 / 582 300 / 300 Weight 60.5 kg Intake: IV 1300 / 1300 1100 / 1100 300 / 300 NS Inj 1,000 ML @ 84 mls/hr IV. 1000 / 1000 1000 / 1000 CONT .[id number] LOVELY Rx#:[id number] Cordarone Inj 150 MG In D5W Inj 100 / 100 97 ML @ 100 mls/hr IV.SIG ONCE ONE Rx#:[id number] Zosyn 4.5 GM Premix 4.5 gm In 300 / 300 100 / 100 200 / 200 100 ml @ 200 mls/hr IV.SIG Q6H LOVELY Rx#:[id number] Oral 60 / 60 Other 622 / 622 Output: Urine 0 / 0 Urine Amount (Catheter) 1000 / 1000 1150 / 1150 Indwelling Urethral Catheter 1000 / 1000 1150 / 1150 Gastric Drainage 50 / 50 Orogastric Tube 50 / 50 Other: # Voids 2 Date of Last Bowel Movement 12/06/17 12/06/17 12/06/17 # Bowel Movements 1 1 Result Diagrams: 12/07/17 06:19 12/07/17 06:19 Other Results: Microbiology 12/02/17 13:29 Blood - Peripheral Aerobic Blood Culture - Final No growth in 5 days 12/02/17 13:29 Blood - Peripheral Anaerobic Blood Culture - Final No growth in 5 days 12/02/17 13:24 Blood - Peripheral Aerobic Blood Culture - Final No growth in 5 days 12/02/17 13:24 Blood - Peripheral Anaerobic Blood Culture - Final No growth in 5 days 12/04/17 21:20 Sputum - Expectorated Sputum Gram Stain - Final 12/04/17 21:20 Sputum - Expectorated Sputum Sputum Culture - Final Heavy growth normal respiratory chiara 12/02/17 18:00 Catheterized Urine Urine Culture - Final Enterococcus faecalis Imaging: Hip X-Ray 11/30/17 12:52 CONCLUSION: There is no evidence of acute fracture. Hip X-Ray 11/30/17 12:52 CONCLUSION: There is no evidence of acute fracture. Lumbar Spine MRI 12/01/17 00:00 CONCLUSION: 1. Retrolisthesis of L1 on L2 and L2 on L3. Marked disc space narrowing and low -grade discogenic edema at L2-3. 2. Moderate to severe canal stenosis at the L4-5 level secondary to broad- based diffuse annular bulge and marked hypertrophy of the posterior elements. Scattered areas of neural foraminal narrowing as described above Chest X-Ray 12/02/17 00:00 CONCLUSION: 1. No acute abnormality or significant interval change. Chest X-Ray 12/02/17 00:00 CONCLUSION: 1. Endotracheal tube in good position 3 cm above the sarah. 2. Nasogastric tube has its tip in the distal esophagus and should be positioned more distally at least to the level of the stomach. 3. Cardiomegaly. 4. No focal infiltrate or pulmonary vascular congestion. Head MRA 12/02/17 00:00 CONCLUSION: 1. Hypoplastic P1 segment on the right with a patent posterior communicating artery. 2. Some asymmetry in the middle cerebral artery size, left being larger in the region of the sylvian fissure. Neck MRA 12/02/17 00:00 CONCLUSION: 1. Short segment high-grade stenosis involving the origin of the right internal carotid artery suggesting greater than 90% stenosis. 2. No significant stenosis within the left internal carotid artery. Percent stenosis is calculated using the diameter of the stenotic region over the diameter of the normal distal internal carotid artery Head MRI 12/02/17 12:29 CONCLUSION: 1. Diffuse atrophy. No evidence of an acute stroke, mass or mass effect. There may be a small old lacunar infarct on the left. No acute subarachnoid or subdural hematoma is identified Chest X-Ray 12/03/17 00:00 CONCLUSION: NG tube tip in the stomach Epidural Injection 12/04/17 00:00 CONCLUSION: 1. Uncomplicated fluoroscopically guided epidural injection as above. Chest X-Ray 12/04/17 06:00 CONCLUSION: No significant change. Trace basilar atelectasis again seen. Chest X-Ray 12/05/17 06:00 CONCLUSION: 1. No significant change very mild bibasilar atelectasis. 2. Interim extubation and nasogastric tube removal. Abdomen X-Ray 12/06/17 00:00 CONCLUSION: Nonobstructive bowel gas pattern. Chest X-Ray 12/06/17 06:00 CONCLUSION: Slight worsening of bibasilar consolidation and small effusions. Objective Remarks: GENERAL: 82-year-old female currently on 5 L nasal cannula SKIN: Warm and dry. HEAD: Atraumatic. Normocephalic. EYES: Pupils equal and round. No scleral icterus. No injection or drainage. ENT: No nasal bleeding or discharge. Mucous membranes pink and moist. NECK: Trachea midline. No JVD. No obvious bruit in the right side CARDIOVASCULAR: Tachycardia, irregular.. S1, S2 no S4.. RESPIRATORY: No accessory muscle use. Clear to auscultation. Breath sounds equal bilaterally. GASTROINTESTINAL: Abdomen soft, non-tender, nondistended. Hepatic and splenic margins not palpable. MUSCULOSKELETAL: Extremities without clubbing, cyanosis, or edema. No obvious deformities. NEUROLOGICAL: Resting in bed. Poor deformity or involuntary movements. Awake and oriented to person and time not place. Assessment and Plan - Assessment and Plan Plan: Neuro/Psych: Acute dystonia, cord for movements unclear etiology History of right basal ganglia CVA History of left MCA aneurysm Chronic pain syndrome Right carotid stenosis Has not received any antipsychotics or antiemetics. No obvious medications given that might cause these symptoms. Stat MRI/MRA brain/neck revealed possible left lacunar infarct. Hypoplastic P1 segment. Right internal carotid artery 90% stenosis. EEG revealed bifrontal sharp activity with moderate encephalopathy. Clinical correlation recommended. Appreciate consultation by Dr. Smith/neurology. Currently on olanzapine 2.5 mg daily. And carbamazepine 200 mg 2 times daily Holding diclofenac 75 mg twice daily and hydrocodone/acetaminophen 5/325 1 tablet every 6 hours as needed/home medication On oxycodone 5 mg every 6 hours and as needed hydromorphone 0.5 mg every 6 hours as needed breakthrough pain On lorazepam 0.5 every 8 hours as needed agitation CV: Essential hypertension Hyperlipidemia Sinus tachycardia by history Coronary artery disease status post CABG 1 History of porcine aortic valve replacement Left bundle branch block Elevated troponin 0 0.20 likely secondary to type II demand ischemia Atrial fibrillation with RVR Amiodarone drip discontinued. Currently on losartan 25 mg twice daily for essential hypertension at home medication As needed labetalol, Nitropaste and Cardene drip for hypertension Troponin currently 0.20. Recheck 0.05 Current echocardiogram EF around 55%. Appreciate vascular input to right carotid stenosis We will give 1 dose of digoxin 0.25 mg 1 now. Resp: Acute respiratory failure -resolving COPD Restrictive lung disease Tobaccoism Nasal cannula to maintain saturations greater than equal to 92% Incentive spirometry while awake Albuterol/ipratropium aerosols every 4 hours with albuterol aerosols every 2 hours as needed for dyspnea Chest x-ray ordered for a.m. 12/06 Self evaluation self tobacco cessation booklet will be provided when clinically indicated GI: Advance diet per speech therapy Famotidine for GI prophylaxis Docusate sodium/senna 1 tablet twice daily for bowel regimen : Junior catheter if indicated for accurate I's and O's in a critically ill patient Endo: Hypothyroidism Sliding scale insulin Accu-Cheks every 6 hours to maintain euglycemia/aspart insulin medium protocol Continue levothyroxine 50 mcg by mouth daily Check TSH 0.470 Renal: Creatinine currently within normal limits Monitor urine output Accurate I's and O's Heme: Leukocytosis Normocytic anemia Monitor CBC daily. Follow trends. No indication for transfusion of blood products at this time. ID: Enterococcus faecalis UTI Levofloxacin 750 mg IV every 24 hours Suture Pipracil/tazobactam due to A. fib. Monitor for signs and symptomatology infection Sputum 12/04 normal chiara FEN: Replace electrolytes as clinically indicated MSK: Retrolisthesis L1 on L2 and L2 and L3 L4/L5 severe stenosis with annular bulge Evaluate Dr. Locke/neurosurgery. Patient's family refused surgery. Epidural steroid injection L4/L5 on 12/04 Access -Utilize peripheral IV. Central line if indicated Prophylaxis -GI -famotidine -DVT-SCDs/holding pharmacologic prophylaxis with heparin subcu Level 2 follow-up Patient has been stable for the past 48 hours. Assign care to hospitalist in a.m. 12/08. Order placed originally 12/06. Original order placed 12/06 but somehow "lost". Code Status: Full code
[2017-12-07] MEDS ORDERED: Digoxin Inj 500 MCG/2 ML Ampul IV.PUSH ONE (14:15)
[2017-12-08] MEDS: Oral Hygiene Kit OROPHARYNG SCH ×4 (00:42→16:43)
--- NOTE | 2017-12-08 06:05 | XR ---
EXAM DATE: 12/08/2017 6:00 AM EDT AGE/SEX: 82 years / Female INDICATIONS: Short of breath. CLINICAL DATA: This is the patient's subsequent encounter. Patient reports that signs and symptoms h ave been present for 1 week and indicates a pain score of 0/10. MEDICAL/SURGICAL HISTORY: Chronic obstructive pulmonary disease. CABG. COMPARISON: [facility] [place], CHEST 1V SINGLE AP, 12/06/2017. . FINDINGS: Single AP view the chest. Median sternotomy wires are present. Decrease in bilateral lower lung zone opacity. Cardiomediastinal silhouette is unchanged. No evidence of pleural effusion or pneumothorax. CONCLUSION: Decreased bilateral pulmonary parenchymal opacity. Electronically signed by: Irineo Brizuela MD 12/08/2017 6:04 AM EDT
[2017-12-08] MEDS: Levothyroxine 50 MCG Tablet PO SCH (06:52)
[2017-12-08] MEDS: Piperacil/Tazo 4.5 GM Premix 4.5 GM/100 ML BAG IV.SIG SCH ×4 (06:52→22:14)
[2017-12-08 07:40] LABS: Baso # (Auto) 0.1 th/mm3 (0.0-0.2); Baso % (Auto) 0.4 % (0.0-2.0); Eos # (Auto) 0.1 th/mm3 (0.0-0.4); Eos % (Auto) 0.5 % (0.0-4.0); Hematocrit 35.7 % (35.0-46.0); Hemoglobin 12.1 gm/dL (11.6-15.3); Lymph % (Auto) 13.3 % (9.0-44.0); Mean Corpuscular Hemoglobin 32.4 pg (27.0-34.0); Mean Corpuscular Volume 95.4 fL (80.0-100.0); Mean Platelet Volume 9.3 fL (7.0-11.0); Mono # (Auto) 1.6 th/mm3 (0.0-0.9); Mono % (Auto) 10.9 % (0.0-8.0); Neut # (Auto) 11.3 th/mm3 (1.8-7.7); Neut % (Auto) 74.9 % (16.0-70.0); Platelet Count 487 th/mm3 (150-450); Red Blood Count 3.74 mil/mm3 (4.00-5.30); Red Cell Distribution Width 14.1 % (11.6-17.2); White Blood Count 15.1 th/mm3 (4.0-11.0)
[2017-12-08 07:58] LABS: Albumin 2.3 g/dL (3.4-5.0); Anion Gap 8 meq/L (5-15); Aspartate Aminotransferase 34 U/L (15-37); Blood Urea Nitrogen 22 mg/dL (7-18); Calcium 8.5 mg/dL (8.5-10.1); Carbon Dioxide 26.2 meq/L (21.0-32.0); Chloride 106 meq/L (98-107); Glomerular Filtration Rate 56 mL/min (>89); Glucose,Random 77 mg/dL (74-106); Magnesium 1.8 mg/dL (1.5-2.5); Potassium 4.9 meq/L (3.5-5.1); Sodium 140 meq/L (136-145)
[2017-12-08 08:00] LABS: Alanine Aminotransferase 49 U/L (10-53); Phosphorus 3.1 mg/dL (2.5-4.9)
--- NOTE | 2017-12-08 08:26 | P.PNIM ---
Subjective Interval history: Pt is an 82 y/o F admitted to [facility] While undergoing JASON, pt developed choreiform type movements and required intubation. Pt was successfully extubated 12/04/17. Pt has been seen by Neurology started zyprexa 20mg daily. Pt confused today A&Ox1 Physical Exam Vital signs: 12/08/17 04:00 12/08/17 04:34 12/08/17 06:00 Temperature 98.9 F Pulse Rate 65 72 60 Respiratory Rate 27 H 24 Blood Pressure 147/100 H Pulse Oximetry 95 Narrative: GENERAL: This is a well-nourished, well-developed patient, in no apparent distress. CARDIOVASCULAR: Regular rate and rhythm without murmurs, gallops, or rubs. RESPIRATORY: Clear to auscultation. Breath sounds equal bilaterally. No wheezes , rales, or rhonchi. GASTROINTESTINAL: Abdomen soft, non-tender, nondistended. Normal active bowel sounds MUSCULOSKELETAL: Extremities without clubbing, cyanosis, or edema. NEURO: Alert & Oriented x3, LOAIZA - Urinary Catheter Management Straight Cath placed during this visit: yes Reason for continuing: Acute urinary retention Insertion date: 12/04/17 Insertion time: 13:00 Indwelling Urethral Catheter Cath placed during this visit: no Results - Labs CBC & Chem 7: 12/08/17 06:19 12/08/17 06:19 Microbiology 12/02/17 13:29 Blood - Peripheral Aerobic Blood Culture - Final No growth in 5 days 12/02/17 13:29 Blood - Peripheral Anaerobic Blood Culture - Final No growth in 5 days 12/02/17 13:24 Blood - Peripheral Aerobic Blood Culture - Final No growth in 5 days 12/02/17 13:24 Blood - Peripheral Anaerobic Blood Culture - Final No growth in 5 days - Imaging Hip X-Ray 11/30/17 12:52 CONCLUSION: There is no evidence of acute fracture. Lumbar Spine MRI 12/01/17 00:00 1. Retrolisthesis of L1 on L2 and L2 on L3. Marked disc space narrowing and low -grade discogenic edema at L2-3. 2. Moderate to severe canal stenosis at the L4-5 level secondary to broad- based diffuse annular bulge and marked hypertrophy of the posterior elements. Scattered areas of neural foraminal narrowing as described above Head MRA 12/02/17 00:00 1. Hypoplastic P1 segment on the right with a patent posterior communicating artery. 2. Some asymmetry in the middle cerebral artery size, left being larger in the region of the sylvian fissure. Neck MRA 12/02/17 00:00 CONCLUSION: 1. Short segment high-grade stenosis involving the origin of the right internal carotid artery suggesting greater than 90% stenosis. 2. No significant stenosis within the left internal carotid artery. Head MRI 12/02/17 12:29 1. Diffuse atrophy. No evidence of an acute stroke, mass or mass effect. There may be a small old lacunar infarct on the left. No acute subarachnoid or subdural hematoma is identified Epidural Injection 12/04/17 00:00 1. Uncomplicated fluoroscopically guided epidural injection as above. Chest X-Ray 12/05/17 06:00 CONCLUSION: 1. No significant change very mild bibasilar atelectasis. 2. Interim extubation and nasogastric tube removal. Abdomen X-Ray 12/06/17 00:00 CONCLUSION: Nonobstructive bowel gas pattern. Chest X-Ray 12/06/17 06:00 CONCLUSION: Slight worsening of bibasilar consolidation and small effusions. Chest X-Ray 12/08/17 06:00 CONCLUSION: Decreased bilateral pulmonary parenchymal opacity. Assessment and Plan - Assessment (1) Dystonia Code(s): G24.9 - Dystonia, unspecified Status: Acute Plan: - Pt is an 82 y/o F admitted d/t LBP. Pt then developed acute dystonia while undergoing JASON - Patient had not received any preceding antipsychotics or antiemetics. -There were no obvious preceding medications given that were felt to have contributed to these symptoms. - Pt required intubation & mgmt by [facility]. Pt extubated 12/06/17 - comgmt with Neurology. W/u for dystonia per Neurology service. - EEG revealed bifrontal sharp activity with moderate encephalopathy - MRI/MRA brain/neck revealed possible left lacunar infarct - continue zyprexa 2.5mg AD - continue carbamazepine 200mg BID - continue prn ativan - continue prn oxycodone and prn dilaudid - Pt appears to be in decline. Pt remains confused. Pt has poor PO intake. and pt is quite weak. Meaningful recovery will be limited by pt's advanced age and multiple medical problems. - Hospice would be appropriate. - Will consult Palliative for clarification of goals. Carotid Stenosis, right - Pt evaluated by Vascular Surgery, Dr. Holden Atrial Fibrillation with RVR - Pt required amiodarone drip. Discontinued - current echocardiogram. EF 55% - start cardizem 30mg q6h HTN, essential - stable - losartan COPD - prn duonebs retrolisthesis L1 on L2 and L2 and L3 - comgmt with Neurosurgery, Dr. Locke - pt/family refused surgery - JASON L4/L5 (12/04/17) (2) Intractable low back pain Code(s): M54.5 - Low back pain Status: Acute Plan: Intractable LBP with inability to ambulate and bilateral neurogenic claudication /radiculopathy Severe L3-4 and L4-5 spinal stenosis from facet and ligamentum flavum hypertrophy along with the disc protrusions - Pain currently seems to be more over the coccyx. - CT Lumbar spine (11/21/17): 1. Patient is a broad-based disc disease at multiple levels most impressive at the 3 level with the neural foramen is clearly narrowed. Moderate stenosis at multiple levels as well, all chronic. 2. No evidence of an acute fracture or acute interval change.3. Calcified disc osteophyte complex at T11-12 narrows the thecal sac to between 6 to 7 mm - Lumbar Spine MRI (12/01/17): 1. Retrolisthesis of L1 on L2 and L2 on L3. Marked disc space narrowing and low-grade discogenic edema at L2-3. 2. Moderate to severe canal stenosis at the L4-5 level secondary to broad- based diffuse annular bulge and marked hypertrophy of the posterior elements. Scattered areas of neural foraminal narrowing as described above - Cont prn iv pain meds - Appreciate Neurosurgical consultation and recommendations: "Treatment options were discussed with the patient and her son including continued nonsurgical management involving pain control with medications and interventional pain management with epidural steroid injections and physical therapy. We also discussed the option of surgical intervention involving an L3- L5 decompressive laminectomy. Patient and his son refused any surgical intervention. Accordingly I would recommend continued pain control and consider lumbar epidural steroid injection by special procedures." - Consult Intervention Radiology regarding epidural steroid injections - Cont. PT - Cont home medications. - DVT prophylaxis. 2.CAD s/p CABG x 1 in 2005 3. s/p AVR with bioprosthetic valve 4. HTN 5. hx CVA, right basal ganglia 6. hx Aneurysm at the left MCA, 6mm in 2012 7. COPD and restrictive lung disease 8, LBBB 9. Hypothyroidism The exam, history, and the medical decision-making described in the above note were completed with the assistance of the mid-level provider. I reviewed and agree with the findings presented. I attest that I had a [id number] encounter with the patient on the same day, and personally performed and documented my assessment and findings in the medical record. PT WENT FOR JASON WITH RADIOLOGY. SHE BECAME HYSTERICAL WITH PAIN AND REQUIRED INTUBATION. SENT TO ICU. (3) Unable to ambulate Code(s): R26.2 - Difficulty in walking, not elsewhere classified Status: Acute (4) COPD (chronic obstructive pulmonary disease) Code(s): J44.9 - Chronic obstructive pulmonary disease, unspecified Status: Chronic (5) CVA (cerebral vascular accident) Code(s): I63.9 - Cerebral infarction, unspecified Status: Chronic (6) S/P AVR Code(s): Z95.2 - Presence of prosthetic heart valve Status: Chronic (7) Hypothyroid Code(s): E03.9 - Hypothyroidism, unspecified Status: Chronic (8) HTN (hypertension) Code(s): I10 - Essential (primary) hypertension Status: Chronic (9) Carotid stenosis, right Code(s): I65.21 - Occlusion and stenosis of right carotid artery Status: Acute
[2017-12-08] MEDS: Insulin NovoLOG Aspart Correctional Sugar Inj SQ SCH ×4 (08:42→20:58)
[2017-12-08] MEDS: Heparin - SQ 10,000 UNITS/ML Vial SQ SCH ×2 (08:43→20:51)
[2017-12-08] MEDS: Chlorhexidine 0.12% Oral Kit 15 ML UDC OROPHARYNG SCH ×2 (08:43→20:51)
[2017-12-08] MEDS: OLANZapine 2.5 MG Tablet PO SCH (08:44)
[2017-12-08] MEDS: Senna/Docusate Sodium 8.6/50 MG Tablet PO SCH ×2 (08:44→20:52)
[2017-12-08] MEDS: Carboxymethylcellulose 0.5% Opth Drops 15 ML Bottle EACH EYE SCH ×2 (08:44→20:52)
[2017-12-08] MEDS: carBAMazepine 200 MG Tablet PO SCH ×2 (08:44→20:53)
[2017-12-08] MEDS: Polyethylene Glycol 3350 17 GM Packet PO SCH ×2 (08:44→20:52)
[2017-12-08] MEDS: Labetalol HCl Inj 100 MG/20 ML Vial IV.PUSH PRN ×3 (08:45→22:14)
[2017-12-08 08:49] LABS: Alkaline Phosphatase 131 U/L (45-117); Total Protein 6.5 g/dL (6.4-8.2)
--- NOTE | 2017-12-08 11:16 | P.CONPAL ---
Consult Service: Palliative Care Requesting Physician: Jet Rivers Reason for Consult: a. To assist with evaluation and management of symptoms including:pain. b. To assist medical decision maker(s) with: better understanding of current medical conditions; weighing benefits/burdens of medical treatment options; making medical treatment decisions. Primary Care Provider: Garrett Mahajan History of Present Illness History of Present Illness: Ms. Tony is an 82 year old female with past medical history of coronary artery disease status post CABG, hypertension, hyperlipidemia, prior right basal ganglia CVA, aneurysm left MCA 6 mm in 2011, COPD and restrictive lung disease, left bundle branch block, valvular heart disease status post AVR in 2005, hypothyroidism, tobacco abuse and spinal stenosis. Patient was previously seen in the emergency department for severe low back pain. CT lumbar spine revealed moderate spinal stenosis and neuroforaminal narrowing, no fracture she was discharged with a prescription for [place] and prednisone. Patient presented to [facility] emergency department via EMS on 11/30/17 for severe lower back pain and inability to walk. She reported the same pain radiating to the buttock bilaterally in the 2 weeks prior to presentation. She denied any fall or injury. No loss of bowel or bladder control. * WBC 21.3, hemoglobin 13.7, hematocrit 41.1, platelet count 397 * Urinalysis - occasional bacteria, culture indicated -later resulted enterococcus faecalis * Blood cultures - no growth to date * Hip x-ray-no evidence of acute fracture * Lumbar spine [id number] of L1 on L2 and L2 on L3, marketed disc space narrowing and low-grade discogenic edema at L2-3, moderate to severe canal stenosis at the L4-5 level secondary to broad-based diffuse annular bulge and marketed hypertrophy of the posterior elements, scattered areas of neural foraminal narrowing. Patient was admitted with intractable back pain, bilateral neurogenic claudication/radiculopathy, extensive multilevel degenerative disease with scoliosis and facet arthropathy, severe L3-4 and L4-5 spinal stenosis from facet and ligamentum flavum hypertrophy along with disc protrusions. Neurosurgery, Dr. Milli Locke was consulted patient was offered surgical versus nonsurgical management. Patient with the support of her son refused any surgical intervention. Neurosurgery recommended continued pain control, lumbar epidural steroid injection, continued physical therapy. Interventional radiology was consulted for epidural steroid injection for intractable low back pain. While in IR, prior to epidural injection the patient had acute onset of dystonic posturing of the upper and lower extremities and chloroform movements, including arching of her back. She was hypertensive with decreased oxygen saturations. Notes indicate she was able to speak and respond accordingly during this time. Patient was emergently intubated and placed on mechanical vent. Neurology, Dr. Smith was consulted for evaluation of acute dystonia of questionable etiology, did not appear to be medication effect. EEG revealed episodic bifrontal sharp waves with underlying moderate encephalopathy, sleep state. She was started on Zyprexa. Echocardiogram revealed ejection fraction 50 -55%, mitral annular calcification, aortic valve sclerosis and trace tricuspid valve regurgitation. Additional imaging revealed: * Head MRA -hypoplastic P1 segment on the right with a patent posterior communicating artery, some asymmetry in the middle cerebral artery, left larger in the region of the sylvian fissure. * Neck MRA-short segment high-grade stenosis involving the origin of the right internal carotid artery suggesting greater than 90% stenosis, no stenosis of the left internal carotid artery. * Head MRI-diffuse atrophy, no evidence of acute stroke, mass or mass-effect, small old lacunar infarct on the left, no acute subarachnoid or subdural hematoma identified. Vascular surgery, Dr. Holden was consulted for evaluation of carotid artery stenosis and dystonia no surgical intervention was recommended. Patient was medically extubated on 12/05/17. She has had persistent low back pain, on Oxycodone 5mg PO every 6 hours ATC (1 dose given in the past 24 hours) and hydromorphone 0.5mg IV every 4 hours PRN pain (2 doses in the past 24 hours). I suspect she is not able to ask for meds which may be contributing to sparing use. Patient remains in ICU, appears to be declining. Has had poor oral intake, confusion and increased weakness. Meaningful recovery limited by advanced age, medical problems and recent trajectory of decline. Palliative care was consulted to assist with further clarification of goals of medical treatment. . Function/Cognitive Trajectory: Progressively worsening back pain over the last few months although intractable over the last 2 weeks with the numbness and paresthesias in the lower extremities along with inability to ambulate because the pain and subjective weakness. Review of Systems unobtainable due to mental status PMFSH - History History Provided By: Patient - Medical History Medical History: Medical History (Last Updated 12/08/17 @ 11:11 by Stephanie Segura) Aneurysm Coronary artery disease History of CVA (cerebrovascular accident) Hyperlipidemia LBBB (left bundle branch block) Restrictive lung disease Spinal stenosis Tobacco abuse COPD (chronic obstructive pulmonary disease) Hip fracture - Surgical History Surgical History: Surgical History (Last Updated 12/08/17 @ 11:11 by Stephanie Segura) Cataract H/O aortic valve replacement with porcine valve Hx of appendectomy S/P CABG x 1 - Family History Family History: Family History (Last Updated 12/02/17 @ 13:09 by Candido Livingston MD) Other Family member - Social History I have reviewed the patient's Social History: Yes - Tobacco History Second Hand Smoke Exposure: No Tobacco Use In Past 30 Days: Yes Smoking Status: Former smoker Tobacco Type: Cigarettes Years Smoked: 70 - Alcohol History How Often Do You Have a Drink Containing Alcohol: Never - Substance Use History Substance History: No History of Abuse - Travel History Recent Travel in the [place] Within the Last 8 Weeks: No Recent Travel Out of the Country Within the Last 8 Weeks: No - Immunization History Tetanus Immunization: Unsure Hx Influenza Vaccine This Season: No Medications and Allergies Active Medications: Active Medications Acetaminophen (Tylenol Liq) 650 mg PO Q6H PRN PRN Reason: FEVER Al Hydroxide/Mg Hydroxide (Milk Of Magnesia Liq) 30 ml PO Q12H PRN PRN Reason: Mild Constipation Albuterol (Albuterol Neb (Prn)) 2.5 mg NEB Q2HR NEB PRN PRN Reason: SHORTNESS OF BREATH/WHEEZING Albuterol (Duoneb Neb (Coleen)) 1 ampul NEB Q4HR NEB [facility] Last Admin: 12/08/17 08:03 Dose: Not Given Artificial Tears (Refresh Tears 0.5% Opth Drops) 1 drop EACH EYE BID [facility] Last Admin: 12/08/17 08:44 Dose: 1 drop Aspirin (Aspirin Chew) 81 mg PO DAILY [facility] Last Admin: 12/08/17 08:43 Dose: 81 mg Atorvastatin Calcium (Lipitor) 10 mg PO HS [facility] Last Admin: 12/07/17 21:41 Dose: 10 mg Bisacodyl (Dulcolax Supp) 10 mg RECTAL DAILY PRN PRN Reason: SEVERE CONSITIPATION Carbamazepine (Tegretol) 200 mg PO BID [facility] Last Admin: 12/08/17 08:44 Dose: 200 mg Chlorhexidine Gluconate (Peridex 0.12% Oral Kit) 15 ml OROPHARYNG BID@0800, 2000 [facility] Last Admin: 12/08/17 08:43 Dose: Not Given Dextrose (D50w Vial) 50 ml IV.PUSH UNSCH PRN PRN Reason: PER HYPOGLYCEMIA PROTOCOL Last Admin: 12/06/17 20:43 Dose: 50 ml Diltiazem HCl (Cardizem) 30 mg PO QID [facility] Glucagon (Glucagon Inj) 1 mg OTHER UNSCH PRN PRN Reason: for Hypoglycemia Protocol Heparin Sodium (Porcine) (Heparin Inj) 5,000 units SQ Q12HR [facility] Last Admin: 12/08/17 08:43 Dose: 5,000 units Hydromorphone HCl (Dilaudid Pf Inj) 0.5 mg IV.PUSH Q4H PRN PRN Reason: BREAKTHROUGH PAIN Last Admin: 12/07/17 23:10 Dose: 0.5 mg Sodium Chloride (Ns Inj) 1,000 mls @ 84 mls/hr IV.CONT .[id number] [facility] Last Admin: 12/07/17 23:12 Dose: Not Given Magnesium Sulfate 4 gm/ Sodium (Chloride) 100 mls @ 50 mls/hr IV.SIG UNSCH PRN PRN Reason: For Magnesium 0.9 - 1.1 mg/dL Magnesium Sulfate 2 gm/ Sodium (Chloride) 100 mls @ 50 mls/hr IV.SIG UNSCH PRN PRN Reason: For Magnesium 1.2 - 1.6 mg/dL Potassium Chloride (Kcl 40 Meq Premix Inj) 40 meq in 100 mls @ 50 mls/hr IV.SIG Q2H PRN PRN Reason: For Potassium 2.8 - 3.2 mEq/L Potassium Chloride (Kcl 20 Meq Premix Inj) 20 meq in 100 mls @ 50 mls/hr IV.SIG Q2H PRN PRN Reason: For Potassium 3.3 - 3.5 mEq/L Potassium Chloride (Kcl 40 Meq Premix Inj) 40 meq in 100 mls @ 25 mls/hr IV.SIG UNSCH PRN PRN Reason: For Potassium 3.3 - 3.5 mEq/L Potassium Chloride (Kcl 20 Meq Premix Inj) 20 meq in 100 mls @ 50 mls/hr IV.SIG Q2H PRN PRN Reason: For Potassium 2.8 - 3.2 mEq/L Potassium Phosphate 30 mmol/ (Sodium Chloride) 260 mls @ 42 mls/hr IV.SIG UNSCH PRN PRN Reason: SEE LABEL COMMENTS Sodium Phosphate 30 mmol/ (Sodium Chloride) 260 mls @ 42 mls/hr IV.SIG UNSCH PRN PRN Reason: For Phosphorus < 2.5 mg/dL Piperacillin/Tazobactam/Dextrose (Zosyn 4.5 Gm Premix) 4.5 gm in 100 mls @ 200 mls/hr IV.SIG Q6H [facility] Last Infusion: 12/08/17 07:26 Dose: Infused Insulin Aspart (Novolog Insulin Correctional Sugar Inj) 0 unit SQ ACHS [facility]; Protocol Last Admin: 12/08/17 08:42 Dose: Not Given Labetalol HCl (Trandate Inj) 10 mg IV.PUSH Q1H PRN PRN Reason: SYS BP GREATER THAN 170 [facility] Last Admin: 12/08/17 08:45 Dose: 10 mg Lactulose (Lactulose Liq) 30 ml PO DAILY PRN PRN Reason: SEVERE CONSITIPATION Levothyroxine Sodium (Synthroid) 50 mcg PO DAILY@0600 [facility] Last Admin: 12/08/17 06:52 Dose: 50 mcg Lorazepam (Ativan) 0.5 mg PO Q8H PRN PRN Reason: ANXIETY AND/OR AGITATION Last Admin: 12/01/17 10:20 Dose: 0.5 mg Losartan Potassium (Cozaar) 25 mg PO BID [facility] Last Admin: 12/08/17 08:43 Dose: 25 mg Magnesium Oxide (Mag-Ox) 800 mg PO UNSCH PRN PRN Reason: For Magnesium 1.2 - 1.6 mg/dL Miscellaneous Medication () 1 each OROPHARYNG 0000,0400,1200,1600 [facility] Last Admin: 12/08/17 06:32 Dose: 1 each Nitroglycerin (Nitro-Bid 2% Oint) 1 inch TOPICAL Q6HR PRN PRN Reason: SBP>160, DBP>90 Olanzapine (Zyprexa) 2.5 mg PO DAILY [facility] Last Admin: 12/08/17 08:44 Dose: 2.5 mg Oxycodone HCl (Roxicodone Intensol Liq) 5 mg PO Q6H [facility] Last Admin: 12/08/17 06:53 Dose: Not Given Polyethylene Glycol (Miralax) 17 gm PO BID [facility] Last Admin: 12/08/17 08:44 Dose: 17 gm Potassium Bicarb/Potassium Chloride (K-Lyte Cl Eff) 50 meq PO UNSCH PRN PRN Reason: For Potassium 3.3 - 3.5 mEq/L Potassium Phosphate (K-Phos Original) 2,000 mg PO Q4H PRN PRN Reason: Phosphorus Less Than 2.5 mg/dL Potassium Phosphate (K-Phos Original) 2,000 mg PO UNSCH PRN PRN Reason: SEE LABEL COMMENTS Senna/Docusate Sodium (Joyce-Colace) 1 tab PO BID [facility] Last Admin: 12/08/17 08:44 Dose: 1 tab Sennosides (Senokot) 17.2 mg PO Q12H PRN PRN Reason: Moderate Constipation Sodium Chloride (Ns Flush) 2 ml IV.FLUSH BID [facility] Last Admin: 12/08/17 08:44 Dose: 2 ml Sodium Chloride (Ns Flush) 2 ml IV.FLUSH PRN PRN PRN Reason: FLUSH AFTER USING IV ACCESS Allergies Allergy/AdvReac Type Severity Reaction Status Date / Time adhesive Allergy Severe ADHESIVE Verified 11/30/17 12:22 TAPE/BLISTERS SKIN doxycycline Allergy Severe Irritation Verified 11/30/17 12:22 minocycline Allergy Severe Irritation Verified 11/30/17 12:22 tigecycline Allergy Severe Irritation Verified 11/30/17 12:22 amiodarone AdvReac Bradycardia Verified 12/07/17 13:55 *MDRO Multi-Drug Resistant AdvReac Unknown Hiccups Uncoded 11/30/17 12:22 Organism Home Medications Medication Instructions Recorded Confirmed Type diclofenac sodium 75 mg PO BID PRN 11/21/17 11/30/17 History levothyroxine 50 mcg PO DAILY 11/21/17 11/30/17 History losartan 50 mg PO DAILY 11/21/17 11/30/17 History Advance Directives Advance Directives Date on File: 03/02/01 Living Will: Yes Power of Granulator Operator: Yes Power of Granulator Operator Name: chris Burgess Power of Granulator Operator Power of Granulator Operator Relationship to Patient: Children Documented care wishes: Standard Living Will Today's verbally stated goals: Patient is not currently capacitated, uncertain if she will regain capacity. Family/friends goals: Spoke with Matthew perez via phone. He elects NO CODE. He does not want his mother to suffer anymore. He would like to meet with hospice, he is not sure will be able to meet (he has MD appts tomorrow). I advised hospice will call to set up a time to meet. She will likely require hospice care center placement for pain management. Ethical and Legal Issues: No known concerns at this time. Physical Exam Vital Signs: Vital Signs - 24 hr 12/07/17 10:45 12/07/17 11:00 12/07/17 11:15 Temperature Pulse Rate 126 H 123 H 118 H Respiratory Rate 27 H 18 17 Blood Pressure 136/94 H 153/88 H 149/83 H Pulse Oximetry 90 L 100 97 12/07/17 11:30 12/07/17 11:45 12/07/17 12:00 Temperature Pulse Rate 125 H 125 H 120 H Respiratory Rate 21 30 H 29 H Blood Pressure 179/81 H 177/87 H 129/88 Pulse Oximetry 96 98 92 L 12/07/17 12:16 12/07/17 12:30 12/07/17 12:45 Temperature Pulse Rate 125 H 125 H 120 H Respiratory Rate 21 29 H 14 Blood Pressure 150/87 H 153/77 H 116/73 Pulse Oximetry 97 96 96 12/07/17 13:00 12/07/17 13:15 12/07/17 13:30 Temperature Pulse Rate 129 H 129 H 122 H Respiratory Rate 40 H 35 H 39 H Blood Pressure 155/85 H 157/89 H 145/104 H Pulse Oximetry 76 L 93 L 77 L 12/07/17 13:45 12/07/17 14:00 12/07/17 14:15 Temperature Pulse Rate 124 H 127 H 128 H Respiratory Rate 36 H 36 H 50 H Blood Pressure 159/115 H 151/125 H 148/122 H Pulse Oximetry 82 L 79 L 78 L 12/07/17 14:33 12/07/17 14:46 12/07/17 15:00 Temperature Pulse Rate 130 H 134 H 119 H Respiratory Rate 42 H 49 H 23 Blood Pressure 84/60 L 128/94 H 141/89 H Pulse Oximetry 92 L 90 L 86 L 12/07/17 15:15 12/07/17 15:45 12/07/17 16:00 Temperature 99.1 F Pulse Rate 117 H 106 H 120 H Respiratory Rate 46 H 24 22 Blood Pressure 137/99 H 124/60 159/69 H Pulse Oximetry 82 L 96 97 12/07/17 16:15 12/07/17 16:20 12/07/17 16:30 Temperature Pulse Rate 82 70 81 Respiratory Rate 18 15 23 Blood Pressure 187/78 H 175/73 H 167/72 H Pulse Oximetry 98 98 99 12/07/17 16:45 12/07/17 16:51 12/07/17 18:00 Temperature Pulse Rate 87 69 74 Respiratory Rate 20 15 Blood Pressure 218/84 H 179/74 H Pulse Oximetry 99 99 12/07/17 19:31 12/07/17 20:00 12/07/17 21:16 Temperature 98.9 F Pulse Rate 61 61 67 Respiratory Rate 20 27 H 49 H Blood Pressure 120/93 H 164/88 H Pulse Oximetry 96 95 77 L 12/07/17 21:38 12/07/17 21:45 12/07/17 22:00 Temperature Pulse Rate 75 69 67 Respiratory Rate 58 H 53 H 40 H Blood Pressure 114/97 H 163/118 H Pulse Oximetry 98 99 98 12/07/17 22:01 12/07/17 23:00 12/07/17 23:14 Temperature Pulse Rate 69 66 66 Respiratory Rate 34 H 38 H 54 H Blood Pressure 170/77 H 136/87 Pulse Oximetry 98 80 L 98 12/07/17 23:16 12/08/17 00:00 12/08/17 00:09 Temperature 99.1 F Pulse Rate 67 62 62 Respiratory Rate 24 30 H 21 Blood Pressure 137/64 137/64 Pulse Oximetry 96 95 12/08/17 00:31 12/08/17 01:00 12/08/17 01:12 Temperature Pulse Rate 59 L 77 68 Respiratory Rate 24 50 H 60 H Blood Pressure 145/64 H 131/82 Pulse Oximetry 98 78 L 12/08/17 01:31 12/08/17 02:00 12/08/17 02:30 Temperature Pulse Rate 66 62 62 Respiratory Rate 47 H 44 H 42 H Blood Pressure 153/83 H 162/68 H 162/75 H Pulse Oximetry 83 L 98 84 L 12/08/17 03:00 12/08/17 03:31 12/08/17 04:00 Temperature 98.9 F Pulse Rate 61 73 65 Respiratory Rate 57 H 48 H 27 H Blood Pressure 147/100 H 156/96 H 152/93 H Pulse Oximetry 82 L 99 97 12/08/17 04:31 12/08/17 04:34 12/08/17 05:00 Temperature Pulse Rate 64 72 62 Respiratory Rate 41 H 24 18 Blood Pressure 164/71 H Pulse Oximetry 98 99 12/08/17 05:01 12/08/17 05:31 12/08/17 06:00 Temperature Pulse Rate 61 70 60 Respiratory Rate 19 54 H 19 Blood Pressure 165/72 H 176/70 H 163/67 H Pulse Oximetry 99 98 98 12/08/17 06:30 12/08/17 07:00 12/08/17 07:31 Temperature Pulse Rate 64 131 H 135 H Respiratory Rate 45 H 48 H 27 H Blood Pressure 165/85 H 123/81 Pulse Oximetry 97 90 L 94 L 12/08/17 08:00 12/08/17 08:04 12/08/17 08:30 Temperature 98.1 F Pulse Rate 124 H 110 H Respiratory Rate 41 H 24 Blood Pressure 119/83 125/81 Pulse Oximetry 92 L 95 91 L 12/08/17 10:00 Temperature Pulse Rate 121 H Respiratory Rate Blood Pressure Pulse Oximetry I&O: Intake & Output 12/06/17 12/07/17 12/08/17 12/09/17 06:59 06:59 06:59 06:59 Intake Total 2152.64 / 2152.64 3082 / 3082 850 / 850 100 / 100 Output Total 2100 / 2100 2200 / 2200 5300 / 5300 Balance 52.64 / 52.64 882 / 882 -4450 / -4450 100 / 100 Weight 59.5 kg 60.5 kg 60 kg Physical Exam: CONSTITUTIONAL/GENERAL: This is an elderly, frail patient, in no apparent distress. TUBES/LINES/DRAINS: oxygen via NC, PIV left FA, Junior, SCDs. SKIN: No jaundice, rashes, or lesions. Ecchymoses on upper extremities. Skin tear with dressing on left elbow. Skin temperature appropriate. Not diaphoretic. HEAD: Atraumatic. Normocephalic. EYES: Pupils equal and round and reactive. ENT: Hearing grossly normal. Nose without bleeding or purulent drainage. Throat without visible erythema, exudates, masses, or lesions. NECK: Trachea midline. CARDIOVASCULAR: Tachycardic. Atrial fibrillation on monitor. RESPIRATORY/CHEST: Symmetric, unlabored respirations. Clear to auscultation. GASTROINTESTINAL: Abdomen soft, non-tender, nondistended. No guarding. Bowel sounds present. GENITOURINARY: Without palpable bladder distension. Junior catheter in place. MUSCULOSKELETAL: Extremities without clubbing, cyanosis, or edema. + joint swelling. No mottling or clubbing. LYMPHATICS: No palpable cervical or supraclavicular adenopathy. NEUROLOGICAL: Awake and alert. Confused. Moves all extremities. PSYCHIATRIC: No obvious anxiety/depression. no apparent hallucinations or other psychotic thought process. Diagnostic Tests Laboratory: Laboratory Results - last 72 hr 12/04/17 12/06/17 12/06/17 21:07 01:27 03:54 WBC RBC Hgb Hct MCV MCH MCHC RDW Plt Count MPV Prelim Diff (Auto) Neut % (Auto) Lymph % (Auto) [place] % (Auto) Eos % (Auto) Baso % (Auto) Neut # (Auto) Lymph # (Auto) [place] # (Auto) Eos # (Auto) Baso # (Auto) WBC Differential Seg Neuts % (Manual) Band Neuts % (Manual) Monocytes % (Manual) Abs Neuts (Manual) Differential Comment Platelet Estimate Platelet Morphology RBC Morphology Puncture Site Patient Temperature O2 Saturation ABG pH ABG pCO2 ABG pO2 ABG HCO3 ABG O2 Content ABG Base Excess ABG Methemoglobin Wilfredo Test Hemoglobin Carboxyhemoglobin O2 Delivery Device Inspired O2 Critical Value Sodium 139 Potassium 4.2 Chloride 109 H Carbon Dioxide 20.5 L Anion Gap 10 BUN 18 Creatinine 0.81 Estimated GFR 67 L POC Glucose 88 Random Glucose 93 D Calcium 8.4 L D Phosphorus 2.6 Magnesium 2.3 D Total Bilirubin AST ALT Alkaline Phosphatase Total Protein Albumin Digoxin 0.8 ANGELIQUE Screen Neg 12/06/17 12/06/17 12/06/17 03:54 12:48 20:29 WBC 26.9 H RBC 3.29 L Hgb 10.6 L Hct 31.5 L MCV 95.7 MCH 32.3 MCHC 33.7 RDW 13.8 Plt Count 359 MPV 9.3 Prelim Diff (Auto) Slide review pending Neut % (Auto) 88.8 H Lymph % (Auto) 2.7 L [place] % (Auto) 8.4 H Eos % (Auto) 0.0 Baso % (Auto) 0.1 Neut # (Auto) 23.8 H Lymph # (Auto) 0.7 L [place] # (Auto) 2.3 H Eos # (Auto) 0.0 Baso # (Auto) 0.0 WBC Differential Manual diff final Seg Neuts % (Manual) 74 H Band Neuts % (Manual) 20 H Monocytes % (Manual) 6 Abs Neuts (Manual) 25.3 H Differential Comment . Platelet Estimate Normal Platelet Morphology Normal RBC Morphology Normal Puncture Site Patient Temperature O2 Saturation ABG pH ABG pCO2 ABG pO2 ABG HCO3 ABG O2 Content ABG Base Excess ABG Methemoglobin Wilfredo Test Hemoglobin Carboxyhemoglobin O2 Delivery Device Inspired O2 Critical Value Sodium Potassium Chloride Carbon Dioxide Anion Gap BUN Creatinine Estimated GFR POC Glucose 78 59 L Random Glucose Calcium Phosphorus Magnesium Total Bilirubin AST ALT Alkaline Phosphatase Total Protein Albumin Digoxin ANGELIQUE Screen 12/06/17 12/07/17 12/07/17 20:56 04:52 06:19 WBC 22.0 H RBC 3.59 L Hgb 11.3 L Hct 34.0 L MCV 94.5 MCH 31.6 MCHC 33.4 RDW 14.0 Plt Count 456 H MPV 9.2 Prelim Diff (Auto) Neut % (Auto) 86.0 H Lymph % (Auto) 4.6 L [place] % (Auto) 9.2 H Eos % (Auto) 0.1 Baso % (Auto) 0.1 Neut # (Auto) 18.9 H Lymph # (Auto) 1.0 [place] # (Auto) 2.0 H Eos # (Auto) 0.0 Baso # (Auto) 0.0 WBC Differential . Seg Neuts % (Manual) Band Neuts % (Manual) Monocytes % (Manual) Abs Neuts (Manual) Differential Comment Auto diff final Platelet Estimate Platelet Morphology RBC Morphology Puncture Site Left radial Patient Temperature 98.6 O2 Saturation 96 ABG pH 7.40 ABG pCO2 29 L ABG pO2 123 H ABG HCO3 18 L ABG O2 Content 16.0 ABG Base Excess -6.3 L ABG Methemoglobin 1.7 Wilfredo Test Present Hemoglobin 11.7 L Carboxyhemoglobin 0.4 O2 Delivery Device Bipap12/5 Inspired O2 40 Critical Value No Sodium Potassium Chloride Carbon Dioxide Anion Gap BUN Creatinine Estimated GFR POC Glucose 101 Random Glucose Calcium Phosphorus Magnesium Total Bilirubin AST ALT Alkaline Phosphatase Total Protein Albumin Digoxin ANGELIQUE Screen 12/07/17 12/07/17 12/07/17 06:19 07:45 13:00 WBC RBC Hgb Hct MCV MCH MCHC RDW Plt Count MPV Prelim Diff (Auto) Neut % (Auto) Lymph % (Auto) [place] % (Auto) Eos % (Auto) Baso % (Auto) Neut # (Auto) Lymph # (Auto) [place] # (Auto) Eos # (Auto) Baso # (Auto) WBC Differential Seg Neuts % (Manual) Band Neuts % (Manual) Monocytes % (Manual) Abs Neuts (Manual) Differential Comment Platelet Estimate Platelet Morphology RBC Morphology Puncture Site Patient Temperature O2 Saturation ABG pH ABG pCO2 ABG pO2 ABG HCO3 ABG O2 Content ABG Base Excess ABG Methemoglobin Wilfredo Test Hemoglobin Carboxyhemoglobin O2 Delivery Device Inspired O2 Critical Value Sodium 139 Potassium 5.0 D Chloride 108 H Carbon Dioxide 22.1 Anion Gap 9 BUN 19 H Creatinine 0.79 Estimated GFR 69 L POC Glucose 149 H 92 Random Glucose 84 Calcium 8.4 L Phosphorus 3.2 Magnesium 2.1 Total Bilirubin AST ALT Alkaline Phosphatase Total Protein Albumin Digoxin ANGELIQUE Screen 12/07/17 12/07/17 12/08/17 17:40 21:39 06:19 WBC RBC Hgb Hct MCV MCH MCHC RDW Plt Count MPV Prelim Diff (Auto) Neut % (Auto) Lymph % (Auto) [place] % (Auto) Eos % (Auto) Baso % (Auto) Neut # (Auto) Lymph # (Auto) [place] # (Auto) Eos # (Auto) Baso # (Auto) WBC Differential Seg Neuts % (Manual) Band Neuts % (Manual) Monocytes % (Manual) Abs Neuts (Manual) Differential Comment Platelet Estimate Platelet Morphology RBC Morphology Puncture Site Patient Temperature O2 Saturation ABG pH ABG pCO2 ABG pO2 ABG HCO3 ABG O2 Content ABG Base Excess ABG Methemoglobin Wilfredo Test Hemoglobin Carboxyhemoglobin O2 Delivery Device Inspired O2 Critical Value Sodium 140 Potassium 4.9 Chloride 106 Carbon Dioxide 26.2 Anion Gap 8 BUN 22 H Creatinine 0.95 Estimated GFR 56 L POC Glucose 84 95 Random Glucose 77 Calcium 8.5 Phosphorus 3.1 Magnesium 1.8 Total Bilirubin 0.7 AST 34 ALT 49 Alkaline Phosphatase 131 H Total Protein 6.5 D Albumin 2.3 L Digoxin 1.0 ANGELIQUE Screen 12/08/17 12/08/17 06:19 07:27 WBC 15.1 H RBC 3.74 L Hgb 12.1 Hct 35.7 MCV 95.4 MCH 32.4 MCHC 34.0 RDW 14.1 Plt Count 487 H MPV 9.3 Prelim Diff (Auto) Neut % (Auto) 74.9 H Lymph % (Auto) 13.3 [place] % (Auto) 10.9 H Eos % (Auto) 0.5 Baso % (Auto) 0.4 Neut # (Auto) 11.3 H Lymph # (Auto) 2.0 [place] # (Auto) 1.6 H Eos # (Auto) 0.1 Baso # (Auto) 0.1 WBC Differential . Seg Neuts % (Manual) Band Neuts % (Manual) Monocytes % (Manual) Abs Neuts (Manual) Differential Comment Auto diff final Platelet Estimate Platelet Morphology RBC Morphology Puncture Site Patient Temperature O2 Saturation ABG pH ABG pCO2 ABG pO2 ABG HCO3 ABG O2 Content ABG Base Excess ABG Methemoglobin Wilfredo Test Hemoglobin Carboxyhemoglobin O2 Delivery Device Inspired O2 Critical Value Sodium Potassium Chloride Carbon Dioxide Anion Gap BUN Creatinine Estimated GFR POC Glucose 81 Random Glucose Calcium Phosphorus Magnesium Total Bilirubin AST ALT Alkaline Phosphatase Total Protein Albumin Digoxin ANGELIQUE Screen Result Diagrams: 12/08/17 06:19 12/08/17 06:19 Microbiology: Microbiology 12/02/17 13:29 Aerobic Blood Culture - Final Blood - Peripheral No growth in 5 days Anaerobic Blood Culture - Final No growth in 5 days 12/02/17 13:24 Aerobic Blood Culture - Final Blood - Peripheral No growth in 5 days Anaerobic Blood Culture - Final No growth in 5 days 12/04/17 21:20 Gram Stain - Final Sputum - Expectorated Sputum Sputum Culture - Final Heavy growth normal respiratory chiara Imaging: Hip X-Ray 11/30/17 12:52 CONCLUSION: There is no evidence of acute fracture. Lumbar Spine MRI 12/01/17 00:00 CONCLUSION: 1. Retrolisthesis of L1 on L2 and L2 on L3. Marked disc space narrowing and low -grade discogenic edema at L2-3. 2. Moderate to severe canal stenosis at the L4-5 level secondary to broad- based diffuse annular bulge and marked hypertrophy of the posterior elements. Scattered areas of neural foraminal narrowing as described above Head MRA 12/02/17 00:00 CONCLUSION: 1. Hypoplastic P1 segment on the right with a patent posterior communicating artery. 2. Some asymmetry in the middle cerebral artery size, left being larger in the region of the sylvian fissure. Neck MRA 12/02/17 00:00 CONCLUSION: 1. Short segment high-grade stenosis involving the origin of the right internal carotid artery suggesting greater than 90% stenosis. 2. No significant stenosis within the left internal carotid artery. Percent stenosis is calculated using the diameter of the stenotic region over the diameter of the normal distal internal carotid artery Head MRI 12/02/17 12:29 CONCLUSION: 1. Diffuse atrophy. No evidence of an acute stroke, mass or mass effect. There may be a small old lacunar infarct on the left. No acute subarachnoid or subdural hematoma is identified Epidural Injection 12/04/17 00:00 CONCLUSION: 1. Uncomplicated fluoroscopically guided epidural injection as above. Abdomen X-Ray 12/06/17 00:00 CONCLUSION: Nonobstructive bowel gas pattern. Chest X-Ray 12/08/17 06:00 CONCLUSION: Decreased bilateral pulmonary parenchymal opacity. Procedures: * 12/05/17 - extubated. * 12/04/17 - epidural steroid injection L4-L5. * 12/02/18 - epidural steroid injection not done due to acute dystonia. Emergently Intubated Patient/Family Conference Present at Family Conference: Spoke with son via phone. Family Conference Time: 30 Family Conference Location: Telephone Issues Discussed: * Palliative care role, purpose, approach * Additional medical, psychosocial, and spiritual history * Patients general health, functional status, and cognitive changes in the months leading up to the current hospitalization * Patient/family understanding of the current medical problems * Patient/family understanding of prognosis * Patients goals of care as best understood from advance directives and/or conversations and/or values * Current medical treatment options and benefits/burdens of those options * Likely scenarios comparing ongoing aggressive care with a transition to comfort measures only * Questions answered to the best of my ability * Palliative care contact information provided Assessment and Plan - Disease Oriented Problem List (1) Intractable low back pain (2) Unable to ambulate (3) COPD (chronic obstructive pulmonary disease) (4) Spinal stenosis, lumbar region with neurogenic claudication (5) Spondylolisthesis, lumbar region (6) Chorea (7) Dystonia (8) Carotid stenosis, right - Symptom Scale (1) Pain 0-10 Scale: Unable to quantify (2) Decreased appetite 0-10 Scale: Unable to quantify Pertinent Non-Medical Issues: Psychosocial: . Has 2 sons (Himanshu Bernardo and Matthew Bernardo). Lives with Matthew who is her primary caregiver, he is disabled. Retired registered nurse. Spiritual: [employer]ist [employer]. Legal:Patient is not capacitated to make her own health care decisions, uncertain if she will regain capacity. Has a Living will and Durable power of corporate associate attorney naming her son Matthew Bernardo as POA. Ethical issues impacting care: No known concerns at this time. Important Contacts: * Himanshu Bernardo, son: [phone] * Matthew Bernardo, son: [phone] Prognosis: Ms. Tony is an 82 year old admitted with severe back pain, spinal stenosis and radiculopathy. Patient remains in ICU, appears to be declining. Has had poor oral intake, confusion and increased weakness. Meaningful recovery limited by advanced age, medical problems and recent trajectory of decline. Code Status: No Code DNR Plan: * Patient is not capacitated to make her own health care decisions, uncertain if she will regain capacity. Has a Living will and Durable power of corporate associate attorney naming her son Matthew Bernardo as POA. * Goals: Spoke with sonMatthew via phone. He elects NO CODE. He does not want his mother to suffer anymore. He would like to meet with hospice, he is not sure will be able to meet (he has MD appts tomorrow). I advised hospice will call to set up a time to meet. She will likely require hospice care center placement for pain management. * SYMPTOMS: Pain: due to severe spinal stenosis and DDD s/p JASON. Has PRN meds available. Will monitor need. Decreased appetite: eating only bites and sips. * Palliative care number provided. * Palliative care will continue to follow to assist with further clarification of medical treatment goals as needed Appreciation Thank you for the opportunity to participate in the care of Florence Tony. Attestation Attestation: To help prompt me to consider important information that might be impacting today's encounter and assessment, information from prior notes written by myself or my colleagues may have been "brought forward" into today's note. My signature on this note, however, is an attestation that I personally performed the exam, history, and/or decision-making noted today, and, unless otherwise indicated, the interactions with patient, family, and staff as well as the review of records all occurred today. I also attest that the listed assessment and stated plan reflect my best clinical judgment today based on the combination of historical information, prior notes, and today's exam/ interactions. When time spent is documented, it refers only to time spent today by the signer, or if indicated, combined time spent today by collaborating physician/nurse practitioner.
[2017-12-08] MEDS: Sod Chloride 0.9% Inj 1,000 ML IV.CONT SCH (11:52)
[2017-12-08] MEDS: dilTIAZem 30 MG Tablet PO SCH ×4 (11:52→20:51)
[2017-12-08] MEDS: Dextrose 50% in Water 50 ML Vial IV.PUSH PRN (17:05)
[2017-12-09] MEDS: Oral Hygiene Kit OROPHARYNG SCH ×4 (00:11→18:14)
[2017-12-09] MEDS: Sod Chloride 0.9% Inj 1,000 ML IV.CONT SCH ×2 (00:11→16:14)
[2017-12-09] MEDS: Labetalol HCl Inj 100 MG/20 ML Vial IV.PUSH PRN (02:14)
[2017-12-09] MEDS: Piperacil/Tazo 4.5 GM Premix 4.5 GM/100 ML BAG IV.SIG SCH ×3 (05:31→18:13)
[2017-12-09] MEDS: Levothyroxine 50 MCG Tablet PO SCH (05:32)
[2017-12-09 05:34] LABS: Baso % (Auto) 0.2 % (0.0-2.0); Eos % (Auto) 0.3 % (0.0-4.0); Hematocrit 35.5 % (35.0-46.0); Hemoglobin 11.6 gm/dL (11.6-15.3); Lymph # (Auto) 1.8 th/mm3 (1.0-4.8); Lymph % (Auto) 11.3 % (9.0-44.0); Mean Corpuscular HGB Conc 32.7 % (32.0-36.0); Mean Corpuscular Hemoglobin 31.3 pg (27.0-34.0); Mean Corpuscular Volume 95.8 fL (80.0-100.0); Mean Platelet Volume 9.3 fL (7.0-11.0); Mono # (Auto) 1.3 th/mm3 (0.0-0.9); Mono % (Auto) 8.1 % (0.0-8.0); Neut # (Auto) 12.7 th/mm3 (1.8-7.7); Neut % (Auto) 80.1 % (16.0-70.0); Platelet Count 454 th/mm3 (150-450); Red Blood Count 3.71 mil/mm3 (4.00-5.30); Red Cell Distribution Width 13.7 % (11.6-17.2); White Blood Count 15.9 th/mm3 (4.0-11.0)
[2017-12-09 06:08] LABS: Calcium 7.7 mg/dL (8.5-10.1); Carbon Dioxide 21.9 meq/L (21.0-32.0); Magnesium 1.7 mg/dL (1.5-2.5)
[2017-12-09 06:22] LABS: Potassium 4.2 meq/L (3.5-5.1)
[2017-12-09] MEDS: HYDROmorphone PF Inj 2 MG/ML Vial IV.PUSH PRN (08:46)
[2017-12-09] MEDS: Insulin NovoLOG Aspart Correctional Sugar Inj SQ SCH ×4 (10:47→20:47)
[2017-12-09] MEDS: Heparin - SQ 10,000 UNITS/ML Vial SQ SCH ×2 (10:47→20:58)
[2017-12-09] MEDS: Chlorhexidine 0.12% Oral Kit 15 ML UDC OROPHARYNG SCH ×2 (10:47→20:47)
[2017-12-09] MEDS: Polyethylene Glycol 3350 17 GM Packet PO SCH ×2 (11:56→20:48)
[2017-12-09] MEDS: dilTIAZem 30 MG Tablet PO SCH ×3 (11:56→20:47)
[2017-12-09] MEDS: carBAMazepine 200 MG Tablet PO SCH ×2 (11:57→20:48)
[2017-12-09] MEDS: Senna/Docusate Sodium 8.6/50 MG Tablet PO SCH ×2 (11:57→20:48)
[2017-12-09] MEDS: OLANZapine 2.5 MG Tablet PO SCH (11:58)
[2017-12-09] MEDS: Carboxymethylcellulose 0.5% Opth Drops 15 ML Bottle EACH EYE SCH ×2 (16:14→20:58)
--- NOTE | 2017-12-09 18:33 | P.DS ---
Date of admission: 12/02/17 12:15 Primary care physician: Garrett Mahajan Attending physician on discharge: Jet Rivers Anticipated date of discharge: 12/09/17 Brief History from admission: Ms. Tony is a pleasant 82 y/o WF with CAD, HTN, COPD and restrictive lung disease, continued tobacco use and valvular heart disease s/p AVR in 2005 with porcine valve. Pt says that she began having severe pain in her lower back radiating to buttock bilaterally about 2 weeks ago. No reported fall/injury/lifting. No loss bowel or bladder control. She was seen in ED and given script for norco and prednisone w/out releif. CT lumbar spine in ED showed areas of mod spinal stenosis and neuroforaminal narrowing but no fractures. Pt with severe pain, unable to walk and called EMS today. She is still in alot of pain despite morphine and dilaudid. I was asked to admit her for further evaluation. DS: Diagnosis - Discharge Diagnosis (1) Dystonia Status: Acute (2) Intractable low back pain Status: Acute (3) Unable to ambulate Status: Acute (4) COPD (chronic obstructive pulmonary disease) Status: Chronic (5) CVA (cerebral vascular accident) Status: Chronic (6) S/P AVR Status: Chronic (7) Hypothyroid Status: Chronic (8) HTN (hypertension) Status: Chronic (9) Carotid stenosis, right Status: Acute DS: Summary Hospital Course: (1) Dystonia Code(s): G24.9 - Dystonia, unspecified Status: Acute Plan: - Pt is an 82 y/o F admitted d/t LBP. Pt then developed acute dystonia while undergoing JASON - Patient had not received any preceding antipsychotics or antiemetics. -There were no obvious preceding medications given that were felt to have contributed to these symptoms. - Pt required intubation & mgmt by [facility]. Pt extubated 12/06/17 - comgmt with Neurology. W/u for dystonia per Neurology service. - EEG revealed bifrontal sharp activity with moderate encephalopathy - MRI/MRA brain/neck revealed possible left lacunar infarct - continue zyprexa 2.5mg AD - continue carbamazepine 200mg BID - continue prn ativan - continue prn oxycodone and prn dilaudid - Pt appears to be in decline. Pt remains confused. Pt has poor PO intake. and pt is quite weak. Meaningful recovery will be limited by pt's advanced age and multiple medical problems. - Met with pt's son - Pt/son elect for hospice - transfer to hospice care center - see orders Carotid Stenosis, right - Pt evaluated by Vascular Surgery, Dr. Holden Atrial Fibrillation with RVR - Pt required amiodarone drip. Discontinued - current echocardiogram. EF 55% - start cardizem 30mg q6h HTN, essential - stable - losartan COPD - prn duonebs retrolisthesis L1 on L2 and L2 and L3 - comgmt with Neurosurgery, Dr. Locke - pt/family refused surgery - JASON L4/L5 (12/04/17) - Time Spent with Patient Total time spent providing and/or coordinating discharge services: Greater than 30 minutes - Quality: VTE Deep Vein Thrombosis/Pulmonary Embolism Present on Admission: No Exam Vital signs: Vital Signs 12/08/17 18:50 12/08/17 19:00 12/08/17 19:30 Temperature Pulse Rate 84 81 83 Respiratory Rate 31 H 37 H 43 H Blood Pressure 144/76 H 147/101 H 146/73 H Pulse Oximetry 98 96 91 L 12/08/17 19:51 12/08/17 20:00 12/08/17 20:30 Temperature 97.8 F Pulse Rate 86 97 H 84 Respiratory Rate 22 37 H 23 Blood Pressure 152/74 H 141/70 H Pulse Oximetry 100 89 L 95 12/08/17 21:00 12/08/17 21:30 12/08/17 22:00 Temperature Pulse Rate 84 88 107 H Respiratory Rate 12 21 22 Blood Pressure 148/78 H 158/79 H 173/92 H Pulse Oximetry 95 96 94 L 12/08/17 22:30 12/08/17 23:00 12/08/17 23:30 Temperature Pulse Rate 87 93 H 85 Respiratory Rate 24 23 24 Blood Pressure 143/69 H 160/77 H 180/87 H Pulse Oximetry 95 97 98 12/08/17 23:44 12/08/17 23:46 12/09/17 00:00 Temperature 98.0 F Pulse Rate 98 H 92 H 105 H Respiratory Rate 22 24 25 H Blood Pressure 184/84 H 209/91 H Pulse Oximetry 99 97 12/09/17 00:09 12/09/17 00:30 12/09/17 01:00 Temperature Pulse Rate 107 H 120 H 90 Respiratory Rate 28 H 36 H 20 Blood Pressure 132/74 136/99 H 145/89 H Pulse Oximetry 98 90 L 99 12/09/17 01:30 12/09/17 02:00 12/09/17 02:08 Temperature Pulse Rate 86 90 110 H Respiratory Rate 20 25 H 23 Blood Pressure 149/70 H 187/89 H Pulse Oximetry 99 98 97 12/09/17 02:12 12/09/17 02:30 12/09/17 02:45 Temperature Pulse Rate 104 H 85 84 Respiratory Rate 23 23 22 Blood Pressure 191/94 H 162/79 H 170/81 H Pulse Oximetry 98 98 99 12/09/17 03:00 12/09/17 03:15 12/09/17 03:17 Temperature Pulse Rate 84 91 H 89 Respiratory Rate 29 H 24 24 Blood Pressure 173/88 H 193/92 H 185/88 H Pulse Oximetry 98 99 99 12/09/17 03:30 12/09/17 03:40 12/09/17 03:55 Temperature Pulse Rate 88 76 75 Respiratory Rate 22 26 H 20 Blood Pressure 182/87 H 124/64 Pulse Oximetry 99 99 12/09/17 04:00 12/09/17 04:04 12/09/17 04:06 Temperature 96.9 F L Pulse Rate 78 80 79 Respiratory Rate 22 23 22 Blood Pressure 190/84 H 197/92 H 189/81 H Pulse Oximetry 99 98 99 12/09/17 05:57 12/09/17 06:00 12/09/17 06:20 Temperature Pulse Rate 98 H 106 H Respiratory Rate 24 26 H Blood Pressure 161/101 H 165/101 H 165/58 H Pulse Oximetry 98 90 L 12/09/17 06:40 12/09/17 07:00 12/09/17 07:20 Temperature Pulse Rate 95 H 91 H 91 H Respiratory Rate 25 H 23 23 Blood Pressure 159/86 H 180/86 H 160/78 H Pulse Oximetry 97 99 98 12/09/17 07:37 12/09/17 07:40 12/09/17 08:00 Temperature 95.7 F L Pulse Rate 97 H 99 H 141 H Respiratory Rate 22 23 23 Blood Pressure 170/71 H Pulse Oximetry 95 95 91 L 12/09/17 08:01 12/09/17 08:21 12/09/17 08:40 Temperature Pulse Rate 125 H 66 62 Respiratory Rate 23 29 H 26 H Blood Pressure 128/58 L 132/60 119/58 L Pulse Oximetry 86 L 83 L 98 12/09/17 09:00 12/09/17 09:20 12/09/17 09:40 Temperature Pulse Rate 59 L 59 L 59 L Respiratory Rate 17 16 17 Blood Pressure 128/59 L 134/63 100/54 L Pulse Oximetry 98 99 95 12/09/17 10:00 12/09/17 10:20 12/09/17 10:40 Temperature Pulse Rate 56 L 64 57 L Respiratory Rate 14 16 14 Blood Pressure 105/53 L 119/60 131/60 Pulse Oximetry 99 96 97 12/09/17 11:00 12/09/17 11:21 12/09/17 11:22 Temperature Pulse Rate 54 L 54 L 56 L Respiratory Rate 14 14 14 Blood Pressure 128/61 129/57 L Pulse Oximetry 93 L 92 L 12/09/17 11:40 12/09/17 12:00 12/09/17 12:20 Temperature Pulse Rate 62 69 70 Respiratory Rate 15 16 16 Blood Pressure 149/64 H 156/63 H 151/67 H Pulse Oximetry 93 L 88 L 90 L 12/09/17 12:40 12/09/17 13:00 12/09/17 13:20 Temperature Pulse Rate 71 70 69 Respiratory Rate 17 17 17 Blood Pressure 158/69 H 141/64 H 134/60 Pulse Oximetry 92 L 93 L 94 L 12/09/17 13:32 12/09/17 13:40 12/09/17 14:00 Temperature Pulse Rate 69 67 71 Respiratory Rate 18 29 H Blood Pressure 140/64 148/63 H Pulse Oximetry 95 97 12/09/17 14:20 12/09/17 14:40 12/09/17 15:00 Temperature Pulse Rate 71 75 74 Respiratory Rate 26 H 30 H 31 H Blood Pressure 142/62 H 139/63 144/65 H Pulse Oximetry 98 97 98 12/09/17 15:20 12/09/17 15:40 12/09/17 16:00 Temperature 97.5 F L Pulse Rate 72 71 68 Respiratory Rate 36 H 21 27 H Blood Pressure 138/60 122/56 L 137/61 Pulse Oximetry 98 100 99 12/09/17 16:20 12/09/17 16:40 12/09/17 17:00 Temperature Pulse Rate 75 75 73 Respiratory Rate 21 22 21 Blood Pressure 151/68 H 156/68 H 140/59 L Pulse Oximetry 100 97 97 12/09/17 17:20 12/09/17 17:40 12/09/17 18:00 Temperature Pulse Rate 69 74 73 Respiratory Rate 21 21 27 H Blood Pressure 145/62 H 139/61 134/69 Pulse Oximetry 97 97 96 Intake & Output 12/08/17 12/09/17 12/09/17 18:59 06:59 18:59 Intake Total 1300 / 1300 1200 / 1200 1100 / 1100 Output Total 650 / 650 550 / 550 400 / 400 Balance 650 / 650 650 / 650 700 / 700 Weight 57 kg Intake: IV 1300 / 1300 1200 / 1200 1100 / 1100 NS Inj 1,000 ML @ 84 mls/hr IV. 1000 / 1000 1000 / 1000 1000 / 1000 CONT .[id number] LOVELY Rx#:[id number] Zosyn 4.5 GM Premix 4.5 gm In 300 / 300 200 / 200 100 / 100 100 ml @ 200 mls/hr IV.SIG Q6H LOVELY Rx#:[id number] Oral 0 / 0 0 / 0 Other 0 / 0 Output: Urine 0 / 0 Stool 0 / 0 Urine Amount (Catheter) 650 / 650 550 / 550 400 / 400 Indwelling Urethral Catheter 650 / 650 550 / 550 400 / 400 Gastric Drainage 0 / 0 Orogastric Tube 0 / 0 Other: # Voids 2 Date of Last Bowel Movement 12/06/17 12/06/17 12/06/17 # Bowel Movements 0 0 Narrative: GENERAL: This is a well-nourished, well-developed patient, in no apparent distress. CARDIOVASCULAR: Regular rate and rhythm without murmurs, gallops, or rubs. RESPIRATORY: Clear to auscultation. Breath sounds equal bilaterally. No wheezes , rales, or rhonchi. GASTROINTESTINAL: Abdomen soft, non-tender, nondistended. Normal active bowel sounds MUSCULOSKELETAL: Extremities without clubbing, cyanosis, or edema. NEURO: Alert & Oriented x3 but confused at times, LOAIZA Results Procedures completed during hospitalization: n/a Labs on day of discharge: Labs from last 24 hours 12/09/17 12/09/17 12/09/17 18:13 11:26 04:39 WBC RBC Hgb Hct MCV MCH MCHC RDW Plt Count MPV Neut % (Auto) Lymph % (Auto) [place] % (Auto) Eos % (Auto) Baso % (Auto) Neut # (Auto) Lymph # (Auto) [place] # (Auto) Eos # (Auto) Baso # (Auto) WBC Differential Differential Comment Sodium 139 Potassium 4.2 Chloride 107 Carbon Dioxide 21.9 Anion Gap 10 BUN 24 H Creatinine 0.65 Estimated GFR 87 L POC Glucose 105 166 H Random Glucose 151 H Calcium 7.7 L D Magnesium 1.7 Ceruloplasmin 12/09/17 12/09/17 12/08/17 04:39 03:35 20:12 WBC 15.9 H RBC 3.71 L Hgb 11.6 Hct 35.5 MCV 95.8 MCH 31.3 MCHC 32.7 RDW 13.7 Plt Count 454 H MPV 9.3 Neut % (Auto) 80.1 H Lymph % (Auto) 11.3 [place] % (Auto) 8.1 H Eos % (Auto) 0.3 Baso % (Auto) 0.2 Neut # (Auto) 12.7 H Lymph # (Auto) 1.8 [place] # (Auto) 1.3 H Eos # (Auto) 0.0 Baso # (Auto) 0.0 WBC Differential . Differential Comment Auto diff final Sodium Potassium Chloride Carbon Dioxide Anion Gap BUN Creatinine Estimated GFR POC Glucose 166 H 152 H Random Glucose Calcium Magnesium Ceruloplasmin 12/04/17 21:07 WBC RBC Hgb Hct MCV MCH MCHC RDW Plt Count MPV Neut % (Auto) Lymph % (Auto) [place] % (Auto) Eos % (Auto) Baso % (Auto) Neut # (Auto) Lymph # (Auto) [place] # (Auto) Eos # (Auto) Baso # (Auto) WBC Differential Differential Comment Sodium Potassium Chloride Carbon Dioxide Anion Gap BUN Creatinine Estimated GFR POC Glucose Random Glucose Calcium Magnesium Ceruloplasmin 40 - Impressions ITS Impressions Hip X-Ray 11/30/17 12:52 CONCLUSION: There is no evidence of acute fracture. Lumbar Spine MRI 12/01/17 00:00 CONCLUSION: 1. Retrolisthesis of L1 on L2 and L2 on L3. Marked disc space narrowing and low -grade discogenic edema at L2-3. 2. Moderate to severe canal stenosis at the L4-5 level secondary to broad- based diffuse annular bulge and marked hypertrophy of the posterior elements. Scattered areas of neural foraminal narrowing as described above Head MRA 12/02/17 00:00 CONCLUSION: 1. Hypoplastic P1 segment on the right with a patent posterior communicating artery. 2. Some asymmetry in the middle cerebral artery size, left being larger in the region of the sylvian fissure. Neck MRA 12/02/17 00:00 CONCLUSION: 1. Short segment high-grade stenosis involving the origin of the right internal carotid artery suggesting greater than 90% stenosis. 2. No significant stenosis within the left internal carotid artery. Percent stenosis is calculated using the diameter of the stenotic region over the diameter of the normal distal internal carotid artery Head MRI 12/02/17 12:29 CONCLUSION: 1. Diffuse atrophy. No evidence of an acute stroke, mass or mass effect. There may be a small old lacunar infarct on the left. No acute subarachnoid or subdural hematoma is identified Epidural Injection 12/04/17 00:00 CONCLUSION: 1. Uncomplicated fluoroscopically guided epidural injection as above. Abdomen X-Ray 12/06/17 00:00 CONCLUSION: Nonobstructive bowel gas pattern. Chest X-Ray 12/08/17 06:00 CONCLUSION: Decreased bilateral pulmonary parenchymal opacity. Discharge Plan - Discharge Disposition Patient Disposition: [facility] Hospice/Med Facility - Discharge Condition Condition: Stable - Discharge Order Discharge Orders: Discharge Order (Routine); Ordered 12/09/17 Ordered By: Jet Rivers - Discharge Details Anticipated Discharge Date: 12/09/17 - Physicians Team Primary Care Provider: Garrett Mahajan Attending Provider: Jet Rivers Other Providers: León Locke MD ; Nancy Stevens ; Jimmy Smith MD, PhD ; Danii Holden MD ; Jet Rivers, DO ; Nicole Camacho MD
[2017-12-09 20:25] VITALS: BP 155/68; PULSE 77; RESP 21; TEMP 98; O2SAT 98
== END 2017-12-09 22:10 | disposition hospice, inpatient (51) ==
LOC: NEDA 12:14 → NEPD 12:14 → NEPGCP 18:45 → HIMC 12-02 12:23
PROVIDERS: ADMIT Hospitalist; ATTEND Hospitalist